=== PATIENT | male | born 1935 | race Caucasian/White ===

== ENCOUNTER 2017-02-10 03:14 | Inpatient (IN) | payer OTHER ==
--- NOTE | 2017-02-10 03:20 | PDOC ---
History of Present Illness - General History Source: Family (daughter) Exam Limitations: Clinical Condition - History of Present Illness Initial Comments: 02/10/17 05:02 The patient is a 81 year old male with significant past medical history of hypertension, hyperlipidemia, CHF, CAD, s/p stent several years ago, parkinson, and colon cancer (s/p chemotherapy and surgery) who presents to the ED BIBA from home for fever, diaphoresis, and chills. As per daughter, at bedside, she was at home when she received a call from her mother (patients ) and was informed that the patient was shaking with the chills. Daughter went to patient s house and noted patient was diaphoretic. She reports a fever tmax of 39.5 C. Daughter also states patient has not had a bowel movement in 4 days. Family gave him an enema earlier today and patient was able to pass stool. Denies cough , SOB, vomiting, or any urinary complaints. Allergies: NKDA Social History: No alcohol, tobacco, or drug use reported. Past Surgical History: Colectomy, prostate surgery, PCI with stent, inguinal hernia repair, R hip replacement PCP: Dr. Nicholas Putnam <Paola Haque - Last Filed: 02/10/17 06:13> <Silke Maya - Last Filed: 02/10/17 20:43> - General Stated Complaint: FEVER/HIGH BLOOD PRESSURE Time Seen by Provider: 02/10/17 03:19 Past History <Paola Haque - Last Filed: 02/10/17 06:13> - Past Medical History Anemia: No Asthma: No Cancer: Yes (colon CA) Cardiac Disorders: Yes (hx RI c stent x 15 years ago) CVA: No COPD: No CHF: Yes Dementia: Yes Diabetes: No GI Disorders: Yes (H/O COLON CA) Disorders: No HTN: Yes Hypercholesterolemia: Yes Liver Disease: No Seizures: No Thyroid Disease: Yes (HYPOTHYROID) Lung CA: Yes (colon x 15 years) - Surgical History Abdominal Surgery: Yes (ABD HERNIA REPAIR 4 WEEKS AGO) Appendectomy: No Cardiac Surgery: Yes (stent x 15 years ago) Cholecystectomy: No Lung Surgery: No Neurologic Surgery: No Orthopedic Surgery: Yes (Right hip replacement) - Psycho/Social/Smoking Cessation Hx Anxiety: No Suicidal Ideation: No Smoking History: Unknown if ever smoked Have you smoked in the past 12 months: No If you are a former smoker, when did you quit?: 50YRS AGO Hx Alcohol Use: Yes (OCCAS) Drug/Substance Use Hx: No Substance Use Type: Alcohol <Silke Maya - Last Filed: 02/10/17 20:43> - Past Medical History Allergies/Adverse Reactions: Allergies Allergy/AdvReac Type Severity Reaction Status Date / Time No Known Drug Allergies Allergy Verified 02/10/17 05:26 Home Medications: Ambulatory Orders Carbidopa/Levodopa *Cr* 25/100 [Sinemet *Cr* 25/100 -] 1 combo PO TID@0700,1200, 1700 tablet.er 07/14/15 Rosuvastatin [Crestor -] 10 mg PO HS tablet 07/14/15 Polyethylene Glycol 3350 [Miralax (For Bowel Prep) -] 17 gm PO BID 02/10/17 Review of Systems - Review of Systems Able to Perform ROS?: No Comments:: 02/10/17 05:03 Unable to obtain secondary to clinical condition <Paola Haque - Last Filed: 02/10/17 06:13> *Physical Exam - Vital Signs Last Vital Signs Temp Pulse Resp BP Pulse Ox 103.8 F H 94 H 20 116/55 95 02/10/17 04:02 02/10/17 04:02 02/10/17 04:02 02/10/17 04:02 02/10/17 04:02 - Physical Exam Comments: 02/10/17 05:03 GENERAL: Febrile. Well developed, well nourished. No acute distress. HEENT: Normocephalic, atraumatic. PERRLA, EOMI. No conjunctival pallor. Sclera are non- icteric. Moist mucous membranes. Oropharynx is clear. NECK: Supple. Full ROM. No JVD. Carotid pulses 2+ and symmetric, without bruits. No thyromegaly. No lymphadenopathy. CARDIOVASCULAR: Regular rate and rhythm. No murmurs, rubs, or gallops. Distal pulses are 2+ and symmetric. PULMONARY: No evidence of respiratory distress. Lungs clear to auscultation bilaterally. No wheezing, rales or rhonchi. ABDOMINAL: Soft. Diffusely tender. Non-distended. No rebound or guarding. No organomegaly. Increased bowel sounds throughout. MUSCULOSKELETAL No bony deformities or tenderness. No CVA tenderness. EXTREMITIES: No cyanosis. No clubbing. No edema. No calf tenderness. SKIN: Warm and dry. Normal capillary refill. Slight petechial rash limited to dorsal aspect of left foot. No jaundice. NEUROLOGICAL: AMS as per daughter. Total body stiffness secondary to Parkinson. <Paola Haque - Last Filed: 02/10/17 06:13> ED Treatment Course - LABORATORY CBC & Chemistry Diagram: 02/10/17 04:00 02/10/17 04:00 - ADDITIONAL ORDERS Additional order review: Laboratory Results 02/10/17 02/10/17 04:25 04:00 INR 1.15 H Urine Color Yellow Urine Appearance Slcloudy Urine pH 6.0 Urine Protein 1+ H Urine Glucose (UA) Negative Urine Ketones Trace H Urine Blood 2+ H Urine Nitrite Positive Urine Bilirubin Negative Urine Urobilinogen Negative Ur Leukocyte Esterase 3+ H Urine RBC 36 Urine WBC 228 Ur Epithelial Cells Rare Urine Bacteria Moderate Urine Mucus Rare Urine Yeast Moderate 02/10/17 04:00 RBC 4.06 MCV 88.9 MCHC 33.1 RDW 15.0 MPV 8.7 Neutrophils % 95.4 H Lymphocytes % 2.9 L D Monocytes % 1.2 L D Eosinophils % 0.3 D Basophils % 0.2 - RADIOLOGY Radiograph Interpretation: 02/10/17 06:13 EXAM: HEAD CT WITHOUT CONTRAST Reviewed by Imaging low emission automobile designer: FINDINGS:Brain parenchyma is normal in attenuation with no mass or hematoma. There is no midline shift. Hewitt and white matter differentiation is normal. There is a small amount of periventricular lucency in the white matter. Sulci and ventricles are mildly prominent Intracranial vascular structures are normal in attenuation. There is no calvarial fracture. Paranasal sinuses are normally aerated. IMPRESSION: Chronic appearing involutional changes of aging. No intracranial mass or bleed - Medications Given in the ED: ED Medications Discontinued Medications Generic Name Dose Route Start Last Admin Trade Name Freq PRN Reason Stop Dose Admin Acetaminophen 1,000 mg 02/10/17 03:55 02/10/17 04:00 Ofirmev Injection - IVPB 02/10/17 03:56 1,000 mg ONCE ONE Administration Levofloxacin 100 mls @ 100 mls/hr 02/10/17 03:22 02/10/17 04:00 Levaquin 500 Mg Premixed Ivpb - IVPB 02/10/17 04:21 100 mls/hr ONCE ONE Administration Piperacillin Sod/Tazobactam 50 mls @ 100 mls/hr 02/10/17 03:55 02/10/17 04:00 Sod 3.375 gm/ Dextrose IVPB 02/10/17 04:24 100 mls/hr ONCE ONE Administration Protocol Sodium Chloride 1,000 ml 02/10/17 03:22 02/10/17 04:00 Normal Saline - IV 02/10/17 03:23 1,000 ml ONCE ONE Administration <Paola Haque - Last Filed: 02/10/17 06:13> - LABORATORY CBC & Chemistry Diagram: 02/10/17 04:00 02/10/17 04:00 <Silke Maya - Last Filed: 02/10/17 20:43> Medical Decision Making - Medical Decision Making 02/10/17 05:[address] Nicholas Putnam (via answering service) at 5:08 and patient's case discussed. <Paola Haque - Last Filed: 02/10/17 06:13> - Medical Decision Making 02/10/17 06:19 Patient Name: Alvin Haynes THIS IS A PRELIMINARY REPORT FROM [facility] DATE OF SERVICE: 2017-02-10 05:20:17.0 IMAGES: 434 EXAM: HEAD CT WITHOUT CONTRAST HISTORY:Altered mental status COMPARISON: None. TECHNIQUE: CT Head with serial axial images extending from the vertex to the base of skull was performed without vascular contrast. FINDINGS:Brain parenchyma is normal in attenuation with no mass or hematoma. There is no midline shift. Hewitt and white matter differentiation is normal. There is a small amount of periventricular lucency in the white matter. Sulci and ventricles are mildly prominent Intracranial vascular structures are normal in attenuation. There is no calvarial fracture. Paranasal sinuses are normally aerated. IMPRESSION: Chronic appearing involutional changes of aging. No intracranial mass or bleed THIS DOCUMENT HAS BEEN ELECTRONICALLY SIGNED 02/10/17 20:39 Pt arrives septic and confused. His body is stiff, but it is secondary to not having his sinemet. Pt has a hx of Parkinson's Disease. He has UTI, with nitrite positive urine. His AMS is likely due to the 4-5 days of infection brewing in his body; head CT is normal. CXR normal, same as old; no sign of pneumonia. Pt is very dry; mucus menbranes dry; he was given 2 L NSS, some urine output. Clears with fluid. Abd CT was ordered, as pt has a hx of colon ca, resection, and 4 days of constipation -- relieved prior to arrival with multiple enemas that allowed him to move his bowels. Pt may have a colitis. After panculturing the patient, we treated with levaquin and zosyn. Dr Putnam is aware of the patient, and as I left the ER this AM, he was at the bedside evaluating the patient. <Silke Maya - Last Filed: 02/10/17 20:43> *DC/Admit/Observation/Transfer - Attestations Scribe Attestion: 02/10/17 05:03 Documentation prepared by Paola Haque, acting as medical scientist for Silke Maya MD/DO. <Paola Haque - Last Filed: 02/10/17 06:13> - Discharge Dispostion Admit: Yes <Silke Maya - Last Filed: 02/10/17 20:43> Diagnosis at time of Disposition: UTI (lower urinary tract infection) Sepsis Qualifiers: Sepsis type: sepsis due to unspecified organism Qualified Code(s): A41.9 - Sepsis, unspecified organism Altered mental status Qualifiers: Altered mental status type: delirium Qualified Code(s): R41.0 - Disorientation , unspecified - Referrals
[2017-02-10] MEDS ORDERED: LEVOFLOXACIN 500 MG IVPB 100 ML IVPB ONE ×2 (03:22→04:13)
[2017-02-10] MEDS ORDERED: SODIUM CHLORIDE 0.9% 500 ML INFUS.BAG IV ONE ×2 (03:22→04:56)
[2017-02-10] MEDS ORDERED: ACETAMINOPHEN 1000 MG/100 ML VIAL (NON FORMULARY) IVPB ONE (03:55)
[2017-02-10] MEDS ORDERED: PIPERACILLIN/TAZOB 3.375 GM 3.375 GM in DEXTROSE 5%-WATER - 50 ML IVPB ONE (03:55)
[2017-02-10] MEDS ORDERED: ACETAMINOPHEN INJECTION 100 ML IVPB ONE (04:12)
[2017-02-10] MEDS ORDERED: PIPERACILLIN/TAZOB 3.375 GM 50 ML IVPB ONE (04:13)
[2017-02-10 04:20] LABS: BASOPHIL 0.2 % (0-2.0); EOSINOPHIL 0.3 % (0-4.5); MCH 29.4 pg (25.7-33.7); MCHC 33.1 g/dl (32.0-35.9); MEAN CELL VOLUME 88.9 fl (80-96); MEAN PLT VOLUME 8.7 fl (7.5-11.1); NEUTROPHILS 95.4 % (42.8-82.8); PLATELET COUNT 189 K/MM3 (134-434); WHITE BLOOD COUNT 10.3 K/mm3 (4.0-10.0)
[2017-02-10 04:34] LABS: INR 1.15 (0.82-1.09); PROTHROMBIN TIME (PATIENT) 12.7 SEC (9.98-11.88)
[2017-02-10 04:37] LABS: URINE APPEARANCE SLCLOUDY; URINE BILIRUBIN NEGATIVE (NEGATIVE); URINE COLOR YELLOW; URINE GLUCOSE (UA) NEGATIVE (NEGATIVE); URINE KETONE TRACE (NEGATIVE); URINE NITRITE POSITIVE (NEGATIVE); URINE UROBILINOGEN NEGATIVE E.U./dl (0.2-1.0)
[2017-02-10 04:59] LABS: URINE BLOOD 2+ (NEGATIVE); URINE LEUK ESTERASE 3+ (NEGATIVE); URINE PROTEIN 1+ (NEGATIVE)
[2017-02-10 05:01] LABS: URINE BACTERIA MODERATE /hpf (NONE SEEN); URINE MUCUS RARE; URINE RBC 36 /hpf (0-3); URINE WBC 228 /hpf (3-5); YEAST MODERATE
[2017-02-10 05:04] LABS: ALBUMIN 3.6 g/dl (3.4-5.0); BILIRUBIN,TOTAL 0.5 mg/dL (0.2-1.0); CALCIUM 8.4 mg/dL (8.5-10.1); COCKROFT - GAULT 35.9; CREATININE 1.5 mg/dL (0.7-1.3); TOT PROT 6.8 g/dl (6.4-8.2)
[2017-02-10] MEDS ORDERED: CARBIDOPA/LEVODOPA 25/100 TABLET (FP) ONE (05:46)
[2017-02-10] MEDS ORDERED: IBUPROFEN 600 MG TABLET (FP) PO ONE (06:52)
[2017-02-10] MEDS ORDERED: BISACODYL 10 MG SUPP.RECT RC PRN (07:19)
--- NOTE | 2017-02-10 07:22 | HP ---
Admitting History and Physical - Admission Chief Complaint: 81 y.o vanna Sood with advanced Parkinson's disease was admitted to [facility] with high fevers, mental status change and no BM for 5 days despite oral Miralax. In ER 103.8F, UA-many WBC, cloudy-pt was admitted for further management History of Present Illness: COLON ca s/p sx, chemo. Parkinson disease. Autonomic dysfunction. ASHD. BPH. HTN Glaucoma History Source: Family Member - Past Medical History GLASS TUBE BENDER: Yes: Peripheral Neuropathy, Parkinson's, Syncope Cardiovascular: Yes: OK Pulmonary: Yes: COPD Gastrointestinal: Yes: Cancer (colon) Renal/: Yes: BPH Heme/Onc: Yes: Cancer (Colon). No: Current Chemotherapy, Current Radiation Therapy, Hemochromatosis, Hypercoaguable State, Sickle Cell Trait Psych: Yes: Depression Musculoskeletal: Yes: Osteoarthritis - Past Surgical History Past Surgical History: Yes: Colectomy, Joint Replacement (R THR) - Smoking History Smoking history: Unknown if ever smoked Have you smoked in the past 12 months: No If you are a former smoker, when did you quit?: 50YRS AGO - Alcohol/Substance Use Hx Alcohol Use: Yes (OCCAS) - Social History Usual Living Arrangement: Yes: With Spouse, With Child ADL: Family Assistance Occupation: originally from [place] [facility] [place] years History of Recent Travel: No Home Medications - Allergies Allergies/Adverse Reactions: Allergies Allergy/AdvReac Type Severity Reaction Status Date / Time No Known Drug Allergies Allergy Verified 02/10/17 05:26 - Home Medications Home Medications: Ambulatory Orders Carbidopa/Levodopa *Cr* 25/100 [Sinemet *Cr* 25/100 -] 1 combo PO TID@0700,1200, 1700 tablet.er 07/14/15 Rosuvastatin [Crestor -] 10 mg PO HS tablet 07/14/15 Polyethylene Glycol 3350 [Miralax (For Bowel Prep) -] 17 gm PO BID 02/10/17 Family Disease History - Family Disease History Family History: Unremarkable Review of Systems Unable to obtain ROS, reason: Toxic-metabolic encephalo Physical Examination Vital Signs: Vital Signs Temperature 99.8 F H 02/10/17 06:54 Pulse Rate 104 H 02/10/17 06:54 Respiratory Rate 23 02/10/17 06:54 Blood Pressure 113/61 02/10/17 06:54 O2 Sat by Pulse Oximetry (%) 96 02/10/17 06:54 Constitutional: Yes: Moderate Distress, Pallor, Thin Eyes: Yes: Conjunctiva Clear, PERRL. No: Sclera Icterus, Tearing HENT: Yes: Atraumatic, Normocephalic Neck: Yes: Supple, Trachea Midline. No: Lymphadenopathy, Tenderness Cardiovascular: Yes: Regular Rate and Rhythm. No: Bradycardia, Tachycardia, JVD , Gallop Respiratory: Yes: Regular, CTA Bilaterally, On Nasal O2. No: Accessory Muscle Use, Bradypnea, Jose Guadalupe-Begum, Mechanically Ventilated, Stridor, Tachypnea, Wheezes Gastrointestinal: Yes: Normal Bowel Sounds, Soft, Other (Midline scar post colectomy). No: Abdomen, Obese, Palpable Mass, Splenomegaly, Tenderness, Tenderness, Epigastrium, Vomiting ...Rectal Exam: Yes: Sphincter Tone Poor, Other (small amount of yellow soft stool). No: Mass Renal/: No: Anuria, Bladder Distention, CVA Tenderness - Left, CVA Tenderness - Right Musculoskeletal: Yes: Joint Stiffness Edema: No Peripheral Pulses WNL: Yes Integumentary: Yes: WNL Neurological: Yes: Alert (Arousable), Tremors. No: Oriented, Seizure Psychiatric: Yes: Alert. No: Oriented, Agitated, Suicidal Ideation Labs: Laboratory Results - last 24 hr 02/10/17 02/10/17 02/10/17 04:00 04:00 04:00 WBC 10.3 H D RBC 4.06 Hgb 11.9 D Hct 36.1 MCV 88.9 MCHC 33.1 RDW 15.0 Plt Count 189 MPV 8.7 Neutrophils % 95.4 H Lymphocytes % 2.9 L D Monocytes % 1.2 L D Eosinophils % 0.3 D Basophils % 0.2 INR 1.15 H Sodium 142 Potassium 4.2 Chloride 107 Carbon Dioxide 26 Anion Gap 9 BUN 26 H D Creatinine 1.5 H D Creat Clearance w eGFR 44.69 Random Glucose 102 Lactic Acid Calcium 8.4 L Total Bilirubin 0.5 D AST 16 ALT 15 D Alkaline Phosphatase 83 Total Protein 6.8 Albumin 3.6 Urine Color Urine Appearance Urine pH Urine Protein Urine Glucose (UA) Urine Ketones Urine Blood Urine Nitrite Urine Bilirubin Urine Urobilinogen Ur Leukocyte Esterase Urine RBC Urine WBC Ur Epithelial Cells Urine Bacteria Urine Mucus Urine Yeast 02/10/17 02/10/17 04:00 04:25 WBC RBC Hgb Hct MCV MCHC RDW Plt Count MPV Neutrophils % Lymphocytes % Monocytes % Eosinophils % Basophils % INR Sodium Potassium Chloride Carbon Dioxide Anion Gap BUN Creatinine Creat Clearance w eGFR Random Glucose Lactic Acid 1.3 Calcium Total Bilirubin AST ALT Alkaline Phosphatase Total Protein Albumin Urine Color Yellow Urine Appearance Slcloudy Urine pH 6.0 Urine Protein 1+ H Urine Glucose (UA) Negative Urine Ketones Trace H Urine Blood 2+ H Urine Nitrite Positive Urine Bilirubin Negative Urine Urobilinogen Negative Ur Leukocyte Esterase 3+ H Urine RBC 36 Urine WBC 228 Ur Epithelial Cells Rare Urine Bacteria Moderate Urine Mucus Rare Urine Yeast Moderate Imaging - Results X-ray: Report Reviewed Cat Scan: Pending Problem List - Problems (1) Altered mental status Assessment/Plan: Toxic-metabolic encephalopathy. Will treat sepsis, UTI Code(s): R41.82 - ALTERED MENTAL STATUS, UNSPECIFIED Qualifiers: Altered mental status type: delirium Qualified Code(s): R41.0 - Disorientation, unspecified (2) Sepsis Assessment/Plan: Blood Cx-P UA cx-P IV Abx-Ceftiaxone/Levaquin Will follow Cx Code(s): A41.9 - SEPSIS, UNSPECIFIED ORGANISM Qualifiers: Sepsis type: sepsis due to unspecified organism Qualified Code(s): A41.9 - Sepsis, unspecified organism (3) UTI (lower urinary tract infection) Assessment/Plan: Probably due to episode of prolonged constipation, possibly urinary retention due to BPH and neurogenic bladder due to Parkinson's IV ABX, will follow UA Code(s): N39.0 - URINARY TRACT INFECTION, SITE NOT SPECIFIED (4) Constipation Assessment/Plan: Restart Miralax, Dulcolax, MOM. No impaction in rectum on exam. Code(s): K59.00 - CONSTIPATION, UNSPECIFIED Qualifiers: Constipation type: slow transit constipation Qualified Code(s): K59.01 - Slow transit constipation (5) Acute renal insufficiency Assessment/Plan: DEACON due to obstructive uropathy. White in place. Will follow BUN/Cr. Code(s): N28.9 - DISORDER OF KIDNEY AND URETER, UNSPECIFIED
[2017-02-10] MEDS: D5-1/2NS+20 MEQ KCL - 1,000 ML IV SCH ×2 (07:28→20:17)
[2017-02-10] MEDS ORDERED: SODIUM CHLORIDE 0.9% 1000 ML INFUS.BAG IV ONE (07:35)
--- NOTE | 2017-02-10 09:16 | EKG ---
Test Reason : Blood Pressure : / mmHG Vent. Rate : 089 BPM Atrial Rate : 089 BPM P-R Int : 184 ms QRS Dur : 076 ms QT Int : 362 ms P-R-T Axes : 072 -16 067 degrees QTc Int : 440 ms SINUS RHYTHM WITH PREMATURE ATRIAL COMPLEXES WHEN COMPARED WITH ECG OF 07-JUL-2015 15:05, PREMATURE ATRIAL COMPLEXES ARE NOW PRESENT NON-SPECIFIC CHANGE IN ST SEGMENT IN LATERAL LEADS Confirmed by ARTUR WATSON MD ([id number]) on 02/10/2017 9:15:50 AM Referred By: Confirmed By:ARTUR WATSON MD
[2017-02-10 09:23] VITALS: BMI 21.9
[2017-02-10] MEDS: CEFTRIAXONE 50 ML IVPB SCH (10:08)
[2017-02-10] MEDS: POLYETHYLENE GLYCOL 3350 119 GM BTL PO SCH ×2 (10:08→21:35)
[2017-02-10] MEDS: MAGNESIUM HYDROX 2400MG/30ML ORAL SUSPENSION 30 ML CUP PO SCH (10:08)
[2017-02-10] MEDS ORDERED: PEG3350/SOD SULF,BICARB,CL/KCL 4,000 ML SOLN.RECON PO ONE (21:49)
[2017-02-11] MEDS: D5-1/2NS+20 MEQ KCL - 1,000 ML IV SCH ×2 (06:01→17:05)
[2017-02-11 07:53] LABS: BASOPHIL 0.2 % (0-2.0); EOSINOPHIL 0.6 % (0-4.5); MCH 29.6 pg (25.7-33.7); MCHC 33.2 g/dl (32.0-35.9); MEAN CELL VOLUME 89.2 fl (80-96); MEAN PLT VOLUME 8.5 fl (7.5-11.1); NEUTROPHILS 86.2 % (42.8-82.8); PLATELET COUNT 147 K/MM3 (134-434); RDW 15.5 % (11.9-15.9); WHITE BLOOD COUNT 14.8 K/mm3 (4.0-10.0)
[2017-02-11 08:15] LABS: ALBUMIN 2.9 g/dl (3.4-5.0); ALK PHOS 65 U/L (45-117); ANION GAP 8 (8-16); BILIRUBIN,TOTAL 0.5 mg/dL (0.2-1.0); CO2 25 mmol/L (21-32); COCKROFT - GAULT 39.2; CREATININE 1.3 mg/dL (0.7-1.3); GLUCOSE,RANDOM 92 mg/dL (74-106); MAGNESIUM 2.3 mg/dL (1.8-2.4); PHOSPHOROUS 1.9 mg/dL (2.5-4.9); SGOT/AST 14 U/L (15-37); SGPT/ALT < 6 U/L (12-78); TOT PROT 5.8 g/dl (6.4-8.2)
[2017-02-11] MEDS: POLYETHYLENE GLYCOL 3350 119 GM BTL PO SCH ×2 (09:37→21:38)
[2017-02-11] MEDS: MAGNESIUM HYDROX 2400MG/30ML ORAL SUSPENSION 30 ML CUP PO SCH (09:40)
[2017-02-11] MEDS: LEVOFLOXACIN 250 MG IVPB 50 ML IVPB SCH (09:41)
[2017-02-11] MEDS: CEFTRIAXONE 50 ML IVPB SCH (09:42)
--- NOTE | 2017-02-11 15:01 | PN ---
Progress Note, Physician Chief Complaint: Awake, alert, NAD, afebrile. History of Present Illness: COLON ca s/p sx, chemo. Parkinson disease. Autonomic dysfunction. ASHD. BPH. HTN Glaucoma - Current Medication List Current Medications: Active Medications Bisacodyl (Dulcolax Suppository -) 10 mg RC DAILY [facility] Carbidopa/Levodopa (Sinemet *Cr* 25/100 -) 1 combo PO TID [facility] Last Admin: 02/11/17 14:13 Dose: 1 combo Potassium Chloride/Dextrose/Sod Cl (D5-1/2ns+20 Meq Kcl -) 1,000 mls @ 100 mls/ hr IV ASDIR [facility] Last Admin: 02/11/17 06:01 Dose: 100 mls/hr Ceftriaxone Sodium (Rocephin 1gm Ivpb (Pre-Docked)) 50 mls @ 100 mls/hr IVPB DAILY [facility] Last Admin: 02/11/17 09:42 Dose: 100 mls/hr Levofloxacin (Levaquin 250 Mg Premixed Ivpb -) 50 mls @ 50 mls/hr IVPB DAILY [facility] Last Admin: 02/11/17 09:41 Dose: 50 mls/hr Magnesium Hydroxide (Milk Of Magnesia -) 30 ml PO DAILY [facility] Last Admin: 02/11/17 09:40 Dose: 30 ml Polyethylene Glycol (Miralax (For Daily Use) -) 17 gm PO BID [facility] Last Admin: 02/11/17 09:37 Dose: 17 gm Potassium Phos/Sodium Phos (Phos-Nak Packet -) 1 packet PO DAILY [facility] - Objective Vital Signs: Vital Signs Temperature 98.1 F 02/11/17 10:00 Pulse Rate 83 02/11/17 10:00 Respiratory Rate 18 02/11/17 10:00 Blood Pressure 150/90 02/11/17 10:00 O2 Sat by Pulse Oximetry (%) 96 02/11/17 09:00 Constitutional: Yes: No Distress, Pallor, Thin Eyes: Yes: Conjunctiva Clear, EOM Intact HENT: Yes: Atraumatic, Normocephalic Neck: Yes: Supple, Trachea Midline Cardiovascular: Yes: Regular Rate and Rhythm. No: JVD Respiratory: Yes: Regular, CTA Bilaterally Gastrointestinal: Yes: Normal Bowel Sounds, Soft. No: Abdomen, Obese, Ascites Genitourinary: No: Anuria Breast(s): Yes: WNL Musculoskeletal: Yes: Joint Stiffness Extremities: No: Calf Tenderness, Cold, Cyanosis Edema: No Integumentary: Yes: WNL Neurological: Yes: Alert, Tremors, Weakness. No: Oriented, Aphasia, Asterixis, Lethargy, Seizure, Unresponsive Psychiatric: Yes: Alert. No: Oriented, Agitated, Suicidal Ideation Labs: CBC, BMP 02/11/17 06:30 02/11/17 06:30 INR, PTT INR 1.15 (0.82-1.09) H 02/10/17 04:00 Laboratory Results - last 24 hr 02/11/17 02/11/17 06:30 06:30 WBC 14.8 H D RBC 3.65 L Hgb 10.8 L Hct 32.5 L MCV 89.2 MCHC 33.2 RDW 15.5 Plt Count 147 D MPV 8.5 Neutrophils % 86.2 H Lymphocytes % 6.5 L D Monocytes % 6.5 D Eosinophils % 0.6 D Basophils % 0.2 Sodium 141 Potassium 4.0 Chloride 108 H Carbon Dioxide 25 Anion Gap 8 BUN 21 H Creatinine 1.3 Creat Clearance w eGFR 52.72 Random Glucose 92 Calcium 8.0 L Phosphorus 1.9 L Magnesium 2.3 Total Bilirubin 0.5 AST 14 L ALT < 6 L D Alkaline Phosphatase 65 D Total Protein 5.8 L Albumin 2.9 L - ....Imaging Chest X-ray: Report Reviewed Cat Scan: Report Reviewed (Abdomen/pelvis-fecal impaction?) Problem List - Problems (1) Altered mental status Assessment/Plan: Toxic-metabolic encephalopathy-improved. Continue to treat sepsis, UTI Code(s): R41.82 - ALTERED MENTAL STATUS, UNSPECIFIED Qualifiers: Altered mental status type: delirium Qualified Code(s): R41.0 - Disorientation, unspecified (2) Sepsis Assessment/Plan: WBC increased but the pt clinically is better Blood Cx-P UA cx-P IV Abx-Ceftiaxone/Levaquin Will follow Cx Code(s): A41.9 - SEPSIS, UNSPECIFIED ORGANISM Qualifiers: Sepsis type: sepsis due to unspecified organism Qualified Code(s): A41.9 - Sepsis, unspecified organism (3) UTI (lower urinary tract infection) Assessment/Plan: Probably due to episode of prolonged constipation, possibly urinary retention due to BPH and neurogenic bladder due to Parkinson's IV ABX, will follow UA Code(s): N39.0 - URINARY TRACT INFECTION, SITE NOT SPECIFIED (4) Constipation Assessment/Plan: Fecal impactio-resolving with laxatives Restart Miralax, Dulcolax, MOM. No impaction in rectum on exam. Code(s): K59.00 - CONSTIPATION, UNSPECIFIED Qualifiers: Constipation type: slow transit constipation Qualified Code(s): K59.01 - Slow transit constipation (5) Acute renal insufficiency Assessment/Plan: Creatinine improved from 1.5 to 1.3 Will follow BUN/Creat/ Code(s): N28.9 - DISORDER OF KIDNEY AND URETER, UNSPECIFIED
[2017-02-11] MEDS: COSOPT OU SCH (22:19)
[2017-02-12] MEDS: D5-1/2NS+20 MEQ KCL - 1,000 ML IV SCH (06:17)
[2017-02-12] MEDS ORDERED: LEVOTHYROXINE NA 50 MCG TABLET (FP) PO SCH (07:00)
[2017-02-12 07:16] LABS: BASOPHIL 0.2 % (0-2.0); EOSINOPHIL 0.9 % (0-4.5); MCH 29.8 pg (25.7-33.7); MCHC 33.3 g/dl (32.0-35.9); MEAN CELL VOLUME 89.4 fl (80-96); NEUTROPHILS 85.9 % (42.8-82.8); PLATELET COUNT 160 K/MM3 (134-434); RDW 15.4 % (11.9-15.9); WHITE BLOOD COUNT 12.9 K/mm3 (4.0-10.0)
--- NOTE | 2017-02-12 07:30 | PN ---
Progress Note, Physician Chief Complaint: Awake, alert, NAD, afebrile. History of Present Illness: COLON ca s/p sx, chemo. Parkinson disease. Autonomic dysfunction. ASHD. BPH. HTN Glaucoma - Current Medication List Current Medications: Active Medications Bisacodyl (Dulcolax Suppository -) 10 mg RC DAILY [facility] Carbidopa/Levodopa (Sinemet *Cr* 25/100 -) 1 combo PO TID [facility] Last Admin: 02/12/17 06:19 Dose: 1 combo Potassium Chloride/Dextrose/Sod Cl (D5-1/2ns+20 Meq Kcl -) 1,000 mls @ 100 mls/ hr IV ASDIR [facility] Last Admin: 02/12/17 06:17 Dose: 100 mls/hr Ceftriaxone Sodium (Rocephin 1gm Ivpb (Pre-Docked)) 50 mls @ 100 mls/hr IVPB DAILY [facility] Last Admin: 02/11/17 09:42 Dose: 100 mls/hr Levofloxacin (Levaquin 250 Mg Premixed Ivpb -) 50 mls @ 50 mls/hr IVPB DAILY [facility] Last Admin: 02/11/17 09:41 Dose: 50 mls/hr Levothyroxine Sodium (Synthroid -) 50 mcg PO DAILY@0700 [facility] Last Admin: 02/12/17 06:19 Dose: 50 mcg Magnesium Hydroxide (Milk Of Magnesia -) 30 ml PO DAILY [facility] Last Admin: 02/11/17 09:40 Dose: 30 ml Cosopt Ophthalmic 1 each OU BID [facility] Last Admin: 02/11/17 22:19 Dose: 1 each Polyethylene Glycol (Miralax (For Daily Use) -) 17 gm PO BID [facility] Last Admin: 02/11/17 21:38 Dose: 17 gm Potassium Phos/Sodium Phos (Phos-Nak Packet -) 1 packet PO DAILY [facility] - Objective Vital Signs: Vital Signs Temperature 98.5 F 02/12/17 06:00 Pulse Rate 75 02/12/17 06:00 Respiratory Rate 18 02/12/17 06:00 Blood Pressure 168/88 02/12/17 06:00 O2 Sat by Pulse Oximetry (%) 97 02/11/17 20:51 Constitutional: Yes: No Distress, Calm Eyes: Yes: Conjunctiva Clear, EOM Intact HENT: Yes: Atraumatic, Normocephalic Neck: Yes: Supple, Trachea Midline, Decreased ROM, Rigid Cardiovascular: Yes: Regular Rate and Rhythm. No: Bradycardia, Tachycardia Respiratory: Yes: Regular, CTA Bilaterally Gastrointestinal: Yes: Normal Bowel Sounds, Soft. No: Abdomen, Obese, Ascites ...Rectal Exam: Yes: Deferred Genitourinary: No: Anuria Breast(s): Yes: WNL Extremities: No: Amputation, Calf Tenderness, Cyanosis, Deformity Edema: No Integumentary: Yes: WNL Neurological: Yes: Alert. No: Oriented, Aphasia, Lethargy, Seizure ...Motor Strength: WNL (UE/LE/Body stiffness due to Parkinson) Labs: CBC, BMP 02/12/17 06:15 INR, PTT INR 1.15 (0.82-1.09) H 02/10/17 04:00 Problem List - Problems (1) Altered mental status Assessment/Plan: Toxic-metabolic encephalopathy-Resolved Code(s): R41.82 - ALTERED MENTAL STATUS, UNSPECIFIED Qualifiers: Altered mental status type: delirium Qualified Code(s): R41.0 - Disorientation, unspecified (2) Sepsis Assessment/Plan: Resolved Code(s): A41.9 - SEPSIS, UNSPECIFIED ORGANISM Qualifiers: Sepsis type: sepsis due to unspecified organism Qualified Code(s): A41.9 - Sepsis, unspecified organism (3) UTI (lower urinary tract infection) Assessment/Plan: Will switch to PO Abx Blood cx-negative Code(s): N39.0 - URINARY TRACT INFECTION, SITE NOT SPECIFIED (4) Constipation Assessment/Plan: Fecal impactio-resolving with laxatives Restart Miralax, Dulcolax PRN Code(s): K59.00 - CONSTIPATION, UNSPECIFIED Qualifiers: Constipation type: slow transit constipation Qualified Code(s): K59.01 - Slow transit constipation (5) Acute renal insufficiency Assessment/Plan: Creatinine improved from 1.5 to 1.3 Code(s): N28.9 - DISORDER OF KIDNEY AND URETER, UNSPECIFIED
--- NOTE | 2017-02-12 07:40 | DS ---
Physical Examination Vital Signs: Vital Signs Temperature 98.5 F 02/12/17 06:00 Pulse Rate 75 02/12/17 06:00 Respiratory Rate 18 02/12/17 06:00 Blood Pressure 168/88 02/12/17 06:00 O2 Sat by Pulse Oximetry (%) 97 02/11/17 20:51 Constitutional: Yes: No Distress, Calm Eyes: Yes: Conjunctiva Clear, EOM Intact HENT: Yes: Atraumatic, Normocephalic Neck: Yes: Decreased ROM, Rigid. No: Lymphadenopathy, Tenderness, Thyromegaly Cardiovascular: Yes: Regular Rate and Rhythm Respiratory: Yes: Regular, CTA Bilaterally Gastrointestinal: Yes: Normal Bowel Sounds, Soft. No: Abdomen, Obese, Ascites ...Rectal Exam: Yes: Deferred Renal/: No: Anuria Breast(s): Yes: WNL Musculoskeletal: Yes: Muscle Weakness. No: Back Pain, Joint Swelling, Muscle Pain Extremities: No: Calf Tenderness, Cold, Cyanosis, Deformity Edema: No Integumentary: Yes: WNL Neurological: Yes: Alert. No: Oriented, Aphasia, Lethargy, Seizure Psychiatric: Yes: Alert. No: Oriented, Agitated Labs: CBC, BMP 02/12/17 06:15 Laboratory Results - last 24 hr 02/11/17 02/11/17 02/12/17 06:30 06:30 06:15 WBC 14.8 H D 12.9 H RBC 3.65 L 3.98 L Hgb 10.8 L 11.9 D Hct 32.5 L 35.6 MCV 89.2 89.4 MCHC 33.2 33.3 RDW 15.5 15.4 Plt Count 147 D 160 MPV 8.5 9.0 Neutrophils % 86.2 H 85.9 H Lymphocytes % 6.5 L D 7.6 L Monocytes % 6.5 D 5.4 Eosinophils % 0.6 D 0.9 Basophils % 0.2 0.2 Sodium 141 Potassium 4.0 Chloride 108 H Carbon Dioxide 25 Anion Gap 8 BUN 21 H Creatinine 1.3 Creat Clearance w eGFR 52.72 Random Glucose 92 Calcium 8.0 L Phosphorus 1.9 L Magnesium 2.3 Total Bilirubin 0.5 AST 14 L ALT < 6 L D Alkaline Phosphatase 65 D Total Protein 5.8 L Albumin 2.9 L Discharge Summary Reason For Visit: ALTERED MENTAL STATUS/ PARKINSON'S/UTI AMS SEPSIS Current Active Problems Acute renal insufficiency (Acute) Altered mental status (Acute) Sepsis (Acute) UTI (lower urinary tract infection) (Acute) Condition: Improved - Instructions Referrals: Nicholas Putnam MD [Primary Care Provider] - Disposition: HOME - Home Medications Comprehensive Discharge Medication List: Ambulatory Orders Carbidopa/Levodopa *Cr* 25/100 [Sinemet *Cr* 25/100 -] 1 combo PO TID@0700,1200, 1700 tablet.er 07/14/15 Rosuvastatin [Crestor -] 10 mg PO HS tablet 07/14/15 Polyethylene Glycol 3350 [Miralax (For Bowel Prep) -] 17 gm PO BID 02/10/17 Dorzolamide HCl/Timolol Maleat [Cosopt Eye Drops] 1 drop OU BID 02/11/17 Levothyroxine [Synthroid -] 50 mcg PO DAILY 02/11/17
[2017-02-12 07:50] LABS: ALBUMIN 3.1 g/dl (3.4-5.0); ANION GAP 7 (8-16); CALCIUM 8.3 mg/dL (8.5-10.1); CO2 28 mmol/L (21-32); GLUCOSE,RANDOM 90 mg/dL (74-106)
[2017-02-12 07:54] LABS: ALK PHOS 75 U/L (45-117); BILIRUBIN,TOTAL 0.4 mg/dL (0.2-1.0); COCKROFT - GAULT 46.3; CREATININE 1.1 mg/dL (0.7-1.3); SGOT/AST 20 U/L (15-37); SGPT/ALT 15 U/L (12-78); TOT PROT 6.4 g/dl (6.4-8.2)
[2017-02-12 09:24] VITALS: BP 159/85; PULSE 78; TEMP 98.8
[2017-02-12] MEDS ORDERED: BISACODYL 10 MG SUPP.RECT RC SCH (10:00)
[2017-02-12] MEDS ORDERED: NAPH,MB-DB/K PH,MBDB POWDER PACKET PO SCH (10:00)
[2017-02-12] MEDS: LEVOFLOXACIN 250 MG IVPB 50 ML IVPB SCH (10:11)
[2017-02-12] MEDS: CEFTRIAXONE 50 ML IVPB SCH (10:11)
[2017-02-12] MEDS: MAGNESIUM HYDROX 2400MG/30ML ORAL SUSPENSION 30 ML CUP PO SCH (10:12)
[2017-02-12] MEDS: POLYETHYLENE GLYCOL 3350 119 GM BTL PO SCH (10:12)
[2017-02-12] MEDS: COSOPT OU SCH (10:17)
== END 2017-02-12 13:49 | disposition home or self-care (01) | DRG 871 ==
LOC: JER 03:14 → JERBED 06:20 → UNDOADMIN 06:35 → J6S 08:24
PROVIDERS: ADMIT Internal Medicine; ATTEND Internal Medicine
DX: A41.9 Sepsis, unspecified organism (principal); G93.41 Metabolic encephalopathy; N39.0 Urinary tract infection, site not specified; E78.5 Hyperlipidemia, unspecified; I25.10 Atherosclerotic heart disease of native coronary artery without angina pectoris; G20 Parkinson's disease; E03.9 Hypothyroidism, unspecified; G62.89 Other specified polyneuropathies; K46.9 Unspecified abdominal hernia without obstruction or gangrene; I25.2 Old myocardial infarction; G90.4 Autonomic dysreflexia; N40.0 Benign prostatic hyperplasia without lower urinary tract symptoms; M19.90 Unspecified osteoarthritis, unspecified site; H40.9 Unspecified glaucoma; F32.9 Major depressive disorder, single episode, unspecified; K59.00 Constipation, unspecified; N28.9 Disorder of kidney and ureter, unspecified; Z85.038 Personal history of other malignant neoplasm of large intestine; Z95.5 Presence of coronary angioplasty implant and graft; Z96.641 Presence of right artificial hip joint
CPT/HCPCS: 36415; 70450-TC; 71010-TC; 74176-TC; 80053; 81003; 81015; 83605; 83735; 84100; 85025; 85610; 87040; 87086; 93005; 93010; 99284-25; Q9967

== ENCOUNTER 2017-12-09 14:56 | Inpatient (IN) | payer OTHER ==
--- NOTE | 2017-12-09 15:14 | PDOC ---
History of Present Illness <Brendan Serra - Last Filed: 12/09/17 17:22> - History of Present Illness Initial Comments: 12/09/17 15:29 The patient is an 82 year old male with a history of HTN, HLD, CAD, Parkinson's Disease, CHF who presents for evaluation of AMS. The patient is accompanied by family who assist in providing the history. They report that the patient is usually able to get around his house and perform his activities of daily living with assistance, however over the past 1 day, the patient has become more lethargic and unable to function normally prompting his family to call EMS for presentation to the ED for evaluation. They note fevers at home as well as some cloudy urine. ROS is limited due to the patient's metal status. <Jose Elias Prasad - Last Filed: 12/10/17 11:56> - General Stated Complaint: HIGH FEVER Time Seen by Provider: 12/09/17 15:02 Past History <Brendan Serra - Last Filed: 12/09/17 17:22> - Past Medical History Anemia: No Asthma: No Cancer: Yes (colon CA) Cardiac Disorders: Yes (hx NV c stent x 15 years ago) CVA: No COPD: No CHF: Yes Dementia: Yes Diabetes: No GI Disorders: Yes (H/O COLON CA) Disorders: No HTN: Yes Hypercholesterolemia: Yes Liver Disease: No Seizures: No Thyroid Disease: Yes (HYPOTHYROID) Lung CA: Yes (colon x 15 years) - Surgical History Abdominal Surgery: Yes (ABD HERNIA REPAIR 4 WEEKS AGO) Appendectomy: No Cardiac Surgery: Yes (stent x 15 years ago) Cholecystectomy: No Lung Surgery: No Neurologic Surgery: No Orthopedic Surgery: Yes (Right hip replacement) - Immunization History Immunization Up to Date: No - Suicide/Smoking/Psychosocial Hx Smoking History: Unknown if ever smoked Have you smoked in the past 12 months: No If you are a former smoker, when did you quit?: 50YRS AGO Hx Alcohol Use: Yes (OCCAS) Drug/Substance Use Hx: No Substance Use Type: Alcohol <Jose Elias Prasad - Last Filed: 12/10/17 11:56> - Past Medical History Allergies/Adverse Reactions: Allergies Allergy/AdvReac Type Severity Reaction Status Date / Time No Known Drug Allergies Allergy Verified 02/10/17 05:26 Home Medications: Ambulatory Orders Carbidopa/Levodopa *Cr* 25/100 [Sinemet *Cr* 25/100 -] 1 combo PO TID@0700,1200, 1700 tablet.er 07/14/15 Rosuvastatin [Crestor -] 10 mg PO HS tablet 07/14/15 Polyethylene Glycol 3350 [Miralax 255 gm Btl -] 17 gm PO BID 02/10/17 Dorzolamide HCl/Timolol Maleat [Cosopt Eye Drops] 1 drop OU BID 02/11/17 Levothyroxine [Synthroid -] 50 mcg PO DAILY 02/11/17 Review of Systems - Review of Systems Able to Perform ROS?: No (AMS) <Jose Elias Prasad - Last Filed: 12/10/17 11:56> *Physical Exam - Vital Signs Last Vital Signs Temp Pulse Resp BP Pulse Ox 101.4 F H 80 16 129/60 100 12/09/17 16:03 12/09/17 16:44 12/09/17 16:44 12/09/17 16:44 12/09/17 16:44 <Brendan Serra - Last Filed: 12/09/17 17:22> - Physical Exam Comments: 12/09/17 15:33 General Appearance: Nourished. No Apparent Distress HEENT: EOMI, ANNE MARIE. No Pharyngeal Erythema, Tonsillar Exudate, Tonsillar Erythema Neck: No Cervical Lymphadenopathy Respiratory/Chest: Lungs Clear, Normal Breath Sounds. No Crackles, Rales, Rhonchi, Wheezing Cardiovascular: Regular Rhythm, Regular Rate. No Murmur, Gallops, Rubs Gastrointestinal/Abdominal: Normal Bowel Sounds, Soft. No Guarding, Rebound, Tenderness Musculoskeletal: No CVA Tenderness Extremity: Normal Capillary Refill Integumentary: Normal Color, Dry, Warm Neurologic: Arousable, altered, and minimally responsive. <Jose Elias Prasad - Last Filed: 12/10/17 11:56> ED Treatment Course - LABORATORY CBC & Chemistry Diagram: 12/09/17 15:36 12/09/17 15:36 - ADDITIONAL ORDERS Additional order review: Laboratory Results 12/09/17 12/09/17 12/09/17 15:36 15:36 15:36 PT with INR INR PTT (Actin FS) Sodium Cancelled Potassium Cancelled Chloride Cancelled Carbon Dioxide Cancelled Anion Gap Cancelled BUN Cancelled Creatinine Cancelled Creat Clearance w eGFR Cancelled Random Glucose Cancelled Lactic Acid 1.6 Calcium Cancelled Total Bilirubin Cancelled AST Cancelled ALT Cancelled Alkaline Phosphatase Cancelled Troponin I Total Protein Cancelled Albumin Cancelled Urine Color Radha Urine Appearance Turbid Urine pH 5.0 Ur Specific [place] 1.015 Urine Protein 2+ H Urine Glucose (UA) Negative Urine Ketones Trace H Urine Blood 2+ H Urine Nitrite Negative Urine Bilirubin Negative Urine Urobilinogen 2.0 Ur Leukocyte Esterase 3+ H Urine WBC (Auto) 1562 Urine RBC (Auto) 168 Amorphous Urates Many Urine Bacteria Many Urine Mucus Rare 12/09/17 12/09/17 15:36 15:30 PT with INR 13.20 H INR 1.17 H PTT (Actin FS) 25.4 L Sodium 145 Potassium 3.8 Chloride 110 H Carbon Dioxide 23 Anion Gap 12 BUN 25 H D Creatinine 1.7 H D Creat Clearance w eGFR 38.59 Random Glucose 103 Lactic Acid Calcium 8.8 Total Bilirubin 0.5 D AST 24 ALT 12 Alkaline Phosphatase 80 Troponin I 0.08 H D Total Protein 6.5 Albumin 3.2 L Urine Color Urine Appearance Urine pH Ur Specific [place] Urine Protein Urine Glucose (UA) Urine Ketones Urine Blood Urine Nitrite Urine Bilirubin Urine Urobilinogen Ur Leukocyte Esterase Urine WBC (Auto) Urine RBC (Auto) Amorphous Urates Urine Bacteria Urine Mucus 12/09/17 15:36 RBC 4.01 MCV 89.3 MCHC 33.5 RDW 15.1 MPV 8.0 D Neutrophils % No Result Required. Lymphocytes % No Result Required. - Medications Given in the ED: ED Medications Discontinued Medications Generic Name Dose Route Start Last Admin Trade Name Shelley PRN Reason Stop Dose Admin Acetaminophen 1,000 mg 12/09/17 16:09 12/09/17 16:27 Ofirmev Injection - IVPB 12/09/17 16:10 1,000 mg ONCE ONE Administration Sodium Chloride 500 mls @ 500 mls/hr 12/09/17 15:23 12/09/17 16:09 Normal Saline - IV 12/09/17 16:22 500 mls/hr ASDIR STA Administration <Brendan Serra - Last Filed: 12/09/17 17:22> - LABORATORY CBC & Chemistry Diagram: 12/10/17 06:45 12/10/17 06:45 - RADIOLOGY Radiology Studies Ordered: Category Date Time Status CHEST X-RAY PORTABLE* [RAD] Stat Radiology 12/09/17 15:11 Ordered <Jose Elias Prasad - Last Filed: 12/10/17 11:56> Medical Decision Making - Medical Decision Making 12/09/17 5:21pm Call placed to patient's PCP, Dr. Putnam, to notify for admission. 5:22pm Call returned from Dr. Santos, case was discussed. <Brendan Serra - Last Filed: 12/09/17 17:22> - Medical Decision Making 12/09/17 15:34 The patient is an 82 year old male with a history of HTN, HLD, CAD, Parkinson's Disease, CHF who presents for evaluation of AMS. Differential includes but is not limited to: Sepsis, UTI, Pneumonia, Infectious, Metabolic Derangement. Given the patient's history and physical exam, we are concerned for sepsis and will obtain a cbc, cmp, lactate, vbg, troponin, ua, urine culture, blood cultures, ekg, and chest plain film to evaluate further for possible etiologies. We will treat with iv fluids in the meantime and continue to monitor and reassess. 12/09/17 18:09 CBC demonstrates an elevated wbc to 13.2. CMP demonstrates an elevated creatinine to 1.7. UA demonstrates positive Leuk esterase and 1500+ WBC consistent with a urinary tract infection. We will treat with ceftriaxone here in the ED. He will require admission for further management of his symptoms. We discussed the case with Dr. Putnam who is aware of the patient and requests admission to the hospitalist team. We discussed the case with the hospitalist team who accepted the patient for admission. <Jose Elias Prasad - Last Filed: 12/10/17 11:56> *DC/Admit/Observation/Transfer <Brendan Serra - Last Filed: 12/09/17 17:22> - Discharge Dispostion Admit: Yes <Jose Elias Prasad - Last Filed: 12/10/17 11:56> Diagnosis at time of Disposition: UTI (lower urinary tract infection) Altered mental status Qualifiers: Altered mental status type: unspecified Qualified Code(s): R41.82 - Altered mental status, unspecified - Discharge Dispostion Condition at time of disposition: Stable
--- NOTE | 2017-12-09 15:21 | PDOC ---
Attending Attestation - Resident Resident Name: Jose Elias Prasad - ED Attending Attestation I have performed the following: I have examined & evaluated the patient, The case was reviewed & discussed with the resident, I agree w/resident's findings & plan, Exceptions are as noted - HPI HPI: 12/09/17 15:19 82y M parkisons, htn, hl, colon ca, CAD s/p [place] presents with AMS, fever x 24 hrs. Pt has been requiring more assistance at home with his ADLs. Family notes the pt has been 'hallucinating' more since last night which is atypical of him. THere was no other focal complaints. Pt limited from pt due to clinical status. GENERAL: The patient is awake, alert, and fully oriented, Nontoxic - in no acute distress. HEAD: Normocephalic, atraumatic. EYES: extraocular movements intact, sclera anicteric, conjunctiva clear. ENT: dry mucous membranes. NECK: Normal range of motion, supple LUNGS: Breath sounds equal, clear to auscultation bilaterally. No wheezes, no rhonchi, no rales. HEART: Regular rate and rhythm, normal S1 and S2 without murmur, rub or gallop. ABDOMEN: Soft, nontender, normoactive bowel sounds. No CVA tenderness EXTREMITIES: Normal range of motion, no edema. NEUROLOGICAL: No facial assymetry, PSYCH: Normal mood, normal affect. SKIN: Warm, Dry, normal turgor, suspect UTI or occult infection will ck lbas to r/o anemia, metabolic derangement, uti will reassess fluids for hydration - Physicial Exam PE: 12/14/17 09:59 see above - Medical Decision Making 12/09/17 16:45 pts UA cw UTI will admit for further management Heart Score/ECG Review - ECG Impressions Comment:: 12/09/17 16:21 Twelve-lead EKG was performed and reviewed by me. There is normal sinus rhythm with a normal rate. Rate of [address] wave changes
[2017-12-09] MEDS ORDERED: SODIUM CHLORIDE 500 ML IV STA (15:23)
[2017-12-09 15:42] LABS: HEMATOCRIT 35.8 % (35.4-49); MCH 29.9 pg (25.7-33.7); MCHC 33.5 g/dl (32.0-35.9); MEAN CELL VOLUME 89.3 fl (80-96); PLATELET COUNT 206 K/MM3 (134-434); RBC 4.01 M/mm3 (4.00-5.60); RDW 15.1 % (11.9-15.9); WHITE BLOOD COUNT 13.2 K/mm3 (4.0-10.0)
[2017-12-09 15:58] LABS: INR 1.17 (0.82-1.09); PROTHROMBIN TIME (PATIENT) 13.2 SEC (9.98-11.88)
[2017-12-09 16:01] LABS: ACTIVATED PTT 25.4 SECONDS (26.9-34.4)
[2017-12-09] MEDS ORDERED: ACETAMINOPHEN 1000 MG/100 ML VIAL (NON FORMULARY) IVPB ONE (16:09)
[2017-12-09 16:10] LABS: URINE APPEARANCE TURBID; URINE BILIRUBIN NEGATIVE (<2.0 mg/dL); URINE BLOOD 2+ (NEGATIVE); URINE COLOR AMBER; URINE GLUCOSE (UA) NEGATIVE (NEGATIVE); URINE KETONE TRACE (NEGATIVE); URINE NITRITE NEGATIVE (NEGATIVE)
[2017-12-09 16:12] LABS: URINE LEUK ESTERASE 3+ (NEGATIVE); URINE PROTEIN 2+ (NEGATIVE)
[2017-12-09] MEDS ORDERED: ACETAMINOPHEN INJECTION 100 ML IVPB ONE (16:19)
[2017-12-09 16:21] LABS: URINE BACTERIA MANY /hpf (NONE SEEN); URINE MUCUS RARE
[2017-12-09 16:30] LABS: AMORP URATES MANY /hpf (NONE SEEN)
[2017-12-09 16:47] LABS: PLATELET ESTIMATE ADEQUATE
[2017-12-09] MEDS ORDERED: CEFTRIAXONE 1 GM in DEXTROSE 5%-WATER - 50 ML IVPB ONE (16:55)
[2017-12-09 16:58] LABS: ALBUMIN 3.2 g/dl (3.4-5.0); ANION GAP 12 (8-16); BLOOD UREA NITROGEN 25 mg/dL (7-18); CALCIUM 8.8 mg/dL (8.5-10.1); CHLORIDE 110 mmol/L (98-107); CO2 23 mmol/L (21-32); CREATININE 1.7 mg/dL (0.7-1.3); GLUCOSE,RANDOM 103 mg/dL (74-106); POTASSIUM 3.8 mmol/L (3.5-5.1); SGOT/AST 24 U/L (15-37); SGPT/ALT 12 U/L (12-78); SODIUM 145 mmol/L (136-145)
[2017-12-09 17:05] LABS: ALK PHOS 80 U/L (45-117); BILIRUBIN,TOTAL 0.5 mg/dL (0.2-1.0); TOT PROT 6.5 g/dl (6.4-8.2)
[2017-12-09] MEDS ORDERED: CEFTRIAXONE 1 GM/50 ML BAG ONE (17:18)
--- NOTE | 2017-12-09 17:46 | HP ---
CHIEF COMPLAINT: Lethargy, AMS PCP: Dr. Putnam HISTORY OF PRESENT ILLNESS: The patient is an 82 year old male with a history of HTN, HLD, CAD s/p stents, Parkinson's Disease, and colon cancer. and was brought to the ED by his family for altered mental status. Patient has advanced Parkinson's and is cared for by family members. At baseline his is communicative and able to walk with assistance. Over the past 24 hours, patient has been lethargic and weak. They report signs of subjective fever and cloudy urine. There has been no nausea, vomiting, diarrhea. No complaint or signs of pain. No focal weakness. ER course was notable for: (1) T101.4, WBC 13.2k (2) Pyuria: 3+ leuks, 1562 WBCs (3) Cr 1.7, baseline 1.1 Recent Travel: No PAST MEDICAL HISTORY: Hypertension Hyperlipidemia Coronary artery disease s/p stents x 15 years COPD Parkinson's Disease Colon cancer s/p surgery/RTX Dementia BPH Glaucoma Auotonomic dysfunction Osteoarthritis Depression PAST SURGICAL HISTORY: Colon cancer colectomy Right total hip replacement Abdominal hernia repair (2016) Social History: Smoking:quit 50 years ago Alcohol:occasional Drugs: no Family History: Allergies No Known Drug Allergies Allergy (Verified 02/10/17 05:26) HOME MEDICATIONS: Home Medications Medication Instructions Recorded Carbidopa/Levodopa *Cr* 25/100 1 combo PO TID@0700,1200,1700 07/14/15 [Sinemet *Cr* 25/100 -] tablet.er Rosuvastatin [Crestor -] 10 mg PO HS tablet 07/14/15 Polyethylene Glycol 3350 [Miralax 17 gm PO BID 02/10/17 255 gm Btl -] Dorzolamide HCl/Timolol Maleat 1 drop OU BID 02/11/17 [Cosopt Eye Drops] Levothyroxine [Synthroid -] 50 mcg PO DAILY 02/11/17 REVIEW OF SYSTEMS CONSTITUTIONAL: +fever Absent: chills, diaphoresis, generalized weakness, malaise, loss of appetite, weight change HEENT: Absent: rhinorrhea, nasal congestion, throat pain, throat swelling, difficulty swallowing, mouth swelling, ear pain, eye pain, visual changes CARDIOVASCULAR: Absent: chest pain, syncope, palpitations, irregular heart rate, lightheadedness , peripheral edema RESPIRATORY: Absent: cough, shortness of breath, dyspnea with exertion, orthopnea, wheezing, stridor, hemoptysis GASTROINTESTINAL: Absent: abdominal pain, abdominal distension, nausea, vomiting, diarrhea, constipation, melena, hematochezia GENITOURINARY: Absent: dysuria, frequency, urgency, hesitancy, hematuria, flank pain, genital pain MUSCULOSKELETAL: Absent: myalgia, arthralgia, joint swelling, back pain, neck pain SKIN: Absent: rash, itching, pallor HEMATOLOGIC/IMMUNOLOGIC: Absent: easy bleeding, easy bruising, lymphadenopathy, frequent infections ENDOCRINE: Absent: unexplained weight gain, unexplained weight loss, heat intolerance, cold intolerance NEUROLOGIC: Absent: headache, focal weakness or paresthesias, dizziness, unsteady gait, seizure, mental status changes, bladder or bowel incontinence PSYCHIATRIC: Absent: anxiety, depression, suicidal or homicidal ideation, hallucinations. PHYSICAL EXAMINATION Vital Signs - 24 hr 12/09/17 12/09/17 12/09/17 15:59 16:03 16:44 Temperature 101.4 F H 101.4 F H Pulse Rate 92 H 92 H Pulse Rate [ 80 Left Apical] Respiratory 16 16 16 Rate Blood Pressure 91/66 91/66 Blood Pressure 129/60 [Left Arm] O2 Sat by Pulse 99 99 100 Oximetry (%) GENERAL: Eyes closed but responds to questions in Burmese, daughter translates. Denies pain. HEAD: Normal with no signs of trauma. EYES: Pupils equal, round and reactive to light, sclera anicteric, conjunctiva clear. No lid lag. EARS, NOSE, THROAT: Ears normal, nares patent, oropharynx clear without exudates. Moist mucous membranes. NECK: Normal range of motion, supple without lymphadenopathy, JVD, or masses. LUNGS: Breath sounds equal, clear to auscultation bilaterally. No wheezes, and no crackles. No accessory muscle use. HEART: Regular rate and rhythm, normal S1 and S2 ABDOMEN: Soft, nontender, not distended, normoactive bowel sounds, no guarding, no rebound, no masses. MUSCULOSKELETAL: Normal range of motion at all joints. No bony deformities or tenderness. No CVA tenderness. UPPER EXTREMITIES: 2+ pulses, warm, well-perfused. No cyanosis. No clubbing. No peripheral edema. LOWER EXTREMITIES: 2+ pulses, warm, well-perfused. No calf tenderness. No peripheral edema. Laboratory Results - last 24 hr 12/09/17 12/09/17 12/09/17 15:30 15:36 15:36 WBC 13.2 H RBC 4.01 Hgb 12.0 Hct 35.8 MCV 89.3 MCH 29.9 MCHC 33.5 RDW 15.1 Plt Count 206 D MPV 8.0 D Neutrophils % No Result Required. Neutrophils % (Manual) 75.0 Band Neutrophils % 17.0 Lymphocytes % No Result Required. Lymphocytes % (Manual) 4.0 L Monocytes % (Manual) 3 L Eosinophils % (Manual) 0.0 Basophils % (Manual) 0.0 Plasma Cells 1 Platelet Estimate Adequate PT with INR 13.20 H INR 1.17 H PTT (Actin FS) 25.4 L Sodium 145 Potassium 3.8 Chloride 110 H Carbon Dioxide 23 Anion Gap 12 BUN 25 H D Creatinine 1.7 H D Creat Clearance w eGFR 38.59 Random Glucose 103 Lactic Acid Calcium 8.8 Total Bilirubin 0.5 D AST 24 ALT 12 Alkaline Phosphatase 80 Troponin I 0.08 H D Total Protein 6.5 Albumin 3.2 L Urine Color Urine Appearance Urine pH Ur Specific [place] Urine Protein Urine Glucose (UA) Urine Ketones Urine Blood Urine Nitrite Urine Bilirubin Urine Urobilinogen Ur Leukocyte Esterase Urine WBC (Auto) Urine RBC (Auto) Amorphous Urates Urine Bacteria Urine Mucus 12/09/17 12/09/17 12/09/17 15:36 15:36 15:36 WBC RBC Hgb Hct MCV MCH MCHC RDW Plt Count MPV Neutrophils % Neutrophils % (Manual) Band Neutrophils % Lymphocytes % Lymphocytes % (Manual) Monocytes % (Manual) Eosinophils % (Manual) Basophils % (Manual) Plasma Cells Platelet Estimate PT with INR INR PTT (Actin FS) Sodium Cancelled Potassium Cancelled Chloride Cancelled Carbon Dioxide Cancelled Anion Gap Cancelled BUN Cancelled Creatinine Cancelled Creat Clearance w eGFR Cancelled Random Glucose Cancelled Lactic Acid 1.6 Calcium Cancelled Total Bilirubin Cancelled AST Cancelled ALT Cancelled Alkaline Phosphatase Cancelled Troponin I Total Protein Cancelled Albumin Cancelled Urine Color Radha Urine Appearance Turbid Urine pH 5.0 Ur Specific [place] 1.015 Urine Protein 2+ H Urine Glucose (UA) Negative Urine Ketones Trace H Urine Blood 2+ H Urine Nitrite Negative Urine Bilirubin Negative Urine Urobilinogen 2.0 Ur Leukocyte Esterase 3+ H Urine WBC (Auto) 1562 Urine RBC (Auto) 168 Amorphous Urates Many Urine Bacteria Many Urine Mucus Rare ASSESSMENT/PLAN 82 year-old male with a PMH significant for HTN, HLD, CAD s/p stents, COPD, Parkinson's Disease, dementia, BPH, autonomic dysfunction, and depression. Admitted for sepsis secondary to UTI and ROLAND. Sepsis secondary to UTI Toxic metabolic encephalopathy --T101.4, WBC 13.2k, pyuria (1562 WBCs, 3+ leuks) --start ceftriaxone (day #1) ROLAND --Cr 1.7 on admission, baseline 1.1 --urine studies pending, calculate FeNa Hypertension Autonomic dysfunction --presently normtensive --not on anti-hypertensives, apparently no longer on midodrine Hyperlipidemia --continue Crestor Coronary artery disease s/p stents --not on ASA COPD --stable Parkinson's disease Dementia --continue carbidopa/levodopa BPH --not on medication FEN Fluids: NS@50mL/hr Electrolytes: replete as indicated Nutrition: low sodium DVT prophylaxis: subq heparin Physical therapy Dispo: requires inpatient care. Full code. Visit type - Emergency Visit Emergency Visit: Yes ED Registration Date: 12/09/17 Care time: The patient presented to the Emergency Department on the above date and was hospitalized for further evaluation of their emergent condition. - New Patient This patient is new to me today: Yes Date on this admission: 12/10/17 - Critical Care Critical Care patient: No Hospitalist Screening - Colonoscopy Questionnaire Colonoscopy Questionnaire: Colonoscopy Questionnaire - Patient: 50 - 75 years old and never had a screening colonoscopy: No History of colon or rectal polyps, or CA: Yes History of IBD, Crohn's disease or UC: No History of abdominal radiation therapy as a child: No - Relative: 1 with colon or rectal CA, or polyps at age 60 or younger: Unknown Colon or rectal CA diagnosed at age 45 or younger: Unknown Multiple relatives with colon or rectal CA: Unknown - Outcome: Screening Result: Positive Screen
[2017-12-09] MEDS: SODIUM CHLORIDE 1,000 ML IV SCH (20:27)
[2017-12-09] MEDS ORDERED: PT OWN MED DRAWER 7, Y5N ONE (21:48)
[2017-12-09] MEDS: HEPARIN NA (PORCINE) 5,000 UNITS/ML 1ML VIAL SQ SCH (21:50)
[2017-12-09] MEDS: POLYETHYLENE GLYCOL 3350 119 GM BTL PO SCH (21:51)
[2017-12-09] MEDS: ROSUVASTATIN CA 10 MG TABLET (FP) PO SCH (21:51)
[2017-12-09] MEDS ORDERED: PATIENT'S OWN MEDICATION (NON-FORMULARY) (Dorzolamide Hcl/Timolol Maleat [Cosopt Eye Drops OU SCH (22:00)
[2017-12-09] MEDS: TIMOLOL 0.5% OPHTHALMIC SOL 5 ML BOTTLE OU SCH (22:21)
[2017-12-09] MEDS: DORZOLAMIDE 2% HCL OPHTHALMIC SOLUTION 10 ML BOTTLE OU SCH (22:22)
[2017-12-10 01:40] VITALS: BMI 20.3
[2017-12-10] MEDS: SODIUM CHLORIDE 1,000 ML IV SCH (06:15)
[2017-12-10] MEDS: LEVOTHYROXINE NA 50 MCG TABLET (FP) PO SCH (06:18)
[2017-12-10] MEDS: HEPARIN NA (PORCINE) 5,000 UNITS/ML 1ML VIAL SQ SCH ×3 (06:18→22:46)
[2017-12-10 06:52] LABS: BASO % 0.6 % (0-2.0); EOS % 0.4 % (0-4.5); HEMATOCRIT 33.8 % (35.4-49); HEMOGLOBIN 11.3 GM/dL (11.7-16.9); LYMPH % 4.6 % (8-40); MCH 30.1 pg (25.7-33.7); MCHC 33.4 g/dl (32.0-35.9); MEAN CELL VOLUME 90.2 fl (80-96); MONO % 4.9 % (3.8-10.2); NEUT % 89.5 % (42.8-82.8); PLATELET COUNT 172 K/MM3 (134-434); RBC 3.75 M/mm3 (4.00-5.60); RDW 15.8 % (11.9-15.9); WHITE BLOOD COUNT 11.3 K/mm3 (4.0-10.0)
[2017-12-10] MEDS ORDERED: cefTRIAXone SODIUM 1 GM VIAL ONE (09:15)
[2017-12-10] MEDS ORDERED: DEXTROSE 5%-WATER - 50 ML IVPB ONE (09:16)
[2017-12-10] MEDS: POLYETHYLENE GLYCOL 3350 119 GM BTL PO SCH ×4 (09:46→22:46)
[2017-12-10] MEDS: TIMOLOL 0.5% OPHTHALMIC SOL 5 ML BOTTLE OU SCH ×2 (09:47→22:45)
[2017-12-10] MEDS: DORZOLAMIDE 2% HCL OPHTHALMIC SOLUTION 10 ML BOTTLE OU SCH ×2 (09:47→22:45)
--- NOTE | 2017-12-10 09:47 | PN ---
Physical Exam: SUBJECTIVE: Patient seen and examined at bedside. and daughter present. Spoke with second daughter, who is a physician, by phone. OBJECTIVE: Vital Signs Period Temp Pulse Resp BP Sys/Davison Pulse Ox Last 24 Hr 97.2 F-101.4 F 64-92 16-20 91-157/60-72 97-100 GENERAL: Awake, alert. LUNGS: Breath sounds equal, clear to auscultation bilaterally. No wheezes, and no crackles. No accessory muscle use. HEART: Regular rate and rhythm, normal S1 and S2 ABDOMEN: Soft, nontender, not distended, normoactive bowel sounds, no guarding, no rebound, no masses. MUSCULOSKELETAL: Normal range of motion at all joints. No bony deformities or tenderness. No CVA tenderness. UPPER EXTREMITIES: 2+ pulses, warm, well-perfused. No cyanosis. No clubbing. No peripheral edema. LOWER EXTREMITIES: 2+ pulses, warm, well-perfused. No calf tenderness. No peripheral edema. Laboratory Results - last 24 hr 12/09/17 12/09/17 12/09/17 15:30 15:36 15:36 WBC 13.2 H RBC 4.01 Hgb 12.0 Hct 35.8 MCV 89.3 MCH 29.9 MCHC 33.5 RDW 15.1 Plt Count 206 D MPV 8.0 D Neutrophils % No Result Required. Neutrophils % (Manual) 75.0 Band Neutrophils % 17.0 Lymphocytes % No Result Required. Lymphocytes % (Manual) 4.0 L Monocytes % Monocytes % (Manual) 3 L Eosinophils % Eosinophils % (Manual) 0.0 Basophils % Basophils % (Manual) 0.0 Plasma Cells 1 Platelet Estimate Adequate PT with INR 13.20 H INR 1.17 H PTT (Actin FS) 25.4 L VBG pH POC VBG pCO2 POC VBG pO2 Mixed VBG HCO3 Sodium 145 Potassium 3.8 Chloride 110 H Carbon Dioxide 23 Anion Gap 12 BUN 25 H D Creatinine 1.7 H D Creat Clearance w eGFR 38.59 Random Glucose 103 Lactic Acid Calcium 8.8 Total Bilirubin 0.5 D AST 24 ALT 12 Alkaline Phosphatase 80 Troponin I 0.08 H D Total Protein 6.5 Albumin 3.2 L Urine Color Urine Appearance Urine pH Ur Specific [place] Urine Protein Urine Glucose (UA) Urine Ketones Urine Blood Urine Nitrite Urine Bilirubin Urine Urobilinogen Ur Leukocyte Esterase Urine WBC (Auto) Urine RBC (Auto) Amorphous Urates Urine Bacteria Urine Mucus Ur Random Sodium Urine Creatinine 12/09/17 12/09/17 12/09/17 15:36 15:36 15:36 WBC RBC Hgb Hct MCV MCH MCHC RDW Plt Count MPV Neutrophils % Neutrophils % (Manual) Band Neutrophils % Lymphocytes % Lymphocytes % (Manual) Monocytes % Monocytes % (Manual) Eosinophils % Eosinophils % (Manual) Basophils % Basophils % (Manual) Plasma Cells Platelet Estimate PT with INR INR PTT (Actin FS) VBG pH Cancelled POC VBG pCO2 Cancelled POC VBG pO2 Cancelled Mixed VBG HCO3 Cancelled Sodium Cancelled Potassium Cancelled Chloride Cancelled Carbon Dioxide Cancelled Anion Gap Cancelled BUN Cancelled Creatinine Cancelled Creat Clearance w eGFR Cancelled Random Glucose Cancelled Lactic Acid Calcium Cancelled Total Bilirubin Cancelled AST Cancelled ALT Cancelled Alkaline Phosphatase Cancelled Troponin I Total Protein Cancelled Albumin Cancelled Urine Color Radha Urine Appearance Turbid Urine pH 5.0 Ur Specific [place] 1.015 Urine Protein 2+ H Urine Glucose (UA) Negative Urine Ketones Trace H Urine Blood 2+ H Urine Nitrite Negative Urine Bilirubin Negative Urine Urobilinogen 2.0 Ur Leukocyte Esterase 3+ H Urine WBC (Auto) 1562 Urine RBC (Auto) 168 Amorphous Urates Many Urine Bacteria Many Urine Mucus Rare Ur Random Sodium Urine Creatinine 12/09/17 12/09/17 12/09/17 15:36 17:48 19:40 WBC RBC Hgb Hct MCV MCH MCHC RDW Plt Count MPV Neutrophils % Neutrophils % (Manual) Band Neutrophils % Lymphocytes % Lymphocytes % (Manual) Monocytes % Monocytes % (Manual) Eosinophils % Eosinophils % (Manual) Basophils % Basophils % (Manual) Plasma Cells Platelet Estimate PT with INR INR PTT (Actin FS) VBG pH POC VBG pCO2 POC VBG pO2 Mixed VBG HCO3 Sodium Potassium Chloride Carbon Dioxide Anion Gap BUN Creatinine Creat Clearance w eGFR Random Glucose Lactic Acid 1.6 1.6 Calcium Total Bilirubin AST ALT Alkaline Phosphatase Troponin I Total Protein Albumin Urine Color Urine Appearance Urine pH Ur Specific [place] Urine Protein Urine Glucose (UA) Urine Ketones Urine Blood Urine Nitrite Urine Bilirubin Urine Urobilinogen Ur Leukocyte Esterase Urine WBC (Auto) Urine RBC (Auto) Amorphous Urates Urine Bacteria Urine Mucus Ur Random Sodium 50 Urine Creatinine 205.0 12/09/17 12/10/17 12/10/17 19:40 04:16 06:45 WBC 11.3 H RBC 3.75 L Hgb 11.3 L Hct 33.8 L MCV 90.2 MCH 30.1 MCHC 33.4 RDW 15.8 Plt Count 172 MPV 8.0 Neutrophils % 89.5 H Neutrophils % (Manual) Band Neutrophils % Lymphocytes % 4.6 L D Lymphocytes % (Manual) Monocytes % 4.9 Monocytes % (Manual) Eosinophils % 0.4 Eosinophils % (Manual) Basophils % 0.6 Basophils % (Manual) Plasma Cells Platelet Estimate PT with INR INR PTT (Actin FS) VBG pH POC VBG pCO2 POC VBG pO2 Mixed VBG HCO3 Sodium Potassium Chloride Carbon Dioxide Anion Gap BUN Creatinine Creat Clearance w eGFR Random Glucose Lactic Acid Calcium Total Bilirubin AST ALT Alkaline Phosphatase Troponin I 0.08 H 0.06 H Total Protein Albumin Urine Color Urine Appearance Urine pH Ur Specific [place] Urine Protein Urine Glucose (UA) Urine Ketones Urine Blood Urine Nitrite Urine Bilirubin Urine Urobilinogen Ur Leukocyte Esterase Urine WBC (Auto) Urine RBC (Auto) Amorphous Urates Urine Bacteria Urine Mucus Ur Random Sodium Urine Creatinine Active Medications Generic Name Dose Route Start Last Admin Trade Name Shelley PRN Reason Stop Dose Admin Carbidopa/Levodopa 1 combo 12/10/17 07:00 12/10/17 06:18 Sinemet *Cr* 25/100 - PO 1 combo TID@0700,1200,1700 [facility] Administration Dorzolamide HCl 1 drop 12/09/17 22:00 12/09/17 22:22 Trusopt 2% OU 1 drop BID [facility] Administration Heparin Sodium (Porcine) 5,000 unit 12/09/17 22:00 12/10/17 06:18 Heparin - SQ 5,000 unit TID [facility] Administration Ceftriaxone Sodium 1 gm/ 50 mls @ 100 mls/hr 12/10/17 10:00 Dextrose IVPB DAILY [facility] Sodium Chloride 1,000 mls @ 50 mls/hr 12/09/17 18:30 12/10/17 06:15 Normal Saline - IV 12/10/17 18:20 50 mls/hr ASDIR [facility] Administration Levothyroxine Sodium 50 mcg 12/10/17 07:00 12/10/17 06:18 Synthroid - PO 50 mcg DAILY@0700 [facility] Administration Polyethylene Glycol 17 gm 12/09/17 22:00 12/09/17 21:51 Miralax (For Daily Use) - PO 17 gm BID [facility] Administration Rosuvastatin Calcium 10 mg 12/09/17 22:00 12/09/17 21:51 Crestor - PO 10 mg HS [facility] Administration Timolol Maleate 1 drop 12/09/17 22:00 12/09/17 22:21 Timoptic 0.5% OU 1 drop BID [facility] Administration ASSESSMENT/PLAN 82 year-old male with a PMH significant for HTN, HLD, CAD s/p stents, COPD, Parkinson's Disease, dementia, BPH, autonomic dysfunction, and depression. Admitted for sepsis secondary to UTI and ROLAND. Sepsis secondary to GNB UTI GNB Bacteremia Toxic metabolic encephalopathy --afebrile 24 hours, WBC trending down --received ceftriaxone x 2 doses --2/2 bottles GNB --start Zosyn --ID consult pending ROLAND --Cr 1.7, baseline 1.1 --FeNa 0.3% --NS x 500cc bolus, increase hourly rate Hypertension Autonomic dysfunction --BP stable --not on anti-hypertensives, apparently no longer on midodrine Hyperlipidemia --continue Crestor Coronary artery disease s/p stents --not on ASA COPD --stable Parkinson's disease Dementia --continue carbidopa/levodopa BPH --not on medication FEN Fluids: NS@83mL/hr Electrolytes: replete as indicated Nutrition: low sodium DVT prophylaxis: subq heparin Physical therapy Dispo: requires inpatient care. Full code. Visit type - Emergency Visit Emergency Visit: Yes ED Registration Date: 12/09/17 Care time: The patient presented to the Emergency Department on the above date and was hospitalized for further evaluation of their emergent condition. - New Patient This patient is new to me today: No - Critical Care Critical Care patient: No
[2017-12-10] MEDS ORDERED: CEFTRIAXONE 1 GM in DEXTROSE 5%-WATER - 50 ML IVPB SCH (10:00)
[2017-12-10 11:05] LABS: CHLORIDE 109 mmol/L (98-107); POTASSIUM 4.2 mmol/L (3.5-5.1); SODIUM 144 mmol/L (136-145)
[2017-12-10 11:30] LABS: ALBUMIN 2.9 g/dl (3.4-5.0); ALK PHOS 76 U/L (45-117); ANION GAP 10 (8-16); BILIRUBIN,TOTAL 0.3 mg/dL (0.2-1.0); BLOOD UREA NITROGEN 33 mg/dL (7-18); CALCIUM 7.9 mg/dL (8.5-10.1); CO2 25 mmol/L (21-32); CREATININE 1.7 mg/dL (0.7-1.3); GLUCOSE,RANDOM 72 mg/dL (74-106); MAGNESIUM 2.2 mg/dL (1.8-2.4); PHOSPHOROUS 3.5 mg/dL (2.5-4.9); SGOT/AST 27 U/L (15-37); SGPT/ALT 17 U/L (12-78); TOT PROT 6.1 g/dl (6.4-8.2)
[2017-12-10] MEDS ORDERED: PIPERACILLIN/TAZOB 2.25 GM 2.25 GM in DEXTROSE 5%-WATER - 50 ML IVPB SCH ×2 (11:45→18:00)
[2017-12-10] MEDS ORDERED: PIPERACILLIN/TAZOB 2.25 GM/50 ML PREMIX BAG IVPB SCH (11:45)
[2017-12-10] MEDS ORDERED: SODIUM CHLORIDE 1,000 ML IV SCH (12:38)
[2017-12-10] MEDS ORDERED: SODIUM CHLORIDE 500 ML IV STA (12:38)
--- NOTE | 2017-12-10 13:41 | PN ---
Progress Note (short form) - Note Progress Note: ID consult dictated imp/reccd 82 year old man from home, history of Parkinson's disease- admitted with lethargy and cloudy urine found to have fever and pyuria started on ceftriaxone this am blood cultures with GNR Gram Negative bacteremia secondary to UTI continue zosyn until cultures are back renal sonogram to r/o obstruction renal insufficiency- check sonogram to r/o obstruction iv hydration history of parkinsons disease Problem List - Problems (1) Gram-negative bacteremia Code(s): R78.81 - BACTEREMIA (2) UTI (lower urinary tract infection) Code(s): N39.0 - URINARY TRACT INFECTION, SITE NOT SPECIFIED (3) Acute renal insufficiency Code(s): N28.9 - DISORDER OF KIDNEY AND URETER, UNSPECIFIED (4) Parkinson disease Code(s): G20 - PARKINSON'S DISEASE
--- NOTE | 2017-12-10 14:27 | CONS ---
INFECTIOUS DISEASE CONSULTATION DATE OF CONSULTATION: DATE OF DICTATION: 12/10/2017 REQUESTED BY: Hospitalist Service HISTORY OF PRESENT ILLNESS: This is an 82-year-old man who was brought to the hospital by his family for lethargy. He has Parkinson disease and lives at home with his family. He is able to walk with assistance. Over the last 24 hours he became more lethargic and weak. It was suspected that he was febrile. Apparently his urine had become cloudy. They brought him to the emergency room. In the ER he was noted to have pyuria, a fever of 101.4 and an elevated creatinine. He was admitted with presumptive diagnosis of UTI, started on ceftriaxone. This morning blood cultures are growing gram-negative bacillus in 2 of 4 bottles and I am asked to see him for further evaluation. He is currently resting comfortably in no distress. PAST MEDICAL HISTORY: Notable for a history of colon cancer, coronary artery disease status post stents 50 years ago, CHF, mild dementia, hypertension, hypercholesterolemia, hypothyroidism and Parkinson disease. SURGICAL HISTORY: Notable for abdominal hernia repair and right hip replacement. He has had history of colectomy in the past. ALLERGIES: He has no known drug allergies. MEDICATIONS AT HOME: Include eye drops, Sinemet, Crestor, MiraLAX and Synthroid. SOCIAL HISTORY: He resides at home with his family. REVIEW OF SYSTEMS: Per family is notable for lethargy and there is no nausea or vomiting, diarrhea or dysuria and cloudy urine. PHYSICAL EXAM: General: He is awake and alert, in no distress. He is a frail man in no acute distress. Vital Signs: Temperature is 98.7, pulse 71, blood pressure 115/69, respiratory rate is 18. HEENT: He is normocephalic. His eyes are anicteric. Neck: Supple. Lungs: Clear to auscultation. Heart: Regular rate and rhythm. Abdomen: Soft. He has had some suprapubic fullness. Extremities: Without edema. STUDIES: His white count on admission was 13.2, today is 11.3, hemoglobin 11.3, platelets 172. BUN 33, creatinine 1.7, normal LFTs. Urinalysis has 3+ leukocytes with 1762 white cells. Blood cultures: Two of 4 bottles have gram-negative rods. Urine culture is pending. Liver function tests are normal. Chest x-ray is clear. SUMMARY: 1. This is an 82-year-old man with gram negative bacteremia secondary to urinary tract infection. I will continue Zosyn until cultures are back. His calculated creatinine clearance is 25. Will continue the Zosyn 2.25 q.6 hours as ordered. Renal sonogram to rule out obstruction. 2. Renal insufficiency. Will check a sonogram to rule out obstruction. Gentle IV hydration. 3. History of Parkinson disease. Further recommendations to follow based on his clinical course. NORIS GREER M.D. [id number]
[2017-12-10] MEDS ORDERED: PIPERACILLIN/TAZOB 2.25 GM 2.25 GM/50 ML BAG IVPB SCH (15:00)
[2017-12-10] MEDS ORDERED: VANCOMYCIN 1,000 MG in DEXTROSE 5%-WATER - 250 ML IVPB STA (15:10)
[2017-12-10] MEDS ORDERED: VANCOMYCIN 1,000 MG in DEXTROSE 5%-WATER - 250 ML IVPB ONE (15:45)
[2017-12-10] MEDS: PIPERACILLIN/TAZOB 2.25 GM 2.25 GM in DEXTROSE 5%-WATER - 50 ML IVPB SCH ×2 (17:47→22:30)
--- NOTE | 2017-12-10 21:36 | EKG ---
Test Reason : Blood Pressure : / mmHG Vent. Rate : 090 BPM Atrial Rate : 090 BPM P-R Int : 190 ms QRS Dur : 082 ms QT Int : 376 ms P-R-T Axes : 075 -16 079 degrees QTc Int : 459 ms NORMAL SINUS RHYTHM NONSPECIFIC T WAVE ABNORMALITY ABNORMAL ECG WHEN COMPARED WITH ECG OF 10-FEB-2017 03:59, PREMATURE ATRIAL COMPLEXES ARE NO LONGER PRESENT NONSPECIFIC T WAVE ABNORMALITY, WORSE IN LATERAL LEADS Confirmed by RACHNA HAINES MD ([id number]) on 12/10/2017 9:35:43 PM Referred By: Confirmed By:RACHAN HAINES MD
[2017-12-10] MEDS ORDERED: PT OWN MED DRAWER 7, Y5N ONE (22:30)
[2017-12-10] MEDS: ROSUVASTATIN CA 10 MG TABLET (FP) PO SCH (22:46)
[2017-12-11] MEDS: PIPERACILLIN/TAZOB 2.25 GM 2.25 GM in DEXTROSE 5%-WATER - 50 ML IVPB SCH ×2 (03:55→08:41)
[2017-12-11] MEDS: HEPARIN NA (PORCINE) 5,000 UNITS/ML 1ML VIAL SQ SCH ×3 (06:09→21:24)
[2017-12-11] MEDS: LEVOTHYROXINE NA 50 MCG TABLET (FP) PO SCH (06:10)
--- NOTE | 2017-12-11 07:28 | PN ---
Progress Note, Physician Chief Complaint: 82 y.o M with advanced Parkinson's disease was admitted to [facility] due to fever and sepsis from UTI. Blood cx positive for GNB and GPC. Patient was started on IV antibiotics and clinically improved. Today follows commands , awake, and NAD History of Present Illness: COLON ca s/p sx, chemo. Parkinson disease. Autonomic dysfunction. ASHD. BPH with LUTS HTN Glaucoma - Current Medication List Current Medications: Active Medications Carbidopa/Levodopa (Sinemet *Cr* 25/100 -) 1 combo PO TID@0700,1200,1700 [facility] Last Admin: 12/11/17 06:10 Dose: 1 combo Dorzolamide HCl (Trusopt 2%) 1 drop OU BID [facility] Last Admin: 12/10/17 22:45 Dose: 1 drop Heparin Sodium (Porcine) (Heparin -) 5,000 unit SQ TID [facility] Last Admin: 12/11/17 06:09 Dose: 5,000 unit Piperacillin Sod/Tazobactam (Sod 2.25 gm/ Dextrose) 50 mls @ 100 mls/hr IVPB Q6H-IV [facility] Last Admin: 12/11/17 03:55 Dose: 100 mls/hr Levothyroxine Sodium (Synthroid -) 50 mcg PO DAILY@0700 [facility] Last Admin: 12/11/17 06:10 Dose: 50 mcg Polyethylene Glycol (Miralax (For Daily Use) -) 17 gm PO BID [facility] Last Admin: 12/10/17 22:46 Dose: 17 gm Rosuvastatin Calcium (Crestor -) 10 mg PO HS [facility] Last Admin: 12/10/17 22:46 Dose: 10 mg Timolol Maleate (Timoptic 0.5%) 1 drop OU BID [facility] Last Admin: 12/10/17 22:45 Dose: 1 drop - Objective Vital Signs: Vital Signs Temperature 97.6 F 12/11/17 05:30 Pulse Rate 75 12/11/17 05:30 Respiratory Rate 18 12/11/17 05:30 Blood Pressure 148/85 12/11/17 05:30 O2 Sat by Pulse Oximetry (%) 97 12/10/17 22:00 Constitutional: Yes: No Distress, Calm Eyes: Yes: Conjunctiva Clear, EOM Intact HENT: Yes: Atraumatic, Normocephalic Neck: Yes: Supple, Trachea Midline, Rigid. No: Lymphadenopathy, Thyromegaly Cardiovascular: Yes: Regular Rate and Rhythm, S1, S2. No: Bradycardia, Tachycardia Respiratory: Yes: Regular Gastrointestinal: Yes: Normal Bowel Sounds, Soft. No: Abdomen, Obese, Distention ...Rectal Exam: Yes: Deferred Genitourinary: No: Anuria, Bladder Distention, CVA Tenderness - Left, CVA Tenderness - Right Breast(s): Yes: WNL Musculoskeletal: Yes: Joint Stiffness Extremities: No: Calf Tenderness, Cold Edema: No Neurological: Yes: Alert. No: Oriented, Aphasia, Ataxia Psychiatric: Yes: Alert. No: Oriented, Agitated, Suicidal Ideation Labs: CBC, BMP 12/10/17 06:45 12/10/17 06:45 INR, PTT INR 1.17 (0.82-1.09) H 12/09/17 15:36 - ....Imaging Ultrasound: Pending Problem List - Problems (1) Gram-negative bacteremia Assessment/Plan: Continue IV Abx Follow bld CX ID. ID follow up. Code(s): R78.81 - BACTEREMIA (2) Autonomic dysfunction Assessment/Plan: Avoid dehydration or tight BP control Code(s): G90.9 - DISORDER OF THE AUTONOMIC NERVOUS SYSTEM, UNSPECIFIED (3) Parkinson disease Assessment/Plan: End stage Parkinson PT Placement was discussed with family today. Code(s): G20 - PARKINSON'S DISEASE
[2017-12-11] MEDS ORDERED: PT OWN MED DRAWER 7, Y5N ONE ×4 (07:50→18:25)
[2017-12-11 08:39] LABS: BASO % 0.4 % (0-2.0); EOS % 1.5 % (0-4.5); HEMATOCRIT 31.7 % (35.4-49); HEMOGLOBIN 10.6 GM/dL (11.7-16.9); LYMPH % 8.6 % (8-40); MCHC 33.3 g/dl (32.0-35.9); MEAN CELL VOLUME 90.1 fl (80-96); MEAN PLT VOLUME 8.4 fl (7.5-11.1); MONO % 6.9 % (3.8-10.2); NEUT % 82.6 % (42.8-82.8); PLATELET COUNT 163 K/MM3 (134-434); RBC 3.52 M/mm3 (4.00-5.60); RDW 15.6 % (11.9-15.9); WHITE BLOOD COUNT 8.3 K/mm3 (4.0-10.0)
[2017-12-11 09:01] LABS: ALBUMIN 2.6 g/dl (3.4-5.0); ANION GAP 9 (8-16); BILIRUBIN,TOTAL 0.3 mg/dL (0.2-1.0); BLOOD UREA NITROGEN 31 mg/dL (7-18); CALCIUM 7.8 mg/dL (8.5-10.1); CHLORIDE 110 mmol/L (98-107); CO2 25 mmol/L (21-32); CREATININE 1.4 mg/dL (0.7-1.3); GLUCOSE,RANDOM 81 mg/dL (74-106); MAGNESIUM 2.5 mg/dL (1.8-2.4); POTASSIUM 4.1 mmol/L (3.5-5.1); SGOT/AST 51 U/L (15-37); SGPT/ALT 10 U/L (12-78); SODIUM 144 mmol/L (136-145); TOT PROT 5.8 g/dl (6.4-8.2)
[2017-12-11 09:02] LABS: ALK PHOS 85 U/L (45-117)
[2017-12-11] MEDS: DORZOLAMIDE 2% HCL OPHTHALMIC SOLUTION 10 ML BOTTLE OU SCH ×2 (09:19→21:27)
[2017-12-11] MEDS: TIMOLOL 0.5% OPHTHALMIC SOL 5 ML BOTTLE OU SCH ×2 (09:19→21:26)
[2017-12-11] MEDS: POLYETHYLENE GLYCOL 3350 119 GM BTL PO SCH ×2 (09:19→21:26)
--- NOTE | 2017-12-11 11:32 | PN ---
Progress Note (short form) - Note Progress Note: ID Discussed with Dr Santos Dose of vancomycin and Zosyn day 2 Rx Selected Entries 12/11/17 05:30 Temperature 97.6 F Pulse Rate 75 Respiratory 18 Rate Blood Pressure 148/85 Microbiology 12/09/17 15:36 Blood - Peripheral Venous Blood Culture - Preliminary Lactose Fermenting Neg Bacilli Staphylococcus Coagulase Neg 12/09/17 15:30 Blood - Peripheral Venous Blood Culture - Preliminary Lactose Fermenting Neg Bacilli Staphylococcus Coagulase Neg Laboratory Tests 12/09/17 12/11/17 12/11/17 15:36 07:56 07:56 WBC 8.3 Hgb 10.6 L Hct 31.7 L Plt Count 163 BUN 31 H Creatinine 1.4 H Creat Clearance w eGFR 48.28 Total Bilirubin 0.3 AST 51 H D ALT 10 L D Alkaline Phosphatase 85 Ur Leukocyte Esterase 3+ H Urine WBC (Auto) 1562 Urine RBC (Auto) 168 Urine Bacteria Many Assessment Gram negative nithin in the urine I believe. Staph coag neg difficult to make sense of but given his age I am not inclined just yet to ignore the gram positive. Plan Repeat the blood cultures CRP and ESR Vanco and Zosyn Await final dpecies of coag neg ( some can cause UTI) Corky PEREZ
[2017-12-11] MEDS: VANCOMYCIN 1,000 MG in DEXTROSE 5%-WATER - 250 ML IVPB SCH (14:25)
[2017-12-11] MEDS: PIPERACILLIN/TAZOB 3.375 GM 3.375 GM in DEXTROSE 5%-WATER - 50 ML IVPB SCH (17:23)
[2017-12-11] MEDS ORDERED: PIPERACILLIN/TAZOB 3.375 GM/50 ML PRE-DOCKED IVPB SCH (18:00)
[2017-12-11] MEDS: ROSUVASTATIN CA 10 MG TABLET (FP) PO SCH (21:23)
[2017-12-12] MEDS: PIPERACILLIN/TAZOB 3.375 GM 3.375 GM in DEXTROSE 5%-WATER - 50 ML IVPB SCH ×2 (01:43→10:28)
[2017-12-12] MEDS: HEPARIN NA (PORCINE) 5,000 UNITS/ML 1ML VIAL SQ SCH ×3 (05:58→21:34)
[2017-12-12] MEDS: LEVOTHYROXINE NA 50 MCG TABLET (FP) PO SCH (06:05)
[2017-12-12] MEDS: POLYETHYLENE GLYCOL 3350 119 GM BTL PO SCH ×3 (10:16→21:36)
--- NOTE | 2017-12-12 10:20 | PN ---
Progress Note, Physician History of Present Illness: Pt w/o SOB, CP, abd pain - Current Medication List Current Medications: Active Medications Carbidopa/Levodopa (Sinemet *Cr* 25/100 -) 1 combo PO TID@0700,1200,1700 [facility] Last Admin: 12/11/17 06:10 Dose: 1 combo Dorzolamide HCl (Trusopt 2%) 1 drop OU BID [facility] Last Admin: 12/11/17 21:27 Dose: 1 drop Heparin Sodium (Porcine) (Heparin -) 5,000 unit SQ TID [facility] Last Admin: 12/12/17 05:58 Dose: 5,000 unit Vancomycin HCl 1,000 mg/ (Dextrose) 250 mls @ 166.667 mls/hr IVPB DAILY [facility] PRN Reason: Protocol Last Admin: 12/11/17 14:25 Dose: 166.667 mls/hr Piperacillin Sod/Tazobactam (Sod 3.375 gm/ Dextrose) 50 mls @ 100 mls/hr IVPB Q8H-IV [facility] Last Admin: 12/12/17 01:43 Dose: 100 mls/hr Levothyroxine Sodium (Synthroid -) 50 mcg PO DAILY@0700 [facility] Last Admin: 12/12/17 06:05 Dose: 50 mcg Polyethylene Glycol (Miralax (For Daily Use) -) 17 gm PO BID [facility] Last Admin: 12/12/17 10:16 Dose: Not Given Rosuvastatin Calcium (Crestor -) 10 mg PO HS [facility] Last Admin: 12/11/17 21:23 Dose: 10 mg Timolol Maleate (Timoptic 0.5%) 1 drop OU BID [facility] Last Admin: 12/11/17 21:26 Dose: 1 drop - Objective Vital Signs: Vital Signs Temperature 98.0 F 12/12/17 05:42 Pulse Rate 73 12/12/17 05:42 Respiratory Rate 20 12/12/17 05:42 Blood Pressure 150/71 12/12/17 05:42 O2 Sat by Pulse Oximetry (%) 98 12/11/17 21:00 Constitutional: Yes: No Distress, Calm Cardiovascular: Yes: Regular Rate and Rhythm, S1, S2 Respiratory: Yes: Regular, CTA Bilaterally (pt doesn't cooperate.) Gastrointestinal: Yes: Normal Bowel Sounds, Soft. No: Tenderness Edema: No Neurological: Yes: Alert, Other Labs: CBC, BMP 12/11/17 07:56 12/11/17 07:56 INR, PTT INR 1.17 (0.82-1.09) H 12/09/17 15:36 Problem List - Problems (1) Gram-negative bacteremia Code(s): R78.81 - BACTEREMIA (2) Gram-positive bacteremia Code(s): R78.81 - BACTEREMIA (3) UTI (lower urinary tract infection) Code(s): N39.0 - URINARY TRACT INFECTION, SITE NOT SPECIFIED (4) Acute renal insufficiency Code(s): N28.9 - DISORDER OF KIDNEY AND URETER, UNSPECIFIED (5) Parkinson disease Code(s): G20 - PARKINSON'S DISEASE (6) Autonomic dysfunction Code(s): G90.9 - DISORDER OF THE AUTONOMIC NERVOUS SYSTEM, UNSPECIFIED (7) Hypothyroidism Code(s): E03.9 - HYPOTHYROIDISM, UNSPECIFIED (8) Hypercholesteremia Code(s): E78.00 - PURE HYPERCHOLESTEROLEMIA, UNSPECIFIED Assessment/Plan IV Zosyn and Vanco Monitor Creatinine. ID consult appreciated. Repeat labs Case was d/w pt's nurse. Covering Dr. Putnam.
[2017-12-12] MEDS ORDERED: PT OWN MED DRAWER 7, Y5N ONE ×2 (10:21→20:54)
[2017-12-12] MEDS: TIMOLOL 0.5% OPHTHALMIC SOL 5 ML BOTTLE OU SCH ×2 (10:27→21:43)
[2017-12-12] MEDS: DORZOLAMIDE 2% HCL OPHTHALMIC SOLUTION 10 ML BOTTLE OU SCH ×2 (10:28→21:36)
[2017-12-12] MEDS: VANCOMYCIN 1,000 MG in DEXTROSE 5%-WATER - 250 ML IVPB SCH (11:30)
[2017-12-12 11:54] LABS: HEMATOCRIT 32.3 % (35.4-49); HEMOGLOBIN 10.9 GM/dL (11.7-16.9); MCH 29.9 pg (25.7-33.7); MCHC 33.6 g/dl (32.0-35.9); MEAN PLT VOLUME 8.3 fl (7.5-11.1); PLATELET COUNT 163 K/MM3 (134-434); RBC 3.63 M/mm3 (4.00-5.60); RDW 15.3 % (11.9-15.9); WHITE BLOOD COUNT 7.5 K/mm3 (4.0-10.0)
[2017-12-12 12:25] LABS: ALBUMIN 2.6 g/dl (3.4-5.0); ANION GAP 4 (8-16); BILIRUBIN,TOTAL 0.3 mg/dL (0.2-1.0); BLOOD UREA NITROGEN 20 mg/dL (7-18); CALCIUM 7.8 mg/dL (8.5-10.1); CHLORIDE 110 mmol/L (98-107); CO2 27 mmol/L (21-32); CREATININE 1.2 mg/dL (0.7-1.3); GLUCOSE,RANDOM 86 mg/dL (74-106); SGOT/AST 49 U/L (15-37); SGPT/ALT 42 U/L (12-78); SODIUM 141 mmol/L (136-145); TOT PROT 5.9 g/dl (6.4-8.2)
[2017-12-12 12:27] LABS: ALK PHOS 117 U/L (45-117)
--- NOTE | 2017-12-12 14:10 | PN ---
Progress Note (short form) - Note Progress Note: ID Vancomycin and Pip Tazobactam day 2 therapy Comfortable Selected Entries 12/12/17 08:00 Temperature 98.0 F Pulse Rate 80 Respiratory 20 Rate Blood Pressure 152/74 Exam With hancock catheter ? pulling on it as bleeding noted urethra Microbiology 12/09/17 15:36 Urine - Urine - Catheterized Urine Culture - Final Klebsiella Pneumoniae 12/09/17 15:36 Blood - Peripheral Venous Blood Culture - Preliminary Klebsiella Pneumoniae Staphylococcus Coagulase Neg 12/09/17 15:30 Blood - Peripheral Venous Blood Culture - Preliminary Klebsiella Pneumoniae Staphylococcus Coagulase Neg Laboratory Tests 12/12/17 12/12/17 12/12/17 07:00 11:40 11:40 WBC 7.5 Hgb 10.9 L Hct 32.3 L Plt Count 163 ESR 49 H Creat Clearance w eGFR 57.68 Assessment Urinary tract infection Suspect Klebsiella the culprit and SCN a contaminant(s) Pansensitive Plan Stop Zosyn give Cefazolin along with Vanco (for now) until final cultures back then will stop Vanco depending on isolate
[2017-12-12] MEDS: CEFAZOLIN 1 GM/D5W 1 GM/50 ML BAG IVPB SCH (18:19)
[2017-12-12] MEDS: BISACODYL 10 MG SUPP.RECT RC ONE ×2 (20:00→21:34)
[2017-12-12] MEDS: ROSUVASTATIN CA 10 MG TABLET (FP) PO SCH (21:34)
[2017-12-13] MEDS: CEFAZOLIN 1 GM/D5W 1 GM/50 ML BAG IVPB SCH ×3 (01:31→18:07)
[2017-12-13] MEDS: HEPARIN NA (PORCINE) 5,000 UNITS/ML 1ML VIAL SQ SCH ×3 (06:01→21:15)
[2017-12-13] MEDS: LEVOTHYROXINE NA 50 MCG TABLET (FP) PO SCH (06:01)
[2017-12-13 07:46] LABS: HEMOGLOBIN 11.3 GM/dL (11.7-16.9); MCH 29.9 pg (25.7-33.7); MCHC 33.3 g/dl (32.0-35.9); MEAN CELL VOLUME 89.7 fl (80-96); MEAN PLT VOLUME 8.6 fl (7.5-11.1); PLATELET COUNT 167 K/MM3 (134-434); RBC 3.79 M/mm3 (4.00-5.60); RDW 15.3 % (11.9-15.9)
[2017-12-13 08:25] LABS: ALBUMIN 2.7 g/dl (3.4-5.0); ANION GAP 7 (8-16); BLOOD UREA NITROGEN 19 mg/dL (7-18); CHLORIDE 109 mmol/L (98-107); CO2 27 mmol/L (21-32); GLUCOSE,RANDOM 84 mg/dL (74-106); POTASSIUM 4.1 mmol/L (3.5-5.1); SODIUM 143 mmol/L (136-145)
[2017-12-13 08:31] LABS: ALK PHOS 129 U/L (45-117); BILIRUBIN,TOTAL 0.3 mg/dL (0.2-1.0); CREATININE 1.1 mg/dL (0.7-1.3); SGOT/AST 45 U/L (15-37); SGPT/ALT 19 U/L (12-78)
--- NOTE | 2017-12-13 10:02 | PN ---
Progress Note (short form) - Note Progress Note: much more alert conversant Vital Signs Period Temp Pulse Resp BP Sys/Davison Pulse Ox Last 24 Hr 98.2 F-98.8 F 65-83 19-20 155-160/70-76 99 cor-rrr lungs decreased bs at bases abd soft,nt ext no edema CBC, BMP 12/13/17 06:40 12/13/17 06:40 Microbiology 12/11/17 12:30 Blood - Peripheral Venous Blood Culture - Preliminary NO GROWTH OBTAINED AFTER 24 HOURS, INCUBATION TO CONTINUE FOR 4 DAYS. 12/11/17 12:40 Blood - Peripheral Venous Blood Culture - Preliminary NO GROWTH OBTAINED AFTER 24 HOURS, INCUBATION TO CONTINUE FOR 4 DAYS. 12/09/17 15:36 Blood - Peripheral Venous Blood Culture - Preliminary Klebsiella Pneumoniae Staphylococcus Coagulase Neg 12/09/17 15:36 Urine - Urine - Catheterized Urine Culture - Final Klebsiella Pneumoniae 12/09/17 15:30 Blood - Peripheral Venous Blood Culture - Preliminary Klebsiella Pneumoniae Staphylococcus Coagulase Neg Current Medications Generic Name Dose Route Start Last Admin Trade Name Freq PRN Reason Stop Dose Admin Carbidopa/Levodopa 1 combo 12/10/17 07:00 12/13/17 06:01 Sinemet *Cr* 25/100 - PO 1 combo TID@0700,1200,1700 [facility] Administration Dorzolamide HCl 1 drop 12/09/17 22:00 12/12/17 21:36 Trusopt 2% OU 1 drop BID [facility] Administration Heparin Sodium (Porcine) 5,000 unit 12/09/17 22:00 12/13/17 06:01 Heparin - SQ 5,000 unit TID [facility] Administration Vancomycin HCl 1,000 mg/ 250 mls @ 166.667 mls/hr 12/11/17 12:30 12/12/17 11: 30 Dextrose IVPB 166.667 mls/hr DAILY [facility] Administration Protocol Cefazolin Sodium 1 gm in 50 mls @ 100 mls/hr 12/12/17 18:00 12/13/17 01:31 Ancef 1 Gm Premixed Ivpb - IVPB 100 mls/hr Q8H-IV [facility] Administration Levothyroxine Sodium 50 mcg 12/10/17 07:00 12/13/17 06:01 Synthroid - PO 50 mcg DAILY@0700 [facility] Administration Polyethylene Glycol 17 gm 12/09/17 22:00 12/12/17 21:36 Miralax (For Daily Use) - PO 17 gm BID [facility] Administration Rosuvastatin Calcium 10 mg 12/09/17 22:00 12/12/17 21:34 Crestor - PO 10 mg HS [facility] Administration Timolol Maleate 1 drop 12/09/17 22:00 12/12/17 21:43 Timoptic 0.5% OU 1 drop BID [facility] Administration a/p Klebsiella bacteremia secondary to UTI-continue cefazolin scn bacteremia- ?contaminant f/u cultures continue vanco for now day #3 antibiotics history of parkinsons disease Problem List - Problems (1) Gram-negative bacteremia Code(s): R78.81 - BACTEREMIA (2) UTI (lower urinary tract infection) Code(s): N39.0 - URINARY TRACT INFECTION, SITE NOT SPECIFIED (3) Acute renal insufficiency Code(s): N28.9 - DISORDER OF KIDNEY AND URETER, UNSPECIFIED (4) Parkinson disease Code(s): G20 - PARKINSON'S DISEASE
[2017-12-13] MEDS ORDERED: PT OWN MED DRAWER 7, Y5N ONE (10:58)
[2017-12-13] MEDS: POLYETHYLENE GLYCOL 3350 119 GM BTL PO SCH ×2 (11:03→21:15)
[2017-12-13] MEDS: DORZOLAMIDE 2% HCL OPHTHALMIC SOLUTION 10 ML BOTTLE OU SCH ×2 (11:03→21:16)
[2017-12-13] MEDS: TIMOLOL 0.5% OPHTHALMIC SOL 5 ML BOTTLE OU SCH ×2 (11:03→21:15)
[2017-12-13] MEDS: VANCOMYCIN 1,000 MG in DEXTROSE 5%-WATER - 250 ML IVPB SCH (11:03)
--- NOTE | 2017-12-13 13:20 | PN ---
Progress Note, Physician History of Present Illness: Pt doesn't want to talk today. Pt is comfortable. Pt condition was d/w his nurse. - Current Medication List Current Medications: Active Medications Carbidopa/Levodopa (Sinemet *Cr* 25/100 -) 1 combo PO TID@0700,1200,1700 [facility] Last Admin: 12/13/17 06:01 Dose: 1 combo Dorzolamide HCl (Trusopt 2%) 1 drop OU BID [facility] Last Admin: 12/13/17 11:03 Dose: 1 drop Heparin Sodium (Porcine) (Heparin -) 5,000 unit SQ TID [facility] Last Admin: 12/13/17 06:01 Dose: 5,000 unit Vancomycin HCl 1,000 mg/ (Dextrose) 250 mls @ 166.667 mls/hr IVPB DAILY [facility] PRN Reason: Protocol Last Admin: 12/13/17 11:03 Dose: 166.667 mls/hr Cefazolin Sodium (Ancef 1 Gm Premixed Ivpb -) 1 gm in 50 mls @ 100 mls/hr IVPB Q8H-IV [facility] Last Admin: 12/13/17 11:03 Dose: 100 mls/hr Levothyroxine Sodium (Synthroid -) 50 mcg PO DAILY@0700 [facility] Last Admin: 12/13/17 06:01 Dose: 50 mcg Polyethylene Glycol (Miralax (For Daily Use) -) 17 gm PO BID [facility] Last Admin: 12/13/17 11:03 Dose: Not Given Rosuvastatin Calcium (Crestor -) 10 mg PO HS [facility] Last Admin: 12/12/17 21:34 Dose: 10 mg Timolol Maleate (Timoptic 0.5%) 1 drop OU BID [facility] Last Admin: 12/13/17 11:03 Dose: 1 drop - Objective Vital Signs: Vital Signs Temperature 98.2 F 12/13/17 05:32 Pulse Rate 83 12/13/17 05:32 Respiratory Rate 19 12/13/17 05:32 Blood Pressure 155/70 12/13/17 05:32 O2 Sat by Pulse Oximetry (%) 99 12/12/17 20:24 Constitutional: Yes: No Distress, Calm Cardiovascular: Yes: Regular Rate and Rhythm, S1, S2 Respiratory: Yes: Regular, CTA Bilaterally (pt doesn't cooperate for examination ) Gastrointestinal: Yes: Normal Bowel Sounds, Soft. No: Hepatomegaly, Palpable Mass, Tenderness Edema: No Labs: CBC, BMP 12/13/17 06:40 12/13/17 06:40 INR, PTT INR 1.17 (0.82-1.09) H 12/09/17 15:36 Problem List - Problems (1) Gram-negative bacteremia Code(s): R78.81 - BACTEREMIA (2) Gram-positive bacteremia Assessment/Plan: could be contamination Code(s): R78.81 - BACTEREMIA (3) UTI (lower urinary tract infection) Code(s): N39.0 - URINARY TRACT INFECTION, SITE NOT SPECIFIED (4) Acute renal insufficiency Code(s): N28.9 - DISORDER OF KIDNEY AND URETER, UNSPECIFIED (5) Parkinson disease Code(s): G20 - PARKINSON'S DISEASE (6) Autonomic dysfunction Code(s): G90.9 - DISORDER OF THE AUTONOMIC NERVOUS SYSTEM, UNSPECIFIED (7) Hypothyroidism Code(s): E03.9 - HYPOTHYROIDISM, UNSPECIFIED (8) Hypercholesteremia Code(s): E78.00 - PURE HYPERCHOLESTEROLEMIA, UNSPECIFIED (9) Elevated liver enzymes Code(s): R74.8 - ABNORMAL LEVELS OF OTHER SERUM ENZYMES (10) Constipation Assessment/Plan: Pt had BM X 2 Code(s): K59.00 - CONSTIPATION, UNSPECIFIED Qualifiers: Constipation type: slow transit constipation Qualified Code(s): K59.01 - Slow transit constipation Assessment/Plan IV Zosyn and Vanco; to f/u with ID Monitor Creatinine. ID consult and f/u appreciated. To monitor LFT Repeat labs. I called pt's dg, not available. Case was d/w pt's nurse. Covering Dr. Putnam.
[2017-12-13] MEDS: ROSUVASTATIN CA 10 MG TABLET (FP) PO SCH (21:15)
[2017-12-14] MEDS: CEFAZOLIN 1 GM/D5W 1 GM/50 ML BAG IVPB SCH ×3 (02:33→17:16)
[2017-12-14] MEDS: HEPARIN NA (PORCINE) 5,000 UNITS/ML 1ML VIAL SQ SCH ×3 (06:02→21:26)
[2017-12-14] MEDS: LEVOTHYROXINE NA 50 MCG TABLET (FP) PO SCH (06:02)
[2017-12-14 08:42] LABS: HEMATOCRIT 34.9 % (35.4-49); HEMOGLOBIN 11.8 GM/dL (11.7-16.9); MCH 30.2 pg (25.7-33.7); MCHC 33.9 g/dl (32.0-35.9); MEAN CELL VOLUME 89.2 fl (80-96); MEAN PLT VOLUME 8.8 fl (7.5-11.1); PLATELET COUNT 171 K/MM3 (134-434); RBC 3.91 M/mm3 (4.00-5.60); RDW 15.2 % (11.9-15.9); WHITE BLOOD COUNT 8.2 K/mm3 (4.0-10.0)
[2017-12-14 09:11] LABS: ALBUMIN 2.8 g/dl (3.4-5.0); ANION GAP 13 (8-16); BLOOD UREA NITROGEN 19 mg/dL (7-18); CALCIUM 8.4 mg/dL (8.5-10.1); CHLORIDE 106 mmol/L (98-107); CO2 26 mmol/L (21-32); GLUCOSE,RANDOM 69 mg/dL (74-106); POTASSIUM 3.7 mmol/L (3.5-5.1); SODIUM 145 mmol/L (136-145)
[2017-12-14 09:15] LABS: ALK PHOS 127 U/L (45-117); BILIRUBIN,TOTAL 0.4 mg/dL (0.2-1.0); CREATININE 1.1 mg/dL (0.7-1.3); SGOT/AST 42 U/L (15-37); SGPT/ALT 17 U/L (12-78); TOT PROT 6.4 g/dl (6.4-8.2)
[2017-12-14] MEDS ORDERED: PT OWN MED DRAWER 7, Y5N ONE ×2 (09:59→21:11)
--- NOTE | 2017-12-14 10:00 | PN ---
Progress Note, Physician History of Present Illness: Pt doesn't want to talk today. Pt is comfortable. Pt condition was d/w his nurse at bedside. - Current Medication List Current Medications: Active Medications Carbidopa/Levodopa (Sinemet *Cr* 25/100 -) 1 combo PO TID@0700,1200,1700 [facility] Last Admin: 12/14/17 06:02 Dose: 1 combo Dorzolamide HCl (Trusopt 2%) 1 drop OU BID [facility] Last Admin: 12/13/17 21:16 Dose: 1 drop Heparin Sodium (Porcine) (Heparin -) 5,000 unit SQ TID [facility] Last Admin: 12/14/17 06:02 Dose: 5,000 unit Vancomycin HCl 1,000 mg/ (Dextrose) 250 mls @ 166.667 mls/hr IVPB DAILY [facility] PRN Reason: Protocol Last Admin: 12/13/17 11:03 Dose: 166.667 mls/hr Cefazolin Sodium (Ancef 1 Gm Premixed Ivpb -) 1 gm in 50 mls @ 100 mls/hr IVPB Q8H-IV [facility] Last Admin: 12/14/17 02:33 Dose: 100 mls/hr Levothyroxine Sodium (Synthroid -) 50 mcg PO DAILY@0700 [facility] Last Admin: 12/14/17 06:02 Dose: 50 mcg Polyethylene Glycol (Miralax (For Daily Use) -) 17 gm PO BID [facility] Last Admin: 12/13/17 21:15 Dose: 17 gm Rosuvastatin Calcium (Crestor -) 10 mg PO HS [facility] Last Admin: 12/13/17 21:15 Dose: 10 mg Timolol Maleate (Timoptic 0.5%) 1 drop OU BID [facility] Last Admin: 12/13/17 21:15 Dose: 1 drop - Objective Vital Signs: Vital Signs Temperature 97.8 F 12/14/17 06:33 Pulse Rate 66 12/14/17 06:33 Respiratory Rate 20 12/14/17 06:33 Blood Pressure 133/81 12/14/17 06:33 O2 Sat by Pulse Oximetry (%) 99 12/13/17 20:58 Constitutional: Yes: No Distress, Calm Cardiovascular: Yes: Regular Rate and Rhythm, S1, S2 Respiratory: Yes: Regular, CTA Bilaterally Gastrointestinal: Yes: Normal Bowel Sounds, Soft. No: Hepatomegaly Edema: No Labs: CBC, BMP 12/14/17 07:50 INR, PTT INR 1.17 (0.82-1.09) H 12/09/17 15:36 Problem List - Problems (1) Gram-negative bacteremia Code(s): R78.81 - BACTEREMIA (2) Gram-positive bacteremia Assessment/Plan: due to contamination Code(s): R78.81 - BACTEREMIA (3) UTI (lower urinary tract infection) Code(s): N39.0 - URINARY TRACT INFECTION, SITE NOT SPECIFIED (4) Acute renal insufficiency Code(s): N28.9 - DISORDER OF KIDNEY AND URETER, UNSPECIFIED (5) Parkinson disease Code(s): G20 - PARKINSON'S DISEASE (6) Autonomic dysfunction Code(s): G90.9 - DISORDER OF THE AUTONOMIC NERVOUS SYSTEM, UNSPECIFIED (7) Hypothyroidism Code(s): E03.9 - HYPOTHYROIDISM, UNSPECIFIED (8) Hypercholesteremia Code(s): E78.00 - PURE HYPERCHOLESTEROLEMIA, UNSPECIFIED (9) Elevated liver enzymes Code(s): R74.8 - ABNORMAL LEVELS OF OTHER SERUM ENZYMES (10) Constipation Code(s): K59.00 - CONSTIPATION, UNSPECIFIED Qualifiers: Constipation type: slow transit constipation Qualified Code(s): K59.01 - Slow transit constipation Assessment/Plan IV Zosyn and Vanco; to f/u with ID Monitor Creatinine -improved. ID consult and f/u appreciated. To monitor LFT -stable Repeat labs. I spoke with pt's dg, pt condition was reviewed, all questions were answered; disposition was discussed with pt's dg -I recommended rehab placement; pt's dg want to take pt home. Case was d/w pt's nurse. Covering Dr. Putnam.
[2017-12-14] MEDS: DORZOLAMIDE 2% HCL OPHTHALMIC SOLUTION 10 ML BOTTLE OU SCH ×2 (10:05→21:25)
[2017-12-14] MEDS: VANCOMYCIN 1,000 MG in DEXTROSE 5%-WATER - 250 ML IVPB SCH (10:05)
[2017-12-14] MEDS: TIMOLOL 0.5% OPHTHALMIC SOL 5 ML BOTTLE OU SCH ×2 (10:06→21:26)
[2017-12-14] MEDS: POLYETHYLENE GLYCOL 3350 119 GM BTL PO SCH ×2 (10:10→21:26)
--- NOTE | 2017-12-14 11:27 | PN ---
Progress Note (short form) - Note Progress Note: ID Vancomycin and Cefazolin Selected Entries 12/14/17 06:33 Temperature 97.8 F Pulse Rate 66 Respiratory 20 Rate Blood Pressure 133/81 Microbiology 12/09/17 15:36 Urine - Urine - Catheterized Urine Culture - Final Klebsiella Pneumoniae 12/09/17 15:36 Blood - Peripheral Venous Blood Culture - Final Klebsiella Pneumoniae Staphylococcus Coagulase Neg 12/09/17 15:30 Blood - Peripheral Venous Blood Culture - Final Klebsiella Pneumoniae Staphylococcus Epidermidis Laboratory Tests 12/09/17 12/13/17 12/14/17 15:36 06:40 07:50 WBC 8.2 Hgb 11.8 Hct 34.9 L Plt Count 171 BUN 19 H Creatinine 1.1 Ur Leukocyte Esterase 3+ H Urine WBC (Auto) 1562 Urine RBC (Auto) 168 Urine Bacteria Many Assessment Enlarged prostate with Klebsiella in blood Plan Going to assume Juan King is a contamint and he has gram neg infection sensitive to quinolone Now 5 days into treatment 1. Stop Vancomycin 2.Cefazolin with switch to Levofloxacin to complete total of 14 days 3. Should see a urologist at some point Corky PEREZ
[2017-12-14] MEDS: ROSUVASTATIN CA 10 MG TABLET (FP) PO SCH (21:26)
[2017-12-15] MEDS: CEFAZOLIN 1 GM/D5W 1 GM/50 ML BAG IVPB SCH ×3 (01:40→17:03)
[2017-12-15] MEDS: HEPARIN NA (PORCINE) 5,000 UNITS/ML 1ML VIAL SQ SCH ×3 (06:19→21:48)
[2017-12-15] MEDS: LEVOTHYROXINE NA 50 MCG TABLET (FP) PO SCH (06:20)
--- NOTE | 2017-12-15 08:20 | PN ---
Progress Note (short form) - Note Progress Note: Dr Mendenhall coverage appreciated. Now day 6 on Cefazolin for Klebsiella sepsis due to UTI.Afebrile, NAD Vital Signs Temp 97.7 F 12/15/17 05:30 Pulse 75 12/15/17 05:30 Resp 16 12/15/17 05:30 BP 157/83 12/15/17 05:30 Pulse Ox 99 12/14/17 22:00 Intake & Output 12/14/17 12/14/17 12/15/17 11:59 23:59 11:59 Intake Total 350 250 50 Balance 350 250 50 Weight 136 lb 6 oz 138 lb 6.4 oz Intake: IVPB 50 50 Oral 300 250 Other: Voiding Method Incontinent Incontinent # Unmeasured Voids Void 1 2 Bowel Movement Yes: Large Soft # Bowel Movements 1 Weight Measurement Method Built in Bedscale Built in Bedscale Neck-no JVD Lungs are clear Heart S1S2 regular Abdomen soft, NT Ext-no CCE LE stiffness due to Parkinson's disease. Laboratory Results - last 24 hr 12/14/17 12/14/17 07:50 07:50 WBC 8.2 RBC 3.91 L Hgb 11.8 Hct 34.9 L MCV 89.2 MCH 30.2 MCHC 33.9 RDW 15.2 Plt Count 171 MPV 8.8 Sodium 145 Potassium 3.7 Chloride 106 Carbon Dioxide 26 Anion Gap 13 BUN 19 H Creatinine 1.1 Creat Clearance w eGFR > 60 Random Glucose 69 L Calcium 8.4 L Total Bilirubin 0.4 D AST 42 H ALT 17 Alkaline Phosphatase 127 H Total Protein 6.4 Albumin 2.8 L Current Active Problems Problem Status Onset Altered mental status Acute Elevated liver enzymes Acute Gram-negative bacteremia Acute Gram-positive bacteremia Acute Hypercholesteremia Acute Hypothyroidism Acute UTI (lower urinary tract infection) Acute Plan Continue Kefzol IV for next 48 hrs with switch to PO Levaquin. Vanco-was d/c. PT spoke to Breana. The family requested to D/C the patient home. Will order VNS, PT. Problem List - Problems (1) Gram-negative bacteremia Code(s): R78.81 - BACTEREMIA (2) Autonomic dysfunction Code(s): G90.9 - DISORDER OF THE AUTONOMIC NERVOUS SYSTEM, UNSPECIFIED (3) Parkinson disease Code(s): G20 - PARKINSON'S DISEASE
[2017-12-15 08:22] LABS: HEMOGLOBIN 11.1 GM/dL (11.7-16.9); MCH 30.1 pg (25.7-33.7); MCHC 33.7 g/dl (32.0-35.9); MEAN CELL VOLUME 89.2 fl (80-96); MEAN PLT VOLUME 8.8 fl (7.5-11.1); PLATELET COUNT 198 K/MM3 (134-434); RDW 14.9 % (11.9-15.9); WHITE BLOOD COUNT 9.5 K/mm3 (4.0-10.0)
[2017-12-15 08:26] LABS: ALBUMIN 2.6 g/dl (3.4-5.0); ANION GAP 6 (8-16); BLOOD UREA NITROGEN 17 mg/dL (7-18); CHLORIDE 107 mmol/L (98-107); CO2 28 mmol/L (21-32); GLUCOSE,RANDOM 84 mg/dL (74-106); POTASSIUM 4.2 mmol/L (3.5-5.1); SGPT/ALT 25 U/L (12-78); SODIUM 141 mmol/L (136-145)
[2017-12-15 08:29] LABS: ALK PHOS 121 U/L (45-117); BILIRUBIN,TOTAL 0.3 mg/dL (0.2-1.0); SGOT/AST 39 U/L (15-37); TOT PROT 6.3 g/dl (6.4-8.2)
[2017-12-15] MEDS ORDERED: PT OWN MED DRAWER 7, Y5N ONE ×2 (10:00→21:46)
[2017-12-15] MEDS: VANCOMYCIN 1,000 MG in DEXTROSE 5%-WATER - 250 ML IVPB SCH ×2 (10:00→10:09)
[2017-12-15] MEDS: POLYETHYLENE GLYCOL 3350 119 GM BTL PO SCH ×2 (10:08→21:48)
[2017-12-15] MEDS: DORZOLAMIDE 2% HCL OPHTHALMIC SOLUTION 10 ML BOTTLE OU SCH ×2 (10:08→21:48)
[2017-12-15] MEDS: TIMOLOL 0.5% OPHTHALMIC SOL 5 ML BOTTLE OU SCH ×2 (10:08→21:48)
[2017-12-15] MEDS: ROSUVASTATIN CA 10 MG TABLET (FP) PO SCH (21:49)
[2017-12-16] MEDS: CEFAZOLIN 1 GM/D5W 1 GM/50 ML BAG IVPB SCH ×3 (01:36→18:15)
[2017-12-16] MEDS: LEVOTHYROXINE NA 50 MCG TABLET (FP) PO SCH (06:16)
[2017-12-16] MEDS: HEPARIN NA (PORCINE) 5,000 UNITS/ML 1ML VIAL SQ SCH ×3 (06:16→21:32)
[2017-12-16] MEDS ORDERED: PT OWN MED DRAWER 7, Y5N ONE ×2 (11:34→21:24)
[2017-12-16] MEDS: DORZOLAMIDE 2% HCL OPHTHALMIC SOLUTION 10 ML BOTTLE OU SCH ×2 (11:37→21:29)
[2017-12-16] MEDS: POLYETHYLENE GLYCOL 3350 119 GM BTL PO SCH ×2 (11:38→21:32)
[2017-12-16] MEDS: TIMOLOL 0.5% OPHTHALMIC SOL 5 ML BOTTLE OU SCH ×2 (11:38→21:29)
[2017-12-16] MEDS: VANCOMYCIN 1,000 MG in DEXTROSE 5%-WATER - 250 ML IVPB SCH (11:40)
--- NOTE | 2017-12-16 18:04 | PN ---
Progress Note (short form) - Note Progress Note: Medical coverage for Dr. Putnam Subjective: The patient was seen and examined at the bedside, he states he feels "fine" Current Medications Generic Name Dose Route Start Last Admin Trade Name Shelley PRN Reason Stop Dose Admin Carbidopa/Levodopa 1 combo 12/10/17 07:00 12/16/17 11:37 Sinemet *Cr* 25/100 - PO 1 combo TID@0700,1200,1700 [facility] Administration Dorzolamide HCl 1 drop 12/09/17 22:00 12/16/17 11:37 Trusopt 2% OU 1 drop BID [facility] Administration Heparin Sodium (Porcine) 5,000 unit 12/09/17 22:00 12/16/17 13:52 Heparin - SQ 5,000 unit TID [facility] Administration Vancomycin HCl 1,000 mg/ 250 mls @ 166.667 mls/hr 12/11/17 12:30 12/16/17 11: 40 Dextrose IVPB 166.667 mls/hr DAILY [facility] Administration Protocol Cefazolin Sodium 1 gm in 50 mls @ 100 mls/hr 12/12/17 18:00 12/16/17 11:38 Ancef 1 Gm Premixed Ivpb - IVPB 100 mls/hr Q8H-IV [facility] Administration Levothyroxine Sodium 50 mcg 12/10/17 07:00 12/16/17 06:16 Synthroid - PO 50 mcg DAILY@0700 [facility] Administration Polyethylene Glycol 17 gm 12/09/17 22:00 12/16/17 11:38 Miralax (For Daily Use) - PO 17 gm BID [facility] Administration Rosuvastatin Calcium 10 mg 12/09/17 22:00 12/15/17 21:49 Crestor - PO 10 mg HS [facility] Administration Timolol Maleate 1 drop 12/09/17 22:00 12/16/17 11:38 Timoptic 0.5% OU 1 drop BID [facility] Administration Objective: Vital Signs Period Temp Pulse Resp BP Sys/Davison Pulse Ox Last 24 Hr 97.7 F-98.0 F 63-71 18-20 131-159/70-86 98-98 Physical Exam: General: NAD, A&Ox1 person only HEENT: B/l blindness Lungs: CTA bilaterally Heart: RRR, S1S2 Abd: Soft, non-tender, non-distended Ext: B/l upper and lower extremity contractures CBCD WBC 9.5 K/mm3 (4.0-10.0) 12/15/17 07:44 RBC 3.70 M/mm3 (4.00-5.60) L 12/15/17 07:44 Hgb 11.1 GM/dL (11.7-16.9) L 12/15/17 07:44 Hct 33.0 % (35.4-49) L 12/15/17 07:44 MCV 89.2 fl (80-96) 12/15/17 07:44 MCHC 33.7 g/dl (32.0-35.9) 12/15/17 07:44 RDW 14.9 % (11.9-15.9) 12/15/17 07:44 Plt Count 198 K/MM3 (134-434) 12/15/17 07:44 MPV 8.8 fl (7.5-11.1) 12/15/17 07:44 CMP Sodium 141 mmol/L (136-145) 12/15/17 07:44 Potassium 4.2 mmol/L (3.5-5.1) 12/15/17 07:44 Chloride 107 mmol/L (98-107) 12/15/17 07:44 Carbon Dioxide 28 mmol/L (21-32) 12/15/17 07:44 Anion Gap 6 (8-16) L 12/15/17 07:44 BUN 17 mg/dL (7-18) 12/15/17 07:44 Creatinine 1.0 mg/dL (0.7-1.3) 12/15/17 07:44 Creat Clearance w eGFR > 60 (>60) 12/15/17 07:44 Random Glucose 84 mg/dL (74-106) D 12/15/17 07:44 Calcium 8.0 mg/dL (8.5-10.1) L 12/15/17 07:44 Total Bilirubin 0.3 mg/dL (0.2-1.0) D 12/15/17 07:44 AST 39 U/L (15-37) H 12/15/17 07:44 ALT 25 U/L (12-78) D 12/15/17 07:44 Alkaline Phosphatase 121 U/L (45-117) H 12/15/17 07:44 Total Protein 6.3 g/dl (6.4-8.2) L 12/15/17 07:44 Albumin 2.6 g/dl (3.4-5.0) L 12/15/17 07:44 CARDIAC ENZYMES Troponin I < 0.02 ng/ml (0.00-0.05) D 12/12/17 11:40 Microbiology 12/11/17 12:30 Blood - Peripheral Venous Blood Culture - Final NO GROWTH AFTER 5 DAYS INCUBATION 12/11/17 12:40 Blood - Peripheral Venous Blood Culture - Final NO GROWTH AFTER 5 DAYS INCUBATION 12/09/17 15:30 Blood - Peripheral Venous Blood Culture - Final Klebsiella Pneumoniae Staphylococcus Epidermidis 12/09/17 15:36 Blood - Peripheral Venous Blood Culture - Final Klebsiella Pneumoniae Staphylococcus Coagulase Neg 12/09/17 15:36 Urine - Urine - Catheterized Urine Culture - Final Klebsiella Pneumoniae Assessment: This is an 82 year old male with PMHx of HTN, hyperlipidemia, CAD s/ p stents, Parkinson's disease, colon cancer, dementia, glaucoma (b/l blindness) , who presented to the ED with lethargy and weakness and was found to have bacteremia Plan: 1) Klebsiella pneumonia bacteremia, UTI - Stop Vancomycin per ID - Continue Cefazolin - Switch to po Levaqin in 24 hours - Appreciate ID consult 2) Parkinson's disease - Continue Sinemet 3) Hypothyroidism - Continue Synthroid 4) Hyperlipidemia - Continue Crestor 5) F/E/N: - Sodium controlled diet - Monitor electrolytes 6) Prophylaxis: - Heparin 5,000u sq bid 7) Dispo: - Once converted to po CODE STATUS: FULL CODE Visit type - Emergency Visit Emergency Visit: Yes ED Registration Date: 12/09/17 Care time: The patient presented to the Emergency Department on the above date and was hospitalized for further evaluation of their emergent condition. - New Patient This patient is new to me today: Yes Date on this admission: 12/16/17 - Critical Care Critical Care patient: No
[2017-12-16] MEDS ORDERED: IBUPROFEN 400 MG TABLET (FP) PO ONE (21:00)
[2017-12-16] MEDS: ROSUVASTATIN CA 10 MG TABLET (FP) PO SCH (21:29)
[2017-12-17] MEDS: CEFAZOLIN 1 GM/D5W 1 GM/50 ML BAG IVPB SCH ×3 (02:37→16:59)
[2017-12-17] MEDS: LEVOTHYROXINE NA 50 MCG TABLET (FP) PO SCH (05:59)
[2017-12-17] MEDS ORDERED: PT OWN MED DRAWER 7, Y5N ONE (09:23)
[2017-12-17] MEDS: HEPARIN NA (PORCINE) 5,000 UNITS/ML 1ML VIAL SQ SCH ×2 (09:30→21:53)
[2017-12-17] MEDS: POLYETHYLENE GLYCOL 3350 119 GM BTL PO SCH ×2 (09:30→21:54)
[2017-12-17] MEDS: DORZOLAMIDE 2% HCL OPHTHALMIC SOLUTION 10 ML BOTTLE OU SCH ×2 (09:31→21:54)
[2017-12-17] MEDS: TIMOLOL 0.5% OPHTHALMIC SOL 5 ML BOTTLE OU SCH ×2 (09:31→21:54)
--- NOTE | 2017-12-17 11:07 | PN ---
Progress Note, Physician Chief Complaint: no complaints - Current Medication List Current Medications: Active Medications Carbidopa/Levodopa (Sinemet *Cr* 25/100 -) 1 combo PO TID@0700,1200,1700 [facility] Last Admin: 12/17/17 05:59 Dose: 1 combo Dorzolamide HCl (Trusopt 2%) 1 drop OU BID [facility] Last Admin: 12/17/17 09:31 Dose: 1 drop Heparin Sodium (Porcine) (Heparin -) 5,000 unit SQ BID [facility] Last Admin: 12/17/17 09:30 Dose: 5,000 unit Cefazolin Sodium (Ancef 1 Gm Premixed Ivpb -) 1 gm in 50 mls @ 100 mls/hr IVPB Q8H-IV [facility] Last Admin: 12/17/17 09:30 Dose: 100 mls/hr Levothyroxine Sodium (Synthroid -) 50 mcg PO DAILY@0700 [facility] Last Admin: 12/17/17 05:59 Dose: 50 mcg Polyethylene Glycol (Miralax (For Daily Use) -) 17 gm PO BID [facility] Last Admin: 12/17/17 09:30 Dose: 17 gm Rosuvastatin Calcium (Crestor -) 10 mg PO HS [facility] Last Admin: 12/16/17 21:29 Dose: 10 mg Timolol Maleate (Timoptic 0.5%) 1 drop OU BID [facility] Last Admin: 12/17/17 09:31 Dose: 1 drop - Objective Vital Signs: Vital Signs Temperature 97.5 F L 12/17/17 05:44 Pulse Rate 62 12/17/17 05:44 Respiratory Rate 21 12/17/17 05:44 Blood Pressure 136/72 12/17/17 05:44 O2 Sat by Pulse Oximetry (%) 98 12/16/17 22:00 Constitutional: Yes: Well Nourished, No Distress, Calm Eyes: Yes: WNL, Conjunctiva Clear, EOM Intact HENT: Yes: WNL, Atraumatic, Normocephalic Neck: Yes: WNL, Supple Cardiovascular: Yes: WNL, Regular Rate and Rhythm, S1, S2 Respiratory: Yes: WNL, Regular, CTA Bilaterally Gastrointestinal: Yes: WNL, Normal Bowel Sounds, Soft Edema: LLE: Trace, RLE: Trace Integumentary: Yes: WNL ...Motor Strength: WNL Labs: CBC, BMP 12/15/17 07:44 12/15/17 07:44 INR, PTT INR 1.17 (0.82-1.09) H 12/09/17 15:36 Problem List - Problems (1) Klebsiella aerogenes biovar pneumoniae Assessment/Plan: levofloxacin 750mg daily - ID following Code(s): J15.0 - PNEUMONIA DUE TO KLEBSIELLA PNEUMONIAE (2) DVT prophylaxis Assessment/Plan: sub-q heparin Code(s): [id number] - (3) Hypercholesteremia Assessment/Plan: c/w rosuvastatin Code(s): E78.00 - PURE HYPERCHOLESTEROLEMIA, UNSPECIFIED (4) Hypothyroidism Assessment/Plan: - Continue levothyroxine Code(s): E03.9 - HYPOTHYROIDISM, UNSPECIFIED (5) Parkinson disease, symptomatic Assessment/Plan: Continue Sinemet Code(s): G20 - PARKINSON'S DISEASE
[2017-12-17] MEDS: ROSUVASTATIN CA 10 MG TABLET (FP) PO SCH (21:54)
[2017-12-18] MEDS: CEFAZOLIN 1 GM/D5W 1 GM/50 ML BAG IVPB SCH ×2 (01:18→10:26)
[2017-12-18] MEDS: LEVOTHYROXINE NA 50 MCG TABLET (FP) PO SCH (06:31)
[2017-12-18 07:23] LABS: BASO % 0.5 % (0-2.0); EOS % 1.4 % (0-4.5); HEMATOCRIT 32.6 % (35.4-49); LYMPH % 12.7 % (8-40); MCH 30.2 pg (25.7-33.7); MCHC 33.8 g/dl (32.0-35.9); MEAN CELL VOLUME 89.6 fl (80-96); MEAN PLT VOLUME 8.3 fl (7.5-11.1); MONO % 8.7 % (3.8-10.2); NEUT % 76.7 % (42.8-82.8); PLATELET COUNT 347 K/MM3 (134-434); RBC 3.64 M/mm3 (4.00-5.60); RDW 14.8 % (11.9-15.9); WHITE BLOOD COUNT 8.7 K/mm3 (4.0-10.0)
--- NOTE | 2017-12-18 07:47 | PN ---
Progress Note (short form) - Note Progress Note: Afebrile awake, alert, NAD now. Vital Signs (72 hours) 12/15/17 12/15/17 12/15/17 08:00 09:00 14:46 Temperature 98.6 F 98.5 F Pulse Rate 98 H 64 Respiratory 18 18 Rate Blood Pressure 155/85 107/54 O2 Sat by Pulse 98 Oximetry (%) 12/15/17 12/15/17 12/16/17 18:00 22:00 06:03 Temperature 97.7 F 97.8 F Pulse Rate 63 70 Respiratory 18 18 Rate Blood Pressure 131/70 159/86 O2 Sat by Pulse 98 Oximetry (%) 12/16/17 12/16/17 12/16/17 08:00 20:43 22:00 Temperature 98.0 F 99.2 F Pulse Rate 71 74 Respiratory 20 22 Rate Blood Pressure 145/71 140/84 O2 Sat by Pulse 98 98 Oximetry (%) 12/17/17 12/17/17 12/17/17 05:44 08:00 14:51 Temperature 97.5 F L 98.2 F 98.0 F Pulse Rate 62 66 62 Respiratory 21 20 Rate Blood Pressure 136/72 158/83 154/89 O2 Sat by Pulse 98 Oximetry (%) 12/17/17 12/17/17 12/18/17 21:00 22:00 02:00 Temperature 99 F 98.2 F Pulse Rate 70 65 Respiratory Rate Blood Pressure 146/79 158/72 O2 Sat by Pulse 97 Oximetry (%) Neck-no JVD, NT Lungs are Clear. Heart S1S2 regular Abdomen soft, NT EXT NO CCE Labs-P Current Active Problems Problem Status Onset Altered mental status Acute DVT prophylaxis Acute Elevated liver enzymes Acute Gram-negative bacteremia Acute Gram-positive bacteremia Acute Hypercholesteremia Acute Hypothyroidism Acute Klebsiella aerogenes biovar pneumoniae Acute UTI (lower urinary tract infection) Acute Plan Switch to PO Levaquin. D/C home as per family request, Patient will require VNS for CV monitoring and supervision treatments. Patient will require urology as outpatient f/u. Patient is at high risk of re-admission due to advanced parkinson, Dmentia and multiple co-morbidities. Problem List - Problems (1) Gram-negative bacteremia Code(s): R78.81 - BACTEREMIA (2) Autonomic dysfunction Code(s): G90.9 - DISORDER OF THE AUTONOMIC NERVOUS SYSTEM, UNSPECIFIED (3) Parkinson disease Code(s): G20 - PARKINSON'S DISEASE
--- NOTE | 2017-12-18 07:56 | DS ---
Physical Examination Vital Signs: Vital Signs Temperature 98.2 F 12/18/17 02:00 Pulse Rate 65 12/18/17 02:00 Respiratory Rate 20 12/17/17 08:00 Blood Pressure 158/72 12/18/17 02:00 O2 Sat by Pulse Oximetry (%) 97 12/17/17 21:00 Constitutional: Yes: No Distress, Calm Eyes: Yes: Conjunctiva Clear, EOM Intact HENT: Yes: Atraumatic, Normocephalic Neck: Yes: Supple, Trachea Midline. No: Lymphadenopathy, Tenderness, Thyromegaly Cardiovascular: Yes: Regular Rate and Rhythm, S1, S2. No: Bradycardia, Tachycardia Respiratory: Yes: Regular, CTA Bilaterally Gastrointestinal: Yes: Normal Bowel Sounds, Soft. No: Abdomen, Obese, Ascites, Distention, Hyperactive Bowel Sounds, Hypoactive Bowel Sounds, Palpable Mass, Pulsatile Mass, Tenderness, Tenderness, Rebound, Vomiting ...Rectal Exam: Yes: Deferred Renal/: No: Anuria Breast(s): Yes: WNL Musculoskeletal: Yes: WNL Extremities: No: Amputation, Calf Tenderness, Cold Edema: No Peripheral Pulses WNL: Yes Neurological: Yes: Alert, Weakness. No: Oriented, Aphasia, Dysarthria, Seizure Psychiatric: Yes: Alert. No: Oriented, Agitated, Suicidal Ideation Discharge Summary Reason For Visit: LOWER URINARY TRACT INFECTIOUS DISEASE, AMS Current Active Problems Altered mental status (Acute) DVT prophylaxis (Acute) Elevated liver enzymes (Acute) Gram-negative bacteremia (Acute) Gram-positive bacteremia (Acute) Hypercholesteremia (Acute) Hypothyroidism (Acute) Klebsiella aerogenes biovar pneumoniae (Acute) UTI (lower urinary tract infection) (Acute) Hospital Course: Improved with IV Abx Condition: Improved - Instructions Referrals: Nicholas Putnam MD [Primary Care Provider] - Disposition: VNS/HOME HEALTH CARE - Home Medications Comprehensive Discharge Medication List: Ambulatory Orders Carbidopa/Levodopa *Cr* 25/100 [Sinemet *Cr* 25/100 -] 1 combo PO TID@0700,1200, 1700 tablet.er 07/14/15 Rosuvastatin [Crestor -] 10 mg PO HS tablet 07/14/15 Polyethylene Glycol 3350 [Miralax 255 gm Btl -] 17 gm PO BID 02/10/17 Dorzolamide HCl/Timolol Maleat [Cosopt Eye Drops] 1 drop OU BID 02/11/17 Levothyroxine [Synthroid -] 50 mcg PO DAILY 02/11/17
[2017-12-18 08:03] LABS: ALBUMIN 2.8 g/dl (3.4-5.0); ANION GAP 5 (8-16); BLOOD UREA NITROGEN 15 mg/dL (7-18); CALCIUM 8.5 mg/dL (8.5-10.1); CHLORIDE 110 mmol/L (98-107); CO2 29 mmol/L (21-32); GLUCOSE,RANDOM 84 mg/dL (74-106); POTASSIUM 4.7 mmol/L (3.5-5.1); SODIUM 144 mmol/L (136-145)
[2017-12-18 08:07] LABS: ALK PHOS 116 U/L (45-117); BILIRUBIN,TOTAL 0.3 mg/dL (0.2-1.0); SGOT/AST 42 U/L (15-37); SGPT/ALT 47 U/L (12-78); TOT PROT 6.6 g/dl (6.4-8.2)
[2017-12-18] MEDS ORDERED: PT OWN MED DRAWER 7, Y5N ONE (10:11)
[2017-12-18] MEDS: POLYETHYLENE GLYCOL 3350 119 GM BTL PO SCH (10:26)
[2017-12-18] MEDS: HEPARIN NA (PORCINE) 5,000 UNITS/ML 1ML VIAL SQ SCH (10:26)
[2017-12-18] MEDS: TIMOLOL 0.5% OPHTHALMIC SOL 5 ML BOTTLE OU SCH (10:27)
[2017-12-18] MEDS: DORZOLAMIDE 2% HCL OPHTHALMIC SOLUTION 10 ML BOTTLE OU SCH (10:27)
[2017-12-18 12:14] VITALS: BP 131/73; PULSE 70; TEMP 98.7
== END 2017-12-18 12:04 | disposition home health service (06) | DRG 871 ==
LOC: JER 14:56 → JERBED 17:41 → J6S 19:03
PROVIDERS: ADMIT Internal Medicine; ATTEND Internal Medicine
DX: A41.59 Other Gram-negative sepsis (principal); G92 Toxic encephalopathy; N39.0 Urinary tract infection, site not specified; N17.9 Acute kidney failure, unspecified; I10 Essential (primary) hypertension; E78.5 Hyperlipidemia, unspecified; I25.10 Atherosclerotic heart disease of native coronary artery without angina pectoris; G20 Parkinson's disease; I25.2 Old myocardial infarction; J44.9 Chronic obstructive pulmonary disease, unspecified; Z85.038 Personal history of other malignant neoplasm of large intestine; N40.0 Benign prostatic hyperplasia without lower urinary tract symptoms; H40.9 Unspecified glaucoma; F32.9 Major depressive disorder, single episode, unspecified; F02.80 Dementia in other diseases classified elsewhere, unspecified severity, without behavioral disturbance, psychotic disturbance, mood disturbance, and anxiety; Z87.891 Personal history of nicotine dependence; G90.9 Disorder of the autonomic nervous system, unspecified; E03.9 Hypothyroidism, unspecified; K59.00 Constipation, unspecified
CPT/HCPCS: 36415; 71045-TC-FY; 76775-TC; 76856-TC; 80053; 81003; 81015; 82570; 83605; 83735; 84100; 84300; 84484; 85025; 85027; 85610; 85651; 85730; 86140; 87040; 87086; 87186; 93005; 93010; 97116-GP; 97161-GP; 99283-25; J0131; J1644; J7030

== ENCOUNTER 2019-01-03 00:26 | Inpatient (IN) | payer OTHER ==
--- NOTE | 2019-01-03 00:38 | PDOC ---
History of Present Illness - General Stated Complaint: SICK Time Seen by Provider: 01/03/19 00:34 - History of Present Illness Initial Comments: 01/03/19 00:36 83 yo M with h/o advanced dementia, HLD, HTN, hypothyroidism, CAD s/p stents, Parkinson's Disease, colon cancer BIBEMS with AMS, and fever. Per patient daughter at bedside he had fever T-max 104.0, and given two ibuprofen tablets today. Patient also with increased confusion today, and chills ( daughter noted patient with rigorous shaking of arms and shivering. Patient typically up with assistance to ambulate, but non ambulatory today. Lives at home with . [place]an speaking. Patient daughter denies cough, wheezing, orthopena, PND, leg swelling/pain, N/V , SOB, urinary complaints, hematuria, BPR, diarrhea, lightheadedness . PMHx: as noted above ROS: as noted Allergies: NKDA Past History - Past Medical History Allergies/Adverse Reactions: Allergies Allergy/AdvReac Type Severity Reaction Status Date / Time No Known Drug Allergies Allergy Verified 02/10/17 05:26 Home Medications: Ambulatory Orders Carbidopa/Levodopa *Cr* 25/100 [Sinemet *Cr* 25/100 -] 1 combo PO TID@0700,1200, 1700 tablet.er 07/14/15 Rosuvastatin [Crestor -] 10 mg PO HS tablet 07/14/15 Levothyroxine [Synthroid -] 50 mcg PO DAILY 02/11/17 Amlodipine Besylate 5 mg PO 01/03/19 Polyethylene Glycol 3350 [Miralax (For Bowel Prep) -] 255 gm PO 01/03/19 Anemia: No Asthma: No Cancer: Yes (colon CA) Cardiac Disorders: Yes (hx [place] c stent x 15 years ago) CVA: No COPD: No CHF: Yes Dementia: Yes Diabetes: No GI Disorders: Yes (H/O COLON CA) Disorders: No HTN: Yes Hypercholesterolemia: Yes Liver Disease: No Seizures: No Thyroid Disease: Yes (HYPOTHYROID) Lung CA: Yes (colon x 15 years) - Surgical History Abdominal Surgery: Yes (ABD HERNIA REPAIR 4 WEEKS AGO) Appendectomy: No Cardiac Surgery: Yes (stent x 15 years ago) Cholecystectomy: No Lung Surgery: No Neurologic Surgery: No Orthopedic Surgery: Yes (Right hip replacement) - Immunization History Immunization Up to Date: No - Suicide/Smoking/Psychosocial Hx Smoking History: Unknown if ever smoked Have you smoked in the past 12 months: No If you are a former smoker, when did you quit?: 50YRS AGO Hx Alcohol Use: Yes (OCCAS) Drug/Substance Use Hx: No Substance Use Type: Alcohol Review of Systems - Review of Systems Comments:: 01/03/19 00:37 Unable to obtain 13 point ROS inspection *Physical Exam - Physical Exam Comments: 01/03/19 00:38 GENERAL: Awake, alert, non communicative, partially able to follow commands, in no acute distress HEAD: No signs of trauma, normocephalic, atraumatic EYES: PERRLA, EOMI, sclera anicteric, conjunctiva clear ENT: Nares patent, oropharynx clear without exudates. Moist mucosa NECK: Normal ROM, supple, no lymphadenopathy, JVD, or masses LUNGS: No distress, speaks full sentences, clear to auscultation bilaterally HEART: Regular rate and rhythm, normal S1 and S2, no murmurs, rubs or gallops, peripheral pulses normal and equal bilaterally. ABDOMEN: Soft, nontender, normoactive bowel sounds. No guarding, no rebound. No masses EXTREMITIES : Normal inspection, Normal range of motion, no edema. No clubbing or cyanosis. NEUROLOGICAL: Cranial nerves II through XII grossly intact. No focal sensorimotor deficits SKIN: Warm, Dry, normal turgor, no rashes or lesions noted ED Treatment Course - LABORATORY CBC & Chemistry Diagram: 01/03/19 01:17 01/03/19 01:17 Medical Decision Making - Medical Decision Making 01/03/19 00:54 83 yo M with h/o advanced dementia, HLD, HTN, hypothyroidism, CAD s/p stents, Parkinson's Disease, colon cancer BIBEMS with AMS, and fever. Temp 101.3, vitals otherwise wnl. Physical exam unremarkable. Will assess for VBI/TIA, cardiac dysarrythmias, hypoglycemia, electrolyte abnml, metabolic and toxic derangements, acid-base disturbances, infection. ED Course: Sepsis Protocol, NS, Tylenol 01/03/19 01:46 EKG: NSR with absent JOSE, STD. Nml interval duration and axis. Nml R wave progression. Absent Q waves. 01/03/19 02:06 Laboratory Tests 01/03/19 01/03/19 01:17 01:17 WBC 8.1 Hgb 12.7 Hct 36.9 Plt Count 199 D VBG pH 7.42 H POC VBG pCO2 42.5 POC VBG pO2 37.1 VBG HCO3 27.2 01/03/19 02:32 CMP: Unremarkable 01/03/19 04:25 Laboratory Tests 01/03/19 03:35 Urine Color Yellow Urine Glucose (UA) Negative Urine Blood 2+ H Ur Leukocyte Esterase Trace 01/03/19 04:52 Patient endorsed to Nisha DÍAZ Admit to [facility] *DC/Admit/Observation/Transfer Diagnosis at time of Disposition: Sepsis Qualifiers: Sepsis type: sepsis due to unspecified organism Qualified Code(s): A41.9 - Sepsis, unspecified organism Altered mental status Qualifiers: Altered mental status type: unspecified Qualified Code(s): R41.82 - Altered mental status, unspecified - Discharge Dispostion Decision to Admit order: Yes - Referrals - Patient Instructions - Post Discharge Activity
[2019-01-03] MEDS ORDERED: ACETAMINOPHEN 1000 MG/100 ML VIAL (NON FORMULARY) IVPB ONE (00:48)
[2019-01-03] MEDS ORDERED: SODIUM CHLORIDE 1,000 ML IV STA (00:48)
--- NOTE | 2019-01-03 01:09 | PDOC ---
Attending Attestation - Resident Resident Name: Marc Mello - ED Attending Attestation I have performed the following: I have examined & evaluated the patient, The case was reviewed & discussed with the resident, I agree w/resident's findings & plan - HPI HPI: 01/03/19 01:08 83 yo M with h/o advanced dementia, HLD, HTN, hypothyroidism, CAD s/p stents, Parkinson's Disease, colon cancer BIBEMS with AMS, and fever. Tmax 104, associated with rigors and shaking activity today. - Physicial Exam PE: 01/03/19 04:53 Agree with the resident's HPI and PE as documented in the electronic medical record. NAD, demented, min verbal, eyes closed, PERRL, EOMI, dry mucus membranes, nl conjunctiva, anicteric; neck supple. lungs clear, RRR, abdomen soft nontender. + tremors. No peripheral edema. normal color for ethnicity, WWP. very warm to touch, dry skin. - Medical Decision Making 01/03/19 01:08 See HPI for details Vital signs reviewed, +fever; normotensive. ddx. uti, pneumonia, dehydration, electrolyte/metabolic derangements, bacteremia. Prior notes reviewed, including admissions, discharges and consultations. laboratory results and imaging reviewed, basic labs and lytes wnl, normal wbc ct and lactic. UA_neg, some blood likely traumatic from straight cath CXR_no acute chest pathology, no infiltrate, normal cardiac silhouette, no edema , effusion, no ptx. Cardiac panel_neg trop, less likely cardiac EKG normal sinus rhythm, no interval abnormalities, narrow QRS, ST and T wave segments and morphology normal. Nonspecific T wave abnormalities ED course - septic/infectious workup pending. blood cultures - previous with klebsiella and staph epidermis in blood and urine cx. sensitivities reviewed - IVF and tylenol for fever. recheck VS improved. fever down. - empiric IV abx, vanc/zosyn coverage. dispo: admit for febrile illness/sepsis, infection source unclear cultures pending. endorsed to ARJUN Webb, admit to Dr Putnam. 01/03/19 01:09 01/03/19 04:51
[2019-01-03] MEDS ORDERED: ACETAMINOPHEN INJECTION 100 ML IVPB ONE (01:12)
[2019-01-03 01:52] LABS: VENOUS PC02 42.5 mmHg (41-51); VENOUS PH 7.42 (7.31-7.41); VENOUS PO2 37.1 mmHg (30-40)
[2019-01-03 01:53] LABS: BASO % 0.4 % (0-2.0); EOS % 0.4 % (0-4.5); HEMATOCRIT 36.9 % (35.4-49); HEMOGLOBIN 12.7 GM/dL (11.7-16.9); LYMPH % 4.6 % (8-40); MCH 30.8 pg (25.7-33.7); MCHC 34.3 g/dl (32.0-35.9); MEAN CELL VOLUME 89.8 fl (80-96); MEAN PLT VOLUME 8.4 fl (7.5-11.1); MONO % 4.4 % (3.8-10.2); NEUT % 90.2 % (42.8-82.8); PLATELET COUNT 199 K/MM3 (134-434); RBC 4.11 M/mm3 (4.00-5.60); RDW 15.1 % (11.9-15.9); WHITE BLOOD COUNT 8.1 K/mm3 (4.0-10.0)
[2019-01-03 02:10] LABS: INR 1.08 (0.83-1.09); PROTHROMBIN TIME (PATIENT) 12.8 SEC (9.7-13.0)
[2019-01-03 02:12] LABS: ACTIVATED PTT 29.5 SECONDS (25.2-36.5)
[2019-01-03 02:22] LABS: ALBUMIN 3.4 g/dl (3.4-5.0); ALK PHOS 84 U/L (45-117); ANION GAP 3 MMOL/L (8-16); BILIRUBIN,TOTAL 0.5 mg/dL (0.2-1); BLOOD UREA NITROGEN 24 mg/dL (7-18); CALCIUM 8.7 mg/dL (8.5-10.1); CHLORIDE 106 mmol/L (98-107); CO2 29 mmol/L (21-32); CREATININE 1.2 mg/dL (0.55-1.3); GLUCOSE,RANDOM 93 mg/dL (74-106); POTASSIUM 4.3 mmol/L (3.5-5.1); SGOT/AST 16 U/L (15-37); SGPT/ALT 11 U/L (13-61); SODIUM 138 mmol/L (136-145)
[2019-01-03] MEDS ORDERED: VANCOMYCIN 1 GM in D5W (PRE-DOCKED) 1,000 MG/250 ML IVPB ONE (02:33)
[2019-01-03] MEDS ORDERED: PIPERACILLIN/TAZOB 4.5 GM 4.5 GM in DEXTROSE 5%-WATER 100 ML IVPB ONE (02:33)
[2019-01-03] MEDS ORDERED: VANCOMYCIN 1 GRAM (PRE-DOCKED) 1,000 MG/250 ML BAG IVPB ONE ×2 (02:39→02:47)
[2019-01-03] MEDS ORDERED: PIPERACILLIN/TAZOB 4.5 GM 4.5 GM/100 ML BAG IVPB ONE (02:39)
[2019-01-03 04:22] LABS: PH,URINE 5.5 (5.0-8.0); URINE APPEARANCE Clear; URINE BILIRUBIN Negative (NEGATIVE); URINE COLOR Yellow; URINE GLUCOSE (UA) Negative (NEGATIVE); URINE KETONE Negative (NEGATIVE); URINE LEUK ESTERASE Trace (NEGATIVE); URINE NITRITE Negative (NEGATIVE); URINE PROTEIN Trace (NEGATIVE); URINE UROBILINOGEN 0.2 mg/dL (0.2-1.0)
[2019-01-03 04:54] LABS: URINE WBC 25-35 /hpf (0-5)
[2019-01-03 04:55] LABS: EPI CELLS FEW /HPF (0-5/HPF); URINE BACTERIA FEW /hpf (NEGATIVE)
--- NOTE | 2019-01-03 05:03 | HP ---
Admitting History and Physical - Primary Care Physician PCP: Nicholas Putnam - Admission Chief Complaint: Fever, Chills, AMS History of Present Illness: This is a 83 y/o man from home with a past medical history of Dementia, HTN, HLD , CAD s/p stents, Parkinson's, Hypothyroid, Colon Ca, Lung Ca, Legally Blind ( Glaucoma). Who presents to the ED with his daughter for increased AM, subjective fever 100.4, rigors x last evening. Patient has Dementia and speaks Nigerien and unable to provide HPI. Per the daughter, he had fever and chills, and has been more confused then normal. The daughter denies patient having cough , SOB, CP, palpitations, AP, N/V/D, constipation. Per the daughter no recent travel or sick contacts. 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 No: Current Chemotherapy, Current Radiation Therapy, Hemochromatosis, Hypercoaguable State, Sickle Cell Trait Psych: Yes: Depression Musculoskeletal: Yes: Osteoarthritis Endocrine: Yes: Hypothyroidism - Past Surgical History Past Surgical History: Yes: Colectomy, Joint Replacement (R THR) - Smoking History Smoking history: Former smoker Have you smoked in the past 12 months: No If you are a former smoker, when did you quit?: 50YRS AGO - Alcohol/Substance Use Hx Alcohol Use: Yes (OCCAS) History of Substance Use: reports: None - Social History Usual Living Arrangement: Yes: With Spouse ADL: Family Assistance Occupation: originally from [facility] 17 years History of Recent Travel: No Home Medications - Allergies Allergies/Adverse Reactions: Allergies Allergy/AdvReac Type Severity Reaction Status Date / Time No Known Drug Allergies Allergy Verified 02/10/17 05:26 - Home Medications Home Medications: Ambulatory Orders Carbidopa/Levodopa *Cr* 25/100 [Sinemet *Cr* 25/100 -] 1 combo PO TID@0700,1200, 1700 tablet.er 07/14/15 Rosuvastatin [Crestor -] 10 mg PO HS tablet 07/14/15 Levothyroxine [Synthroid -] 50 mcg PO DAILY 02/11/17 Amlodipine Besylate 5 mg PO 01/03/19 Polyethylene Glycol 3350 [Miralax (For Bowel Prep) -] 255 gm PO 01/03/19 Family Disease History - Family Disease History Family History: Unable to Obtain Review of Systems Unable to obtain ROS, reason: Dementia Physical Examination Vital Signs: Vital Signs Temperature 98.2 F 01/03/19 04:56 Pulse Rate 77 01/03/19 04:56 Respiratory Rate 19 01/03/19 00:35 Blood Pressure 95/52 L 01/03/19 04:56 O2 Sat by Pulse Oximetry (%) 97 01/03/19 04:56 Constitutional: Yes: Thin, Other (non-communicative, responds to tactile and noxious stimulus) Eyes: Yes: Conjunctiva Clear HENT: Yes: Atraumatic, Normocephalic, Other (mucousa dry whitish patch noted to R- inner bucal aspect) Neck: Yes: WNL, Supple, Trachea Midline Cardiovascular: Yes: WNL, Regular Rate and Rhythm, S1, S2, Other (well healed surgical scars) Respiratory: Yes: WNL, Regular, CTA Bilaterally Gastrointestinal: Yes: Normal Bowel Sounds, Soft Renal/: Yes: Incontinence Breast(s): Yes: WNL Musculoskeletal: Yes: WNL Extremities: Yes: WNL Edema: No Peripheral Pulses WNL: Yes Integumentary: Yes: Erythema (R- great toe), Onychomycosis (b/l great toe) Wound/Incision: Yes: Reddened (R- great toe) Neurological: Yes: Confusion, Cran Nerves II-XII Intact ...Motor Strength: WNL Psychiatric: Yes: Agitated Labs: CBC, BMP 01/03/19 01:17 01/03/19 01:17 Laboratory Results - last 24 hr 01/03/19 01/03/19 01/03/19 01:17 01:17 01:17 WBC 8.1 RBC 4.11 Hgb 12.7 Hct 36.9 MCV 89.8 MCH 30.8 MCHC 34.3 RDW 15.1 Plt Count 199 D MPV 8.4 Absolute Neuts (auto) 7.3 Neutrophils % 90.2 H Lymphocytes % 4.6 L D Monocytes % 4.4 Eosinophils % 0.4 Basophils % 0.4 Nucleated RBC % 0 PT with INR 12.80 INR 1.08 PTT (Actin FS) 29.5 VBG pH 7.42 H POC VBG pCO2 42.5 POC VBG pO2 37.1 VBG HCO3 27.2 VBG O2 Sat (Davina) 69.5 L VBG Base Excess 2.9 H Sodium Potassium Chloride Carbon Dioxide Anion Gap BUN Creatinine Creat Clearance w eGFR Random Glucose Lactic Acid Calcium Magnesium Total Bilirubin AST ALT Alkaline Phosphatase Ammonia Troponin I Total Protein Albumin Urine Color Urine Appearance Urine pH Ur Specific [place] Urine Protein Urine Glucose (UA) Urine Ketones Urine Blood Urine Nitrite Urine Bilirubin Urine Urobilinogen Ur Leukocyte Esterase Urine WBC (Auto) U Epithel Cells (Auto) Urine Bacteria (Auto) Influenza A (Rapid) Influenza B (Rapid) 01/03/19 01/03/19 01/03/19 01:17 01:17 01:17 WBC RBC Hgb Hct MCV MCH MCHC RDW Plt Count MPV Absolute Neuts (auto) Neutrophils % Lymphocytes % Monocytes % Eosinophils % Basophils % Nucleated RBC % PT with INR INR PTT (Actin FS) VBG pH POC VBG pCO2 POC VBG pO2 VBG HCO3 VBG O2 Sat (Davina) VBG Base Excess Sodium 138 Potassium 4.3 Chloride 106 Carbon Dioxide 29 Anion Gap 3 L BUN 24 H Creatinine 1.2 Creat Clearance w eGFR 57.54 Random Glucose 93 Lactic Acid 1.0 Calcium 8.7 Magnesium Total Bilirubin 0.5 AST 16 ALT 11 L Alkaline Phosphatase 84 Ammonia Troponin I < 0.02 Total Protein 7.0 Albumin 3.4 Urine Color Urine Appearance Urine pH Ur Specific [place] Urine Protein Urine Glucose (UA) Urine Ketones Urine Blood Urine Nitrite Urine Bilirubin Urine Urobilinogen Ur Leukocyte Esterase Urine WBC (Auto) U Epithel Cells (Auto) Urine Bacteria (Auto) Influenza A (Rapid) Influenza B (Rapid) 01/03/19 01/03/19 01/03/19 03:35 04:27 05:53 WBC RBC Hgb Hct MCV MCH MCHC RDW Plt Count MPV Absolute Neuts (auto) Neutrophils % Lymphocytes % Monocytes % Eosinophils % Basophils % Nucleated RBC % PT with INR INR PTT (Actin FS) VBG pH POC VBG pCO2 POC VBG pO2 VBG HCO3 VBG O2 Sat (Davina) VBG Base Excess Sodium Potassium Chloride Carbon Dioxide Anion Gap BUN Creatinine Creat Clearance w eGFR Random Glucose Lactic Acid 1.0 Calcium Magnesium Total Bilirubin AST ALT Alkaline Phosphatase Ammonia Troponin I Total Protein Albumin Urine Color Yellow Urine Appearance Clear Urine pH 5.5 Ur Specific [place] 1.020 Urine Protein Trace Urine Glucose (UA) Negative Urine Ketones Negative Urine Blood 2+ H Urine Nitrite Negative Urine Bilirubin Negative Urine Urobilinogen 0.2 Ur Leukocyte Esterase Trace Urine WBC (Auto) 25-35 U Epithel Cells (Auto) Few Urine Bacteria (Auto) Few Influenza A (Rapid) Negative Influenza B (Rapid) Negative Imaging - Results Chest X-ray: Image Reviewed EKG: Image Reviewed Problem List - Problems (1) Sepsis Assessment/Plan: qSOFA 2 Sepsis Criteria Met No leukocytosis, +Neutrophilia UA- +UTI Blood Cultures-pending Urine Culture-pending Influenza Swab- neg A+B Chest Xray image- neg infiltrate or effusion, increased lung markings Appreciate ID consult Monitor CBC, BMP Monitor vitals Maintain MAP > 65 Continue IVF Code(s): A41.9 - SEPSIS, UNSPECIFIED ORGANISM Qualifiers: Sepsis type: sepsis due to unspecified organism Qualified Code(s): A41.9 - Sepsis, unspecified organism (2) UTI (lower urinary tract infection) Assessment/Plan: UA- +2 blood, 25-35 WBC, few Bacteria Urine Culture-pending Given Zosyn and Vancomycin in ED Consider Ceftriaxone Monitor CBC Monitor vitals Code(s): N39.0 - URINARY TRACT INFECTION, SITE NOT SPECIFIED (3) Acute metabolic encephalopathy Assessment/Plan: Likely secondary to Fever vs Infection vs advanced disease process Appreciate Neuro consult Fall Precautions Neurochecks Code(s): G93.41 - METABOLIC ENCEPHALOPATHY (4) Hypotension Assessment/Plan: Likely secondary to dehydration vs Sepsis NS bolus given in ED Will continue gentle IVF and closely monitor for HF Maintain MAP >65 Hold antihypertensive meds for now Code(s): I95.9 - HYPOTENSION, UNSPECIFIED Qualifiers: Hypotension type: unspecified hypotension type Qualified Code(s): I95.9 - Hypotension, unspecified (5) 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 transplanted heart: [place] heart Associated angina: without angina Qualified Code(s): I25.10 - Atherosclerotic heart disease of [place] coronary artery without angina pectoris (7) Hypercholesteremia Assessment/Plan: stable Continue Rosuvastatin Monitor LFTs Code(s): E78.00 - PURE HYPERCHOLESTEROLEMIA, UNSPECIFIED (8) Hypothyroidism Assessment/Plan: stable Continue Levothyroxine Code(s): E03.9 - HYPOTHYROIDISM, UNSPECIFIED Assessment/Plan This is a 83 y/o man placed in Telemetry Observation for Syncope, Sepsis, Fever , UTI for further evaluation of their emergent condition. Plan: See Problem List FEN D51/2NS@42ml/hr Replete lytes prn Low Na Diet DVT ppx OOB SCDs Consider AC if LOS > 48 hrs Code Status: Full Code Dispo: Observation Visit type - Emergency Visit Emergency Visit: Yes ED Registration Date: 01/03/19 Care time: The patient presented to the Emergency Department on the above date and was hospitalized for further evaluation of their emergent condition. - New Patient This patient is new to me today: Yes Date on this admission: 01/03/19 - Critical Care Critical Care patient: No
[2019-01-03] MEDS ORDERED: DEXTROSE 5%-0.45% SALINE 1,000 ML IV SCH (05:45)
[2019-01-03] MEDS ORDERED: LEVOTHYROXINE NA 25 MCG TABLET (FP) ONE (06:34)
[2019-01-03] MEDS ORDERED: CARBIDOPA/LEVODOPA 25/100 TABLET (FP) ONE (06:35)
[2019-01-03] MEDS: LEVOTHYROXINE NA 50 MCG TABLET (FP) PO SCH (06:47)
--- NOTE | 2019-01-03 09:17 | CONSULT ---
Consult - text type - Consultation Consultation Note: Neurology History of Present Illness 83 yo M with h/o advanced dementia, HLD, HTN, hypothyroidism, CAD s/p stents, Parkinson's Disease, colon cancer BIBEMS with AMS, and fever. Per patient daughter at bedside he had fever T-max 104.0, and given two ibuprofen tablets. Patient also with increased confusion, and chills ( daughter noted patient with rigorous shaking of arms and shivering. Patient typically up with assistance to ambulate, but non ambulatory today. Lives at home with . Marshallese speaking. Patient daughter denies cough, wheezing, orthopena, PND, leg swelling/pain, N/V , SOB, urinary complaints, hematuria, BPR, diarrhea, lightheadedness. BP running low, on telemetry monitoring. Getting infectious workup. No CT head in chart, ordered. Patient on Sinemet for PD, tremor visualized. Daughter concerned about possible dementia, he does not see physicians on outpatient due to difficulty with transportation. Discussed with her that treating underlying infection first would be needed before evaluating mental status. I would try to add medication near discharge when patient is better for cognitive impairment to make it easier for family and patient will hold off until mental state near baseline. Past History - Past Medical History Allergies/Adverse Reactions: Allergies Allergy/AdvReac Type Severity Reaction Status Date / Time No Known Drug Allergies Allergy Verified 02/10/17 05:26 Home Medications: Ambulatory Orders Carbidopa/Levodopa *Cr* 25/100 [Sinemet *Cr* 25/100 -] 1 combo PO TID@0700,1200, 1700 tablet.er 07/14/15 Rosuvastatin [Crestor -] 10 mg PO HS tablet 07/14/15 Levothyroxine [Synthroid -] 50 mcg PO DAILY 02/11/17 Amlodipine Besylate 5 mg PO 01/03/19 Polyethylene Glycol 3350 [Miralax (For Bowel Prep) -] 255 gm PO 01/03/19 Anemia: No Asthma: No Cancer: Yes (colon CA) Cardiac Disorders: Yes (hx [place] c stent x 15 years ago) CVA: No COPD: No CHF: Yes Dementia: Yes Diabetes: No GI Disorders: Yes (H/O COLON CA) Disorders: No HTN: Yes Hypercholesterolemia: Yes Liver Disease: No Seizures: No Thyroid Disease: Yes (HYPOTHYROID) Lung CA: Yes (colon x 15 years) - Surgical History Abdominal Surgery: Yes (ABD HERNIA REPAIR 4 WEEKS AGO) Appendectomy: No Cardiac Surgery: Yes (stent x 15 years ago) Cholecystectomy: No Lung Surgery: No Neurologic Surgery: No Orthopedic Surgery: Yes (Right hip replacement) - Immunization History Immunization Up to Date: No - Suicide/Smoking/Psychosocial Hx Smoking History: Unknown if ever smoked Have you smoked in the past 12 months: No If you are a former smoker, when did you quit?: 50YRS AGO Hx Alcohol Use: Yes (OCCAS) Drug/Substance Use Hx: No Substance Use Type: Alcohol Review of Systems Unable to obtain 13 point ROS inspection *Physical Exam Vital Signs Period Temp Pulse Resp BP Sys/Davison Pulse Ox Last 24 Hr 98.2 F-101.4 F 72-90 17-19 92-116/52-75 97-100 GENERAL: Awake, alert, non communicative, partially able to follow commands, in no acute distress HEAD: No signs of trauma, normocephalic, atraumatic EYES: PERRLA, EOMI, sclera anicteric, conjunctiva clear ENT: Nares patent, oropharynx clear without exudates. Moist mucosa NECK: Normal ROM, supple, no lymphadenopathy, JVD, or masses LUNGS: No distress, speaks full sentences, clear to auscultation bilaterally HEART: Regular rate and rhythm, normal S1 and S2, no murmurs, rubs or gallops, peripheral pulses normal and equal bilaterally. ABDOMEN: Soft, nontender, normoactive bowel sounds. No guarding, no rebound. No masses EXTREMITIES : Normal inspection, Normal range of motion, no edema. No clubbing or cyanosis. NEUROLOGICAL: Somnolent but arousable, tremor noted, sensory intact, cogwheeling noted SKIN: Warm, Dry, normal turgor, no rashes or lesions noted CBCD WBC 8.1 K/mm3 (4.0-10.0) 01/03/19 01:17 RBC 4.11 M/mm3 (4.00-5.60) 01/03/19 01:17 Hgb 12.7 GM/dL (11.7-16.9) 01/03/19 01:17 Hct 36.9 % (35.4-49) 01/03/19 01:17 MCV 89.8 fl (80-96) 01/03/19 01:17 MCHC 34.3 g/dl (32.0-35.9) 01/03/19 01:17 RDW 15.1 % (11.9-15.9) 01/03/19 01:17 Plt Count 199 K/MM3 (134-434) D 01/03/19 01:17 MPV 8.4 fl (7.5-11.1) 01/03/19 01:17 CMP Sodium 138 mmol/L (136-145) 01/03/19 01:17 Potassium 4.3 mmol/L (3.5-5.1) 01/03/19 01:17 Chloride 106 mmol/L (98-107) 01/03/19 01:17 Carbon Dioxide 29 mmol/L (21-32) 01/03/19 01:17 Anion Gap 3 MMOL/L (8-16) L 01/03/19 01:17 BUN 24 mg/dL (7-18) H 01/03/19 01:17 Creatinine 1.2 mg/dL (0.55-1.3) 01/03/19 01:17 Creat Clearance w eGFR 57.54 (>60) 01/03/19 01:17 Random Glucose 93 mg/dL (74-106) 01/03/19 01:17 Calcium 8.7 mg/dL (8.5-10.1) 01/03/19 01:17 Total Bilirubin 0.5 mg/dL (0.2-1) 01/03/19 01:17 AST 16 U/L (15-37) 01/03/19 01:17 ALT 11 U/L (13-61) L 01/03/19 01:17 Alkaline Phosphatase 84 U/L (45-117) 01/03/19 01:17 Total Protein 7.0 g/dl (6.4-8.2) 01/03/19 01:17 Albumin 3.4 g/dl (3.4-5.0) 01/03/19 01:17 CARDIAC ENZYMES Troponin I < 0.02 ng/ml (0.00-0.05) 01/03/19 01:17 Medical Decision Making 83 yo M with h/o advanced dementia, HLD, HTN, hypothyroidism, CAD s/p stents, Parkinson's Disease, colon cancer BIBEMS with AMS, and fever. Per patient daughter at bedside he had fever T-max 104.0, and given two ibuprofen tablets. Patient also with increased confusion, and chills ( daughter noted patient with rigorous shaking of arms and shivering. Patient typically up with assistance to ambulate, but non ambulatory today. Lives at home with . Marshallese speaking. Patient daughter denies cough, wheezing, orthopena, PND, leg swelling/pain, N/V , SOB, urinary complaints, hematuria, BPR, diarrhea, lightheadedness. BP running low, on telemetry monitoring. Getting infectious workup. No CT head in chart, ordered. Patient on Sinemet for PD, tremor visualized. Daughter concerned about possible dementia, he does not see physicians on outpatient due to difficulty with transportation. Discussed with her that treating underlying infection first would be needed before evaluating mental status. I would try to add medication near discharge when patient is better for cognitive impairment to make it easier for family and patient will hold off until mental state near baseline. Continue medical optimization, follow up cultures, infectious mgmt. Continue Sinemet for now. Adequate hydration recommended.
[2019-01-03] MEDS ORDERED: LACTATED RINGERS SOLUTION 1,000 ML IV SCH (10:30)
[2019-01-03] MEDS: POLYETHYLENE GLYCOL 3350 119 GM BTL PO SCH ×2 (10:57→22:32)
[2019-01-03] MEDS ORDERED: VANCOMYCIN 1 GM PREMIX - 1 GM/200 ML BAG IVPB ONE (11:00)
[2019-01-03] MEDS ORDERED: cefTRIAXone SODIUM 1 GM VIAL ONE (11:02)
[2019-01-03] MEDS ORDERED: DEXTROSE 5%-WATER - 50 ML IVPB ONE (11:02)
[2019-01-03] MEDS: CEFTRIAXONE 1 GM in DEXTROSE 5%-WATER - 50 ML IVPB SCH (11:21)
--- NOTE | 2019-01-03 12:13 | EKG ---
Test Reason : Blood Pressure : / mmHG Vent. Rate : 083 BPM Atrial Rate : 083 BPM P-R Int : 196 ms QRS Dur : 074 ms QT Int : 374 ms P-R-T Axes : 108 -17 062 degrees QTc Int : 439 ms POOR DATA QUALITY, INTERPRETATION MAY BE ADVERSELY AFFECTED NORMAL SINUS RHYTHM NORMAL ECG WHEN COMPARED WITH ECG OF 09-DEC-2017 15:50, NONSPECIFIC T WAVE ABNORMALITY, IMPROVED IN LATERAL LEADS Confirmed by ROCK QUEVEDO MD ([id number]) on 01/03/2019 12:12:43 PM Referred By: Confirmed By:ROCK QUEVEDO MD
--- NOTE | 2019-01-03 12:39 | CON.ID ---
Consult Consult Specialty:: infectious diseases Referred by:: hospitalist Reason for Consultation:: sepsis,fever - History of Present Illness Chief Complaint: sepsis History of Present Illness: 83 yo M with h/o advanced dementia, HLD, HTN, hypothyroidism, CAD s/p stents, Parkinson's Disease, colon cancer BIBEMS with AMS, and fever. history obtained from the notes and as per the family records patient it seems started spiking fevers and spiked to 104 which was associated with shaking chills and rigors and has been non ambulatory and his confusion increased patient lives at home with his according to the notes patient did not have any other issues neurology has seen the patient.currently patient is comfortable and non communicative on his work up his wbc is normal and xray chest does not show any specific findings all other work up is pending - History Source History Provided By: Medical Record Limitations to Obtaining History: Clinical Condition - Past Medical History 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: Yes: Peripheral Neuropathy, Parkinson's, Syncope Cardio/Vascular: Yes: [place] Pulmonary: Yes: COPD Gastrointestinal: Yes: Cancer (colon) Renal/: Yes: BPH Psych: Yes: Depression Musculoskeletal: Yes: Osteoarthritis - Past Surgical History Past Surgical History: Yes: Colectomy, Joint Replacement (R THR) - Alcohol/Substance Use Hx Alcohol Use: Yes (OCCAS) - Smoking History Smoking history: Unknown if ever smoked Have you smoked in the past 12 months: No If you are a former smoker, when did you quit?: 50YRS AGO - Social History Usual Living Arrangement: With Spouse ADL: Family Assistance Occupation: originally from [facility], [place] years History of Recent Travel: No Home Medications - Allergies Allergies/Adverse Reactions: Allergies Allergy/AdvReac Type Severity Reaction Status Date / Time No Known Drug Allergies Allergy Verified 02/10/17 05:26 - Home Medications Home Medications: Ambulatory Orders Carbidopa/Levodopa *Cr* 25/100 [Sinemet *Cr* 25/100 -] 1 combo PO TID@0700,1200, 1700 tablet.er 07/14/15 Rosuvastatin [Crestor -] 10 mg PO HS tablet 07/14/15 Levothyroxine [Synthroid -] 50 mcg PO DAILY 02/11/17 Amlodipine Besylate 5 mg PO 01/03/19 Polyethylene Glycol 3350 [Miralax (For Bowel Prep) -] 255 gm PO 01/03/19 Review of Systems Unable to obtain ROS, reason: unable to obtain Physical Exam Vital Signs: Vital Signs Temperature 98.2 F 01/03/19 04:56 Pulse Rate 77 01/03/19 04:56 Respiratory Rate 17 01/03/19 00:58 Blood Pressure 95/52 L 01/03/19 04:56 O2 Sat by Pulse Oximetry (%) 97 01/03/19 04:56 Constitutional: Yes: No Distress, Calm Eyes: Yes: Conjunctiva Clear Cardiovascular: Yes: Regular Rate and Rhythm Respiratory: Yes: Regular, CTA Bilaterally Gastrointestinal: Yes: Normal Bowel Sounds, Soft Musculoskeletal: Yes: WNL Extremities: Yes: WNL Neurological: Yes: Alert, Other (non communicative arousable,somnulent) Labs: CBC, BMP 01/03/19 01:17 01/03/19 01:17 Assessment/Plan 83 yo M with h/o advanced dementia, HLD, HTN, hypothyroidism, CAD s/p stents, Parkinson's Disease, colon cancer BIBEMS with AMS, and fever with shaking chills and confusion patient ceftriaxone and was given a dose of vanco no clear cut source of infection and why did this patient spiked such a high grade fever since admission patient is still spiking fevers and currently on ceftriaxone will await for all his work up to come back and if still continues to spike fever we will broaden the coverage rest continue current mgmt and close monitoring hydration as needed
[2019-01-03] MEDS ORDERED: PT OWN MED DRAWER 7, Y5N ONE ×3 (13:20→21:32)
--- NOTE | 2019-01-03 13:49 | PN ---
Progress Note, Physician Chief Complaint: 83 y.o Turkmen M with end stage Parkinson disease and dementia was BIBEMS due to fever up to 104, chills, worsening MS. He was given IV ABX after blood and urine cultures, seen by ID, neurology and was admitted for further management. History of Present Illness: COLON cancer, s/p sx, chemo. Parkinson disease. Autonomic dysfunction. ASHD. s/p stents. BPH. HTN Hypothyroidism Glaucoma - Current Medication List Current Medications: Active Medications Acetaminophen (Tylenol -) 650 mg PO Q6H PRN PRN Reason: PAIN OR FEVER Carbidopa/Levodopa (Sinemet *Cr* 25/100 -) 1 combo PO TID@0700,1200,1700 [facility] Last Admin: 01/03/19 06:47 Dose: 1 combo Ceftriaxone Sodium 1 gm/ (Dextrose) 50 mls @ 100 mls/hr IVPB DAILY [facility] Last Admin: 01/03/19 11:21 Dose: 100 mls/hr Lactated Ringer's (Lactated Ringers Solution) 1,000 mls @ 125 mls/hr IV ASDIR [facility] Last Admin: 01/03/19 11:21 Dose: 125 mls/hr Levothyroxine Sodium (Synthroid -) 50 mcg PO DAILY@0700 [facility] Last Admin: 01/03/19 06:47 Dose: 50 mcg Polyethylene Glycol (Miralax (For Daily Use) -) 17 gm PO BID [facility] Last Admin: 01/03/19 10:57 Dose: 17 gm Rosuvastatin Calcium (Crestor -) 10 mg PO [facility] - Objective Vital Signs: Vital Signs Temperature 98.2 F 01/03/19 04:56 Pulse Rate 77 01/03/19 04:56 Respiratory Rate 17 01/03/19 00:58 Blood Pressure 95/52 L 01/03/19 04:56 O2 Sat by Pulse Oximetry (%) 97 01/03/19 04:56 Constitutional: Yes: No Distress, Calm, Pallor Eyes: Yes: Conjunctiva Clear. No: EOM Intact HENT: Yes: Atraumatic, Normocephalic, Other (upper dentures). No: Drooling Neck: Yes: Supple, Trachea Midline, Rigid. No: Decreased ROM, Lymphadenopathy Cardiovascular: Yes: Pulse Irregular (frequent APC on monitor), S1, S2. No: JVD , Gallop, Rub Respiratory: Yes: Regular, CTA Bilaterally. No: Accessory Muscle Use, Bradypnea , Cough, Diminished, Dullness, Mechanically Ventilated, Orthopnea, Rales, Rhonchi, SOB, Tachypnea, Wheezes Gastrointestinal: Yes: Normal Bowel Sounds, Soft. No: Abdomen, Obese, Ascites, Distention, Melena, Palpable Mass, Pulsatile Mass, Tenderness, Tenderness, Rebound, Vomiting ...Rectal Exam: Yes: Deferred Genitourinary: No: Anuria, Bladder Distention, CVA Tenderness - Left, CVA Tenderness - Right Breast(s): Yes: WNL Musculoskeletal: Yes: Joint Stiffness, Muscle Weakness. No: Joint Swelling Extremities: No: Calf Tenderness, Cold, Cyanosis, Erythema Edema: No Peripheral Pulses WNL: No Integumentary: No: Pressure Ulcer, Rash, Skin Tear Neurological: Yes: Confusion, Lethargy. No: Alert (Arousable), Oriented, Aphasia, Seizure, Unresponsive Psychiatric: Yes: Alert. No: Oriented, Agitated, Suicidal Ideation Labs: CBC, BMP 01/03/19 01:17 01/03/19 01:17 INR, PTT INR 1.08 (0.83-1.09) 01/03/19 01:17 Laboratory Results - last 24 hr 01/03/19 01/03/19 01/03/19 01:17 01:17 01:17 WBC 8.1 RBC 4.11 Hgb 12.7 Hct 36.9 MCV 89.8 MCH 30.8 MCHC 34.3 RDW 15.1 Plt Count 199 D MPV 8.4 Absolute Neuts (auto) 7.3 Neutrophils % 90.2 H Lymphocytes % 4.6 L D Monocytes % 4.4 Eosinophils % 0.4 Basophils % 0.4 Nucleated RBC % 0 PT with INR 12.80 INR 1.08 PTT (Actin FS) 29.5 VBG pH 7.42 H POC VBG pCO2 42.5 POC VBG pO2 37.1 VBG HCO3 27.2 VBG O2 Sat (Davina) 69.5 L VBG Base Excess 2.9 H Sodium Potassium Chloride Carbon Dioxide Anion Gap BUN Creatinine Creat Clearance w eGFR Random Glucose Lactic Acid Calcium Magnesium Total Bilirubin AST ALT Alkaline Phosphatase Ammonia Troponin I Total Protein Albumin Urine Color Urine Appearance Urine pH Ur Specific Weatherly Urine Protein Urine Glucose (UA) Urine Ketones Urine Blood Urine Nitrite Urine Bilirubin Urine Urobilinogen Ur Leukocyte Esterase Urine WBC (Auto) U Epithel Cells (Auto) Urine Bacteria (Auto) Influenza A (Rapid) Influenza B (Rapid) 01/03/19 01/03/19 01/03/19 01:17 01:17 01:17 WBC RBC Hgb Hct MCV MCH MCHC RDW Plt Count MPV Absolute Neuts (auto) Neutrophils % Lymphocytes % Monocytes % Eosinophils % Basophils % Nucleated RBC % PT with INR INR PTT (Actin FS) VBG pH POC VBG pCO2 POC VBG pO2 VBG HCO3 VBG O2 Sat (Davina) VBG Base Excess Sodium 138 Potassium 4.3 Chloride 106 Carbon Dioxide 29 Anion Gap 3 L BUN 24 H Creatinine 1.2 Creat Clearance w eGFR 57.54 Random Glucose 93 Lactic Acid 1.0 Calcium 8.7 Magnesium Total Bilirubin 0.5 AST 16 ALT 11 L Alkaline Phosphatase 84 Ammonia Troponin I < 0.02 Total Protein 7.0 Albumin 3.4 Urine Color Urine Appearance Urine pH Ur Specific Weather[place] Urine Protein Urine Glucose (UA) Urine Ketones Urine Blood Urine Nitrite Urine Bilirubin Urine Urobilinogen Ur Leukocyte Esterase Urine WBC (Auto) U Epithel Cells (Auto) Urine Bacteria (Auto) Influenza A (Rapid) Influenza B (Rapid) 01/03/19 01/03/19 01/03/19 03:35 04:27 05:53 WBC RBC Hgb Hct MCV MCH MCHC RDW Plt Count MPV Absolute Neuts (auto) Neutrophils % Lymphocytes % Monocytes % Eosinophils % Basophils % Nucleated RBC % PT with INR INR PTT (Actin FS) VBG pH POC VBG pCO2 POC VBG pO2 VBG HCO3 VBG O2 Sat (Davina) VBG Base Excess Sodium Potassium Chloride Carbon Dioxide Anion Gap BUN Creatinine Creat Clearance w eGFR Random Glucose Lactic Acid 1.0 Calcium Magnesium Total Bilirubin AST ALT Alkaline Phosphatase Ammonia Troponin I Total Protein Albumin Urine Color Yellow Urine Appearance Clear Urine pH 5.5 Ur Specific Weather[place] 1.020 Urine Protein Trace Urine Glucose (UA) Negative Urine Ketones Negative Urine Blood 2+ H Urine Nitrite Negative Urine Bilirubin Negative Urine Urobilinogen 0.2 Ur Leukocyte Esterase Trace Urine WBC (Auto) 25-35 U Epithel Cells (Auto) Few Urine Bacteria (Auto) Few Influenza A (Rapid) Negative Influenza B (Rapid) Negative 01/03/19 01/03/19 07:05 07:05 WBC RBC Hgb Hct MCV MCH MCHC RDW Plt Count MPV Absolute Neuts (auto) Neutrophils % Lymphocytes % Monocytes % Eosinophils % Basophils % Nucleated RBC % PT with INR INR PTT (Actin FS) VBG pH POC VBG pCO2 POC VBG pO2 VBG HCO3 VBG O2 Sat (Davina) VBG Base Excess Sodium Potassium Chloride Carbon Dioxide Anion Gap BUN Creatinine Creat Clearance w eGFR Random Glucose Lactic Acid Calcium Magnesium 1.9 Total Bilirubin AST ALT Alkaline Phosphatase Ammonia 27.80 Troponin I Total Protein Albumin Urine Color Urine Appearance Urine pH Ur Specific [place] Urine Protein Urine Glucose (UA) Urine Ketones Urine Blood Urine Nitrite Urine Bilirubin Urine Urobilinogen Ur Leukocyte Esterase Urine WBC (Auto) U Epithel Cells (Auto) Urine Bacteria (Auto) Influenza A (Rapid) Influenza B (Rapid) Problem List - Problems (1) Altered mental status Assessment/Plan: Toxic metabolic encephalopathy due to fever, infection. CT brain to be done today Seen by neurology. Code(s): R41.82 - ALTERED MENTAL STATUS, UNSPECIFIED Qualifiers: Altered mental status type: unspecified Qualified Code(s): R41.82 - Altered mental status, unspecified (2) Sepsis Assessment/Plan: Probably UTI, Hypotension. UA 25-30 WBC Blood 8.1 WBC with left shift and 90 % segs Given Vanco Ceftriaxone Blood cultures and urine culture pending discussed with and GS. Code(s): A41.9 - SEPSIS, UNSPECIFIED ORGANISM Qualifiers: Sepsis type: sepsis due to unspecified organism Qualified Code(s): A41.9 - Sepsis, unspecified organism (3) Hypotension Assessment/Plan: Stop Amlodipine IV fluids LR Follow CBC, BMP Monitor UA out, BP. 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 Will avoid tight BP control. Code(s): G90.3 - MULTI-SYSTEM DEGENERATION OF THE AUTONOMIC NERVOUS SYSTEM
[2019-01-03] MEDS: ACETAMINOPHEN 325 MG TABLET (FP) PO PRN (22:32)
[2019-01-03] MEDS: ROSUVASTATIN CA 10 MG TABLET (FP) PO SCH (22:34)
[2019-01-04] MEDS: LEVOTHYROXINE NA 50 MCG TABLET (FP) PO SCH (06:03)
[2019-01-04 06:44] LABS: BASO % 0.4 % (0-2.0); EOS % 0.4 % (0-4.5); HEMATOCRIT 33.8 % (35.4-49); HEMOGLOBIN 11.4 GM/dL (11.7-16.9); LYMPH % 10.2 % (8-40); MCH 30.6 pg (25.7-33.7); MCHC 33.9 g/dl (32.0-35.9); MEAN CELL VOLUME 90.2 fl (80-96); RBC 3.74 M/mm3 (4.00-5.60); RDW 15.1 % (11.9-15.9); WHITE BLOOD COUNT 6.5 K/mm3 (4.0-10.0)
[2019-01-04 08:02] LABS: ANION GAP 7 MMOL/L (8-16); BLOOD UREA NITROGEN 15 mg/dL (7-18); CALCIUM 8.3 mg/dL (8.5-10.1); CHLORIDE 106 mmol/L (98-107); CO2 25 mmol/L (21-32); GLUCOSE,RANDOM 70 mg/dL (74-106); POTASSIUM 4.2 mmol/L (3.5-5.1); SODIUM 138 mmol/L (136-145)
[2019-01-04] MEDS ORDERED: cefTRIAXone SODIUM 1 GM VIAL ONE (08:22)
[2019-01-04] MEDS ORDERED: DEXTROSE 5%-WATER - 50 ML IVPB ONE (08:22)
--- NOTE | 2019-01-04 09:11 | PN ---
Progress Note (short form) - Note Progress Note: Neurology History of Present Illness 83 yo M with h/o advanced dementia, HLD, HTN, hypothyroidism, CAD s/p stents, Parkinson's Disease, colon cancer BIBEMS with AMS, and fever. Per patient daughter at bedside he had fever T-max 104.0, and given two ibuprofen tablets. Patient also with increased confusion, and chills ( daughter noted patient with rigorous shaking of arms and shivering. Patient typically up with assistance to ambulate, but non ambulatory today. Lives at home with . Beninese speaking. Patient daughter denies cough, wheezing, orthopena, PND, leg swelling/pain, N/V , SOB, urinary complaints, hematuria, BPR, diarrhea, lightheadedness. BP running low, on telemetry monitoring. Getting infectious workup. Patient on Sinemet for PD, tremor visualized. Daughter concerned about possible dementia, he does not see physicians on outpatient due to difficulty with transportation. Discussed with her that treating underlying infection first would be needed before evaluating mental status. I would try to add medication near discharge when patient is better for cognitive impairment to make it easier for family and patient will hold off until mental state near baseline. CT head completed and without acute changes. Slightly more awake today but similar as yesterday. ID note reviewed. Active Medications Acetaminophen (Tylenol -) 650 mg PO Q6H PRN PRN Reason: PAIN OR FEVER Last Admin: 01/03/19 22:32 Dose: 650 mg Carbidopa/Levodopa (Sinemet *Cr* 25/100 -) 1 combo PO TID@0700,1200,1700 [facility] Last Admin: 01/04/19 06:03 Dose: 1 combo Ceftriaxone Sodium 1 gm/ (Dextrose) 50 mls @ 100 mls/hr IVPB DAILY [facility] Last Admin: 01/03/19 11:21 Dose: 100 mls/hr Lactated Ringer's (Lactated Ringers Solution) 1,000 mls @ 100 mls/hr IV ASDIR [facility] Levothyroxine Sodium (Synthroid -) 50 mcg PO DAILY@0700 [facility] Last Admin: 01/04/19 06:03 Dose: 50 mcg Polyethylene Glycol (Miralax (For Daily Use) -) 17 gm PO BID [facility] Last Admin: 01/03/19 22:32 Dose: 17 gm Rosuvastatin Calcium (Crestor -) 10 mg PO HS [facility] Last Admin: 01/03/19 22:34 Dose: 10 mg *Physical Exam Vital Signs Period Temp Pulse Resp BP Sys/Davison Pulse Ox Last 24 Hr 98.2 F-99.5 F 73-86 14-20 103-152/53-84 93 GENERAL: Awake, alert, non communicative, partially able to follow commands, in no acute distress HEAD: No signs of trauma, normocephalic, atraumatic EYES: PERRLA, EOMI, sclera anicteric, conjunctiva clear ENT: Nares patent, oropharynx clear without exudates. Moist mucosa NECK: Normal ROM, supple, no lymphadenopathy, JVD, or masses LUNGS: No distress, speaks full sentences, clear to auscultation bilaterally HEART: Regular rate and rhythm, normal S1 and S2, no murmurs, rubs or gallops, peripheral pulses normal and equal bilaterally. ABDOMEN: Soft, nontender, normoactive bowel sounds. No guarding, no rebound. No masses EXTREMITIES : Normal inspection, Normal range of motion, no edema. No clubbing or cyanosis. NEUROLOGICAL: Somnolent but arousable, tremor noted, sensory intact, cogwheeling noted SKIN: Warm, Dry, normal turgor, no rashes or lesions noted CBCD WBC 6.5 K/mm3 (4.0-10.0) 01/04/19 05:30 RBC 3.74 M/mm3 (4.00-5.60) L 01/04/19 05:30 Hgb 11.4 GM/dL (11.7-16.9) L 01/04/19 05:30 Hct 33.8 % (35.4-49) L 01/04/19 05:30 MCV 90.2 fl (80-96) 01/04/19 05:30 MCHC 33.9 g/dl (32.0-35.9) 01/04/19 05:30 RDW 15.1 % (11.9-15.9) 01/04/19 05:30 Plt Count 199 K/MM3 (134-434) D 01/03/19 01:17 MPV 8.4 fl (7.5-11.1) 01/03/19 01:17 CMP Sodium 138 mmol/L (136-145) 01/04/19 05:30 Potassium 4.2 mmol/L (3.5-5.1) 01/04/19 05:30 Chloride 106 mmol/L (98-107) 01/04/19 05:30 Carbon Dioxide 25 mmol/L (21-32) 01/04/19 05:30 Anion Gap 7 MMOL/L (8-16) L 01/04/19 05:30 BUN 15 mg/dL (7-18) 01/04/19 05:30 Creatinine 1.0 mg/dL (0.55-1.3) 01/04/19 05:30 Creat Clearance w eGFR 71.02 (>60) 01/04/19 05:30 Random Glucose 70 mg/dL (74-106) L 01/04/19 05:30 Calcium 8.3 mg/dL (8.5-10.1) L 01/04/19 05:30 Total Bilirubin 0.5 mg/dL (0.2-1) 01/03/19 01:17 AST 16 U/L (15-37) 01/03/19 01:17 ALT 11 U/L (13-61) L 01/03/19 01:17 Alkaline Phosphatase 84 U/L (45-117) 01/03/19 01:17 Total Protein 7.0 g/dl (6.4-8.2) 01/03/19 01:17 Albumin 3.4 g/dl (3.4-5.0) 01/03/19 01:17 CARDIAC ENZYMES Troponin I < 0.02 ng/ml (0.00-0.05) 01/03/19 01:17 Medical Decision Making 83 yo M with h/o advanced dementia, HLD, HTN, hypothyroidism, CAD s/p stents, Parkinson's Disease, colon cancer BIBEMS with AMS, and fever. Per patient daughter at bedside he had fever T-max 104.0, and given two ibuprofen tablets. Patient also with increased confusion, and chills ( daughter noted patient with rigorous shaking of arms and shivering. Patient typically up with assistance to ambulate, but non ambulatory today. Lives at home with . Beninese speaking. Patient daughter denies cough, wheezing, orthopena, PND, leg swelling/pain, N/V , SOB, urinary complaints, hematuria, BPR, diarrhea, lightheadedness. BP running low, on telemetry monitoring. Getting infectious workup. Patient on Sinemet for PD, tremor visualized. Daughter concerned about possible dementia, he does not see physicians on outpatient due to difficulty with transportation. Discussed with her that treating underlying infection first would be needed before evaluating mental status. CT head completed and reviewed, no acute changes. ID note reviewed. I would try to add medication near discharge when patient is better for cognitive impairment to make it easier for family and patient will hold off until mental state near baseline. Continue medical optimization, follow up cultures, infectious mgmt. Continue Sinemet for now. Adequate hydration recommended.
[2019-01-04 09:13] LABS: PLATELET ESTIMATE DECREASED
--- NOTE | 2019-01-04 09:13 | PN ---
Progress Note, Physician Chief Complaint: Comfortable in bed, NAD, confused History of Present Illness: COLON cancer, s/p sx, chemo. Parkinson disease. Autonomic dysfunction. ASHD. s/p stents. BPH. HTN Hypothyroidism Glaucoma - Current Medication List Current Medications: Active Medications Acetaminophen (Tylenol -) 650 mg PO Q6H PRN PRN Reason: PAIN OR FEVER Last Admin: 01/03/19 22:32 Dose: 650 mg Carbidopa/Levodopa (Sinemet *Cr* 25/100 -) 1 combo PO TID@0700,1200,1700 [facility] Last Admin: 01/04/19 06:03 Dose: 1 combo Ceftriaxone Sodium 1 gm/ (Dextrose) 50 mls @ 100 mls/hr IVPB DAILY [facility] Last Admin: 01/03/19 11:21 Dose: 100 mls/hr Lactated Ringer's (Lactated Ringers Solution) 1,000 mls @ 100 mls/hr IV ASDIR [facility] Levothyroxine Sodium (Synthroid -) 50 mcg PO DAILY@0700 [facility] Last Admin: 01/04/19 06:03 Dose: 50 mcg Polyethylene Glycol (Miralax (For Daily Use) -) 17 gm PO BID [facility] Last Admin: 01/03/19 22:32 Dose: 17 gm Rosuvastatin Calcium (Crestor -) 10 mg PO HS [facility] Last Admin: 01/03/19 22:34 Dose: 10 mg - Objective Vital Signs: Vital Signs Temperature 99.5 F 01/04/19 08:00 Pulse Rate 83 01/04/19 08:00 Respiratory Rate 20 01/04/19 08:00 Blood Pressure 125/81 01/04/19 08:00 O2 Sat by Pulse Oximetry (%) 93 L 01/03/19 20:16 Constitutional: Yes: No Distress, Calm Eyes: Yes: Conjunctiva Clear HENT: Yes: Atraumatic, Normocephalic Neck: Yes: Supple, Trachea Midline Cardiovascular: Yes: Regular Rate and Rhythm, S1, S2. No: Bradycardia, Tachycardia Respiratory: Yes: Regular, CTA Bilaterally Gastrointestinal: Yes: Normal Bowel Sounds, Soft. No: Abdomen, Obese ...Rectal Exam: Yes: Deferred Genitourinary: Yes: White Present (Draining clear urine) Breast(s): Yes: WNL Musculoskeletal: Yes: Joint Stiffness, Muscle Weakness Extremities: No: Calf Tenderness, Cold, Cyanosis Edema: No Neurological: Yes: Alert, Confusion, Tremors. No: Oriented, Aphasia, Dysarthria , Seizure Psychiatric: Yes: Alert. No: Oriented, Agitated, Suicidal Ideation Labs: CBC, BMP 01/04/19 05:30 01/04/19 05:30 INR, PTT INR 1.08 (0.83-1.09) 01/03/19 01:17 Problem List - Problems (1) Altered mental status Assessment/Plan: Remains confused though more vocal and can answer simple questions. Probably baseline MS due to Parkinson"s disease and dementia. CT head-no new changes except posterior dislocation of the lenses. Will ask ophth consult Code(s): R41.82 - ALTERED MENTAL STATUS, UNSPECIFIED Qualifiers: Altered mental status type: unspecified Qualified Code(s): R41.82 - Altered mental status, unspecified (2) Sepsis Assessment/Plan: Lab called re blood culture GPC in clusters. GRAM POSITIVE SEPSIS-NOW improving Afebrile. WBC normal Continue IV Vanco, follow Vanco levels Code(s): A41.9 - SEPSIS, UNSPECIFIED ORGANISM Qualifiers: Sepsis type: sepsis due to unspecified organism Qualified Code(s): A41.9 - Sepsis, unspecified organism (3) Hypotension Assessment/Plan: Stopped Amlodipine IV fluids LR at 100 cc/hr x next 24 hrs . 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 Will avoid tight BP control. Code(s): G90.3 - MULTI-SYSTEM DEGENERATION OF THE AUTONOMIC NERVOUS SYSTEM
[2019-01-04] MEDS: LACTATED RINGERS SOLUTION 1,000 ML IV SCH (09:22)
[2019-01-04] MEDS: CEFTRIAXONE 1 GM in DEXTROSE 5%-WATER - 50 ML IVPB SCH (09:23)
[2019-01-04] MEDS: POLYETHYLENE GLYCOL 3350 119 GM BTL PO SCH ×2 (09:24→22:01)
[2019-01-04 09:33] LABS: MEAN PLT VOLUME 8.7 fl (7.5-11.1); PLATELET COUNT 148 K/MM3 (134-434)
[2019-01-04] MEDS ORDERED: PT OWN MED DRAWER 7, Y5N ONE ×3 (09:56→14:59)
[2019-01-04] MEDS ORDERED: VANCOMYCIN 1 GM in D5W (PRE-DOCKED) 1,000 MG/250 ML IVPB SCH (10:00)
[2019-01-04] MEDS: ACETAMINOPHEN 325 MG TABLET (FP) PO PRN ×2 (12:57→21:54)
--- NOTE | 2019-01-04 13:01 | PN ---
Progress Note, Physician History of Present Illness: stable no new issues still non verbal sleeping daughter in room had a low grade fever - Current Medication List Current Medications: Active Medications Acetaminophen (Tylenol -) 650 mg PO Q6H PRN PRN Reason: PAIN OR FEVER Last Admin: 01/04/19 12:57 Dose: 650 mg Carbidopa/Levodopa (Sinemet *Cr* 25/100 -) 1 combo PO TID@0700,1200,1700 [facility] Last Admin: 01/04/19 12:58 Dose: 1 combo Ceftriaxone Sodium 1 gm/ (Dextrose) 50 mls @ 100 mls/hr IVPB DAILY [facility] Last Admin: 01/04/19 09:23 Dose: 100 mls/hr Lactated Ringer's (Lactated Ringers Solution) 1,000 mls @ 100 mls/hr IV ASDIR [facility] Last Admin: 01/04/19 09:22 Dose: 100 mls/hr Levothyroxine Sodium (Synthroid -) 50 mcg PO DAILY@0700 [facility] Last Admin: 01/04/19 06:03 Dose: 50 mcg Polyethylene Glycol (Miralax (For Daily Use) -) 17 gm PO BID [facility] Last Admin: 01/04/19 09:24 Dose: 17 gm Rosuvastatin Calcium (Crestor -) 10 mg PO HS [facility] Last Admin: 01/03/19 22:34 Dose: 10 mg Vancomycin HCl (Vancomycin (Pre-Docked)) 1,000 mg IVPB BID [facility]; Protocol - Objective Vital Signs: Vital Signs Temperature 100.2 F H 01/04/19 12:00 Pulse Rate 80 01/04/19 12:00 Respiratory Rate 20 01/04/19 12:00 Blood Pressure 135/60 01/04/19 12:00 O2 Sat by Pulse Oximetry (%) 96 01/04/19 09:00 Constitutional: Yes: No Distress, Calm Cardiovascular: Yes: S1, S2 Respiratory: Yes: Regular, CTA Bilaterally Gastrointestinal: Yes: Normal Bowel Sounds, Soft Musculoskeletal: Yes: WNL Extremities: Yes: WNL Neurological: Yes: Other (sleeping,non verbal) Labs: CBC, BMP 01/04/19 05:30 01/04/19 05:30 INR, PTT INR 1.08 (0.83-1.09) 01/03/19 01:17 Assessment/Plan Problem List - Problems (1) Altered mental status Code(s): R41.82 - ALTERED MENTAL STATUS, UNSPECIFIED Qualifiers: Altered mental status type: unspecified Qualified Code(s): R41.82 - Altered mental status, unspecified (2) Sepsis Code(s): A41.9 - SEPSIS, UNSPECIFIED ORGANISM Qualifiers: Sepsis type: sepsis due to unspecified organism Qualified Code(s): A41.9 - Sepsis, unspecified organism (3) Hypotension Code(s): I95.9 - HYPOTENSION, UNSPECIFIED Qualifiers: Hypotension type: unspecified hypotension type Qualified Code(s): I95.9 - Hypotension, unspecified (4) 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
[2019-01-04] MEDS: VANCOMYCIN 1,000 MG in DEXTROSE 5%-WATER - 250 ML IVPB SCH (15:05)
[2019-01-04] MEDS: ROSUVASTATIN CA 10 MG TABLET (FP) PO SCH (21:54)
[2019-01-04] MEDS ORDERED: VANCOMYCIN 1,000 MG in DEXTROSE 5%-WATER - 250 ML IVPB ONE (23:00)
[2019-01-05] MEDS: VANCOMYCIN 1,000 MG in DEXTROSE 5%-WATER - 250 ML IVPB SCH (00:14)
[2019-01-05] MEDS ORDERED: PT OWN MED DRAWER 7, Y5N ONE ×3 (06:28→20:28)
[2019-01-05] MEDS: LEVOTHYROXINE NA 50 MCG TABLET (FP) PO SCH (08:44)
[2019-01-05] MEDS: LACTATED RINGERS SOLUTION 1,000 ML IV SCH (08:44)
[2019-01-05] MEDS ORDERED: cefTRIAXone SODIUM 1 GM VIAL ONE (09:36)
[2019-01-05] MEDS ORDERED: DEXTROSE 5%-WATER - 50 ML IVPB ONE (09:37)
[2019-01-05] MEDS: CEFTRIAXONE 1 GM in DEXTROSE 5%-WATER - 50 ML IVPB SCH (10:26)
--- NOTE | 2019-01-05 10:38 | PN ---
Progress Note, Physician Chief Complaint: Altered Mental Status, Gram + Bacteremia History of Present Illness: Patient remains sedated but appears comfortable, not verbally responsive. Per Nursing pt with no BMs since arrival, requesting milk of magnesia. Pt afebrile in past 24hrs, with stable hemodynamics last Vanco dose yesterday PM; Dr. Jenkins- of ID consulting- prelim 01/03 BCx: MSSA ; 01/04 BCx: NGTD x2 Inputs per 24hrs: 3.05L of IVF- LR + limited PO intake of puree diet Outputs per 24hrs: 1.7, measured via hancock Net balance: 1.3L/ 24hrs - Current Medication List Current Medications: Active Medications Acetaminophen (Tylenol -) 650 mg PO Q6H PRN PRN Reason: PAIN OR FEVER Last Admin: 01/04/19 21:54 Dose: 650 mg Carbidopa/Levodopa (Sinemet *Cr* 25/100 -) 1 combo PO TID@0700,1200,1700 [facility] Last Admin: 01/05/19 08:43 Dose: 1 combo Ceftriaxone Sodium 1 gm/ (Dextrose) 50 mls @ 100 mls/hr IVPB DAILY [facility] Last Admin: 01/05/19 10:26 Dose: 100 mls/hr Lactated Ringer's (Lactated Ringers Solution) 1,000 mls @ 100 mls/hr IV ASDIR [facility] Last Admin: 01/05/19 08:44 Dose: 100 mls/hr Levothyroxine Sodium (Synthroid -) 50 mcg PO DAILY@0700 [facility] Last Admin: 01/05/19 08:44 Dose: 50 mcg Polyethylene Glycol (Miralax (For Daily Use) -) 17 gm PO BID [facility] Last Admin: 01/04/19 22:01 Dose: Not Given Rosuvastatin Calcium (Crestor -) 10 mg PO HS [facility] Last Admin: 01/04/19 21:54 Dose: 10 mg - Objective Vital Signs: Vital Signs Temperature 98.4 F 01/05/19 06:00 Pulse Rate 66 01/05/19 06:00 Respiratory Rate 18 01/05/19 06:00 Blood Pressure 164/76 01/05/19 06:00 O2 Sat by Pulse Oximetry (%) 97 01/04/19 21:00 Constitutional: Yes: No Distress, Thin HENT: Yes: Atraumatic (Moist oral mucosa), Normocephalic Neck: Yes: Supple (No cervical lymphadenopathy) Cardiovascular: Yes: Regular Rate and Rhythm (nmrl S1 &S2 no audible murmurs or rubs) Respiratory: Yes: CTA Bilaterally (no wheezing, rales, rhonchi) Gastrointestinal: Yes: Normal Bowel Sounds (no tenderness on palpation), Soft ...Rectal Exam: Yes: Deferred Genitourinary: Yes: Hancock Present (hancock draining clear yellow urine) Extremities: Yes: Other (warm, well perfused, L forearm wrapped in guaze, 2+ radial& DP pulses b/l, no LE edema on palpation) Labs: CBC, BMP 01/04/19 05:30 01/04/19 05:30 INR, PTT INR 1.08 (0.83-1.09) 01/03/19 01:17 Problem List - Problems (1) Altered mental status Assessment/Plan: Pt s/p CTH with no ischemic changes Pt evaluated by neuro advise continued treatment of infection and continue sinemet, may require adjustment/addition of additional medications once out of acute illness phase and closer to discharge continue neuro monitoring in ICU non urgent optho consult to follow for posterior lens dislocation described on CTH Code(s): R41.82 - ALTERED MENTAL STATUS, UNSPECIFIED Qualifiers: Altered mental status type: unspecified Qualified Code(s): R41.82 - Altered mental status, unspecified (2) Hypotension Assessment/Plan: Blood pressure presently stable, having received maintenance IVF with LR @ 100cc /hr monitor BPs in ICU Pt w/ prior Shy Drager syndrome, was on midodrine, presently no indication to resume Check labs to monitoring electrolytes continue to hold amlodipine, avoid strict BP control, goal < 160/90mmhg Code(s): I95.9 - HYPOTENSION, UNSPECIFIED Qualifiers: Hypotension type: unspecified hypotension type Qualified Code(s): I95.9 - Hypotension, unspecified (3) 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 Code(s): A41.9 - SEPSIS, UNSPECIFIED ORGANISM Qualifiers: Sepsis type: sepsis due to unspecified organism Qualified Code(s): A41.9 - Sepsis, unspecified organism (5) BPH (benign prostatic hypertrophy) with urinary obstruction Assessment/Plan: Hancock in place & draining well maintain sterile, hancock precautions, consider removal & trial of void as pt becomes more alert/interactive within next 24-48hrs Code(s): N40.1 - BENIGN PROSTATIC HYPERPLASIA WITH LOWER URINARY TRACT SYMP; N13.8 - OTHER OBSTRUCTIVE AND REFLUX UROPATHY (6) Constipation Assessment/Plan: monitor for BMs can start PRN colace and milk of magnesia for persistent constipation Code(s): K59.00 - CONSTIPATION, UNSPECIFIED Qualifiers: Constipation type: slow transit constipation Qualified Code(s): K59.01 - Slow transit constipation
[2019-01-05] MEDS: POLYETHYLENE GLYCOL 3350 119 GM BTL PO SCH ×2 (10:42→21:23)
[2019-01-05] MEDS ORDERED: MAGNESIUM HYDROX 2400MG/30ML ORAL SUSPENSION 30 ML CUP PO PRN (11:07)
--- NOTE | 2019-01-05 12:15 | PN ---
Progress Note, Physician History of Present Illness: patiet stable still mental status not upto par comfortable - Current Medication List Current Medications: Active Medications Acetaminophen (Tylenol -) 650 mg PO Q6H PRN PRN Reason: PAIN OR FEVER Last Admin: 01/04/19 21:54 Dose: 650 mg Carbidopa/Levodopa (Sinemet *Cr* 25/100 -) 1 combo PO TID@0700,1200,1700 [facility] Last Admin: 01/05/19 08:43 Dose: 1 combo Docusate Sodium (Colace -) 100 mg PO Q8H PRN PRN Reason: CONSTIPATION Ceftriaxone Sodium 1 gm/ (Dextrose) 50 mls @ 100 mls/hr IVPB DAILY [facility] Last Admin: 01/05/19 10:26 Dose: 100 mls/hr Lactated Ringer's (Lactated Ringers Solution) 1,000 mls @ 100 mls/hr IV ASDIR [facility] Last Admin: 01/05/19 08:44 Dose: 100 mls/hr Levothyroxine Sodium (Synthroid -) 50 mcg PO DAILY@0700 [facility] Last Admin: 01/05/19 08:44 Dose: 50 mcg Magnesium Hydroxide (Milk Of Magnesia -) 30 ml PO DAILY PRN PRN Reason: CONSTIPATION Polyethylene Glycol (Miralax (For Daily Use) -) 17 gm PO BID [facility] Last Admin: 01/05/19 10:42 Dose: 17 gm Rosuvastatin Calcium (Crestor -) 10 mg PO HS [facility] Last Admin: 01/04/19 21:54 Dose: 10 mg - Objective Vital Signs: Vital Signs Temperature 98.4 F 01/05/19 06:00 Pulse Rate 70 01/05/19 08:00 Respiratory Rate 18 01/05/19 08:00 Blood Pressure 148/77 01/05/19 08:00 O2 Sat by Pulse Oximetry (%) 97 01/04/19 21:00 Constitutional: Yes: No Distress, Calm Cardiovascular: Yes: Regular Rate and Rhythm Respiratory: Yes: Regular, CTA Bilaterally Gastrointestinal: Yes: Normal Bowel Sounds, Soft Musculoskeletal: Yes: WNL Extremities: Yes: Other Neurological: Yes: Alert, Other Psychiatric: Yes: Other Labs: CBC, BMP 01/04/19 05:30 01/04/19 05:30 INR, PTT INR 1.08 (0.83-1.09) 01/03/19 01:17 Assessment/Plan Problem List - Problems (1) Altered mental status Code(s): R41.82 - ALTERED MENTAL STATUS, UNSPECIFIED Qualifiers: Altered mental status type: unspecified Qualified Code(s): R41.82 - Altered mental status, unspecified (2) Sepsis Code(s): A41.9 - SEPSIS, UNSPECIFIED ORGANISM Qualifiers: Sepsis type: sepsis due to unspecified organism Qualified Code(s): A41.9 - Sepsis, unspecified organism (3) Hypotension Code(s): I95.9 - HYPOTENSION, UNSPECIFIED Qualifiers: Hypotension type: unspecified hypotension type Qualified Code(s): I95.9 - Hypotension, unspecified (4) 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
[2019-01-05] MEDS: CEFAZOLIN 1 GM/D5W 1 GM/50 ML BAG IVPB SCH ×2 (12:46→17:37)
[2019-01-05] MEDS: DOCUSATE SODIUM 100 MG CAPSULE (FP) PO PRN ×2 (12:53→21:14)
--- NOTE | 2019-01-05 13:52 | PN ---
Progress Note (short form) - Note Progress Note: Neurology History of Present Illness 83 yo M with h/o advanced dementia, HLD, HTN, hypothyroidism, CAD s/p stents, Parkinson's Disease, colon cancer BIBEMS with AMS, and fever. Per patient daughter at bedside he had fever T-max 104.0, and given two ibuprofen tablets. Patient also with increased confusion, and chills ( daughter noted patient with rigorous shaking of arms and shivering. Patient typically up with assistance to ambulate, but non ambulatory today. Lives at home with . Belgian speaking. Patient daughter denies cough, wheezing, orthopena, PND, leg swelling/pain, N/V , SOB, urinary complaints, hematuria, BPR, diarrhea, lightheadedness. BP running low, on telemetry monitoring. Getting infectious workup. Patient on Sinemet for PD, tremor visualized. Daughter concerned about possible dementia, he does not see physicians on outpatient due to difficulty with transportation. Discussed with her that treating underlying infection first would be needed before evaluating mental status. I would try to add medication near discharge when patient is better for cognitive impairment to make it easier for family and patient will hold off until mental state near baseline. CT head completed and without acute changes. Discussed with daughter at bedside, she felt possibly facial droop and was asking about MRI brain. She also reports family history of acoustic neuroma, will check MRI brain to confirm no structural changes. ID note reviewed. Active Medications Acetaminophen (Tylenol -) 650 mg PO Q6H PRN PRN Reason: PAIN OR FEVER Last Admin: 01/04/19 21:54 Dose: 650 mg Carbidopa/Levodopa (Sinemet *Cr* 25/100 -) 1 combo PO TID@0700,1200,1700 [facility] Last Admin: 01/05/19 12:46 Dose: 1 combo Docusate Sodium (Colace -) 100 mg PO Q8H PRN PRN Reason: CONSTIPATION Last Admin: 01/05/19 12:53 Dose: 100 mg Lactated Ringer's (Lactated Ringers Solution) 1,000 mls @ 100 mls/hr IV ASDIR [facility] Last Admin: 01/05/19 08:44 Dose: 100 mls/hr Cefazolin Sodium (Ancef 1 Gm Premixed Ivpb -) 1 gm in 50 mls @ 100 mls/hr IVPB Q8H-IV [facility] Last Admin: 01/05/19 12:46 Dose: 100 mls/hr Levothyroxine Sodium (Synthroid -) 50 mcg PO DAILY@0700 [facility] Last Admin: 01/05/19 08:44 Dose: 50 mcg Magnesium Hydroxide (Milk Of Magnesia -) 30 ml PO DAILY PRN PRN Reason: CONSTIPATION Last Admin: 01/05/19 12:53 Dose: 30 ml Polyethylene Glycol (Miralax (For Daily Use) -) 17 gm PO BID [facility] Last Admin: 01/05/19 10:42 Dose: 17 gm Rosuvastatin Calcium (Crestor -) 10 mg PO HS [facility] Last Admin: 01/04/19 21:54 Dose: 10 mg *Physical Exam Vital Signs Period Temp Pulse Resp BP Sys/Davison Pulse Ox Last 24 Hr 97.4 F-98.9 F 66-77 15-23 107-166/55-77 96-97 GENERAL: Awake, alert, non communicative, partially able to follow commands, in no acute distress HEAD: No signs of trauma, normocephalic, atraumatic EYES: PERRLA, EOMI, sclera anicteric, conjunctiva clear ENT: Nares patent, oropharynx clear without exudates. Moist mucosa NECK: Normal ROM, supple, no lymphadenopathy, JVD, or masses LUNGS: No distress, speaks full sentences, clear to auscultation bilaterally HEART: Regular rate and rhythm, normal S1 and S2, no murmurs, rubs or gallops, peripheral pulses normal and equal bilaterally. ABDOMEN: Soft, nontender, normoactive bowel sounds. No guarding, no rebound. No masses EXTREMITIES : Normal inspection, Normal range of motion, no edema. No clubbing or cyanosis. NEUROLOGICAL: Somnolent but arousable, tremor noted, sensory intact, cogwheeling noted SKIN: Warm, Dry, normal turgor, no rashes or lesions noted CBCD WBC 6.5 K/mm3 (4.0-10.0) 01/04/19 05:30 RBC 3.74 M/mm3 (4.00-5.60) L 01/04/19 05:30 Hgb 11.4 GM/dL (11.7-16.9) L 01/04/19 05:30 Hct 33.8 % (35.4-49) L 01/04/19 05:30 MCV 90.2 fl (80-96) 01/04/19 05:30 MCHC 33.9 g/dl (32.0-35.9) 01/04/19 05:30 RDW 15.1 % (11.9-15.9) 01/04/19 05:30 Plt Count 148 K/MM3 (134-434) D 01/04/19 05:30 MPV 8.7 fl (7.5-11.1) 01/04/19 05:30 CMP Sodium 138 mmol/L (136-145) 01/04/19 05:30 Potassium 4.2 mmol/L (3.5-5.1) 01/04/19 05:30 Chloride 106 mmol/L (98-107) 01/04/19 05:30 Carbon Dioxide 25 mmol/L (21-32) 01/04/19 05:30 Anion Gap 7 MMOL/L (8-16) L 01/04/19 05:30 BUN 15 mg/dL (7-18) 01/04/19 05:30 Creatinine 1.0 mg/dL (0.55-1.3) 01/04/19 05:30 Creat Clearance w eGFR 71.02 (>60) 01/04/19 05:30 Random Glucose 70 mg/dL (74-106) L 01/04/19 05:30 Calcium 8.3 mg/dL (8.5-10.1) L 01/04/19 05:30 Total Bilirubin 0.5 mg/dL (0.2-1) 01/03/19 01:17 AST 16 U/L (15-37) 01/03/19 01:17 ALT 11 U/L (13-61) L 01/03/19 01:17 Alkaline Phosphatase 84 U/L (45-117) 01/03/19 01:17 Total Protein 7.0 g/dl (6.4-8.2) 01/03/19 01:17 Albumin 3.4 g/dl (3.4-5.0) 01/03/19 01:17 CARDIAC ENZYMES Troponin I < 0.02 ng/ml (0.00-0.05) 01/03/19 01:17 Medical Decision Making 83 yo M with h/o advanced dementia, HLD, HTN, hypothyroidism, CAD s/p stents, Parkinson's Disease, colon cancer BIBEMS with AMS, and fever. Per patient daughter at bedside he had fever T-max 104.0, and given two ibuprofen tablets. Patient also with increased confusion, and chills ( daughter noted patient with rigorous shaking of arms and shivering. Patient typically up with assistance to ambulate, but non ambulatory today. Lives at home with . Belgian speaking. Patient daughter denies cough, wheezing, orthopena, PND, leg swelling/pain, N/V , SOB, urinary complaints, hematuria, BPR, diarrhea, lightheadedness. BP running low, on telemetry monitoring. Getting infectious workup. Patient on Sinemet for PD, tremor visualized. Daughter concerned about possible dementia, he does not see physicians on outpatient due to difficulty with transportation. Discussed with her that treating underlying infection first would be needed before evaluating mental status. CT head completed and reviewed, no acute changes. ID note reviewed. I would try to add medication near discharge when patient is better for cognitive impairment to make it easier for family and patient will hold off until mental state near baseline.Discussed with daughter at bedside, she felt possibly facial droop and was asking about MRI brain. She also reports family history of acoustic neuroma, will check MRI brain to confirm no structural changes. Continue medical optimization, follow up cultures , infectious mgmt. Continue Sinemet for now. Adequate hydration recommended.
[2019-01-05] MEDS: ACETAMINOPHEN 325 MG TABLET (FP) PO PRN (21:14)
[2019-01-05] MEDS: ROSUVASTATIN CA 10 MG TABLET (FP) PO SCH (21:14)
[2019-01-05] MEDS ORDERED: ACETAMINOPHEN 1000 MG/100 ML VIAL (NON FORMULARY) IVPB ONE (23:45)
[2019-01-06] MEDS: CEFAZOLIN 1 GM/D5W 1 GM/50 ML BAG IVPB SCH ×3 (01:21→18:39)
[2019-01-06] MEDS ORDERED: GLYCERIN 1 RECTAL SUPPOSITORY, ADULT PR ONE (05:49)
[2019-01-06] MEDS ORDERED: PT OWN MED DRAWER 7, Y5N ONE ×3 (05:54→21:30)
[2019-01-06] MEDS: DOCUSATE SODIUM 100 MG CAPSULE (FP) PO PRN ×2 (06:11→11:09)
[2019-01-06] MEDS: LEVOTHYROXINE NA 50 MCG TABLET (FP) PO SCH (06:11)
[2019-01-06 09:54] LABS: BASO % 0.3 % (0-2.0); EOS % 0.7 % (0-4.5); HEMATOCRIT 34.9 % (35.4-49); HEMOGLOBIN 11.9 GM/dL (11.7-16.9); LYMPH % 6.4 % (8-40); MCH 30.2 pg (25.7-33.7); MEAN CELL VOLUME 88.7 fl (80-96); MEAN PLT VOLUME 8.1 fl (7.5-11.1); MONO % 10.7 % (3.8-10.2); NEUT % 81.9 % (42.8-82.8); PLATELET COUNT 189 K/MM3 (134-434); RBC 3.93 M/mm3 (4.00-5.60); WHITE BLOOD COUNT 9.2 K/mm3 (4.0-10.0)
[2019-01-06 10:15] LABS: ALBUMIN 2.5 g/dl (3.4-5.0); ALK PHOS 115 U/L (45-117); ANION GAP 5 MMOL/L (8-16); BILIRUBIN,TOTAL 0.4 mg/dL (0.2-1); BLOOD UREA NITROGEN 14 mg/dL (7-18); CALCIUM 8.2 mg/dL (8.5-10.1); CHLORIDE 106 mmol/L (98-107); CO2 30 mmol/L (21-32); CREATININE 1.5 mg/dL (0.55-1.3); GLUCOSE,RANDOM 108 mg/dL (74-106); POTASSIUM 3.4 mmol/L (3.5-5.1); SGOT/AST 40 U/L (15-37); SGPT/ALT 9 U/L (13-61); SODIUM 142 mmol/L (136-145); TOT PROT 5.6 g/dl (6.4-8.2)
--- NOTE | 2019-01-06 10:40 | PN ---
Progress Note, Physician Chief Complaint: AMS, Gram + bacteremia History of Present Illness: Pt seen & examined at bedside this morning. Appears more responsive & interactive. Report some abd discomfort felt to be related to lack of BMs, but reported to have large BM yesterday after tap water enema administered. Today reports still has slight abd pain but no nausea, vomiting, has desire to eat. BP's trending high o/n and at time of exam 170/80mhg 01/03 BCx: prelim MSSA, remaining BCX & UCx NTGD, 01/05 BCx: NGTD x2 Inputs/24hrs: 1.5L Outputs/24hrs: 1.14 Balance: net + 345ml/24hrs - Current Medication List Current Medications: Active Medications Acetaminophen (Tylenol -) 650 mg PO Q6H PRN PRN Reason: PAIN OR FEVER Last Admin: 01/05/19 21:14 Dose: 650 mg Carbidopa/Levodopa (Sinemet *Cr* 25/100 -) 1 combo PO TID@0700,1200,1700 [facility] Last Admin: 01/06/19 06:11 Dose: 1 combo Docusate Sodium (Colace -) 100 mg PO Q8H PRN PRN Reason: CONSTIPATION Last Admin: 01/06/19 06:11 Dose: 100 mg Cefazolin Sodium (Ancef 1 Gm Premixed Ivpb -) 1 gm in 50 mls @ 100 mls/hr IVPB Q8H-IV [facility] Last Admin: 01/06/19 01:21 Dose: 100 mls/hr Levothyroxine Sodium (Synthroid -) 50 mcg PO DAILY@0700 [facility] Last Admin: 01/06/19 06:11 Dose: 50 mcg Polyethylene Glycol (Miralax (For Daily Use) -) 17 gm PO BID [facility] Last Admin: 01/05/19 21:23 Dose: Not Given Rosuvastatin Calcium (Crestor -) 10 mg PO HS [facility] Last Admin: 01/05/19 21:14 Dose: 10 mg - Objective Vital Signs: Vital Signs Temperature 98.6 F 01/06/19 05:00 Pulse Rate 88 01/06/19 05:00 Respiratory Rate 18 01/06/19 05:00 Blood Pressure 167/88 01/06/19 05:00 O2 Sat by Pulse Oximetry (%) 98 01/05/19 21:00 Constitutional: Yes: No Distress (drowsy but verbally responsive in Latvian, oriented to person & place-hospital, but not time) Eyes: Yes: Conjunctiva Clear HENT: Yes: Atraumatic, Normocephalic (moist mucous membranes, no scleral pallor or icterus) Neck: Yes: Supple, Trachea Midline (no JVD) Cardiovascular: Yes: Regular Rate and Rhythm (s1 &s2 nrml, no murmurs, rubs) Respiratory: Yes: CTA Bilaterally (poor inspiratory effort limits basilar breath sound auscultation, no wheezing or crackles) Gastrointestinal: Yes: Normal Bowel Sounds (non tender on palpation, nondistended, no suprapubic mass palpable), Soft Genitourinary: Yes: Hancock Present (no CVA tendereness b/l) Extremities: Yes: Other (warm, well perfused, no pitting edema noted) Labs: CBC, BMP 01/06/19 09:07 01/06/19 09:07 INR, PTT INR 1.08 (0.83-1.09) 01/03/19 01:17 Problem List - Problems (1) Altered mental status Assessment/Plan: - s/p CTH w/ no ischemic changes and mentation appears to be improving- pt more verbal, eats w/ assistance & family at bedside - neuro consultation notes: continue sinemet, treat infection & consider additional agents for dementia closer to discharge, MRI brain ordered, pending completion - Pt pending ophtho consult for posterior lens dislocation per CTH Code(s): R41.82 - ALTERED MENTAL STATUS, UNSPECIFIED Qualifiers: Altered mental status type: unspecified Qualified Code(s): R41.82 - Altered mental status, unspecified (2) Hypotension Assessment/Plan: - Review of BPs show no marked hypotensive episodes, MAP constently > 65, was receiving LR IVF from 01/04-01/05 - Prior hx of Shy Drager syndrome, not currently on midodrine - Avoid strcit BP control, target BP goal < 160/90mmhg, if remains steadily above may require resumption of home amlodipine Code(s): I95.9 - HYPOTENSION, UNSPECIFIED Qualifiers: Hypotension type: unspecified hypotension type Qualified Code(s): I95.9 - Hypotension, unspecified (3) 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 Assessment/Plan: - - Prior hx of PD w/ Shy Drager syndrome, is on stable dose sinemet not currently on midodrine Code(s): G90.3 - MULTI-SYSTEM DEGENERATION OF THE AUTONOMIC NERVOUS SYSTEM (4) Sepsis Assessment/Plan: BCx from 01/04 MSSA, converted Vanc to cefazolin IV per ID recommendations Continue to monitor wbc and fever trend f/up on final BCx, UCx PRN Tylenol for fevers > 100.4F Code(s): A41.9 - SEPSIS, UNSPECIFIED ORGANISM Qualifiers: Sepsis type: sepsis due to unspecified organism Qualified Code(s): A41.9 - Sepsis, unspecified organism (5) BPH (benign prostatic hypertrophy) with urinary obstruction Assessment/Plan: pt with hancock in place appears to be draining freely no palpable suprapubic mass pending bladder ultrasound to confirm hancock position/placement r/o bladder disease Code(s): N40.1 - BENIGN PROSTATIC HYPERPLASIA WITH LOWER URINARY TRACT SYMP; N13.8 - OTHER OBSTRUCTIVE AND REFLUX UROPATHY (6) Constipation Assessment/Plan: - resolved after tap water enema - c/w puree diet, currently tolerating well - stop MoM given ROLAND - miralax & colace PRN Code(s): K59.00 - CONSTIPATION, UNSPECIFIED Qualifiers: Constipation type: slow transit constipation Qualified Code(s): K59.01 - Slow transit constipation (7) Acute kidney injury Assessment/Plan: - Pt with interval rise in SCr from 01/04 to today from 1 to 1.5, potentially reflects prior hemodynamic insults related to sepsis on admission as pt has been receiving LR maintenance IVF with net + fluid balance per past 48hrs without hypotension in past 24hrs. - Potential septic ATN related to infection, though non oliguric - Possible venous congestion effect related to steady IVF, thus given hemodynamic stability & elevated BP today will hold IVF at this time - Continue close monitoring of intake, outputs - Repeat UA & obtain renal/pelvic US to r/o ascending infection such as complicated cystitis/pyelo - Hancock draining with non oliguric UOP not suggestive of obstruction - Vanco previously administered with measured trough level of 15.9- not suspected to be at toxic range to cause injury - Potential AIN related to cefazolin unlikely as I would not expect after only single dose yesterday - Trend SCr to monitor for resolution - Will give gentle potassium repletion in setting of ROLAND w/ 10meq KCL IV x 2 for hypokalemia of 3.4, replete mag to > 2 with mag oxide 400mg Code(s): N17.9 - ACUTE KIDNEY FAILURE, UNSPECIFIED (8) DVT prophylaxis Assessment/Plan: -subq heparin 5000units q8hrs for DVT ppx Code(s): [id number] - (9) Dyslipidemia Assessment/Plan: c/w crestor at current dose Code(s): E78.5 - HYPERLIPIDEMIA, UNSPECIFIED (10) Hypothyroidism Assessment/Plan: -c/w levothyroxine 50mcg daily Code(s): E03.9 - HYPOTHYROIDISM, UNSPECIFIED
[2019-01-06] MEDS: POLYETHYLENE GLYCOL 3350 119 GM BTL PO SCH ×2 (11:09→21:20)
[2019-01-06] MEDS: KCL 10 MEQ IVPB 10 MEQ/100 ML INFUS.BAG IVPB SCH ×2 (11:09→14:03)
[2019-01-06] MEDS: MAGNESIUM OXIDE 400 MG TABLET (FP) PO SCH ×2 (11:09→21:42)
--- NOTE | 2019-01-06 11:44 | PN ---
Progress Note (short form) - Note Progress Note: Neurology History of Present Illness 83 yo M with h/o advanced dementia, HLD, HTN, hypothyroidism, CAD s/p stents, Parkinson's Disease, colon cancer BIBEMS with AMS, and fever. Per patient daughter at bedside he had fever T-max 104.0, and given two ibuprofen tablets. Patient also with increased confusion, and chills ( daughter noted patient with rigorous shaking of arms and shivering. Patient typically up with assistance to ambulate, but non ambulatory today. Lives at home with . [place] speaking. Patient daughter denies cough, wheezing, orthopena, PND, leg swelling/pain, N/V , SOB, urinary complaints, hematuria, BPR, diarrhea, lightheadedness. BP running low, on telemetry monitoring. Getting infectious workup. Patient on Sinemet for PD, tremor visualized. Daughter concerned about possible dementia, he does not see physicians on outpatient due to difficulty with transportation. Discussed with her that treating underlying infection first would be needed before evaluating mental status. I would try to add medication near discharge when patient is better for cognitive impairment to make it easier for family and patient will hold off until mental state near baseline. CT head completed and without acute changes. Discussed with daughter at bedside, she felt possibly facial droop and was asking about MRI brain. She also reports family history of acoustic neuroma, will check MRI brain to confirm no structural changes. Brain MRI ordered, awaiting completion. Daughter and family remain at bedside. Discussed MRI brain order with PCP. Active Medications Acetaminophen (Tylenol -) 650 mg PO Q6H PRN PRN Reason: PAIN OR FEVER Last Admin: 01/05/19 21:14 Dose: 650 mg Carbidopa/Levodopa (Sinemet *Cr* 25/100 -) 1 combo PO TID@0700,1200,1700 [facility] Last Admin: 01/06/19 06:11 Dose: 1 combo Docusate Sodium (Colace -) 100 mg PO Q8H PRN PRN Reason: CONSTIPATION Last Admin: 01/06/19 11:09 Dose: 100 mg Heparin Sodium (Porcine) (Heparin -) 5,000 unit SQ TID [facility] Cefazolin Sodium (Ancef 1 Gm Premixed Ivpb -) 1 gm in 50 mls @ 100 mls/hr IVPB Q8H-IV [facility] Last Admin: 01/06/19 01:21 Dose: 100 mls/hr Potassium Chloride (Potassium Chloride 10 Meq Premix Ivpb -) 10 meq in 100 mls @ 100 mls/hr IVPB Q60M [facility] Stop: 01/06/19 12:44 Last Admin: 01/06/19 11:09 Dose: 100 mls/hr Levothyroxine Sodium (Synthroid -) 50 mcg PO DAILY@0700 [facility] Last Admin: 01/06/19 06:11 Dose: 50 mcg Magnesium Oxide (Mag-Ox -) 400 mg PO BID [facility] Stop: 01/07/19 10:34 Last Admin: 01/06/19 11:09 Dose: 400 mg Polyethylene Glycol (Miralax (For Daily Use) -) 17 gm PO BID [facility] Last Admin: 01/06/19 11:09 Dose: 17 gm Rosuvastatin Calcium (Crestor -) 10 mg PO HS [facility] Last Admin: 01/05/19 21:14 Dose: 10 mg *Physical Exam Last Vital Signs Temp Pulse Resp BP Pulse Ox 98.6 F 88 18 167/88 98 01/06/19 05:00 01/06/19 05:00 01/06/19 05:00 01/06/19 05:00 01/05/19 21:00 GENERAL: Awake, alert, non communicative, partially able to follow commands, in no acute distress HEAD: No signs of trauma, normocephalic, atraumatic EYES: PERRLA, EOMI, sclera anicteric, conjunctiva clear ENT: Nares patent, oropharynx clear without exudates. Moist mucosa NECK: Normal ROM, supple, no lymphadenopathy, JVD, or masses LUNGS: No distress, speaks full sentences, clear to auscultation bilaterally HEART: Regular rate and rhythm, normal S1 and S2, no murmurs, rubs or gallops, peripheral pulses normal and equal bilaterally. ABDOMEN: Soft, nontender, normoactive bowel sounds. No guarding, no rebound. No masses EXTREMITIES : Normal inspection, Normal range of motion, no edema. No clubbing or cyanosis. NEUROLOGICAL: Somnolent but arousable, tremor noted, ?R facial, sensory intact, cogwheeling noted SKIN: Warm, Dry, normal turgor, no rashes or lesions noted CBCD WBC 9.2 K/mm3 (4.0-10.0) 01/06/19 09:07 RBC 3.93 M/mm3 (4.00-5.60) L 01/06/19 09:07 Hgb 11.9 GM/dL (11.7-16.9) 01/06/19 09:07 Hct 34.9 % (35.4-49) L 01/06/19 09:07 MCV 88.7 fl (80-96) 01/06/19 09:07 MCHC 34.0 g/dl (32.0-35.9) 01/06/19 09:07 RDW 15.0 % (11.9-15.9) 01/06/19 09:07 Plt Count 189 K/MM3 (134-434) D 01/06/19 09:07 MPV 8.1 fl (7.5-11.1) 01/06/19 09:07 CMP Sodium 142 mmol/L (136-145) 01/06/19 09:07 Potassium 3.4 mmol/L (3.5-5.1) L 01/06/19 09:07 Chloride 106 mmol/L (98-107) 01/06/19 09:07 Carbon Dioxide 30 mmol/L (21-32) 01/06/19 09:07 Anion Gap 5 MMOL/L (8-16) L 01/06/19 09:07 BUN 14 mg/dL (7-18) 01/06/19 09:07 Creatinine 1.5 mg/dL (0.55-1.3) H 01/06/19 09:07 Creat Clearance w eGFR 44.48 (>60) 01/06/19 09:07 Random Glucose 108 mg/dL (74-106) H 01/06/19 09:07 Calcium 8.2 mg/dL (8.5-10.1) L 01/06/19 09:07 Total Bilirubin 0.4 mg/dL (0.2-1) 01/06/19 09:07 AST 40 U/L (15-37) H 01/06/19 09:07 ALT 9 U/L (13-61) L 01/06/19 09:07 Alkaline Phosphatase 115 U/L (45-117) 01/06/19 09:07 Total Protein 5.6 g/dl (6.4-8.2) L 04/21/19 09:07 Albumin 2.5 g/dl (3.4-5.0) L 01/06/19 09:07 CARDIAC ENZYMES Troponin I < 0.02 ng/ml (0.00-0.05) 01/03/19 01:17 Diagnostics: Brain MRI - ordered Medical Decision Making 83 yo M with h/o advanced dementia, HLD, HTN, hypothyroidism, CAD s/p stents, Parkinson's Disease, colon cancer BIBEMS with AMS, and fever. Per patient daughter at bedside he had fever T-max 104.0, and given two ibuprofen tablets. Patient also with increased confusion, and chills ( daughter noted patient with rigorous shaking of arms and shivering. Patient typically up with assistance to ambulate, but non ambulatory today. Lives at home with . [place] speaking. Patient daughter denies cough, wheezing, orthopena, PND, leg swelling/pain, N/V , SOB, urinary complaints, hematuria, BPR, diarrhea, lightheadedness. BP running low, on telemetry monitoring. Getting infectious workup. Patient on Sinemet for PD, tremor visualized. Daughter concerned about possible dementia, he does not see physicians on outpatient due to difficulty with transportation. Discussed with her that treating underlying infection first would be needed before evaluating mental status. CT head completed and reviewed, no acute changes. ID note reviewed. I would try to add medication near discharge when patient is better for cognitive impairment to make it easier for family and patient will hold off until mental state near baseline. Discussed with daughter at bedside, she felt possibly facial droop and was asking about MRI brain. She also reports family history of acoustic neuroma, will check MRI brain to confirm no structural changes. Brain MRI ordered. Continue medical optimization , follow up cultures, infectious mgmt. Continue Sinemet for now. Adequate hydration recommended. Slightly more arousable. Would be open to starting him on Aricept 5mg daily at discharge.
--- NOTE | 2019-01-06 13:15 | PN ---
Progress Note, Physician History of Present Illness: stable no new issues - Current Medication List Current Medications: Active Medications Acetaminophen (Tylenol -) 650 mg PO Q6H PRN PRN Reason: PAIN OR FEVER Last Admin: 01/05/19 21:14 Dose: 650 mg Carbidopa/Levodopa (Sinemet *Cr* 25/100 -) 1 combo PO TID@0700,1200,1700 [facility] Last Admin: 01/06/19 06:11 Dose: 1 combo Docusate Sodium (Colace -) 100 mg PO Q8H PRN PRN Reason: CONSTIPATION Last Admin: 01/06/19 11:09 Dose: 100 mg Heparin Sodium (Porcine) (Heparin -) 5,000 unit SQ TID [facility] Cefazolin Sodium (Ancef 1 Gm Premixed Ivpb -) 1 gm in 50 mls @ 100 mls/hr IVPB Q8H-IV [facility] Last Admin: 01/06/19 01:21 Dose: 100 mls/hr Levothyroxine Sodium (Synthroid -) 50 mcg PO DAILY@0700 [facility] Last Admin: 01/06/19 06:11 Dose: 50 mcg Magnesium Oxide (Mag-Ox -) 400 mg PO BID [facility] Stop: 01/07/19 10:34 Last Admin: 01/06/19 11:09 Dose: 400 mg Polyethylene Glycol (Miralax (For Daily Use) -) 17 gm PO BID [facility] Last Admin: 01/06/19 11:09 Dose: 17 gm Rosuvastatin Calcium (Crestor -) 10 mg PO HS [facility] Last Admin: 01/05/19 21:14 Dose: 10 mg - Objective Vital Signs: Vital Signs Temperature 98.6 F 01/06/19 05:00 Pulse Rate 88 01/06/19 05:00 Respiratory Rate 18 01/06/19 05:00 Blood Pressure 167/88 01/06/19 05:00 O2 Sat by Pulse Oximetry (%) 98 01/05/19 21:00 Constitutional: Yes: No Distress, Calm Cardiovascular: Yes: Regular Rate and Rhythm Respiratory: Yes: Regular, CTA Bilaterally Gastrointestinal: Yes: Normal Bowel Sounds, Soft Musculoskeletal: Yes: WNL Extremities: Yes: Other Neurological: Yes: Lethargy, Other Labs: CBC, BMP 01/06/19 09:07 01/06/19 09:07 INR, PTT INR 1.08 (0.83-1.09) 04/18/19 01:17 Assessment/Plan Problem List - Problems (1) Altered mental status Code(s): R41.82 - ALTERED MENTAL STATUS, UNSPECIFIED Qualifiers: Altered mental status type: unspecified Qualified Code(s): R41.82 - Altered mental status, unspecified (2) Sepsis Code(s): A41.9 - SEPSIS, UNSPECIFIED ORGANISM Qualifiers: Sepsis type: sepsis due to unspecified organism Qualified Code(s): A41.9 - Sepsis, unspecified organism (3) Hypotension Code(s): I95.9 - HYPOTENSION, UNSPECIFIED Qualifiers: Hypotension type: unspecified hypotension type Qualified Code(s): I95.9 - Hypotension, unspecified (4) 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
[2019-01-06] MEDS: HEPARIN NA (PORCINE) 5,000 UNITS/ML 1ML VIAL SQ SCH ×2 (14:09→21:41)
[2019-01-06 15:19] LABS: EPI CELLS 1.4 /HPF (0-5/HPF); PH,URINE 6.5 (5.0-8.0); URINE APPEARANCE CLEAR; URINE BILIRUBIN NEGATIVE (NEGATIVE); URINE CASTS 8 /lpf (0-8); URINE COLOR YELLOW; URINE GLUCOSE (UA) NEGATIVE (NEGATIVE); URINE KETONE NEGATIVE (NEGATIVE); URINE LEUK ESTERASE TRACE (NEGATIVE); URINE NITRITE NEGATIVE (NEGATIVE); URINE PROTEIN 1+ (NEGATIVE); URINE RBC 133 /hpf (0-4); URINE UROBILINOGEN 0.2 mg/dL (0.2-1.0); URINE WBC 9 /hpf (0-5)
[2019-01-06 15:34] LABS: URINE CRYSTALS NONE SEEN /hpf
[2019-01-06] MEDS: ROSUVASTATIN CA 10 MG TABLET (FP) PO SCH (21:42)
[2019-01-06] MEDS: ACETAMINOPHEN 325 MG TABLET (FP) PO PRN (21:42)
[2019-01-07] MEDS: CEFAZOLIN 1 GM/D5W 1 GM/50 ML BAG IVPB SCH ×3 (01:11→17:52)
[2019-01-07] MEDS ORDERED: PT OWN MED DRAWER 7, Y5N ONE ×3 (03:36→23:05)
[2019-01-07] MEDS: HEPARIN NA (PORCINE) 5,000 UNITS/ML 1ML VIAL SQ SCH ×3 (05:17→22:11)
[2019-01-07] MEDS: LEVOTHYROXINE NA 50 MCG TABLET (FP) PO SCH (06:31)
--- NOTE | 2019-01-07 08:07 | PN ---
Progress Note, Physician Chief Complaint: Awake, confused, NAD. History of Present Illness: COLON cancer, s/p sx, chemo. Parkinson disease. Autonomic dysfunction. ASHD. s/p stents. BPH. HTN Hypothyroidism Glaucoma - Current Medication List Current Medications: Active Medications Acetaminophen (Tylenol -) 650 mg PO Q6H PRN PRN Reason: PAIN OR FEVER Last Admin: 01/06/19 21:42 Dose: 650 mg Carbidopa/Levodopa (Sinemet *Cr* 25/100 -) 1 combo PO TID@0700,1200,1700 [facility] Last Admin: 01/07/19 06:31 Dose: 1 combo Docusate Sodium (Colace -) 100 mg PO Q8H PRN PRN Reason: CONSTIPATION Last Admin: 01/06/19 11:09 Dose: 100 mg Heparin Sodium (Porcine) (Heparin -) 5,000 unit SQ TID [facility] Last Admin: 01/07/19 05:17 Dose: Not Given Cefazolin Sodium (Ancef 1 Gm Premixed Ivpb -) 1 gm in 50 mls @ 100 mls/hr IVPB Q8H-IV [facility] Last Admin: 01/07/19 01:11 Dose: 100 mls/hr Levothyroxine Sodium (Synthroid -) 50 mcg PO DAILY@0700 [facility] Last Admin: 01/07/19 06:31 Dose: 50 mcg Magnesium Oxide (Mag-Ox -) 400 mg PO BID [facility] Stop: 01/07/19 10:34 Last Admin: 01/06/19 21:42 Dose: 400 mg Polyethylene Glycol (Miralax (For Daily Use) -) 17 gm PO BID [facility] Last Admin: 01/06/19 21:20 Dose: Not Given Rosuvastatin Calcium (Crestor -) 10 mg PO HS [facility] Last Admin: 01/06/19 21:42 Dose: 10 mg - Objective Vital Signs: Vital Signs Temperature 98.1 F 01/07/19 06:30 Pulse Rate 82 01/07/19 06:30 Respiratory Rate 13 01/07/19 06:30 Blood Pressure 154/69 01/07/19 06:30 O2 Sat by Pulse Oximetry (%) 99 01/06/19 21:00 Constitutional: Yes: No Distress, Calm Eyes: Yes: Cataracts (displaced lenses on CT). No: WNL HENT: Yes: Atraumatic, Normocephalic, Drooling. No: Epistaxis, Rhinnorhea Neck: Yes: Supple, Trachea Midline, Rigid. No: Lymphadenopathy, Tenderness, Thyromegaly Cardiovascular: Yes: Regular Rate and Rhythm, S1, S2. No: Bradycardia, Tachycardia Respiratory: Yes: Regular, CTA Bilaterally. No: Accessory Muscle Use, Bradypnea Gastrointestinal: Yes: Normal Bowel Sounds, Soft. No: Abdomen, Obese, Ascites ...Rectal Exam: Yes: Deferred Genitourinary: No: Anuria, Bladder Distention Breast(s): Yes: WNL Musculoskeletal: Yes: WNL Extremities: No: Amputation, Calf Tenderness, Cold Edema: No Peripheral Pulses WNL: Yes Integumentary: Yes: WNL Neurological: Yes: Alert. No: Oriented, Aphasia, Seizure Psychiatric: Yes: Alert. No: Oriented, Agitated, Suicidal Ideation Labs: CBC, BMP 01/06/19 09:07 01/06/19 09:07 INR, PTT INR 1.08 (0.83-1.09) 01/03/19 01:17 Problem List - Problems (1) Altered mental status Assessment/Plan: Remains confused though more vocal and can answer simple questions. Probably baseline MS due to Parkinson"s disease and dementia. CT head-no new changes except posterior dislocation of the lenses. Will ask ophth consult Code(s): R41.82 - ALTERED MENTAL STATUS, UNSPECIFIED Qualifiers: Altered mental status type: unspecified Qualified Code(s): R41.82 - Altered mental status, unspecified (2) Sepsis Assessment/Plan: MSSA-now on Cefazolin IV ContinueIV ABX Code(s): A41.9 - SEPSIS, UNSPECIFIED ORGANISM Qualifiers: Sepsis type: sepsis due to unspecified organism Qualified Code(s): A41.9 - Sepsis, unspecified organism (3) Hypotension Assessment/Plan: Resolved with fluids . 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 Will avoid tight BP control. Code(s): G90.3 - MULTI-SYSTEM DEGENERATION OF THE AUTONOMIC NERVOUS SYSTEM (5) Acute kidney injury Assessment/Plan: Nephrology consult appreciated. Elevated Creat noted, related to an episode of White obstruction? Will d/c White and follow urinary output. Code(s): N17.9 - ACUTE KIDNEY FAILURE, UNSPECIFIED
--- NOTE | 2019-01-07 09:41 | PN ---
Progress Note (short form) - Note Progress Note: Neurology History of Present Illness 83 yo M with h/o advanced dementia, HLD, HTN, hypothyroidism, CAD s/p stents, Parkinson's Disease, colon cancer BIBEMS with AMS, and fever. Per patient daughter at bedside he had fever T-max 104.0, and given two ibuprofen tablets. Patient also with increased confusion, and chills ( daughter noted patient with rigorous shaking of arms and shivering. Patient typically up with assistance to ambulate, but non ambulatory today. Lives at home with . [place] speaking. Patient daughter denies cough, wheezing, orthopena, PND, leg swelling/pain, N/V , SOB, urinary complaints, hematuria, BPR, diarrhea, lightheadedness. BP running low, on telemetry monitoring. Getting infectious workup. Patient on Sinemet for PD, tremor visualized. Daughter concerned about possible dementia, he does not see physicians on outpatient due to difficulty with transportation. Discussed with her that treating underlying infection first would be needed before evaluating mental status. I would try to add medication near discharge when patient is better for cognitive impairment to make it easier for family and patient will hold off until mental state near baseline. CT head completed and without acute changes. Discussed with daughter at bedside, she felt possibly facial droop and was asking about MRI brain. She also reports family history of acoustic neuroma, will check MRI brain to confirm no structural changes. Brain MRI ordered, awaiting completion. No new neurologic events, appears stable at this time. No family at bedside during my rounds today. Active Medications Acetaminophen (Tylenol -) 650 mg PO Q6H PRN PRN Reason: PAIN OR FEVER Last Admin: 01/06/19 21:42 Dose: 650 mg Carbidopa/Levodopa (Sinemet *Cr* 25/100 -) 1 combo PO TID@0700,1200,1700 [facility] Last Admin: 01/07/19 06:31 Dose: 1 combo Docusate Sodium (Colace -) 100 mg PO Q8H PRN PRN Reason: CONSTIPATION Last Admin: 01/06/19 11:09 Dose: 100 mg Heparin Sodium (Porcine) (Heparin -) 5,000 unit SQ TID [facility] Last Admin: 01/07/19 05:17 Dose: Not Given Cefazolin Sodium (Ancef 1 Gm Premixed Ivpb -) 1 gm in 50 mls @ 100 mls/hr IVPB Q8H-IV [facility] Last Admin: 01/07/19 01:11 Dose: 100 mls/hr Levothyroxine Sodium (Synthroid -) 50 mcg PO DAILY@0700 [facility] Last Admin: 01/07/19 06:31 Dose: 50 mcg Magnesium Oxide (Mag-Ox -) 400 mg PO BID [facility] Stop: 01/07/19 10:34 Last Admin: 01/06/19 21:42 Dose: 400 mg Polyethylene Glycol (Miralax (For Daily Use) -) 17 gm PO BID [facility] Last Admin: 01/06/19 21:20 Dose: Not Given Rosuvastatin Calcium (Crestor -) 10 mg PO HS [facility] Last Admin: 01/06/19 21:42 Dose: 10 mg Tamsulosin HCl (Flomax -) 0.4 mg PO DAILY@0830 [facility] *Physical Exam Vital Signs Period Temp Pulse Resp BP Sys/Davison Pulse Ox Last 24 Hr 98.1 F-99.5 F 75-88 10-18 126-161/65-85 99 GENERAL: Awake, alert, non communicative, partially able to follow commands, in no acute distress HEAD: No signs of trauma, normocephalic, atraumatic EYES: PERRLA, EOMI, sclera anicteric, conjunctiva clear ENT: Nares patent, oropharynx clear without exudates. Moist mucosa NECK: Normal ROM, supple, no lymphadenopathy, JVD, or masses LUNGS: No distress, speaks full sentences, clear to auscultation bilaterally HEART: Regular rate and rhythm, normal S1 and S2, no murmurs, rubs or gallops, peripheral pulses normal and equal bilaterally. ABDOMEN: Soft, nontender, normoactive bowel sounds. No guarding, no rebound. No masses EXTREMITIES : Normal inspection, Normal range of motion, no edema. No clubbing or cyanosis. NEUROLOGICAL: Somnolent but arousable, tremor noted, ?R facial, sensory intact, cogwheeling noted SKIN: Warm, Dry, normal turgor, no rashes or lesions noted CBCD WBC 9.2 K/mm3 (4.0-10.0) 01/06/19 09:07 RBC 3.93 M/mm3 (4.00-5.60) L 01/06/19 09:07 Hgb 11.9 GM/dL (11.7-16.9) 01/06/19 09:07 Hct 34.9 % (35.4-49) L 01/06/19 09:07 MCV 88.7 fl (80-96) 01/06/19 09:07 MCHC 34.0 g/dl (32.0-35.9) 01/06/19 09:07 RDW 15.0 % (11.9-15.9) 01/06/19 09:07 Plt Count 189 K/MM3 (134-434) D 01/06/19 09:07 MPV 8.1 fl (7.5-11.1) 01/06/19 09:07 CMP Sodium 142 mmol/L (136-145) 01/06/19 09:07 Potassium 3.4 mmol/L (3.5-5.1) L 01/06/19 09:07 Chloride 106 mmol/L (98-107) 01/06/19 09:07 Carbon Dioxide 30 mmol/L (21-32) 01/06/19 09:07 Anion Gap 5 MMOL/L (8-16) L 01/06/19 09:07 BUN 14 mg/dL (7-18) 01/06/19 09:07 Creatinine 1.5 mg/dL (0.55-1.3) H 01/06/19 09:07 Creat Clearance w eGFR 44.48 (>60) 01/06/19 09:07 Random Glucose 108 mg/dL (74-106) H 01/06/19 09:07 Calcium 8.2 mg/dL (8.5-10.1) L 01/06/19 09:07 Total Bilirubin 0.4 mg/dL (0.2-1) 01/06/19 09:07 AST 40 U/L (15-37) H 01/06/19 09:07 ALT 9 U/L (13-61) L 01/06/19 09:07 Alkaline Phosphatase 115 U/L (45-117) 01/06/19 09:07 Total Protein 5.6 g/dl (6.4-8.2) L 01/06/19 09:07 Albumin 2.5 g/dl (3.4-5.0) L 01/06/19 09:07 CARDIAC ENZYMES Troponin I < 0.02 ng/ml (0.00-0.05) 01/03/19 01:17 Diagnostics: Brain MRI - ordered Medical Decision Making 83 yo M with h/o advanced dementia, HLD, HTN, hypothyroidism, CAD s/p stents, Parkinson's Disease, colon cancer BIBEMS with AMS, and fever. Per patient daughter at bedside he had fever T-max 104.0, and given two ibuprofen tablets. Patient also with increased confusion, and chills ( daughter noted patient with rigorous shaking of arms and shivering. Patient typically up with assistance to ambulate, but non ambulatory today. Lives at home with . [place] speaking. Patient daughter denies cough, wheezing, orthopena, PND, leg swelling/pain, N/V , SOB, urinary complaints, hematuria, BPR, diarrhea, lightheadedness. BP running low, on telemetry monitoring. Getting infectious workup. Patient on Sinemet for PD, tremor visualized. Daughter concerned about possible dementia, he does not see physicians on outpatient due to difficulty with transportation. Discussed with her that treating underlying infection first would be needed before evaluating mental status. CT head completed and reviewed, no acute changes. ID note reviewed. Brain MRI ordered. Continue medical optimization, follow up cultures, infectious mgmt. Continue Sinemet for now. Adequate hydration recommended. Slightly more arousable. Would be open to starting him on Aricept 5mg daily at discharge.
[2019-01-07] MEDS: POLYETHYLENE GLYCOL 3350 119 GM BTL PO SCH ×2 (10:37→22:11)
[2019-01-07] MEDS: MAGNESIUM OXIDE 400 MG TABLET (FP) PO SCH (10:37)
[2019-01-07] MEDS: TAMSULOSIN HCL 0.4 MG CAP PO SCH (10:37)
--- NOTE | 2019-01-07 13:51 | PN ---
Progress Note, Physician History of Present Illness: no new issues issues noted patient not passing lurine - Current Medication List Current Medications: Active Medications Acetaminophen (Tylenol -) 650 mg PO Q6H PRN PRN Reason: PAIN OR FEVER Last Admin: 01/06/19 21:42 Dose: 650 mg Carbidopa/Levodopa (Sinemet *Cr* 25/100 -) 1 combo PO TID@0700,1200,1700 [facility] Last Admin: 01/07/19 12:20 Dose: 1 combo Docusate Sodium (Colace -) 100 mg PO Q8H PRN PRN Reason: CONSTIPATION Last Admin: 01/06/19 11:09 Dose: 100 mg Heparin Sodium (Porcine) (Heparin -) 5,000 unit SQ TID [facility] Last Admin: 01/07/19 13:39 Dose: 5,000 unit Cefazolin Sodium (Ancef 1 Gm Premixed Ivpb -) 1 gm in 50 mls @ 100 mls/hr IVPB Q8H-IV [facility] Last Admin: 01/07/19 10:37 Dose: 100 mls/hr Levothyroxine Sodium (Synthroid -) 50 mcg PO DAILY@0700 [facility] Last Admin: 01/07/19 06:31 Dose: 50 mcg Polyethylene Glycol (Miralax (For Daily Use) -) 17 gm PO BID [facility] Last Admin: 01/07/19 10:37 Dose: 17 gm Rosuvastatin Calcium (Crestor -) 10 mg PO HS [facility] Last Admin: 01/06/19 21:42 Dose: 10 mg Tamsulosin HCl (Flomax -) 0.4 mg PO DAILY@0830 [facility] Last Admin: 01/07/19 10:37 Dose: 0.4 mg - Objective Vital Signs: Vital Signs Temperature 97.8 F 01/07/19 10:54 Pulse Rate 68 01/07/19 13:20 Respiratory Rate 17 01/07/19 13:20 Blood Pressure 129/65 01/07/19 13:20 O2 Sat by Pulse Oximetry (%) 98 01/07/19 09:00 Constitutional: Yes: No Distress, Calm Cardiovascular: Yes: S1, S2 Respiratory: Yes: Regular, CTA Bilaterally Gastrointestinal: Yes: Normal Bowel Sounds, Soft Musculoskeletal: Yes: Other Extremities: Yes: WNL Neurological: Yes: Lethargy Labs: CBC, BMP 01/06/19 09:07 01/06/19 09:07 INR, PTT INR 1.08 (0.83-1.09) 01/03/19 01:17 Assessment/Plan Problem List - Problems (1) Altered mental status Code(s): R41.82 - ALTERED MENTAL STATUS, UNSPECIFIED Qualifiers: Altered mental status type: unspecified Qualified Code(s): R41.82 - Altered mental status, unspecified (2) Sepsis Code(s): A41.9 - SEPSIS, UNSPECIFIED ORGANISM Qualifiers: Sepsis type: sepsis due to unspecified organism Qualified Code(s): A41.9 - Sepsis, unspecified organism (3) Hypotension Code(s): I95.9 - HYPOTENSION, UNSPECIFIED Qualifiers: Hypotension type: unspecified hypotension type Qualified Code(s): I95.9 - Hypotension, unspecified (4) 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
--- NOTE | 2019-01-07 20:17 | CONSULT ---
Consult - text type - Consultation Consultation Note: CC: acute urinary retention hpi: Patient with history of acute urinary retention. Patient had catheters which became situated in the prostatic urethra with subsequent gross hematuria. Patient currently has had no urinary drainage since am. PE abd-palpable bladder noted procedure note 16 malay hancock placed imp urinary retention plan maintain hancock
[2019-01-07] MEDS: ROSUVASTATIN CA 10 MG TABLET (FP) PO SCH (22:11)
[2019-01-07] MEDS: DORZOLAMIDE 2% HCL OPHTHALMIC SOLUTION 10 ML BOTTLE OS SCH (22:51)
[2019-01-08] MEDS: CEFAZOLIN 1 GM/D5W 1 GM/50 ML BAG IVPB SCH ×3 (01:38→17:37)
[2019-01-08] MEDS: HEPARIN NA (PORCINE) 5,000 UNITS/ML 1ML VIAL SQ SCH ×3 (06:05→21:51)
[2019-01-08] MEDS: LEVOTHYROXINE NA 50 MCG TABLET (FP) PO SCH (06:06)
[2019-01-08 07:21] LABS: ALBUMIN 2.4 g/dl (3.4-5.0); ALK PHOS 95 U/L (45-117); ANION GAP 5 MMOL/L (8-16); BILIRUBIN,TOTAL 0.4 mg/dL (0.2-1); BLOOD UREA NITROGEN 16 mg/dL (7-18); CALCIUM 8.1 mg/dL (8.5-10.1); CHLORIDE 105 mmol/L (98-107); CO2 30 mmol/L (21-32); CREATININE 1.4 mg/dL (0.55-1.3); GLUCOSE,RANDOM 77 mg/dL (74-106); POTASSIUM 3.6 mmol/L (3.5-5.1); SGOT/AST 34 U/L (15-37); SGPT/ALT 18 U/L (13-61); SODIUM 140 mmol/L (136-145); TOT PROT 5.5 g/dl (6.4-8.2)
--- NOTE | 2019-01-08 09:12 | PN ---
Progress Note (short form) - Note Progress Note: Neurology History of Present Illness 83 yo M with h/o advanced dementia, HLD, HTN, hypothyroidism, CAD s/p stents, Parkinson's Disease, colon cancer BIBEMS with AMS, and fever. Per patient daughter at bedside he had fever T-max 104.0, and given two ibuprofen tablets. Patient also with increased confusion, and chills ( daughter noted patient with rigorous shaking of arms and shivering. Patient typically up with assistance to ambulate, but non ambulatory today. Lives at home with . Mauritian speaking. Patient daughter denies cough, wheezing, orthopena, PND, leg swelling/pain, N/V , SOB, urinary complaints, hematuria, BPR, diarrhea, lightheadedness. BP running low, on telemetry monitoring. Getting infectious workup. Patient on Sinemet for PD, tremor visualized. Daughter concerned about possible dementia, he does not see physicians on outpatient due to difficulty with transportation. Discussed with her that treating underlying infection first would be needed before evaluating mental status. I would try to add medication near discharge when patient is better for cognitive impairment to make it easier for family and patient will hold off until mental state near baseline. CT head completed and without acute changes. Discussed with daughter at bedside, she felt possibly facial droop and was asking about MRI brain. She also reports family history of acoustic neuroma, will check MRI brain to confirm no structural changes. Brain MRI ordered, awaiting completion. No new neurologic events, appears stable at this time. Urology note reviewed. Active Medications Acetaminophen (Tylenol -) 650 mg PO Q6H PRN PRN Reason: PAIN OR FEVER Last Admin: 01/06/19 21:42 Dose: 650 mg Carbidopa/Levodopa (Sinemet *Cr* 25/100 -) 1 combo PO TID@0700,1200,1700 [facility] Last Admin: 01/08/19 06:06 Dose: 1 combo Docusate Sodium (Colace -) 100 mg PO Q8H PRN PRN Reason: CONSTIPATION Last Admin: 01/06/19 11:09 Dose: 100 mg Dorzolamide HCl (Trusopt 2%) 1 drop OS BID [facility] Last Admin: 01/07/19 22:51 Dose: 1 drop Heparin Sodium (Porcine) (Heparin -) 5,000 unit SQ TID [facility] Last Admin: 01/08/19 06:05 Dose: 5,000 unit Cefazolin Sodium (Ancef 1 Gm Premixed Ivpb -) 1 gm in 50 mls @ 100 mls/hr IVPB Q8H-IV [facility] Last Admin: 01/08/19 01:38 Dose: 100 mls/hr Levothyroxine Sodium (Synthroid -) 50 mcg PO DAILY@0700 [facility] Last Admin: 01/08/19 06:06 Dose: 50 mcg Polyethylene Glycol (Miralax (For Daily Use) -) 17 gm PO BID [facility] Last Admin: 01/07/19 22:11 Dose: 17 gm Rosuvastatin Calcium (Crestor -) 10 mg PO HS [facility] Last Admin: 01/07/19 22:11 Dose: 10 mg Tamsulosin HCl (Flomax -) 0.4 mg PO DAILY@0830 [facility] Last Admin: 01/07/19 10:37 Dose: 0.4 mg *Physical Exam Vital Signs Period Temp Pulse Resp BP Sys/Davison Pulse Ox Last 24 Hr 97.3 F-98.1 F 68-90 12-18 129-168/62-75 98 GENERAL: Awake, alert, non communicative, partially able to follow commands, in no acute distress HEAD: No signs of trauma, normocephalic, atraumatic EYES: PERRLA, EOMI, sclera anicteric, conjunctiva clear ENT: Nares patent, oropharynx clear without exudates. Moist mucosa NECK: Normal ROM, supple, no lymphadenopathy, JVD, or masses LUNGS: No distress, speaks full sentences, clear to auscultation bilaterally HEART: Regular rate and rhythm, normal S1 and S2, no murmurs, rubs or gallops, peripheral pulses normal and equal bilaterally. ABDOMEN: Soft, nontender, normoactive bowel sounds. No guarding, no rebound. No masses EXTREMITIES : Normal inspection, Normal range of motion, no edema. No clubbing or cyanosis. NEUROLOGICAL: Somnolent but arousable, tremor noted, ?R facial, sensory intact, cogwheeling noted SKIN: Warm, Dry, normal turgor, no rashes or lesions noted CBCD WBC 9.2 K/mm3 (4.0-10.0) 01/06/19 09:07 RBC 3.93 M/mm3 (4.00-5.60) L 01/06/19 09:07 Hgb 11.9 GM/dL (11.7-16.9) 01/06/19 09:07 Hct 34.9 % (35.4-49) L 01/06/19 09:07 MCV 88.7 fl (80-96) 01/06/19 09:07 MCHC 34.0 g/dl (32.0-35.9) 01/06/19 09:07 RDW 15.0 % (11.9-15.9) 01/06/19 09:07 Plt Count 189 K/MM3 (134-434) D 01/06/19 09:07 MPV 8.1 fl (7.5-11.1) 01/06/19 09:07 CMP Sodium 140 mmol/L (136-145) 01/08/19 05:30 Potassium 3.6 mmol/L (3.5-5.1) 01/08/19 05:30 Chloride 105 mmol/L (98-107) 01/08/19 05:30 Carbon Dioxide 30 mmol/L (21-32) 01/08/19 05:30 Anion Gap 5 MMOL/L (8-16) L 01/08/19 05:30 BUN 16 mg/dL (7-18) 01/08/19 05:30 Creatinine 1.4 mg/dL (0.55-1.3) H 01/08/19 05:30 Creat Clearance w eGFR 48.16 (>60) 01/08/19 05:30 Random Glucose 77 mg/dL (74-106) 01/08/19 05:30 Calcium 8.1 mg/dL (8.5-10.1) L 01/08/19 05:30 Total Bilirubin 0.4 mg/dL (0.2-1) 01/08/19 05:30 AST 34 U/L (15-37) 01/08/19 05:30 ALT 18 U/L (13-61) 01/08/19 05:30 Alkaline Phosphatase 95 U/L (45-117) 01/08/19 05:30 Total Protein 5.5 g/dl (6.4-8.2) L 01/08/19 05:30 Albumin 2.4 g/dl (3.4-5.0) L 01/08/19 05:30 CARDIAC ENZYMES Troponin I < 0.02 ng/ml (0.00-0.05) 01/03/19 01:17 Diagnostics: Brain MRI - ordered Medical Decision Making 83 yo M with h/o advanced dementia, HLD, HTN, hypothyroidism, CAD s/p stents, Parkinson's Disease, colon cancer BIBEMS with AMS, and fever. Per patient daughter at bedside he had fever T-max 104.0, and given two ibuprofen tablets. Patient also with increased confusion, and chills ( daughter noted patient with rigorous shaking of arms and shivering. Patient typically up with assistance to ambulate, but non ambulatory today. Lives at home with . Mauritian speaking. Patient daughter denies cough, wheezing, orthopena, PND, leg swelling/pain, N/V , SOB, urinary complaints, hematuria, BPR, diarrhea, lightheadedness. BP running low, on telemetry monitoring. Getting infectious workup. Patient on Sinemet for PD, tremor visualized. Daughter concerned about possible dementia, he does not see physicians on outpatient due to difficulty with transportation. Discussed with her that treating underlying infection first would be needed before evaluating mental status. CT head completed and reviewed, no acute changes. ID note reviewed. Brain MRI ordered, awaiting completion. Continue medical optimization, follow up cultures, infectious mgmt. Continue Sinemet for now. Adequate hydration recommended. Slightly more arousable. Would be open to starting him on Aricept 5mg daily at discharge.
[2019-01-08] MEDS: TAMSULOSIN HCL 0.4 MG CAP PO SCH (09:41)
[2019-01-08] MEDS: POLYETHYLENE GLYCOL 3350 119 GM BTL PO SCH ×2 (09:42→21:52)
[2019-01-08] MEDS ORDERED: PT OWN MED DRAWER 7, Y5N ONE ×2 (09:46→21:19)
[2019-01-08] MEDS: DORZOLAMIDE 2% HCL OPHTHALMIC SOLUTION 10 ML BOTTLE OS SCH ×2 (09:47→21:52)
--- NOTE | 2019-01-08 11:51 | PN ---
Progress Note, Physician Chief Complaint: White catheter was re-inserted by Dr De La Cruz because of urinary retention. Today sleepy in bed but arousable. History of Present Illness: COLON cancer, s/p sx, chemo. Parkinson disease. Autonomic dysfunction. ASHD. s/p stents. BPH. HTN Hypothyroidism Glaucoma - Current Medication List Current Medications: Active Medications Acetaminophen (Tylenol -) 650 mg PO Q6H PRN PRN Reason: PAIN OR FEVER Last Admin: 01/06/19 21:42 Dose: 650 mg Carbidopa/Levodopa (Sinemet *Cr* 25/100 -) 1 combo PO TID@0700,1200,1700 [facility] Last Admin: 01/08/19 06:06 Dose: 1 combo Docusate Sodium (Colace -) 100 mg PO Q8H PRN PRN Reason: CONSTIPATION Last Admin: 01/06/19 11:09 Dose: 100 mg Dorzolamide HCl (Trusopt 2%) 1 drop OS BID [facility] Last Admin: 01/08/19 09:47 Dose: 1 drop Heparin Sodium (Porcine) (Heparin -) 5,000 unit SQ TID [facility] Last Admin: 01/08/19 06:05 Dose: 5,000 unit Cefazolin Sodium (Ancef 1 Gm Premixed Ivpb -) 1 gm in 50 mls @ 100 mls/hr IVPB Q8H-IV [facility] Last Admin: 01/08/19 09:41 Dose: 100 mls/hr Levothyroxine Sodium (Synthroid -) 50 mcg PO DAILY@0700 [facility] Last Admin: 01/08/19 06:06 Dose: 50 mcg Polyethylene Glycol (Miralax (For Daily Use) -) 17 gm PO BID [facility] Last Admin: 01/08/19 09:42 Dose: 17 gm Rosuvastatin Calcium (Crestor -) 10 mg PO HS [facility] Last Admin: 01/07/19 22:11 Dose: 10 mg Tamsulosin HCl (Flomax -) 0.4 mg PO DAILY@0830 [facility] Last Admin: 01/08/19 09:41 Dose: 0.4 mg - Objective Vital Signs: Vital Signs Temperature 98.1 F 01/08/19 05:54 Pulse Rate 90 01/08/19 08:00 Respiratory Rate 12 01/08/19 08:00 Blood Pressure 167/74 01/08/19 08:00 O2 Sat by Pulse Oximetry (%) 98 01/07/19 22:00 Constitutional: Yes: No Distress, Cachectic, Pallor Eyes: Yes: Conjunctiva Clear. No: Ptosis, Sclera Icterus HENT: Yes: Drooling. No: Epistaxis, Nasal Congestion, Pharyngeal Erythema, Rhinnorhea Neck: Yes: Trachea Midline, Decreased ROM. No: Lymphadenopathy, Tenderness, Thyromegaly Cardiovascular: Yes: Pulse Irregular (APC, VPC) Respiratory: Yes: Regular, CTA Bilaterally. No: Rales, Wheezes Gastrointestinal: Yes: Normal Bowel Sounds, Soft. No: Ascites ...Rectal Exam: Yes: Deferred Genitourinary: Yes: White Present Breast(s): Yes: Gynecomastia Musculoskeletal: Yes: Joint Stiffness. No: Joint Swelling Extremities: No: Calf Tenderness, Cold, Cyanosis Neurological: Yes: Alert, Confusion, Lethargy, Other (RUE contracture> left , rigidity,). No: Oriented, Seizure Psychiatric: Yes: Alert. No: Oriented, Agitated, Suicidal Ideation Labs: CBC, BMP 01/06/19 09:07 01/08/19 05:30 INR, PTT INR 1.08 (0.83-1.09) 01/03/19 01:17 Problem List - Problems (1) Altered mental status Assessment/Plan: Remains confused though more vocal and can answer simple questions. Probably baseline MS due to Parkinson"s disease and dementia. CT head-no new changes except posterior dislocation of the lenses. Will ask ophth consult Code(s): R41.82 - ALTERED MENTAL STATUS, UNSPECIFIED Qualifiers: Altered mental status type: unspecified Qualified Code(s): R41.82 - Altered mental status, unspecified (2) Sepsis Assessment/Plan: MSSA-now on Cefazolin IV Continue IV ABX Code(s): A41.9 - SEPSIS, UNSPECIFIED ORGANISM Qualifiers: Sepsis type: sepsis due to unspecified organism Qualified Code(s): A41.9 - Sepsis, unspecified organism (3) Hypotension Assessment/Plan: Resolved with fluids Now elevated BP . 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 Will avoid tight BP control. Code(s): G90.3 - MULTI-SYSTEM DEGENERATION OF THE AUTONOMIC NERVOUS SYSTEM (5) Acute kidney injury Assessment/Plan: Nephrology consult appreciated. White re-incerted Creat stable at 1.4 Will follow in AM Code(s): N17.9 - ACUTE KIDNEY FAILURE, UNSPECIFIED
--- NOTE | 2019-01-08 14:54 | PN ---
Progress Note, Physician History of Present Illness: no new issues issues noted catheter placed - Current Medication List Current Medications: Active Medications Acetaminophen (Tylenol -) 650 mg PO Q6H PRN PRN Reason: PAIN OR FEVER Last Admin: 01/06/19 21:42 Dose: 650 mg Amlodipine Besylate (Norvasc -) 5 mg PO DAILY [facility] Carbidopa/Levodopa (Sinemet *Cr* 25/100 -) 1 combo PO TID@0700,1200,1700 [facility] Last Admin: 01/08/19 11:56 Dose: 1 combo Docusate Sodium (Colace -) 100 mg PO Q8H PRN PRN Reason: CONSTIPATION Last Admin: 01/06/19 11:09 Dose: 100 mg Dorzolamide HCl (Trusopt 2%) 1 drop OS BID [facility] Last Admin: 01/08/19 09:47 Dose: 1 drop Heparin Sodium (Porcine) (Heparin -) 5,000 unit SQ TID [facility] Last Admin: 01/08/19 13:22 Dose: 5,000 unit Cefazolin Sodium (Ancef 1 Gm Premixed Ivpb -) 1 gm in 50 mls @ 100 mls/hr IVPB Q8H-IV [facility] Last Admin: 01/08/19 09:41 Dose: 100 mls/hr Levothyroxine Sodium (Synthroid -) 50 mcg PO DAILY@0700 [facility] Last Admin: 01/08/19 06:06 Dose: 50 mcg Polyethylene Glycol (Miralax (For Daily Use) -) 17 gm PO BID [facility] Last Admin: 01/08/19 09:42 Dose: 17 gm Rosuvastatin Calcium (Crestor -) 10 mg PO HS [facility] Last Admin: 01/07/19 22:11 Dose: 10 mg Tamsulosin HCl (Flomax -) 0.4 mg PO DAILY@0830 [facility] Last Admin: 01/08/19 09:41 Dose: 0.4 mg - Objective Vital Signs: Vital Signs Temperature 98.1 F 01/08/19 05:54 Pulse Rate 90 01/08/19 08:00 Respiratory Rate 12 01/08/19 12:00 Blood Pressure 167/74 01/08/19 08:00 O2 Sat by Pulse Oximetry (%) 99 01/08/19 09:00 Constitutional: Yes: No Distress, Calm Cardiovascular: Yes: S1, S2 Respiratory: Yes: Regular, CTA Bilaterally Gastrointestinal: Yes: Normal Bowel Sounds, Soft Genitourinary: Yes: White Present Musculoskeletal: Yes: WNL Extremities: Yes: WNL Neurological: Yes: Lethargy Labs: CBC, BMP 01/06/19 09:07 01/08/19 05:30 INR, PTT INR 1.08 (0.83-1.09) 01/03/19 01:17 Assessment/Plan Problem List - Problems (1) Altered mental status Code(s): R41.82 - ALTERED MENTAL STATUS, UNSPECIFIED Qualifiers: Altered mental status type: unspecified Qualified Code(s): R41.82 - Altered mental status, unspecified (2) Sepsis Code(s): A41.9 - SEPSIS, UNSPECIFIED ORGANISM Qualifiers: Sepsis type: sepsis due to unspecified organism Qualified Code(s): A41.9 - Sepsis, unspecified organism (3) Hypotension Code(s): I95.9 - HYPOTENSION, UNSPECIFIED Qualifiers: Hypotension type: unspecified hypotension type Qualified Code(s): I95.9 - Hypotension, unspecified (4) 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
[2019-01-08] MEDS: DOCUSATE SODIUM 100 MG CAPSULE (FP) PO PRN (21:51)
[2019-01-08] MEDS: ROSUVASTATIN CA 10 MG TABLET (FP) PO SCH (23:27)
[2019-01-09] MEDS: CEFAZOLIN 1 GM/D5W 1 GM/50 ML BAG IVPB SCH ×2 (02:41→09:44)
[2019-01-09] MEDS ORDERED: PT OWN MED DRAWER 7, Y5N ONE ×2 (05:14→21:11)
[2019-01-09] MEDS: HEPARIN NA (PORCINE) 5,000 UNITS/ML 1ML VIAL SQ SCH ×3 (05:22→23:07)
[2019-01-09] MEDS: LEVOTHYROXINE NA 50 MCG TABLET (FP) PO SCH (06:03)
[2019-01-09 06:57] LABS: BASO % 0.4 % (0-2.0); EOS % 3.1 % (0-4.5); HEMATOCRIT 29.8 % (35.4-49); HEMOGLOBIN 10.2 GM/dL (11.7-16.9); LYMPH % 16.4 % (8-40); MCH 30.3 pg (25.7-33.7); MCHC 34.3 g/dl (32.0-35.9); MEAN CELL VOLUME 88.4 fl (80-96); MEAN PLT VOLUME 8.1 fl (7.5-11.1); MONO % 8.7 % (3.8-10.2); NEUT % 71.4 % (42.8-82.8); PLATELET COUNT 240 K/MM3 (134-434); RBC 3.37 M/mm3 (4.00-5.60); RDW 14.8 % (11.9-15.9); WHITE BLOOD COUNT 5.8 K/mm3 (4.0-10.0)
[2019-01-09 07:09] LABS: ALBUMIN 2.6 g/dl (3.4-5.0); ALK PHOS 93 U/L (45-117); ANION GAP 6 MMOL/L (8-16); BILIRUBIN,TOTAL 0.2 mg/dL (0.2-1); BLOOD UREA NITROGEN 13 mg/dL (7-18); CALCIUM 8.3 mg/dL (8.5-10.1); CHLORIDE 106 mmol/L (98-107); CO2 28 mmol/L (21-32); GLUCOSE,RANDOM 86 mg/dL (74-106); POTASSIUM 3.8 mmol/L (3.5-5.1); SGOT/AST 39 U/L (15-37); SGPT/ALT 24 U/L (13-61); SODIUM 141 mmol/L (136-145); TOT PROT 5.5 g/dl (6.4-8.2)
[2019-01-09] MEDS ORDERED: BISACODYL 5 MG TABLET.DR (FP) PO PRN (07:52)
--- NOTE | 2019-01-09 08:03 | PN ---
Progress Note, Physician Chief Complaint: 6 days of IV antibiotics for MSSA bacteremia. Awake, NAD, comfortable History of Present Illness: COLON cancer, s/p sx, chemo. Parkinson disease. Autonomic dysfunction. ASHD. s/p stents. BPH. HTN Hypothyroidism Glaucoma - Current Medication List Current Medications: Active Medications Acetaminophen (Tylenol -) 650 mg PO Q6H PRN PRN Reason: PAIN OR FEVER Last Admin: 01/06/19 21:42 Dose: 650 mg Amlodipine Besylate (Norvasc -) 5 mg PO DAILY [facility] Bisacodyl (Dulcolax -) 5 mg PO DAILY PRN PRN Reason: CONSTIPATION Carbidopa/Levodopa (Sinemet *Cr* 25/100 -) 1 combo PO TID@0700,1200,1700 [facility] Last Admin: 01/09/19 06:02 Dose: 1 combo Docusate Sodium (Colace -) 100 mg PO Q8H PRN PRN Reason: CONSTIPATION Last Admin: 01/08/19 21:51 Dose: 100 mg Dorzolamide HCl (Trusopt 2%) 1 drop OS BID [facility] Last Admin: 01/08/19 21:52 Dose: 1 drop Heparin Sodium (Porcine) (Heparin -) 5,000 unit SQ TID [facility] Last Admin: 01/09/19 05:22 Dose: 5,000 unit Cefazolin Sodium (Ancef 1 Gm Premixed Ivpb -) 1 gm in 50 mls @ 100 mls/hr IVPB Q8H-IV [facility] Last Admin: 01/09/19 02:41 Dose: 100 mls/hr Levothyroxine Sodium (Synthroid -) 50 mcg PO DAILY@0700 [facility] Last Admin: 01/09/19 06:03 Dose: 50 mcg Polyethylene Glycol (Miralax (For Daily Use) -) 17 gm PO BID [facility] Last Admin: 01/08/19 21:52 Dose: 17 gm Rosuvastatin Calcium (Crestor -) 10 mg PO HS [facility] Last Admin: 01/08/19 23:27 Dose: 10 mg Tamsulosin HCl (Flomax -) 0.4 mg PO DAILY@0830 [facility] Last Admin: 01/08/19 09:41 Dose: 0.4 mg - Objective Vital Signs: Vital Signs Temperature 97.6 F 01/09/19 06:00 Pulse Rate 73 01/09/19 06:00 Respiratory Rate 18 01/09/19 06:00 Blood Pressure 163/75 01/09/19 06:00 O2 Sat by Pulse Oximetry (%) 99 01/08/19 19:23 Constitutional: Yes: Calm, Pallor, Thin Eyes: Yes: Conjunctiva Clear HENT: Yes: Atraumatic, Normocephalic Neck: Yes: Supple, Trachea Midline Cardiovascular: Yes: Pulse Irregular (APC, VPC), S1, S2. No: Tachycardia, JVD Respiratory: Yes: Regular, CTA Bilaterally Gastrointestinal: Yes: Normal Bowel Sounds, Soft, Other (Constipated). No: Palpable Mass, Vomiting ...Rectal Exam: Yes: Deferred Genitourinary: Yes: White Present. No: Anuria Breast(s): Yes: WNL Musculoskeletal: Yes: Joint Stiffness, Muscle Weakness Extremities: No: Amputation, Calf Tenderness, Cold, Cyanosis Edema: LUE: Trace, RUE: Trace, LLE: Trace, RLE: Trace Peripheral Pulses WNL: No Integumentary: Yes: WNL Neurological: Yes: Alert, Confusion, Weakness. No: Oriented, Aphasia, Dysarthria, Seizure Psychiatric: Yes: Alert. No: Oriented, Agitated Labs: CBC, BMP 01/09/19 05:30 01/09/19 05:30 INR, PTT INR 1.08 (0.83-1.09) 01/03/19 01:17 Problem List - Problems (1) Altered mental status Assessment/Plan: Remains confused though more vocal and can answer simple questions. Probably baseline MS due to Parkinson"s disease and dementia. CT head-no new changes except posterior dislocation of the lenses. Will ask ophth consult Code(s): R41.82 - ALTERED MENTAL STATUS, UNSPECIFIED Qualifiers: Altered mental status type: unspecified Qualified Code(s): R41.82 - Altered mental status, unspecified (2) Sepsis Assessment/Plan: MSSA-now on Cefazolin IV Continue IV ABX Code(s): A41.9 - SEPSIS, UNSPECIFIED ORGANISM Qualifiers: Sepsis type: sepsis due to unspecified organism Qualified Code(s): A41.9 - Sepsis, unspecified organism (3) Hypotension Assessment/Plan: Resolved with fluids Now elevated BP .Amlodipine started Code(s): I95.9 - HYPOTENSION, UNSPECIFIED Qualifiers: Hypotension type: unspecified hypotension type Qualified Code(s): I95.9 - Hypotension, unspecified (4) 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 Will avoid tight BP control. Code(s): G90.3 - MULTI-SYSTEM DEGENERATION OF THE AUTONOMIC NERVOUS SYSTEM (5) Acute kidney injury Assessment/Plan: Creatinine back to normal baseline-1.0 after White re-inserted. Code(s): N17.9 - ACUTE KIDNEY FAILURE, UNSPECIFIED (6) Constipation by delayed colonic transit Assessment/Plan: SSE ordered. Dulcolax PO. Miralax PO Code(s): K59.01 - SLOW TRANSIT CONSTIPATION
[2019-01-09] MEDS: TAMSULOSIN HCL 0.4 MG CAP PO SCH (08:21)
[2019-01-09] MEDS: DOCUSATE SODIUM 100 MG CAPSULE (FP) PO SCH ×3 (08:21→23:07)
[2019-01-09] MEDS: DORZOLAMIDE 2% HCL OPHTHALMIC SOLUTION 10 ML BOTTLE OS SCH ×2 (09:44→23:09)
[2019-01-09] MEDS: POLYETHYLENE GLYCOL 3350 119 GM BTL PO SCH (09:44)
[2019-01-09] MEDS ORDERED: amLODIPine BESYLATE 5 MG TABLET (FP) PO SCH ×2 (10:00→15:20)
--- NOTE | 2019-01-09 11:25 | PN ---
Progress Note, Physician History of Present Illness: patient continues to be non verbal stable in room - Current Medication List Current Medications: Active Medications Acetaminophen (Tylenol -) 650 mg PO Q6H PRN PRN Reason: PAIN OR FEVER Last Admin: 01/06/19 21:42 Dose: 650 mg Amlodipine Besylate (Norvasc -) 5 mg PO DAILY [facility] Last Admin: 01/09/19 09:44 Dose: 5 mg Bisacodyl (Dulcolax -) 5 mg PO DAILY PRN PRN Reason: CONSTIPATION Carbidopa/Levodopa (Sinemet *Cr* 25/100 -) 1 combo PO TID@0700,1200,1700 [facility] Last Admin: 01/09/19 06:02 Dose: 1 combo Docusate Sodium (Colace -) 100 mg PO TID [facility] Last Admin: 01/09/19 08:21 Dose: 100 mg Dorzolamide HCl (Trusopt 2%) 1 drop OS BID [facility] Last Admin: 01/09/19 09:44 Dose: 1 drop Heparin Sodium (Porcine) (Heparin -) 5,000 unit SQ TID [facility] Last Admin: 01/09/19 05:22 Dose: 5,000 unit Cefazolin Sodium (Ancef 1 Gm Premixed Ivpb -) 1 gm in 50 mls @ 100 mls/hr IVPB Q8H-IV [facility] Last Admin: 01/09/19 09:44 Dose: 100 mls/hr Levothyroxine Sodium (Synthroid -) 50 mcg PO DAILY@0700 [facility] Last Admin: 01/09/19 06:03 Dose: 50 mcg Polyethylene Glycol (Miralax (For Daily Use) -) 17 gm PO BID [facility] Last Admin: 01/09/19 09:44 Dose: 17 gm Rosuvastatin Calcium (Crestor -) 10 mg PO HS [facility] Last Admin: 01/08/19 23:27 Dose: 10 mg Tamsulosin HCl (Flomax -) 0.4 mg PO DAILY@0830 [facility] Last Admin: 01/09/19 08:21 Dose: 0.4 mg - Objective Vital Signs: Vital Signs Temperature 97.6 F 01/09/19 06:00 Pulse Rate 73 01/09/19 06:00 Respiratory Rate 18 01/09/19 06:00 Blood Pressure 163/75 01/09/19 06:00 O2 Sat by Pulse Oximetry (%) 99 01/08/19 19:23 Constitutional: Yes: No Distress, Calm Cardiovascular: Yes: Regular Rate and Rhythm Respiratory: Yes: Regular, CTA Bilaterally Gastrointestinal: Yes: Normal Bowel Sounds, Soft Musculoskeletal: Yes: WNL Extremities: Yes: WNL Neurological: Yes: Other Psychiatric: Yes: Other Labs: CBC, BMP 01/09/19 05:30 01/09/19 05:30 INR, PTT INR 1.08 (0.83-1.09) 01/03/19 01:17 Assessment/Plan Problem List - Problems (1) Altered mental status Code(s): R41.82 - ALTERED MENTAL STATUS, UNSPECIFIED Qualifiers: Altered mental status type: unspecified Qualified Code(s): R41.82 - Altered mental status, unspecified (2) Sepsis Code(s): A41.9 - SEPSIS, UNSPECIFIED ORGANISM Qualifiers: Sepsis type: sepsis due to unspecified organism Qualified Code(s): A41.9 - Sepsis, unspecified organism (3) Hypotension Code(s): I95.9 - HYPOTENSION, UNSPECIFIED Qualifiers: Hypotension type: unspecified hypotension type Qualified Code(s): I95.9 - Hypotension, unspecified (4) 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
[2019-01-09] MEDS ORDERED: ROSUVASTATIN CA 10 MG TABLET (FP) ONE (21:11)
[2019-01-09] MEDS: ROSUVASTATIN CA 20 MG TABLET (FP) PO SCH (23:07)
[2019-01-09] MEDS: POLYETHYLENE GLYCOL 3350 255 GM BTL PO SCH (23:08)
[2019-01-10] MEDS: CEFAZOLIN 1 GM/D5W 1 GM/50 ML BAG IVPB SCH ×3 (02:27→17:05)
[2019-01-10] MEDS ORDERED: PT OWN MED DRAWER 7, Y5N ONE ×4 (05:40→21:24)
[2019-01-10] MEDS: DOCUSATE SODIUM 100 MG CAPSULE (FP) PO SCH ×3 (06:03→21:51)
[2019-01-10] MEDS: HEPARIN NA (PORCINE) 5,000 UNITS/ML 1ML VIAL SQ SCH ×3 (06:04→21:51)
[2019-01-10] MEDS: LEVOTHYROXINE NA 50 MCG TABLET (FP) PO SCH (06:04)
[2019-01-10 06:06] LABS: EOS % 2.5 % (0-4.5); HEMATOCRIT 29.7 % (35.4-49); HEMOGLOBIN 10.3 GM/dL (11.7-16.9); LYMPH % 15.7 % (8-40); MCH 30.6 pg (25.7-33.7); MCHC 34.7 g/dl (32.0-35.9); MEAN PLT VOLUME 7.8 fl (7.5-11.1); MONO % 7.9 % (3.8-10.2); NEUT % 72.9 % (42.8-82.8); PLATELET COUNT 267 K/MM3 (134-434); RBC 3.37 M/mm3 (4.00-5.60); RDW 14.8 % (11.9-15.9); WHITE BLOOD COUNT 5.4 K/mm3 (4.0-10.0)
[2019-01-10 06:33] LABS: ALBUMIN 2.7 g/dl (3.4-5.0); ALK PHOS 90 U/L (45-117); ANION GAP 6 MMOL/L (8-16); BILIRUBIN,TOTAL 0.3 mg/dL (0.2-1); BLOOD UREA NITROGEN 12 mg/dL (7-18); CALCIUM 8.3 mg/dL (8.5-10.1); CHLORIDE 107 mmol/L (98-107); CO2 28 mmol/L (21-32); CREATININE 1.1 mg/dL (0.55-1.3); GLUCOSE,RANDOM 89 mg/dL (74-106); SGOT/AST 41 U/L (15-37); SGPT/ALT 16 U/L (13-61); SODIUM 142 mmol/L (136-145); TOT PROT 5.7 g/dl (6.4-8.2)
--- NOTE | 2019-01-10 08:17 | CONSULT ---
Consult - text type - Consultation Consultation Note: CC bph/urinary retention hpi: patient is comfortable with hancock catheter draining clear urine PE VSS: afeb abd-soft nontender; no cvat genitalia-nl phallus/testes; hancock with clear urine imp bph urinary retention plan d/c hancock when ambulating or receiving PT when medical team feels it is appropriate if he goes into retention manager intermediate management would be suprapubic tube placement; patient is high risk for a TURP continue flomax
--- NOTE | 2019-01-10 08:44 | PN ---
Progress Note, Physician Chief Complaint: Dr Alice STANTON follow up consult noted. He recommends 2 weeks of IV ABX Cefazolin. MRI brain-no mass, no acute changes, volume loss. consult appreciated, consider another attempt of removal later when improves. History of Present Illness: COLON cancer, s/p sx, chemo. Parkinson disease. Autonomic dysfunction. ASHD. s/p stents. BPH. HTN Hypothyroidism Glaucoma - Current Medication List Current Medications: Active Medications Amlodipine Besylate (Norvasc -) 5 mg PO DAILY [facility] Carbidopa/Levodopa (Sinemet *Cr* 25/100 -) 1 combo PO TID [facility] Last Admin: 01/10/19 06:04 Dose: 1 combo Docusate Sodium (Colace -) 100 mg PO TID [facility] Last Admin: 01/10/19 06:03 Dose: 100 mg Dorzolamide HCl (Trusopt 2%) 1 drop OS BID [facility] Last Admin: 01/09/19 23:09 Dose: 1 drop Heparin Sodium (Porcine) (Heparin -) 5,000 unit SQ TID [facility] Last Admin: 01/10/19 06:04 Dose: 5,000 unit Cefazolin Sodium (Ancef 1 Gm Premixed Ivpb -) 1 gm in 50 mls @ 100 mls/hr IVPB Q8H-IV [facility] Last Admin: 01/10/19 02:27 Dose: 100 mls/hr Levothyroxine Sodium (Synthroid -) 50 mcg PO DAILY@0700 [facility] Last Admin: 01/10/19 06:04 Dose: 50 mcg Polyethylene Glycol (Miralax (For Bowel Prep) -) 17 gm PO BID [facility] Last Admin: 01/09/19 23:08 Dose: 17 grams Rosuvastatin Calcium (Crestor -) 20 mg PO HS [facility] Last Admin: 01/09/19 23:07 Dose: 20 mg Tamsulosin HCl (Flomax -) 0.4 mg PO DAILY@0830 [facility] - Objective Vital Signs: Vital Signs Temperature 97.4 F L 01/10/19 06:00 Pulse Rate 75 01/10/19 06:00 Respiratory Rate 18 01/10/19 06:00 Blood Pressure 121/73 01/10/19 06:00 O2 Sat by Pulse Oximetry (%) 99 01/09/19 21:00 Constitutional: Yes: Anxious, Pallor, Thin Eyes: Yes: Conjunctiva Clear. No: Sclera Icterus, Tearing HENT: Yes: Atraumatic, Normocephalic Neck: Yes: Trachea Midline, Decreased ROM, Rigid. No: Lymphadenopathy, Tenderness, Thyromegaly Cardiovascular: Yes: Pulse Irregular (APC, VPC) Respiratory: Yes: Regular, CTA Bilaterally Gastrointestinal: Yes: Normal Bowel Sounds, Soft ...Rectal Exam: Yes: Deferred Genitourinary: Yes: White Present. No: Anuria Breast(s): Yes: WNL Musculoskeletal: Yes: Joint Stiffness, Muscle Weakness Extremities: No: Amputation, Calf Tenderness Peripheral Pulses WNL: No Neurological: Yes: Alert, Tremors. No: Oriented, Aphasia, Lethargy, Seizure ...Motor Strength: WNL Psychiatric: Yes: Alert. No: Oriented, Agitated Labs: CBC, BMP 01/10/19 05:55 01/10/19 05:55 INR, PTT INR 1.08 (0.83-1.09) 01/03/19 01:17 Problem List - Problems (1) Altered mental status Assessment/Plan: Remains confused though more vocal and can answer simple questions. Probably baseline MS due to Parkinson"s disease and dementia. CT head-no new changes except posterior dislocation of the lenses. Will ask ophth consult Code(s): R41.82 - ALTERED MENTAL STATUS, UNSPECIFIED Qualifiers: Altered mental status type: unspecified Qualified Code(s): R41.82 - Altered mental status, unspecified (2) Sepsis Assessment/Plan: MSSA-now on Cefazolin IV Continue IV ABX Code(s): A41.9 - SEPSIS, UNSPECIFIED ORGANISM Qualifiers: Sepsis type: sepsis due to unspecified organism Qualified Code(s): A41.9 - Sepsis, unspecified organism (3) Hypotension Assessment/Plan: Resolved with fluids Now elevated BP .Amlodipine started Code(s): I95.9 - HYPOTENSION, UNSPECIFIED Qualifiers: Hypotension type: unspecified hypotension type Qualified Code(s): I95.9 - Hypotension, unspecified (4) 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 Will avoid tight BP control. Code(s): G90.3 - MULTI-SYSTEM DEGENERATION OF THE AUTONOMIC NERVOUS SYSTEM (5) Acute kidney injury Assessment/Plan: Creatinine back to normal baseline-1.0 after White re-inserted. Code(s): N17.9 - ACUTE KIDNEY FAILURE, UNSPECIFIED (6) Constipation by delayed colonic transit Assessment/Plan: SSE ordered. Dulcolax PO. Miralax PO Code(s): K59.01 - SLOW TRANSIT CONSTIPATION
--- NOTE | 2019-01-10 08:49 | PN ---
Progress Note (short form) - Note Progress Note: Neurology History of Present Illness 83 yo M with h/o advanced dementia, HLD, HTN, hypothyroidism, CAD s/p stents, Parkinson's Disease, colon cancer BIBEMS with AMS, and fever. Per patient daughter at bedside he had fever T-max 104.0, and given two ibuprofen tablets. Patient also with increased confusion, and chills ( daughter noted patient with rigorous shaking of arms and shivering. Patient typically up with assistance to ambulate, but non ambulatory today. Lives at home with . Malagasy speaking. Patient daughter denies cough, wheezing, orthopena, PND, leg swelling/pain, N/V , SOB, urinary complaints, hematuria, BPR, diarrhea, lightheadedness. BP running low, on telemetry monitoring. Getting infectious workup. Patient on Sinemet for PD, tremor visualized. Daughter concerned about possible dementia, he does not see physicians on outpatient due to difficulty with transportation. Discussed with her that treating underlying infection first would be needed before evaluating mental status. I would try to add medication near discharge when patient is better for cognitive impairment to make it easier for family and patient will hold off until mental state near baseline. CT head completed and without acute changes. Discussed with daughter at bedside, she felt possibly facial droop and was asking about MRI brain. She also reports family history of acoustic neuroma, will check MRI brain completed and did not show significant structural abnormality except white matter changes and volume loss which are chronic. Neurologically remains stable at this time. Active Medications Amlodipine Besylate (Norvasc -) 5 mg PO DAILY [facility] Carbidopa/Levodopa (Sinemet *Cr* 25/100 -) 1 combo PO TID [facility] Last Admin: 01/10/19 06:04 Dose: 1 combo Docusate Sodium (Colace -) 100 mg PO TID [facility] Last Admin: 01/10/19 06:03 Dose: 100 mg Dorzolamide HCl (Trusopt 2%) 1 drop OS BID [facility] Last Admin: 01/09/19 23:09 Dose: 1 drop Heparin Sodium (Porcine) (Heparin -) 5,000 unit SQ TID [facility] Last Admin: 01/10/19 06:04 Dose: 5,000 unit Cefazolin Sodium (Ancef 1 Gm Premixed Ivpb -) 1 gm in 50 mls @ 100 mls/hr IVPB Q8H-IV [facility] Last Admin: 01/10/19 02:27 Dose: 100 mls/hr Levothyroxine Sodium (Synthroid -) 50 mcg PO DAILY@0700 [facility] Last Admin: 01/10/19 06:04 Dose: 50 mcg Polyethylene Glycol (Miralax (For Bowel Prep) -) 17 gm PO BID [facility] Last Admin: 01/09/19 23:08 Dose: 17 grams Rosuvastatin Calcium (Crestor -) 20 mg PO HS [facility] Last Admin: 01/09/19 23:07 Dose: 20 mg Tamsulosin HCl (Flomax -) 0.4 mg PO DAILY@0830 [facility] *Physical Exam Vital Signs Period Temp Pulse Resp BP Sys/Davison Pulse Ox Last 24 Hr 97.3 F-97.4 F 74-76 18-18 116-148/63-75 99-99 GENERAL: Awake, alert, non communicative, partially able to follow commands, in no acute distress HEAD: No signs of trauma, normocephalic, atraumatic EYES: PERRLA, EOMI, sclera anicteric, conjunctiva clear ENT: Nares patent, oropharynx clear without exudates. Moist mucosa NECK: Normal ROM, supple, no lymphadenopathy, JVD, or masses LUNGS: No distress, speaks full sentences, clear to auscultation bilaterally HEART: Regular rate and rhythm, normal S1 and S2, no murmurs, rubs or gallops, peripheral pulses normal and equal bilaterally. ABDOMEN: Soft, nontender, normoactive bowel sounds. No guarding, no rebound. No masses EXTREMITIES : Normal inspection, Normal range of motion, no edema. No clubbing or cyanosis. NEUROLOGICAL: Somnolent but arousable, tremor noted, ?R facial, sensory intact, cogwheeling noted SKIN: Warm, Dry, normal turgor, no rashes or lesions noted CBCD WBC 5.4 K/mm3 (4.0-10.0) 01/10/19 05:55 RBC 3.37 M/mm3 (4.00-5.60) L 01/10/19 05:55 Hgb 10.3 GM/dL (11.7-16.9) L 01/10/19 05:55 Hct 29.7 % (35.4-49) L 01/10/19 05:55 MCV 88.0 fl (80-96) 01/10/19 05:55 MCHC 34.7 g/dl (32.0-35.9) 01/10/19 05:55 RDW 14.8 % (11.9-15.9) 01/10/19 05:55 Plt Count 267 K/MM3 (134-434) 01/10/19 05:55 MPV 7.8 fl (7.5-11.1) 01/10/19 05:55 CMP Sodium 142 mmol/L (136-145) 01/10/19 05:55 Potassium 4.0 mmol/L (3.5-5.1) 01/10/19 05:55 Chloride 107 mmol/L (98-107) 01/10/19 05:55 Carbon Dioxide 28 mmol/L (21-32) 01/10/19 05:55 Anion Gap 6 MMOL/L (8-16) L 01/10/19 05:55 BUN 12 mg/dL (7-18) 01/10/19 05:55 Creatinine 1.1 mg/dL (0.55-1.3) 01/10/19 05:55 Creat Clearance w eGFR 63.62 (>60) 01/10/19 05:55 Random Glucose 89 mg/dL (74-106) 01/10/19 05:55 Calcium 8.3 mg/dL (8.5-10.1) L 01/10/19 05:55 Total Bilirubin 0.3 mg/dL (0.2-1) 01/10/19 05:55 AST 41 U/L (15-37) H 01/10/19 05:55 ALT 16 U/L (13-61) 01/10/19 05:55 Alkaline Phosphatase 90 U/L (45-117) 01/10/19 05:55 Total Protein 5.7 g/dl (6.4-8.2) L 01/10/19 05:55 Albumin 2.7 g/dl (3.4-5.0) L 01/10/19 05:55 CARDIAC ENZYMES Troponin I < 0.02 ng/ml (0.00-0.05) 01/03/19 01:17 Diagnostics: Brain MRI - ordered Medical Decision Making 83 yo M with h/o advanced dementia, HLD, HTN, hypothyroidism, CAD s/p stents, Parkinson's Disease, colon cancer BIBEMS with AMS, and fever. Per patient daughter at bedside he had fever T-max 104.0, and given two ibuprofen tablets. Patient also with increased confusion, and chills ( daughter noted patient with rigorous shaking of arms and shivering. Patient typically up with assistance to ambulate, but non ambulatory today. Lives at home with . Malagasy speaking. Patient daughter denies cough, wheezing, orthopena, PND, leg swelling/pain, N/V , SOB, urinary complaints, hematuria, BPR, diarrhea, lightheadedness. BP running low, on telemetry monitoring. Getting infectious workup. Patient on Sinemet for PD, tremor visualized. Daughter concerned about possible dementia, he does not see physicians on outpatient due to difficulty with transportation. Discussed with her that treating underlying infection first would be needed before evaluating mental status. CT head completed and reviewed, no acute changes. ID note reviewed. Brain MRI ordered, awaiting completion. Continue medical optimization, follow up cultures, infectious mgmt. Continue Sinemet for now. Adequate hydration recommended. Slightly more arousable. MRI brain reviewed , no acute changes. Will add Aricept to his regiment as discussed with family as patient likely for discharge in coming days.
[2019-01-10] MEDS: TAMSULOSIN HCL 0.4 MG CAP PO SCH ×2 (09:09→09:31)
[2019-01-10] MEDS: DONEPEZIL HCL 5 MG TABLET (FP) PO SCH ×2 (09:09→09:31)
[2019-01-10] MEDS: amLODIPine BESYLATE 5 MG TABLET (FP) PO SCH ×2 (09:10→09:31)
[2019-01-10] MEDS: POLYETHYLENE GLYCOL 3350 255 GM BTL PO SCH ×3 (09:14→21:55)
[2019-01-10] MEDS: DORZOLAMIDE 2% HCL OPHTHALMIC SOLUTION 10 ML BOTTLE OS SCH ×2 (09:41→21:52)
--- NOTE | 2019-01-10 10:13 | PN ---
Progress Note, Physician History of Present Illness: patient stable no new issues more awake and alert - Current Medication List Current Medications: Active Medications Amlodipine Besylate (Norvasc -) 5 mg PO DAILY [facility] Last Admin: 01/10/19 09:31 Dose: 5 mg Carbidopa/Levodopa (Sinemet *Cr* 25/100 -) 1 combo PO TID [facility] Last Admin: 01/10/19 06:04 Dose: 1 combo Docusate Sodium (Colace -) 100 mg PO TID [facility] Last Admin: 01/10/19 06:03 Dose: 100 mg Donepezil HCl (Aricept -) 5 mg PO DAILY [facility] Last Admin: 01/10/19 09:31 Dose: 5 mg Dorzolamide HCl (Trusopt 2%) 1 drop OS BID [facility] Last Admin: 01/10/19 09:41 Dose: 1 drop Heparin Sodium (Porcine) (Heparin -) 5,000 unit SQ TID [facility] Last Admin: 01/10/19 06:04 Dose: 5,000 unit Cefazolin Sodium (Ancef 1 Gm Premixed Ivpb -) 1 gm in 50 mls @ 100 mls/hr IVPB Q8H-IV [facility] Last Admin: 01/10/19 09:31 Dose: 100 mls/hr Levothyroxine Sodium (Synthroid -) 50 mcg PO DAILY@0700 [facility] Last Admin: 01/10/19 06:04 Dose: 50 mcg Polyethylene Glycol (Miralax (For Bowel Prep) -) 17 gm PO BID [facility] Last Admin: 01/10/19 09:32 Dose: 17 grams Rosuvastatin Calcium (Crestor -) 20 mg PO HS [facility] Last Admin: 01/09/19 23:07 Dose: 20 mg Sodium Phosphate (Fleet Adult Rectal Enema -) 133 ml [place] DAILY [facility] Tamsulosin HCl (Flomax -) 0.4 mg PO DAILY@0830 [facility] Last Admin: 01/10/19 09:31 Dose: 0.4 mg - Objective Vital Signs: Vital Signs Temperature 97.4 F L 01/10/19 06:00 Pulse Rate 75 01/10/19 06:00 Respiratory Rate 18 01/10/19 06:00 Blood Pressure 121/73 01/10/19 06:00 O2 Sat by Pulse Oximetry (%) 99 01/09/19 21:00 Constitutional: Yes: No Distress, Calm Cardiovascular: Yes: S1, S2 Respiratory: Yes: Regular, CTA Bilaterally Gastrointestinal: Yes: Normal Bowel Sounds, Soft Musculoskeletal: Yes: WNL Extremities: Yes: WNL Neurological: Yes: Other Labs: CBC, BMP 01/10/19 05:55 01/10/19 05:55 INR, PTT INR 1.08 (0.83-1.09) 01/03/19 01:17 Assessment/Plan Problem List - Problems (1) Altered mental status Code(s): R41.82 - ALTERED MENTAL STATUS, UNSPECIFIED Qualifiers: Altered mental status type: unspecified Qualified Code(s): R41.82 - Altered mental status, unspecified (2) Sepsis Code(s): A41.9 - SEPSIS, UNSPECIFIED ORGANISM Qualifiers: Sepsis type: sepsis due to unspecified organism Qualified Code(s): A41.9 - Sepsis, unspecified organism (3) Hypotension Code(s): I95.9 - HYPOTENSION, UNSPECIFIED Qualifiers: Hypotension type: unspecified hypotension type Qualified Code(s): I95.9 - Hypotension, unspecified (4) 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
[2019-01-10] MEDS: SODIUM PHOSPHATE/NA BIPHOS 133 ML ENEMA PR SCH (11:32)
[2019-01-10] MEDS ORDERED: ROSUVASTATIN CA 10 MG TABLET (FP) ONE (21:23)
[2019-01-10] MEDS: ROSUVASTATIN CA 20 MG TABLET (FP) PO SCH (21:51)
[2019-01-10] MEDS: POLYETHYLENE GLYCOL 3350 119 GM BTL PO SCH (21:54)
[2019-01-11] MEDS: CEFAZOLIN 1 GM/D5W 1 GM/50 ML BAG IVPB SCH ×3 (02:30→18:11)
[2019-01-11] MEDS ORDERED: PT OWN MED DRAWER 7, Y5N ONE ×5 (05:26→21:07)
[2019-01-11] MEDS: DOCUSATE SODIUM 100 MG CAPSULE (FP) PO SCH ×3 (05:43→21:25)
[2019-01-11] MEDS: HEPARIN NA (PORCINE) 5,000 UNITS/ML 1ML VIAL SQ SCH ×3 (05:43→21:25)
[2019-01-11] MEDS: LEVOTHYROXINE NA 50 MCG TABLET (FP) PO SCH (06:25)
[2019-01-11] MEDS ORDERED: MAGNESIUM HYDROX 2400MG/30ML ORAL SUSPENSION 30 ML CUP PO PRN (08:02)
[2019-01-11] MEDS ORDERED: LACTULOSE 20 GM/30 ML UDC (FOR ORAL USE ONLY) PO PRN (08:03)
--- NOTE | 2019-01-11 08:07 | PN ---
Progress Note, Physician Chief Complaint: Patient is receiving Cefazolin for MSSA bacteremia for 14 days. History of Present Illness: COLON cancer, s/p sx, chemo. Parkinson disease. Autonomic dysfunction. ASHD. s/p stents. BPH. HTN Hypothyroidism Glaucoma - Current Medication List Current Medications: Active Medications Amlodipine Besylate (Norvasc -) 5 mg PO DAILY [facility] Last Admin: 01/10/19 09:31 Dose: 5 mg Carbidopa/Levodopa (Sinemet *Cr* 25/100 -) 1 combo PO TID [facility] Last Admin: 01/11/19 05:43 Dose: 1 combo Docusate Sodium (Colace -) 100 mg PO TID [facility] Last Admin: 01/11/19 05:43 Dose: 100 mg Donepezil HCl (Aricept -) 5 mg PO DAILY [facility] Last Admin: 01/10/19 09:31 Dose: 5 mg Dorzolamide HCl (Trusopt 2%) 1 drop OS BID [facility] Last Admin: 01/10/19 21:52 Dose: 1 drop Heparin Sodium (Porcine) (Heparin -) 5,000 unit SQ TID [facility] Last Admin: 01/11/19 05:43 Dose: 5,000 unit Cefazolin Sodium (Ancef 1 Gm Premixed Ivpb -) 1 gm in 50 mls @ 100 mls/hr IVPB Q8H-IV [facility] Last Admin: 01/11/19 02:30 Dose: 100 mls/hr Levothyroxine Sodium (Synthroid -) 50 mcg PO DAILY@0700 [facility] Last Admin: 01/11/19 06:25 Dose: 50 mcg Polyethylene Glycol (Miralax (For Bowel Prep) -) 17 gm PO BID [facility] Last Admin: 01/10/19 21:55 Dose: 17 grams Rosuvastatin Calcium (Crestor -) 20 mg PO HS [facility] Last Admin: 01/10/19 21:51 Dose: 20 mg Sodium Phosphate (Fleet Adult Rectal Enema -) 133 ml [place] DAILY [facility] Last Admin: 01/10/19 11:32 Dose: 133 ml Tamsulosin HCl (Flomax -) 0.4 mg PO DAILY@0830 [facility] Last Admin: 01/10/19 09:31 Dose: 0.4 mg - Objective Vital Signs: Vital Signs Temperature 98.1 F 01/11/19 06:00 Pulse Rate 84 01/11/19 06:00 Respiratory Rate 20 01/11/19 06:00 Blood Pressure 118/61 01/11/19 06:00 O2 Sat by Pulse Oximetry (%) 98 01/10/19 21:00 Constitutional: Yes: No Distress, Pallor, Thin, Other. No: Anxious Eyes: Yes: Conjunctiva Clear HENT: Yes: Atraumatic, Normocephalic Neck: Yes: Supple, Trachea Midline. No: Lymphadenopathy Cardiovascular: Yes: Pulse Irregular, S1, S2 Respiratory: Yes: Regular, CTA Bilaterally Gastrointestinal: Yes: Normal Bowel Sounds, Soft, Other (Small hard BM yersterday after SSE) ...Rectal Exam: Yes: Deferred Genitourinary: Yes: White Present. No: Anuria Breast(s): Yes: WNL Musculoskeletal: Yes: Joint Stiffness, Muscle Weakness Extremities: No: Calf Tenderness, Cold, Deformity Edema: No Peripheral Pulses WNL: No Neurological: Yes: Alert, Lethargy, Tremors, Weakness, Other (Bradikynesia). No : Oriented, Aphasia, Seizure Psychiatric: Yes: Alert. No: Oriented, Agitated Labs: CBC, BMP 01/10/19 05:55 INR, PTT INR 1.08 (0.83-1.09) 01/03/19 01:17 Problem List - Problems (1) Altered mental status Assessment/Plan: Remains confused though more vocal and can answer simple questions. Probably baseline MS due to Parkinson"s disease and dementia. CT head-no new changes except posterior dislocation of the lenses. Will ask ophth consult Code(s): R41.82 - ALTERED MENTAL STATUS, UNSPECIFIED Qualifiers: Altered mental status type: unspecified Qualified Code(s): R41.82 - Altered mental status, unspecified (2) Sepsis Assessment/Plan: MSSA-now on Cefazolin IV Continue IV ABX Code(s): A41.9 - SEPSIS, UNSPECIFIED ORGANISM Qualifiers: Sepsis type: sepsis due to unspecified organism Qualified Code(s): A41.9 - Sepsis, unspecified organism (3) Hypotension Assessment/Plan: Resolved with fluids Now elevated BP .Amlodipine started Code(s): I95.9 - HYPOTENSION, UNSPECIFIED Qualifiers: Hypotension type: unspecified hypotension type Qualified Code(s): I95.9 - Hypotension, unspecified (4) 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 Will avoid tight BP control. Code(s): G90.3 - MULTI-SYSTEM DEGENERATION OF THE AUTONOMIC NERVOUS SYSTEM (5) Acute kidney injury Assessment/Plan: Creatinine back to normal baseline-1.0 after White re-inserted. Code(s): N17.9 - ACUTE KIDNEY FAILURE, UNSPECIFIED (6) Constipation by delayed colonic transit Assessment/Plan: SSE ordered. Dulcolax PO. Miralax PO Code(s): K59.01 - SLOW TRANSIT CONSTIPATION
[2019-01-11 08:37] LABS: ALBUMIN 2.6 g/dl (3.4-5.0); ALK PHOS 83 U/L (45-117); ANION GAP 4 MMOL/L (8-16); BILIRUBIN,TOTAL 0.3 mg/dL (0.2-1); BLOOD UREA NITROGEN 14 mg/dL (7-18); CALCIUM 8.4 mg/dL (8.5-10.1); CHLORIDE 106 mmol/L (98-107); CO2 30 mmol/L (21-32); CREATININE 1.1 mg/dL (0.55-1.3); GLUCOSE,RANDOM 89 mg/dL (74-106); POTASSIUM 3.8 mmol/L (3.5-5.1); SGOT/AST 29 U/L (15-37); SGPT/ALT 12 U/L (13-61); SODIUM 141 mmol/L (136-145); TOT PROT 5.5 g/dl (6.4-8.2)
--- NOTE | 2019-01-11 08:52 | PN ---
Progress Note (short form) - Note Progress Note: Neurology History of Present Illness 83 yo M with h/o advanced dementia, HLD, HTN, hypothyroidism, CAD s/p stents, Parkinson's Disease, colon cancer BIBEMS with AMS, and fever. Per patient daughter at bedside he had fever T-max 104.0, and given two ibuprofen tablets. Patient also with increased confusion, and chills ( daughter noted patient with rigorous shaking of arms and shivering. Patient typically up with assistance to ambulate, but non ambulatory today. Lives at home with . [place] speaking. Patient daughter denies cough, wheezing, orthopena, PND, leg swelling/pain, N/V , SOB, urinary complaints, hematuria, BPR, diarrhea, lightheadedness. BP running low, on telemetry monitoring. Getting infectious workup. Patient on Sinemet for PD, tremor visualized. Daughter concerned about possible dementia, he does not see physicians on outpatient due to difficulty with transportation. Discussed with her that treating underlying infection first would be needed before evaluating mental status. I would try to add medication near discharge when patient is better for cognitive impairment to make it easier for family and patient will hold off until mental state near baseline. CT head completed and without acute changes. MRI brain completed and did not show significant structural abnormality except white matter changes and volume loss which are chronic. Neurologically remains stable at this time. Slightly more awake this AM for me, no new deficits. Added Aricept 5mg. Active Medications Amlodipine Besylate (Norvasc -) 5 mg PO DAILY [facility] Last Admin: 01/10/19 09:31 Dose: 5 mg Carbidopa/Levodopa (Sinemet *Cr* 25/100 -) 1 combo PO TID [facility] Last Admin: 01/11/19 05:43 Dose: 1 combo Docusate Sodium (Colace -) 100 mg PO TID [facility] Last Admin: 01/11/19 05:43 Dose: 100 mg Donepezil HCl (Aricept -) 5 mg PO DAILY [facility] Last Admin: 01/10/19 09:31 Dose: 5 mg Dorzolamide HCl (Trusopt 2%) 1 drop OS BID [facility] Last Admin: 01/10/19 21:52 Dose: 1 drop Heparin Sodium (Porcine) (Heparin -) 5,000 unit SQ TID [facility] Last Admin: 01/11/19 05:43 Dose: 5,000 unit Cefazolin Sodium (Ancef 1 Gm Premixed Ivpb -) 1 gm in 50 mls @ 100 mls/hr IVPB Q8H-IV [facility] Last Admin: 01/11/19 02:30 Dose: 100 mls/hr Lactulose (Cephulac (Oral Use)) 20 gm PO TID PRN PRN Reason: CONSTIPATION Levothyroxine Sodium (Synthroid -) 50 mcg PO DAILY@0700 [facility] Last Admin: 01/11/19 06:25 Dose: 50 mcg Magnesium Hydroxide (Milk Of Magnesia -) 30 ml PO DAILY PRN PRN Reason: CONSTIPATION Polyethylene Glycol (Miralax (For Bowel Prep) -) 17 gm PO BID [facility] Last Admin: 01/10/19 21:55 Dose: 17 grams Rosuvastatin Calcium (Crestor -) 20 mg PO HS [facility] Last Admin: 01/10/19 21:51 Dose: 20 mg Sodium Phosphate (Fleet Adult Rectal Enema -) 133 ml [place] DAILY [facility] Last Admin: 01/10/19 11:32 Dose: 133 ml Tamsulosin HCl (Flomax -) 0.4 mg PO DAILY@0830 [facility] Last Admin: 01/10/19 09:31 Dose: 0.4 mg *Physical Exam Vital Signs Period Temp Pulse Resp BP Sys/Davison Pulse Ox Last 24 Hr 97 F-98.2 F 69-98 18-20 98-124/58-77 97-98 GENERAL: Awake, alert, non communicative, partially able to follow commands, in no acute distress HEAD: No signs of trauma, normocephalic, atraumatic EYES: PERRLA, EOMI, sclera anicteric, conjunctiva clear ENT: Nares patent, oropharynx clear without exudates. Moist mucosa NECK: Normal ROM, supple, no lymphadenopathy, JVD, or masses LUNGS: No distress, speaks full sentences, clear to auscultation bilaterally HEART: Regular rate and rhythm, normal S1 and S2, no murmurs, rubs or gallops, peripheral pulses normal and equal bilaterally. ABDOMEN: Soft, nontender, normoactive bowel sounds. No guarding, no rebound. No masses EXTREMITIES : Normal inspection, Normal range of motion, no edema. No clubbing or cyanosis. NEUROLOGICAL: Somnolent but arousable, tremor noted, ?R facial, sensory intact, cogwheeling noted SKIN: Warm, Dry, normal turgor, no rashes or lesions noted CBCD WBC 5.4 K/mm3 (4.0-10.0) 01/10/19 05:55 RBC 3.37 M/mm3 (4.00-5.60) L 01/10/19 05:55 Hgb 10.3 GM/dL (11.7-16.9) L 01/10/19 05:55 Hct 29.7 % (35.4-49) L 01/10/19 05:55 MCV 88.0 fl (80-96) 01/10/19 05:55 MCHC 34.7 g/dl (32.0-35.9) 01/10/19 05:55 RDW 14.8 % (11.9-15.9) 01/10/19 05:55 Plt Count 267 K/MM3 (134-434) 01/10/19 05:55 MPV 7.8 fl (7.5-11.1) 01/10/19 05:55 CMP Sodium 141 mmol/L (136-145) 01/11/19 07:00 Potassium 3.8 mmol/L (3.5-5.1) 01/11/19 07:00 Chloride 106 mmol/L (98-107) 01/11/19 07:00 Carbon Dioxide 30 mmol/L (21-32) 01/11/19 07:00 Anion Gap 4 MMOL/L (8-16) L 01/11/19 07:00 BUN 14 mg/dL (7-18) 01/11/19 07:00 Creatinine 1.1 mg/dL (0.55-1.3) 01/11/19 07:00 Creat Clearance w eGFR 63.62 (>60) 01/11/19 07:00 Random Glucose 89 mg/dL (74-106) 01/11/19 07:00 Calcium 8.4 mg/dL (8.5-10.1) L 01/11/19 07:00 Total Bilirubin 0.3 mg/dL (0.2-1) 01/11/19 07:00 AST 29 U/L (15-37) 01/11/19 07:00 ALT 12 U/L (13-61) L 01/11/19 07:00 Alkaline Phosphatase 83 U/L (45-117) 01/11/19 07:00 Total Protein 5.5 g/dl (6.4-8.2) L 01/11/19 07:00 Albumin 2.6 g/dl (3.4-5.0) L 01/11/19 07:00 CARDIAC ENZYMES Troponin I < 0.02 ng/ml (0.00-0.05) 01/03/19 01:17 Diagnostics: Brain MRI - ordered Medical Decision Making 83 yo M with h/o advanced dementia, HLD, HTN, hypothyroidism, CAD s/p stents, Parkinson's Disease, colon cancer BIBEMS with AMS, and fever. Per patient daughter at bedside he had fever T-max 104.0, and given two ibuprofen tablets. Patient also with increased confusion, and chills ( daughter noted patient with rigorous shaking of arms and shivering. Patient typically up with assistance to ambulate, but non ambulatory today. Lives at home with . Citizen [place] speaking. Patient daughter denies cough, wheezing, orthopena, PND, leg swelling/pain, N/V , SOB, urinary complaints, hematuria, BPR, diarrhea, lightheadedness. BP running low, on telemetry monitoring. Getting infectious workup. Patient on Sinemet for PD, tremor visualized. Daughter concerned about possible dementia, he does not see physicians on outpatient due to difficulty with transportation. Discussed with her that treating underlying infection first would be needed before evaluating mental status. CT head completed and reviewed, no acute changes. ID note reviewed. Brain MRI ordered, awaiting completion. Continue medical optimization, follow up cultures, infectious mgmt. Continue Sinemet for now. Adequate hydration recommended. Slightly more arousable. MRI brain reviewed , no acute changes. Added Aricept to his regiment as discussed with family.
[2019-01-11] MEDS: TAMSULOSIN HCL 0.4 MG CAP PO SCH (10:06)
[2019-01-11] MEDS: DONEPEZIL HCL 5 MG TABLET (FP) PO SCH (10:06)
[2019-01-11] MEDS: amLODIPine BESYLATE 5 MG TABLET (FP) PO SCH (10:07)
[2019-01-11] MEDS: DORZOLAMIDE 2% HCL OPHTHALMIC SOLUTION 10 ML BOTTLE OS SCH ×2 (10:09→21:26)
[2019-01-11] MEDS: SODIUM PHOSPHATE/NA BIPHOS 133 ML ENEMA PR SCH (10:09)
--- NOTE | 2019-01-11 14:11 | PN ---
Progress Note, Physician - Current Medication List Current Medications: Active Medications Amlodipine Besylate (Norvasc -) 5 mg PO DAILY [facility] Last Admin: 01/11/19 10:07 Dose: 5 mg Carbidopa/Levodopa (Sinemet *Cr* 25/100 -) 1 combo PO TID [facility] Last Admin: 01/11/19 05:43 Dose: 1 combo Docusate Sodium (Colace -) 100 mg PO TID [facility] Last Admin: 01/11/19 05:43 Dose: 100 mg Donepezil HCl (Aricept -) 5 mg PO DAILY [facility] Last Admin: 01/11/19 10:06 Dose: 5 mg Dorzolamide HCl (Trusopt 2%) 1 drop OS BID [facility] Last Admin: 01/11/19 10:09 Dose: 1 drop Heparin Sodium (Porcine) (Heparin -) 5,000 unit SQ TID [facility] Last Admin: 01/11/19 05:43 Dose: 5,000 unit Cefazolin Sodium (Ancef 1 Gm Premixed Ivpb -) 1 gm in 50 mls @ 100 mls/hr IVPB Q8H-IV [facility] Last Admin: 01/11/19 10:06 Dose: 100 mls/hr Lactulose (Cephulac (Oral Use)) 20 gm PO TID PRN PRN Reason: CONSTIPATION Levothyroxine Sodium (Synthroid -) 50 mcg PO DAILY@0700 [facility] Last Admin: 01/11/19 06:25 Dose: 50 mcg Magnesium Hydroxide (Milk Of Magnesia -) 30 ml PO DAILY PRN PRN Reason: CONSTIPATION Polyethylene Glycol (Miralax (For Bowel Prep) -) 17 gm PO BID [facility] Last Admin: 01/10/19 21:55 Dose: 17 grams Rosuvastatin Calcium (Crestor -) 20 mg PO HS [facility] Last Admin: 01/10/19 21:51 Dose: 20 mg Sodium Phosphate (Fleet Adult Rectal Enema -) 133 ml [place] DAILY [facility] Last Admin: 01/11/19 10:09 Dose: 133 ml Tamsulosin HCl (Flomax -) 0.4 mg PO DAILY@0830 [facility] Last Admin: 01/11/19 10:06 Dose: 0.4 mg - Objective Vital Signs: Vital Signs Temperature 98 F 01/11/19 10:00 Pulse Rate 88 01/11/19 10:00 Respiratory Rate 18 01/11/19 10:00 Blood Pressure 108/58 L 01/11/19 10:00 O2 Sat by Pulse Oximetry (%) 98 01/11/19 09:00 Labs: CBC, BMP 01/10/19 05:55 01/11/19 07:00 INR, PTT INR 1.08 (0.83-1.09) 01/03/19 01:17
[2019-01-11] MEDS: POLYETHYLENE GLYCOL 3350 255 GM BTL PO SCH ×2 (15:17→21:26)
[2019-01-11] MEDS ORDERED: ROSUVASTATIN CA 10 MG TABLET (FP) ONE (21:06)
[2019-01-11] MEDS: ROSUVASTATIN CA 20 MG TABLET (FP) PO SCH (21:26)
[2019-01-12] MEDS: CEFAZOLIN 1 GM/D5W 1 GM/50 ML BAG IVPB SCH ×3 (01:26→17:52)
[2019-01-12] MEDS: LEVOTHYROXINE NA 50 MCG TABLET (FP) PO SCH (06:25)
[2019-01-12] MEDS: HEPARIN NA (PORCINE) 5,000 UNITS/ML 1ML VIAL SQ SCH ×3 (06:25→22:09)
[2019-01-12] MEDS: DOCUSATE SODIUM 100 MG CAPSULE (FP) PO SCH ×3 (06:25→22:08)
[2019-01-12 08:19] LABS: BASO % 0.8 % (0-2.0); EOS % 1.6 % (0-4.5); HEMATOCRIT 29.8 % (35.4-49); HEMOGLOBIN 10.3 GM/dL (11.7-16.9); LYMPH % 14.3 % (8-40); MCHC 34.5 g/dl (32.0-35.9); MEAN CELL VOLUME 89.8 fl (80-96); MEAN PLT VOLUME 7.8 fl (7.5-11.1); MONO % 10.2 % (3.8-10.2); NEUT % 73.1 % (42.8-82.8); PLATELET COUNT 312 K/MM3 (134-434); RBC 3.32 M/mm3 (4.00-5.60); RDW 15.2 % (11.9-15.9); WHITE BLOOD COUNT 6.7 K/mm3 (4.0-10.0)
[2019-01-12 08:41] LABS: ANION GAP 6 MMOL/L (8-16); BLOOD UREA NITROGEN 12 mg/dL (7-18); CALCIUM 8.3 mg/dL (8.5-10.1); CHLORIDE 107 mmol/L (98-107); CO2 29 mmol/L (21-32); GLUCOSE,RANDOM 80 mg/dL (74-106); POTASSIUM 4.1 mmol/L (3.5-5.1); SODIUM 141 mmol/L (136-145)
[2019-01-12] MEDS: amLODIPine BESYLATE 5 MG TABLET (FP) PO SCH (10:40)
[2019-01-12] MEDS: TAMSULOSIN HCL 0.4 MG CAP PO SCH (10:40)
[2019-01-12] MEDS: DONEPEZIL HCL 5 MG TABLET (FP) PO SCH (10:41)
[2019-01-12] MEDS: POLYETHYLENE GLYCOL 3350 255 GM BTL PO SCH ×2 (10:42→22:12)
[2019-01-12] MEDS: DORZOLAMIDE 2% HCL OPHTHALMIC SOLUTION 10 ML BOTTLE OS SCH ×2 (10:42→22:11)
[2019-01-12] MEDS: SODIUM PHOSPHATE/NA BIPHOS 133 ML ENEMA PR SCH (10:55)
--- NOTE | 2019-01-12 11:13 | PN ---
Physical Exam: SUBJECTIVE: Patient seen and examined he is lethargic OBJECTIVE: Vital Signs Period Temp Pulse Resp BP Sys/Davison Pulse Ox Last 24 Hr 97.3 F-98.5 F 72-73 18-20 110-147/55-71 98 GENERAL: The patient is in no acute distress. HEAD: Normal with no signs of trauma. NECK: Trachea midline, full range of motion, supple. LUNGS: Breath sounds equal, clear to auscultation bilaterally, no wheezes, no crackles, no accessory muscle use. HEART: Regular rate and rhythm, S1, S2 without murmur, rub or gallop. ABDOMEN: Soft, nontender, nondistended, normoactive bowel sounds, no guarding, no rebound, no hepatosplenomegaly, no masses. EXTREMITIES: 2+ pulses, warm, well-perfused, no edema. NEUROLOGICAL: lethargic Laboratory Results - last 24 hr 01/12/19 01/12/19 07:00 07:00 WBC 6.7 RBC 3.32 L Hgb 10.3 L Hct 29.8 L MCV 89.8 MCH 31.0 MCHC 34.5 RDW 15.2 Plt Count 312 MPV 7.8 Absolute Neuts (auto) 4.9 Neutrophils % 73.1 Lymphocytes % 14.3 Monocytes % 10.2 Eosinophils % 1.6 Basophils % 0.8 Nucleated RBC % 0 Sodium 141 Potassium 4.1 Chloride 107 Carbon Dioxide 29 Anion Gap 6 L BUN 12 Creatinine 1.0 Creat Clearance w eGFR 71.02 Random Glucose 80 Calcium 8.3 L Active Medications Generic Name Dose Route Start Last Admin Trade Name Freq PRN Reason Stop Dose Admin Amlodipine Besylate 5 mg 01/10/19 10:00 01/12/19 10:40 Norvasc - PO 5 mg DAILY [facility] Administration Carbidopa/Levodopa 1 combo 01/09/19 22:00 01/11/19 21:25 Sinemet *Cr* 25/100 - PO 1 combo TID [facility] Administration Docusate Sodium 100 mg 01/09/19 08:15 01/12/19 06:25 Colace - PO 100 mg TID [facility] Administration Donepezil HCl 5 mg 01/10/19 10:00 01/12/19 10:41 Aricept - PO 5 mg DAILY [facility] Administration Dorzolamide HCl 1 drop 01/09/19 22:00 01/12/19 10:42 Trusopt 2% OS 1 drop BID [facility] Administration Heparin Sodium (Porcine) 5,000 unit 01/09/19 22:00 01/12/19 06:25 Heparin - SQ 5,000 unit TID [facility] Administration Cefazolin Sodium 1 gm in 50 mls @ 100 mls/hr 01/10/19 02:00 01/12/19 09:22 Ancef 1 Gm Premixed Ivpb - IVPB 100 mls/hr Q8H-IV [facility] Administration Lactulose 20 gm 01/11/19 08:03 01/11/19 15:17 Cephulac (Oral Use) PO 20 gm TID PRN Administration CONSTIPATION Levothyroxine Sodium 50 mcg 01/10/19 07:00 01/12/19 06:25 Synthroid - PO 50 mcg DAILY@0700 [facility] Administration Magnesium Hydroxide 30 ml 01/11/19 08:02 Milk Of Magnesia - PO DAILY PRN CONSTIPATION Polyethylene Glycol 17 gm 01/09/19 22:00 01/12/19 10:42 Miralax (For Bowel Prep) - PO 17 grams BID [facility] Administration Rosuvastatin Calcium 20 mg 01/09/19 22:00 01/11/19 21:26 Crestor - PO 20 mg HS [facility] Administration Sodium Phosphate 133 ml 01/10/19 10:00 01/11/19 10:09 Fleet Adult Rectal Enema - [place] 133 ml DAILY [facility] Administration Tamsulosin HCl 0.4 mg 01/10/19 08:30 01/12/19 10:40 Flomax - PO 0.4 mg DAILY@0830 [facility] Administration ASSESSMENT/PLAN: Altered mental status Remains confused though more vocal and can answer simple questions. Probably baseline MS due to Parkinson"s disease and dementia. CT head-no new changes except posterior dislocation of the lenses. 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 Will avoid tight BP control. Visit type - Emergency Visit Emergency Visit: Yes ED Registration Date: 01/03/19 Care time: The patient presented to the Emergency Department on the above date and was hospitalized for further evaluation of their emergent condition. - New Patient This patient is new to me today: Yes Date on this admission: 01/12/19 - Critical Care Critical Care patient: No - Discharge Referral Referred to [facility] Med P.C.: No
--- NOTE | 2019-01-12 14:10 | PN ---
Progress Note, Physician History of Present Illness: Pt seen and examined, notes, labs and imaging results noted. He is arousable, afebrile, without distress, noncommunicative. - Current Medication List Current Medications: Active Medications Amlodipine Besylate (Norvasc -) 5 mg PO DAILY [facility] Last Admin: 01/12/19 10:40 Dose: 5 mg Carbidopa/Levodopa (Sinemet *Cr* 25/100 -) 1 combo PO TID [facility] Last Admin: 01/12/19 13:42 Dose: 1 combo Docusate Sodium (Colace -) 100 mg PO TID [facility] Last Admin: 01/12/19 06:25 Dose: 100 mg Donepezil HCl (Aricept -) 5 mg PO DAILY [facility] Last Admin: 01/12/19 10:41 Dose: 5 mg Dorzolamide HCl (Trusopt 2%) 1 drop OS BID [facility] Last Admin: 01/12/19 10:42 Dose: 1 drop Heparin Sodium (Porcine) (Heparin -) 5,000 unit SQ TID [facility] Last Admin: 01/12/19 06:25 Dose: 5,000 unit Cefazolin Sodium (Ancef 1 Gm Premixed Ivpb -) 1 gm in 50 mls @ 100 mls/hr IVPB Q8H-IV [facility] Last Admin: 01/12/19 09:22 Dose: 100 mls/hr Lactulose (Cephulac (Oral Use)) 20 gm PO TID PRN PRN Reason: CONSTIPATION Last Admin: 01/11/19 15:17 Dose: 20 gm Levothyroxine Sodium (Synthroid -) 50 mcg PO DAILY@0700 [facility] Last Admin: 01/12/19 06:25 Dose: 50 mcg Magnesium Hydroxide (Milk Of Magnesia -) 30 ml PO DAILY PRN PRN Reason: CONSTIPATION Polyethylene Glycol (Miralax (For Bowel Prep) -) 17 gm PO BID [facility] Last Admin: 01/12/19 10:42 Dose: 17 grams Rosuvastatin Calcium (Crestor -) 20 mg PO HS [facility] Last Admin: 01/11/19 21:26 Dose: 20 mg Sodium Phosphate (Fleet Adult Rectal Enema -) 133 ml [place] DAILY [facility] Last Admin: 01/11/19 10:09 Dose: 133 ml Tamsulosin HCl (Flomax -) 0.4 mg PO DAILY@0830 [facility] Last Admin: 01/12/19 10:40 Dose: 0.4 mg - Objective Vital Signs: Vital Signs Temperature 98 F 01/12/19 10:00 Pulse Rate 77 01/12/19 10:00 Respiratory Rate 20 01/12/19 10:00 Blood Pressure 137/72 01/12/19 10:00 O2 Sat by Pulse Oximetry (%) 98 01/12/19 09:00 Constitutional: Yes: No Distress, Calm Cardiovascular: Yes: Regular Rate and Rhythm Respiratory: Yes: CTA Bilaterally Gastrointestinal: Yes: Normal Bowel Sounds, Soft Extremities: Yes: WNL Edema: No Neurological: Yes: Alert, Weakness Labs: CBC, BMP 01/12/19 07:00 01/12/19 07:00 INR, PTT INR 1.08 (0.83-1.09) 01/03/19 01:17 Microbiology 01/05/19 05:30 Blood - Peripheral Venous Blood Culture - Final NO GROWTH AFTER 5 DAYS INCUBATION 01/05/19 05:30 Blood - Peripheral Venous Blood Culture - Final NO GROWTH AFTER 5 DAYS INCUBATION 01/03/19 01:17 Blood - Peripheral Venous Blood Culture - Final NO GROWTH AFTER 5 DAYS INCUBATION 01/03/19 01:17 Blood - Peripheral Venous Blood Culture - Final Staphylococcus Aureus 01/03/19 03:35 Urine - Urine Clean Catch Urine Culture - Final NO GROWTH OBTAINED Problem List - Problems (1) Acute kidney injury Code(s): N17.9 - ACUTE KIDNEY FAILURE, UNSPECIFIED (2) Acute metabolic encephalopathy Code(s): G93.41 - METABOLIC ENCEPHALOPATHY (3) 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 Code(s): G90.3 - MULTI-SYSTEM DEGENERATION OF THE AUTONOMIC NERVOUS SYSTEM (4) Sepsis Code(s): A41.9 - SEPSIS, UNSPECIFIED ORGANISM Qualifiers: Sepsis type: sepsis due to unspecified organism Qualified Code(s): A41.9 - Sepsis, unspecified organism (5) BPH (benign prostatic hypertrophy) with urinary obstruction Code(s): N40.1 - BENIGN PROSTATIC HYPERPLASIA WITH LOWER URINARY TRACT SYMP; N13.8 - OTHER OBSTRUCTIVE AND REFLUX UROPATHY (6) CAD (coronary artery disease) Code(s): I25.10 - ATHSCL HEART DISEASE OF [place] CORONARY ARTERY W/O ANG PCTRS Qualifiers: Coronary Disease-Associated Artery/Lesion type: [place] artery [place] vs. transplanted heart: [place] heart Associated angina: without angina Qualified Code(s): I25.10 - Atherosclerotic heart disease of [place] coronary artery without angina pectoris (7) Gram-positive bacteremia Code(s): R78.81 - BACTEREMIA Assessment/Plan MSSA Bacteremia s/p Sepsis AMS s/p ROLAND --continue Cefazolin IV --repeat blood cultures neg, no specific findings on imaging -- pt arousable, afebrile
[2019-01-12] MEDS ORDERED: ROSUVASTATIN CA 10 MG TABLET (FP) ONE (22:06)
[2019-01-12] MEDS ORDERED: PT OWN MED DRAWER 7, Y5N ONE (22:07)
[2019-01-12] MEDS: ROSUVASTATIN CA 20 MG TABLET (FP) PO SCH (22:09)
[2019-01-13] MEDS: CEFAZOLIN 1 GM/D5W 1 GM/50 ML BAG IVPB SCH ×3 (01:34→17:38)
[2019-01-13] MEDS ORDERED: PT OWN MED DRAWER 7, Y5N ONE ×4 (06:03→21:32)
[2019-01-13] MEDS: LEVOTHYROXINE NA 50 MCG TABLET (FP) PO SCH (06:04)
[2019-01-13] MEDS: DOCUSATE SODIUM 100 MG CAPSULE (FP) PO SCH ×3 (06:04→22:11)
[2019-01-13] MEDS: HEPARIN NA (PORCINE) 5,000 UNITS/ML 1ML VIAL SQ SCH ×3 (06:05→22:11)
[2019-01-13] MEDS: amLODIPine BESYLATE 5 MG TABLET (FP) PO SCH (09:27)
[2019-01-13] MEDS: DONEPEZIL HCL 5 MG TABLET (FP) PO SCH (09:27)
[2019-01-13] MEDS: TAMSULOSIN HCL 0.4 MG CAP PO SCH (09:27)
[2019-01-13] MEDS: POLYETHYLENE GLYCOL 3350 255 GM BTL PO SCH ×2 (09:28→22:12)
[2019-01-13] MEDS: DORZOLAMIDE 2% HCL OPHTHALMIC SOLUTION 10 ML BOTTLE OS SCH ×2 (09:28→22:12)
[2019-01-13] MEDS: SODIUM PHOSPHATE/NA BIPHOS 133 ML ENEMA PR SCH (09:29)
--- NOTE | 2019-01-13 11:38 | PN ---
Physical Exam: SUBJECTIVE: Patient seen and examined no change no distress OBJECTIVE: Vital Signs Period Temp Pulse Resp BP Sys/Davison Pulse Ox Last 24 Hr 98.2 F-98.9 F 70-130 18-20 119-142/53-72 98 ENERAL: The patient is in no acute distress. HEAD: Normal with no signs of trauma. NECK: Trachea midline, full range of motion, supple. LUNGS: Breath sounds equal, clear to auscultation bilaterally, no wheezes, no crackles, no accessory muscle use. HEART: Regular rate and rhythm, S1, S2 without murmur, rub or gallop. ABDOMEN: Soft, nontender, nondistended, normoactive bowel sounds, no guarding, no rebound, no hepatosplenomegaly, no masses. EXTREMITIES: 2+ pulses, warm, well-perfused, no edema. NEUROLOGICAL: lethargic Active Medications Generic Name Dose Route Start Last Admin Trade Name Freq PRN Reason Stop Dose Admin Amlodipine Besylate 5 mg 01/10/19 10:00 01/13/19 09:27 Norvasc - PO 5 mg DAILY [facility] Administration Carbidopa/Levodopa 1 combo 01/09/19 22:00 01/13/19 07:26 Sinemet *Cr* 25/100 - PO Not Given TID [facility] Docusate Sodium 100 mg 01/09/19 08:15 01/13/19 06:04 Colace - PO 100 mg TID [facility] Administration Donepezil HCl 5 mg 01/10/19 10:00 01/13/19 09:27 Aricept - PO 5 mg DAILY [facility] Administration Dorzolamide HCl 1 drop 01/09/19 22:00 01/13/19 09:28 Trusopt 2% OS 1 drop BID [facility] Administration Heparin Sodium (Porcine) 5,000 unit 01/09/19 22:00 01/13/19 06:05 Heparin - SQ 5,000 unit TID [facility] Administration Cefazolin Sodium 1 gm in 50 mls @ 100 mls/hr 01/10/19 02:00 01/13/19 09:27 Ancef 1 Gm Premixed Ivpb - IVPB 100 mls/hr Q8H-IV [facility] Administration Lactulose 20 gm 01/11/19 08:03 01/11/19 15:17 Cephulac (Oral Use) PO 20 gm TID PRN Administration CONSTIPATION Levothyroxine Sodium 50 mcg 01/10/19 07:00 01/13/19 06:04 Synthroid - PO 50 mcg DAILY@0700 [facility] Administration Magnesium Hydroxide 30 ml 01/11/19 08:02 Milk Of Magnesia - PO DAILY PRN CONSTIPATION Polyethylene Glycol 17 gm 01/09/19 22:00 01/13/19 09:28 Miralax (For Bowel Prep) - PO 17 grams BID [facility] Administration Rosuvastatin Calcium 20 mg 01/09/19 22:00 01/12/19 22:09 Crestor - PO 20 mg HS [facility] Administration Sodium Phosphate 133 ml 01/10/19 10:00 01/13/19 09:29 Fleet Adult Rectal Enema - [place] 133 ml DAILY [facility] Administration Tamsulosin HCl 0.4 mg 01/10/19 08:30 01/13/19 09:27 Flomax - PO 0.4 mg DAILY@0830 [facility] Administration ASSESSMENT/PLAN: Altered mental status Remains confused though more vocal and can answer simple questions. Probably baseline MS due to Parkinson"s disease and dementia. CT head-no new changes except posterior dislocation of the lenses. 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 Will avoid tight BP control. Visit type - Emergency Visit Emergency Visit: Yes ED Registration Date: 01/03/19 Care time: The patient presented to the Emergency Department on the above date and was hospitalized for further evaluation of their emergent condition. - New Patient This patient is new to me today: No - Critical Care Critical Care patient: No - Discharge Referral Referred to [facility] Med P.C.: No
--- NOTE | 2019-01-13 12:45 | PN ---
Progress Note, Physician History of Present Illness: Pt without distress. Family at bedside states he is at his baseline state. Remains afebrile. - Current Medication List Current Medications: Active Medications Amlodipine Besylate (Norvasc -) 5 mg PO DAILY [facility] Last Admin: 01/13/19 09:27 Dose: 5 mg Carbidopa/Levodopa (Sinemet *Cr* 25/100 -) 1 combo PO TID [facility] Last Admin: 01/13/19 07:26 Dose: Not Given Docusate Sodium (Colace -) 100 mg PO TID [facility] Last Admin: 01/13/19 06:04 Dose: 100 mg Donepezil HCl (Aricept -) 5 mg PO DAILY [facility] Last Admin: 01/13/19 09:27 Dose: 5 mg Dorzolamide HCl (Trusopt 2%) 1 drop OS BID [facility] Last Admin: 01/13/19 09:28 Dose: 1 drop Heparin Sodium (Porcine) (Heparin -) 5,000 unit SQ TID [facility] Last Admin: 01/13/19 06:05 Dose: 5,000 unit Cefazolin Sodium (Ancef 1 Gm Premixed Ivpb -) 1 gm in 50 mls @ 100 mls/hr IVPB Q8H-IV [facility] Last Admin: 01/13/19 09:27 Dose: 100 mls/hr Lactulose (Cephulac (Oral Use)) 20 gm PO TID PRN PRN Reason: CONSTIPATION Last Admin: 01/11/19 15:17 Dose: 20 gm Levothyroxine Sodium (Synthroid -) 50 mcg PO DAILY@0700 [facility] Last Admin: 01/13/19 06:04 Dose: 50 mcg Magnesium Hydroxide (Milk Of Magnesia -) 30 ml PO DAILY PRN PRN Reason: CONSTIPATION Polyethylene Glycol (Miralax (For Bowel Prep) -) 17 gm PO BID [facility] Last Admin: 01/13/19 09:28 Dose: 17 grams Rosuvastatin Calcium (Crestor -) 20 mg PO HS [facility] Last Admin: 01/12/19 22:09 Dose: 20 mg Sodium Phosphate (Fleet Adult Rectal Enema -) 133 ml [place] DAILY [facility] Last Admin: 01/13/19 09:29 Dose: 133 ml Tamsulosin HCl (Flomax -) 0.4 mg PO DAILY@0830 [facility] Last Admin: 01/13/19 09:27 Dose: 0.4 mg - Objective Vital Signs: Vital Signs Temperature 97.2 F L 01/13/19 10:00 Pulse Rate 74 01/13/19 10:00 Respiratory Rate 16 01/13/19 10:00 Blood Pressure 133/72 01/13/19 10:00 O2 Sat by Pulse Oximetry (%) 98 01/12/19 21:00 Constitutional: Yes: No Distress Cardiovascular: Yes: Regular Rate and Rhythm Respiratory: Yes: Regular Gastrointestinal: Yes: Normal Bowel Sounds, Soft Extremities: Yes: WNL Neurological: Yes: Tremors (RUE), Other (noncommunicative) Labs: CBC, BMP 01/12/19 07:00 01/12/19 07:00 INR, PTT INR 1.08 (0.83-1.09) 01/03/19 01:17 Microbiology 01/05/19 05:30 Blood - Peripheral Venous Blood Culture - Final NO GROWTH AFTER 5 DAYS INCUBATION 01/05/19 05:30 Blood - Peripheral Venous Blood Culture - Final NO GROWTH AFTER 5 DAYS INCUBATION 01/03/19 01:17 Blood - Peripheral Venous Blood Culture - Final NO GROWTH AFTER 5 DAYS INCUBATION 01/03/19 01:17 Blood - Peripheral Venous Blood Culture - Final Staphylococcus Aureus 01/03/19 03:35 Urine - Urine Clean Catch Urine Culture - Final NO GROWTH OBTAINED <Lillian Couch - Last Filed: 01/13/19 12:43> - Current Medication List Current Medications: Active Medications Amlodipine Besylate (Norvasc -) 5 mg PO DAILY [facility] Last Admin: 01/13/19 09:27 Dose: 5 mg Carbidopa/Levodopa (Sinemet *Cr* 25/100 -) 1 combo PO TID [facility] Last Admin: 01/13/19 15:15 Dose: 1 combo Docusate Sodium (Colace -) 100 mg PO TID [facility] Last Admin: 01/13/19 15:15 Dose: 100 mg Donepezil HCl (Aricept -) 5 mg PO DAILY [facility] Last Admin: 01/13/19 09:27 Dose: 5 mg Dorzolamide HCl (Trusopt 2%) 1 drop OS BID [facility] Last Admin: 01/13/19 09:28 Dose: 1 drop Heparin Sodium (Porcine) (Heparin -) 5,000 unit SQ TID [facility] Last Admin: 04/28/19 15:15 Dose: 5,000 unit Cefazolin Sodium (Ancef 1 Gm Premixed Ivpb -) 1 gm in 50 mls @ 100 mls/hr IVPB Q8H-IV [facility] Last Admin: 01/13/19 09:27 Dose: 100 mls/hr Lactulose (Cephulac (Oral Use)) 20 gm PO TID PRN PRN Reason: CONSTIPATION Last Admin: 01/11/19 15:17 Dose: 20 gm Levothyroxine Sodium (Synthroid -) 50 mcg PO DAILY@0700 [facility] Last Admin: 01/13/19 06:04 Dose: 50 mcg Magnesium Hydroxide (Milk Of Magnesia -) 30 ml PO DAILY PRN PRN Reason: CONSTIPATION Polyethylene Glycol (Miralax (For Bowel Prep) -) 17 gm PO BID [facility] Last Admin: 01/13/19 09:28 Dose: 17 grams Rosuvastatin Calcium (Crestor -) 20 mg PO HS [facility] Last Admin: 01/12/19 22:09 Dose: 20 mg Sodium Phosphate (Fleet Adult Rectal Enema -) 133 ml GA DAILY [facility] Last Admin: 01/13/19 09:29 Dose: 133 ml Tamsulosin HCl (Flomax -) 0.4 mg PO DAILY@0830 [facility] Last Admin: 01/13/19 09:27 Dose: 0.4 mg - Objective Vital Signs: Vital Signs Temperature 98 F 01/13/19 15:00 Pulse Rate 70 01/13/19 15:00 Respiratory Rate 18 01/13/19 15:00 Blood Pressure 110/55 L 01/13/19 15:00 O2 Sat by Pulse Oximetry (%) 98 01/13/19 09:00 Labs: CBC, BMP 01/12/19 07:00 01/12/19 07:00 INR, PTT INR 1.08 (0.83-1.09) 01/03/19 01:17 <Sabas Galeano - Last Filed: 01/13/19 17:16> Problem List - Problems (1) Acute kidney injury Code(s): N17.9 - ACUTE KIDNEY FAILURE, UNSPECIFIED (2) Acute metabolic encephalopathy Code(s): G93.41 - METABOLIC ENCEPHALOPATHY (3) 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 Code(s): G90.3 - MULTI-SYSTEM DEGENERATION OF THE AUTONOMIC NERVOUS SYSTEM (4) Sepsis Code(s): A41.9 - SEPSIS, UNSPECIFIED ORGANISM Qualifiers: Sepsis type: sepsis due to unspecified organism Qualified Code(s): A41.9 - Sepsis, unspecified organism (5) BPH (benign prostatic hypertrophy) with urinary obstruction Code(s): N40.1 - BENIGN PROSTATIC HYPERPLASIA WITH LOWER URINARY TRACT SYMP; N13.8 - OTHER OBSTRUCTIVE AND REFLUX UROPATHY (6) CAD (coronary artery disease) Code(s): I25.10 - ATHSCL HEART DISEASE OF [place] CORONARY ARTERY W/O ANG PCTRS Qualifiers: Coronary Disease-Associated Artery/Lesion type: [place] artery [place] vs. transplanted heart: [place] heart Associated angina: without angina Qualified Code(s): I25.10 - Atherosclerotic heart disease of [place] coronary artery without angina pectoris (7) Gram-positive bacteremia Code(s): R78.81 - BACTEREMIA <Lillian Couch - Last Filed: 01/13/19 12:43> Assessment/Plan MSSA Bacteremia s/p Sepsis AMS s/p ROLAND --continue Cefazolin IV, total 14 days --pt remains afebrile, without distress As per family he appears better, now back to his baseline state continue monitor <Lillian Couch - Last Filed: 01/13/19 12:43>
[2019-01-13] MEDS ORDERED: ROSUVASTATIN CA 10 MG TABLET (FP) ONE (21:31)
[2019-01-13] MEDS: ROSUVASTATIN CA 20 MG TABLET (FP) PO SCH (22:11)
[2019-01-14] MEDS: CEFAZOLIN 1 GM/D5W 1 GM/50 ML BAG IVPB SCH ×3 (01:17→18:08)
[2019-01-14] MEDS ORDERED: PT OWN MED DRAWER 7, Y5N ONE (05:44)
[2019-01-14] MEDS: HEPARIN NA (PORCINE) 5,000 UNITS/ML 1ML VIAL SQ SCH ×3 (05:57→22:38)
[2019-01-14] MEDS: DOCUSATE SODIUM 100 MG CAPSULE (FP) PO SCH ×3 (05:57→22:38)
[2019-01-14] MEDS: LEVOTHYROXINE NA 50 MCG TABLET (FP) PO SCH (06:50)
--- NOTE | 2019-01-14 08:23 | PN ---
Progress Note, Physician Chief Complaint: Comfortable in bed, no significant change in MS, White draind clear urine. History of Present Illness: COLON cancer, s/p sx, chemo. Parkinson disease. Autonomic dysfunction. ASHD. s/p stents. BPH. HTN Hypothyroidism Glaucoma - Current Medication List Current Medications: Active Medications Amlodipine Besylate (Norvasc -) 5 mg PO DAILY [facility] Last Admin: 01/13/19 09:27 Dose: 5 mg Carbidopa/Levodopa (Sinemet *Cr* 25/100 -) 1 combo PO TID [facility] Last Admin: 01/14/19 05:57 Dose: 1 combo Docusate Sodium (Colace -) 100 mg PO TID [facility] Last Admin: 01/14/19 05:57 Dose: 100 mg Donepezil HCl (Aricept -) 5 mg PO DAILY [facility] Last Admin: 01/13/19 09:27 Dose: 5 mg Dorzolamide HCl (Trusopt 2%) 1 drop OS BID [facility] Last Admin: 01/13/19 22:12 Dose: 1 drop Heparin Sodium (Porcine) (Heparin -) 5,000 unit SQ TID [facility] Last Admin: 01/14/19 05:57 Dose: 5,000 unit Cefazolin Sodium (Ancef 1 Gm Premixed Ivpb -) 1 gm in 50 mls @ 100 mls/hr IVPB Q8H-IV [facility] Last Admin: 01/14/19 01:17 Dose: 100 mls/hr Lactulose (Cephulac (Oral Use)) 20 gm PO TID PRN PRN Reason: CONSTIPATION Last Admin: 01/11/19 15:17 Dose: 20 gm Levothyroxine Sodium (Synthroid -) 50 mcg PO DAILY@0700 [facility] Last Admin: 01/14/19 06:50 Dose: 50 mcg Magnesium Hydroxide (Milk Of Magnesia -) 30 ml PO DAILY PRN PRN Reason: CONSTIPATION Polyethylene Glycol (Miralax (For Bowel Prep) -) 17 gm PO BID [facility] Last Admin: 01/13/19 22:12 Dose: 17 grams Rosuvastatin Calcium (Crestor -) 20 mg PO HS [facility] Last Admin: 01/13/19 22:11 Dose: 20 mg Sodium Phosphate (Fleet Adult Rectal Enema -) 133 ml [place] DAILY [facility] Last Admin: 01/13/19 09:29 Dose: 133 ml Tamsulosin HCl (Flomax -) 0.4 mg PO DAILY@0830 [facility] Last Admin: 01/13/19 09:27 Dose: 0.4 mg - Objective Vital Signs: Vital Signs Temperature 97.6 F 01/14/19 06:00 Pulse Rate 74 01/14/19 06:00 Respiratory Rate 20 01/14/19 06:00 Blood Pressure 154/88 01/14/19 06:00 O2 Sat by Pulse Oximetry (%) 98 01/13/19 21:00 Constitutional: Yes: No Distress, Calm Eyes: Yes: Conjunctiva Clear, EOM Intact HENT: Yes: Atraumatic, Normocephalic Neck: Yes: Supple, Trachea Midline Cardiovascular: Yes: Regular Rate and Rhythm, S1, S2. No: Bradycardia, Tachycardia Respiratory: Yes: Regular, CTA Bilaterally. No: Accessory Muscle Use, Bradypnea Gastrointestinal: Yes: Normal Bowel Sounds, Soft. No: Abdomen, Obese, Ascites, Distention ...Rectal Exam: Yes: Deferred Genitourinary: Yes: White Present Musculoskeletal: Yes: Muscle Weakness Edema: No Integumentary: Yes: WNL Neurological: Yes: Alert, Tremors. No: Aphasia, Seizure Psychiatric: Yes: Alert. No: Oriented, Agitated, Suicidal Ideation Labs: CBC, BMP 01/12/19 07:00 01/12/19 07:00 INR, PTT INR 1.08 (0.83-1.09) 01/03/19 01:17 Problem List - Problems (1) Altered mental status Assessment/Plan: Remains confused . Probably baseline MS due to Parkinson"s disease and dementia. Code(s): R41.82 - ALTERED MENTAL STATUS, UNSPECIFIED Qualifiers: Altered mental status type: unspecified Qualified Code(s): R41.82 - Altered mental status, unspecified (2) Sepsis Assessment/Plan: MSSA-now on Cefazolin IV Continue IV ABX Day #11 IV ABX Code(s): A41.9 - SEPSIS, UNSPECIFIED ORGANISM Qualifiers: Sepsis type: sepsis due to unspecified organism Qualified Code(s): A41.9 - Sepsis, unspecified organism (3) Hypotension Assessment/Plan: Stable BP Code(s): I95.9 - HYPOTENSION, UNSPECIFIED Qualifiers: Hypotension type: unspecified hypotension type Qualified Code(s): I95.9 - Hypotension, unspecified (4) 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 Will avoid tight BP control. Code(s): G90.3 - MULTI-SYSTEM DEGENERATION OF THE AUTONOMIC NERVOUS SYSTEM (5) Acute kidney injury Assessment/Plan: Creatinine back to normal baseline-1.0 after White re-inserted. Code(s): N17.9 - ACUTE KIDNEY FAILURE, UNSPECIFIED (6) Constipation by delayed colonic transit Assessment/Plan: Continue laxatives Code(s): K59.01 - SLOW TRANSIT CONSTIPATION
--- NOTE | 2019-01-14 09:05 | PN ---
Progress Note (short form) - Note Progress Note: Neurology History of Present Illness 83 yo M with h/o advanced dementia, HLD, HTN, hypothyroidism, CAD s/p stents, Parkinson's Disease, colon cancer BIBEMS with AMS, and fever. Per patient daughter at bedside he had fever T-max 104.0, and given two ibuprofen tablets. Patient also with increased confusion, and chills ( daughter noted patient with rigorous shaking of arms and shivering. Patient typically up with assistance to ambulate, but non ambulatory today. Lives at home with . [place]ian speaking. Patient daughter denies cough, wheezing, orthopena, PND, leg swelling/pain, N/V , SOB, urinary complaints, hematuria, BPR, diarrhea, lightheadedness. BP running low, on telemetry monitoring. Getting infectious workup. Patient on Sinemet for PD, tremor visualized. Daughter concerned about possible dementia, he does not see physicians on outpatient due to difficulty with transportation. Discussed with her that treating underlying infection first would be needed before evaluating mental status. I would try to add medication near discharge when patient is better for cognitive impairment to make it easier for family and patient will hold off until mental state near baseline. CT head completed and without acute changes. MRI brain completed and did not show significant structural abnormality except white matter changes and volume loss which are chronic. Weekend notes reviewed, neurologically unchanged. Remains calm, minimal tremor noted. Active Medications Amlodipine Besylate (Norvasc -) 5 mg PO DAILY [facility] Last Admin: 01/13/19 09:27 Dose: 5 mg Carbidopa/Levodopa (Sinemet *Cr* 25/100 -) 1 combo PO TID [facility] Last Admin: 01/14/19 05:57 Dose: 1 combo Docusate Sodium (Colace -) 100 mg PO TID [facility] Last Admin: 01/14/19 05:57 Dose: 100 mg Donepezil HCl (Aricept -) 5 mg PO DAILY [facility] Last Admin: 01/13/19 09:27 Dose: 5 mg Dorzolamide HCl (Trusopt 2%) 1 drop OS BID [facility] Last Admin: 01/13/19 22:12 Dose: 1 drop Heparin Sodium (Porcine) (Heparin -) 5,000 unit SQ TID [facility] Last Admin: 01/14/19 05:57 Dose: 5,000 unit Cefazolin Sodium (Ancef 1 Gm Premixed Ivpb -) 1 gm in 50 mls @ 100 mls/hr IVPB Q8H-IV [facility] Last Admin: 01/14/19 01:17 Dose: 100 mls/hr Lactulose (Cephulac (Oral Use)) 30 gm PO TID [facility] Levothyroxine Sodium (Synthroid -) 50 mcg PO DAILY@0700 [facility] Last Admin: 01/14/19 06:50 Dose: 50 mcg Magnesium Hydroxide (Milk Of Magnesia -) 30 ml PO DAILY PRN PRN Reason: CONSTIPATION Polyethylene Glycol (Miralax (For Bowel Prep) -) 17 gm PO BID [facility] Last Admin: 01/13/19 22:12 Dose: 17 grams Rosuvastatin Calcium (Crestor -) 20 mg PO HS [facility] Last Admin: 01/13/19 22:11 Dose: 20 mg Sodium Phosphate (Fleet Adult Rectal Enema -) 133 ml [place] DAILY [facility] Last Admin: 01/13/19 09:29 Dose: 133 ml Tamsulosin HCl (Flomax -) 0.4 mg PO DAILY@0830 [facility] Last Admin: 01/13/19 09:27 Dose: 0.4 mg *Physical Exam Vital Signs Period Temp Pulse Resp BP Sys/Davison Pulse Ox Last 24 Hr 97.2 F-98 F 70-75 16-20 110-154/55-88 98 GENERAL: Awake, alert, non communicative, partially able to follow commands, in no acute distress HEAD: No signs of trauma, normocephalic, atraumatic EYES: PERRLA, EOMI, sclera anicteric, conjunctiva clear ENT: Nares patent, oropharynx clear without exudates. Moist mucosa NECK: Normal ROM, supple, no lymphadenopathy, JVD, or masses LUNGS: No distress, speaks full sentences, clear to auscultation bilaterally HEART: Regular rate and rhythm, normal S1 and S2, no murmurs, rubs or gallops, peripheral pulses normal and equal bilaterally. ABDOMEN: Soft, nontender, normoactive bowel sounds. No guarding, no rebound. No masses EXTREMITIES : Normal inspection, Normal range of motion, no edema. No clubbing or cyanosis. NEUROLOGICAL: Somnolent but arousable, tremor noted, ?R facial, sensory intact, cogwheeling noted SKIN: Warm, Dry, normal turgor, no rashes or lesions noted CBCD WBC 6.7 K/mm3 (4.0-10.0) 01/12/19 07:00 RBC 3.32 M/mm3 (4.00-5.60) L 01/12/19 07:00 Hgb 10.3 GM/dL (11.7-16.9) L 01/12/19 07:00 Hct 29.8 % (35.4-49) L 01/12/19 07:00 MCV 89.8 fl (80-96) 01/12/19 07:00 MCHC 34.5 g/dl (32.0-35.9) 01/12/19 07:00 RDW 15.2 % (11.9-15.9) 01/12/19 07:00 Plt Count 312 K/MM3 (134-434) 01/12/19 07:00 MPV 7.8 fl (7.5-11.1) 01/12/19 07:00 CMP Sodium 141 mmol/L (136-145) 01/12/19 07:00 Potassium 4.1 mmol/L (3.5-5.1) 01/12/19 07:00 Chloride 107 mmol/L (98-107) 01/12/19 07:00 Carbon Dioxide 29 mmol/L (21-32) 01/12/19 07:00 Anion Gap 6 MMOL/L (8-16) L 01/12/19 07:00 BUN 12 mg/dL (7-18) 01/12/19 07:00 Creatinine 1.0 mg/dL (0.55-1.3) 01/12/19 07:00 Creat Clearance w eGFR 71.02 (>60) 01/12/19 07:00 Random Glucose 80 mg/dL (74-106) 01/12/19 07:00 Calcium 8.3 mg/dL (8.5-10.1) L 01/12/19 07:00 Total Bilirubin 0.3 mg/dL (0.2-1) 01/11/19 07:00 AST 29 U/L (15-37) 01/11/19 07:00 ALT 12 U/L (13-61) L 01/11/19 07:00 Alkaline Phosphatase 83 U/L (45-117) 01/11/19 07:00 Total Protein 5.5 g/dl (6.4-8.2) L 01/11/19 07:00 Albumin 2.6 g/dl (3.4-5.0) L 01/11/19 07:00 CARDIAC ENZYMES Troponin I < 0.02 ng/ml (0.00-0.05) 01/03/19 01:17 Diagnostics: Brain MRI as above Medical Decision Making 83 yo M with h/o advanced dementia, HLD, HTN, hypothyroidism, CAD s/p stents, Parkinson's Disease, colon cancer BIBEMS with AMS, and fever. Per patient daughter at bedside he had fever T-max 104.0, and given two ibuprofen tablets. Patient also with increased confusion, and chills ( daughter noted patient with rigorous shaking of arms and shivering. Patient typically up with assistance to ambulate, but non ambulatory today. Lives at home with . [place]ian speaking. Patient daughter denies cough, wheezing, orthopena, PND, leg swelling/pain, N/V , SOB, urinary complaints, hematuria, BPR, diarrhea, lightheadedness. BP running low, on telemetry monitoring. Getting infectious workup. Patient on Sinemet for PD, tremor visualized. Daughter concerned about possible dementia, he does not see physicians on outpatient due to difficulty with transportation. Discussed with her that treating underlying infection first would be needed before evaluating mental status. CT head completed and reviewed, no acute changes. ID note reviewed. Brain MRI ordered, awaiting completion. Continue medical optimization, follow up cultures, infectious mgmt. Continue Sinemet for now. Adequate hydration recommended. Slightly more arousable. MRI brain reviewed , no acute changes. Added Aricept to his regiment as discussed with family, no issues with this medication noted. Neurologically stable.
[2019-01-14] MEDS: amLODIPine BESYLATE 5 MG TABLET (FP) PO SCH (10:30)
[2019-01-14] MEDS: DONEPEZIL HCL 5 MG TABLET (FP) PO SCH (10:31)
[2019-01-14] MEDS: SODIUM PHOSPHATE/NA BIPHOS 133 ML ENEMA PR SCH (10:35)
[2019-01-14] MEDS: POLYETHYLENE GLYCOL 3350 255 GM BTL PO SCH ×2 (10:35→22:39)
[2019-01-14] MEDS: DORZOLAMIDE 2% HCL OPHTHALMIC SOLUTION 10 ML BOTTLE OS SCH ×2 (10:36→22:30)
--- NOTE | 2019-01-14 10:38 | PN ---
Progress Note, Physician History of Present Illness: patient stable no new issues - Current Medication List Current Medications: Active Medications Amlodipine Besylate (Norvasc -) 5 mg PO DAILY [facility] Last Admin: 01/14/19 10:30 Dose: 5 mg Carbidopa/Levodopa (Sinemet *Cr* 25/100 -) 1 combo PO TID [facility] Last Admin: 01/14/19 05:57 Dose: 1 combo Docusate Sodium (Colace -) 100 mg PO TID [facility] Last Admin: 01/14/19 05:57 Dose: 100 mg Donepezil HCl (Aricept -) 5 mg PO DAILY [facility] Last Admin: 01/14/19 10:31 Dose: 5 mg Dorzolamide HCl (Trusopt 2%) 1 drop OS BID [facility] Last Admin: 01/14/19 10:36 Dose: 1 drop Heparin Sodium (Porcine) (Heparin -) 5,000 unit SQ TID [facility] Last Admin: 01/14/19 05:57 Dose: 5,000 unit Cefazolin Sodium (Ancef 1 Gm Premixed Ivpb -) 1 gm in 50 mls @ 100 mls/hr IVPB Q8H-IV [facility] Last Admin: 01/14/19 10:30 Dose: 100 mls/hr Lactulose (Cephulac (Oral Use)) 30 gm PO TID [facility] Levothyroxine Sodium (Synthroid -) 50 mcg PO DAILY@0700 [facility] Last Admin: 01/14/19 06:50 Dose: 50 mcg Magnesium Hydroxide (Milk Of Magnesia -) 30 ml PO DAILY PRN PRN Reason: CONSTIPATION Polyethylene Glycol (Miralax (For Bowel Prep) -) 17 gm PO BID [facility] Last Admin: 01/14/19 10:35 Dose: 17 grams Rosuvastatin Calcium (Crestor -) 20 mg PO HS [facility] Last Admin: 01/13/19 22:11 Dose: 20 mg Sodium Phosphate (Fleet Adult Rectal Enema -) 133 ml [place] DAILY [facility] Last Admin: 01/14/19 10:35 Dose: Not Given Tamsulosin HCl (Flomax -) 0.4 mg PO DAILY@0830 [facility] Last Admin: 01/13/19 09:27 Dose: 0.4 mg - Objective Vital Signs: Vital Signs Temperature 97.6 F 01/14/19 06:00 Pulse Rate 74 01/14/19 06:00 Respiratory Rate 20 01/14/19 06:00 Blood Pressure 154/88 01/14/19 06:00 O2 Sat by Pulse Oximetry (%) 98 01/13/19 21:00 Constitutional: Yes: No Distress, Calm Cardiovascular: Yes: S1, S2 Respiratory: Yes: Regular, CTA Bilaterally Musculoskeletal: Yes: WNL Extremities: Yes: WNL Neurological: Yes: Other Psychiatric: Yes: Other Labs: CBC, BMP 01/12/19 07:00 01/12/19 07:00 INR, PTT INR 1.08 (0.83-1.09) 01/03/19 01:17 Assessment/Plan Problem List - Problems (1) Altered mental status Code(s): R41.82 - ALTERED MENTAL STATUS, UNSPECIFIED Qualifiers: Altered mental status type: unspecified Qualified Code(s): R41.82 - Altered mental status, unspecified (2) Sepsis Code(s): A41.9 - SEPSIS, UNSPECIFIED ORGANISM Qualifiers: Sepsis type: sepsis due to unspecified organism Qualified Code(s): A41.9 - Sepsis, unspecified organism (3) Hypotension Code(s): I95.9 - HYPOTENSION, UNSPECIFIED Qualifiers: Hypotension type: unspecified hypotension type Qualified Code(s): I95.9 - Hypotension, unspecified (4) 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
[2019-01-14] MEDS: TAMSULOSIN HCL 0.4 MG CAP PO SCH (11:19)
[2019-01-14 13:19] VITALS: BMI 21.1
[2019-01-14] MEDS: LACTULOSE 20 GM/30 ML UDC (FOR ORAL USE ONLY) PO SCH ×2 (14:28→22:39)
[2019-01-14] MEDS: ROSUVASTATIN CA 20 MG TABLET (FP) PO SCH (22:38)
[2019-01-15] MEDS: CEFAZOLIN 1 GM/D5W 1 GM/50 ML BAG IVPB SCH ×3 (02:18→17:02)
[2019-01-15] MEDS: HEPARIN NA (PORCINE) 5,000 UNITS/ML 1ML VIAL SQ SCH ×3 (06:24→21:53)
[2019-01-15] MEDS: LEVOTHYROXINE NA 50 MCG TABLET (FP) PO SCH (06:24)
[2019-01-15] MEDS: LACTULOSE 20 GM/30 ML UDC (FOR ORAL USE ONLY) PO SCH ×3 (06:25→21:53)
[2019-01-15] MEDS: DOCUSATE SODIUM 100 MG CAPSULE (FP) PO SCH ×3 (06:28→21:53)
--- NOTE | 2019-01-15 08:59 | PN ---
Progress Note (short form) - Note Progress Note: Neurology History of Present Illness 83 yo M with h/o advanced dementia, HLD, HTN, hypothyroidism, CAD s/p stents, Parkinson's Disease, colon cancer BIBEMS with AMS, and fever. Per patient daughter at bedside he had fever T-max 104.0, and given two ibuprofen tablets. Patient also with increased confusion, and chills ( daughter noted patient with rigorous shaking of arms and shivering. Patient typically up with assistance to ambulate, but non ambulatory today. Lives at home with . [place] speaking. Patient daughter denies cough, wheezing, orthopena, PND, leg swelling/pain, N/V , SOB, urinary complaints, hematuria, BPR, diarrhea, lightheadedness. BP running low, on telemetry monitoring. Getting infectious workup. Patient on Sinemet for PD, tremor visualized. Daughter concerned about possible dementia, he does not see physicians on outpatient due to difficulty with transportation. Discussed with her that treating underlying infection first would be needed before evaluating mental status. I would try to add medication near discharge when patient is better for cognitive impairment to make it easier for family and patient will hold off until mental state near baseline. CT head completed and without acute changes. MRI brain completed and did not show significant structural abnormality except white matter changes and volume loss which are chronic. Neurologically unchanged. Remains calm, minimal tremor noted when awoken, otherwise comfortably alseep this AM. ID note reviewed. On Ancef as Abx. Active Medications Amlodipine Besylate (Norvasc -) 5 mg PO DAILY [facility] Last Admin: 01/14/19 10:30 Dose: 5 mg Carbidopa/Levodopa (Sinemet *Cr* 25/100 -) 1 combo PO TID [facility] Last Admin: 01/15/19 06:24 Dose: 1 combo Docusate Sodium (Colace -) 100 mg PO TID [facility] Last Admin: 01/15/19 06:28 Dose: 100 mg Donepezil HCl (Aricept -) 5 mg PO DAILY [facility] Last Admin: 01/14/19 10:31 Dose: 5 mg Dorzolamide HCl (Trusopt 2%) 1 drop OS BID [facility] Last Admin: 01/14/19 22:30 Dose: 1 drop Heparin Sodium (Porcine) (Heparin -) 5,000 unit SQ TID [facility] Last Admin: 04/30/19 06:24 Dose: 5,000 unit Cefazolin Sodium (Ancef 1 Gm Premixed Ivpb -) 1 gm in 50 mls @ 100 mls/hr IVPB Q8H-IV [facility] Last Admin: 01/15/19 02:18 Dose: 100 mls/hr Lactulose (Cephulac (Oral Use)) 30 gm PO TID [facility] Last Admin: 01/15/19 06:25 Dose: 30 gm Levothyroxine Sodium (Synthroid -) 50 mcg PO DAILY@0700 [facility] Last Admin: 01/15/19 06:24 Dose: 50 mcg Magnesium Hydroxide (Milk Of Magnesia -) 30 ml PO DAILY PRN PRN Reason: CONSTIPATION Polyethylene Glycol (Miralax (For Bowel Prep) -) 17 gm PO BID [facility] Last Admin: 01/14/19 22:39 Dose: 17 grams Rosuvastatin Calcium (Crestor -) 20 mg PO HS [facility] Last Admin: 01/14/19 22:38 Dose: 20 mg Sodium Phosphate (Fleet Adult Rectal Enema -) 133 ml [place] DAILY [facility] Last Admin: 01/14/19 10:35 Dose: Not Given Tamsulosin HCl (Flomax -) 0.4 mg PO DAILY@0830 [facility] Last Admin: 01/14/19 11:19 Dose: 0.4 mg *Physical Exam Vital Signs Period Temp Pulse Resp BP Sys/Davison Pulse Ox Last 24 Hr 97.6 F-98 F 64-73 18-20 108-156/56-79 96-96 GENERAL: Awake, alert, non communicative, partially able to follow commands, in no acute distress HEAD: No signs of trauma, normocephalic, atraumatic EYES: PERRLA, EOMI, sclera anicteric, conjunctiva clear ENT: Nares patent, oropharynx clear without exudates. Moist mucosa NECK: Normal ROM, supple, no lymphadenopathy, JVD, or masses LUNGS: No distress, speaks full sentences, clear to auscultation bilaterally HEART: Regular rate and rhythm, normal S1 and S2, no murmurs, rubs or gallops, peripheral pulses normal and equal bilaterally. ABDOMEN: Soft, nontender, normoactive bowel sounds. No guarding, no rebound. No masses EXTREMITIES : Normal inspection, Normal range of motion, no edema. No clubbing or cyanosis. NEUROLOGICAL: Somnolent but arousable, tremor noted, ?R facial, sensory intact, cogwheeling noted SKIN: Warm, Dry, normal turgor, no rashes or lesions noted CBCD WBC 6.7 K/mm3 (4.0-10.0) 01/12/19 07:00 RBC 3.32 M/mm3 (4.00-5.60) L 01/12/19 07:00 Hgb 10.3 GM/dL (11.7-16.9) L 01/12/19 07:00 Hct 29.8 % (35.4-49) L 01/12/19 07:00 MCV 89.8 fl (80-96) 01/12/19 07:00 MCHC 34.5 g/dl (32.0-35.9) 01/12/19 07:00 RDW 15.2 % (11.9-15.9) 01/12/19 07:00 Plt Count 312 K/MM3 (134-434) 01/12/19 07:00 MPV 7.8 fl (7.5-11.1) 01/12/19 07:00 CMP Sodium 141 mmol/L (136-145) 01/12/19 07:00 Potassium 4.1 mmol/L (3.5-5.1) 01/12/19 07:00 Chloride 107 mmol/L (98-107) 01/12/19 07:00 Carbon Dioxide 29 mmol/L (21-32) 01/12/19 07:00 Anion Gap 6 MMOL/L (8-16) L 01/12/19 07:00 BUN 12 mg/dL (7-18) 01/12/19 07:00 Creatinine 1.0 mg/dL (0.55-1.3) 01/12/19 07:00 Creat Clearance w eGFR 71.02 (>60) 01/12/19 07:00 Random Glucose 80 mg/dL (74-106) 01/12/19 07:00 Calcium 8.3 mg/dL (8.5-10.1) L 01/12/19 07:00 Total Bilirubin 0.3 mg/dL (0.2-1) 01/11/19 07:00 AST 29 U/L (15-37) 01/11/19 07:00 ALT 12 U/L (13-61) L 01/11/19 07:00 Alkaline Phosphatase 83 U/L (45-117) 01/11/19 07:00 Total Protein 5.5 g/dl (6.4-8.2) L 01/11/19 07:00 Albumin 2.6 g/dl (3.4-5.0) L 01/11/19 07:00 CARDIAC ENZYMES Troponin I < 0.02 ng/ml (0.00-0.05) 01/03/19 01:17 Diagnostics: Brain MRI as above Medical Decision Making 83 yo M with h/o advanced dementia, HLD, HTN, hypothyroidism, CAD s/p stents, Parkinson's Disease, colon cancer BIBEMS with AMS, and fever. Per patient daughter at bedside he had fever T-max 104.0, and given two ibuprofen tablets. Patient also with increased confusion, and chills ( daughter noted patient with rigorous shaking of arms and shivering. Patient typically up with assistance to ambulate, but non ambulatory today. Lives at home with . [place] speaking. Patient daughter denies cough, wheezing, orthopena, PND, leg swelling/pain, N/V , SOB, urinary complaints, hematuria, BPR, diarrhea, lightheadedness. BP running low, on telemetry monitoring. Getting infectious workup. Patient on Sinemet for PD, tremor visualized. Daughter concerned about possible dementia, he does not see physicians on outpatient due to difficulty with transportation. Discussed with her that treating underlying infection first would be needed before evaluating mental status. CT head completed and reviewed, no acute changes. ID note reviewed. Brain MRI ordered, awaiting completion. Continue medical optimization, follow up cultures, infectious mgmt. Continue Sinemet for now. Adequate hydration recommended. Slightly more arousable. MRI brain reviewed , no acute changes. Added Aricept to his regiment as discussed with family, no issues with this medication noted. Neurologically stable. Remains on Ancef as Abx. ID note seen. Continue monitoring and medical optimization.
[2019-01-15] MEDS: TAMSULOSIN HCL 0.4 MG CAP PO SCH (09:32)
[2019-01-15] MEDS: amLODIPine BESYLATE 5 MG TABLET (FP) PO SCH (09:37)
[2019-01-15] MEDS: POLYETHYLENE GLYCOL 3350 255 GM BTL PO SCH ×2 (09:38→21:53)
[2019-01-15] MEDS: DORZOLAMIDE 2% HCL OPHTHALMIC SOLUTION 10 ML BOTTLE OS SCH ×2 (09:39→21:57)
[2019-01-15] MEDS ORDERED: PT OWN MED DRAWER 7, Y5N ONE (10:19)
[2019-01-15] MEDS: DONEPEZIL HCL 5 MG TABLET (FP) PO SCH (11:05)
--- NOTE | 2019-01-15 13:05 | PN ---
Progress Note, Physician - Current Medication List Current Medications: Active Medications Amlodipine Besylate (Norvasc -) 5 mg PO DAILY [facility] Last Admin: 01/15/19 09:37 Dose: 5 mg Carbidopa/Levodopa (Sinemet *Cr* 25/100 -) 1 combo PO TID [facility] Last Admin: 01/15/19 06:24 Dose: 1 combo Docusate Sodium (Colace -) 100 mg PO TID [facility] Last Admin: 01/15/19 06:28 Dose: 100 mg Donepezil HCl (Aricept -) 5 mg PO DAILY [facility] Last Admin: 01/15/19 11:05 Dose: 5 mg Dorzolamide HCl (Trusopt 2%) 1 drop OS BID [facility] Last Admin: 01/15/19 09:39 Dose: 1 drop Heparin Sodium (Porcine) (Heparin -) 5,000 unit SQ TID [facility] Last Admin: 01/15/19 06:24 Dose: 5,000 unit Cefazolin Sodium (Ancef 1 Gm Premixed Ivpb -) 1 gm in 50 mls @ 100 mls/hr IVPB Q8H-IV [facility] Last Admin: 01/15/19 09:33 Dose: 100 mls/hr Lactulose (Cephulac (Oral Use)) 30 gm PO TID [facility] Last Admin: 01/15/19 06:25 Dose: 30 gm Levothyroxine Sodium (Synthroid -) 50 mcg PO DAILY@0700 [facility] Last Admin: 01/15/19 06:24 Dose: 50 mcg Magnesium Hydroxide (Milk Of Magnesia -) 30 ml PO DAILY PRN PRN Reason: CONSTIPATION Polyethylene Glycol (Miralax (For Bowel Prep) -) 17 gm PO BID [facility] Last Admin: 01/15/19 09:38 Dose: 17 grams Rosuvastatin Calcium (Crestor -) 20 mg PO HS [facility] Last Admin: 01/14/19 22:38 Dose: 20 mg Sodium Phosphate (Fleet Adult Rectal Enema -) 133 ml [place] DAILY [facility] Last Admin: 01/14/19 10:35 Dose: Not Given Tamsulosin HCl (Flomax -) 0.4 mg PO DAILY@0830 [facility] Last Admin: 01/15/19 09:32 Dose: 0.4 mg - Objective Vital Signs: Vital Signs Temperature 97.9 F 01/15/19 06:41 Pulse Rate 73 01/15/19 06:41 Respiratory Rate 20 04/30/19 06:41 Blood Pressure 156/79 01/15/19 06:41 O2 Sat by Pulse Oximetry (%) 96 01/14/19 21:00 Labs: CBC, BMP 01/12/19 07:00 01/12/19 07:00 INR, PTT INR 1.08 (0.83-1.09) 01/03/19 01:17
--- NOTE | 2019-01-15 13:19 | PN ---
Progress Note (short form) - Note Progress Note: Spoke to today. Patient is comfortable in bed. Vital Signs 01/15/19 06:41 Temperature 97.9 F Pulse Rate 73 Respiratory 20 Rate Blood Pressure 156/79 Lungs are clear heart S1S2 regular Abdomen soft, NT White drains clear urine. Ext no CCE Current Medications Generic Name Dose Route Start Last Admin Trade Name Freq PRN Reason Stop Dose Admin Amlodipine Besylate 5 mg 01/10/19 10:00 01/15/19 09:37 Norvasc - PO 5 mg DAILY [facility] Administration Carbidopa/Levodopa 1 combo 01/09/19 22:00 01/15/19 13:09 Sinemet *Cr* 25/100 - PO 1 combo TID [facility] Administration Docusate Sodium 100 mg 01/09/19 08:15 01/15/19 13:09 Colace - PO 100 mg TID [facility] Administration Donepezil HCl 5 mg 01/10/19 10:00 01/15/19 11:05 Aricept - PO 5 mg DAILY [facility] Administration Dorzolamide HCl 1 drop 01/09/19 22:00 01/15/19 09:39 Trusopt 2% OS 1 drop BID [facility] Administration Heparin Sodium (Porcine) 5,000 unit 01/09/19 22:00 01/15/19 13:09 Heparin - SQ 5,000 unit TID [facility] Administration Cefazolin Sodium 1 gm in 50 mls @ 100 mls/hr 01/10/19 02:00 01/15/19 09:33 Ancef 1 Gm Premixed Ivpb - IVPB 100 mls/hr Q8H-IV [facility] Administration Lactulose 30 gm 01/14/19 14:00 01/15/19 13:09 Cephulac (Oral Use) PO 30 gm TID [facility] Administration Levothyroxine Sodium 50 mcg 01/10/19 07:00 01/15/19 06:24 Synthroid - PO 50 mcg DAILY@0700 [facility] Administration Magnesium Hydroxide 30 ml 01/11/19 08:02 Milk Of Magnesia - PO DAILY PRN CONSTIPATION Polyethylene Glycol 17 gm 01/09/19 22:00 01/15/19 09:38 Miralax (For Bowel Prep) - PO 17 grams BID [facility] Administration Rosuvastatin Calcium 20 mg 01/09/19 22:00 01/14/19 22:38 Crestor - PO 20 mg HS [facility] Administration Sodium Phosphate 133 ml 01/10/19 10:00 01/14/19 10:35 Fleet Adult Rectal Enema - [place] Not Given DAILY [facility] Tamsulosin HCl 0.4 mg 01/10/19 08:30 01/15/19 09:32 Flomax - PO 0.4 mg DAILY@0830 [facility] Administration Current Active Problems Problem Status Onset Acute kidney injury Acute Acute metabolic encephalopathy Acute Altered mental status Acute Constipation by delayed colonic transit Acute Hypotension Acute 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
[2019-01-15] MEDS: SODIUM PHOSPHATE/NA BIPHOS 133 ML ENEMA PR SCH (15:27)
[2019-01-15] MEDS: ROSUVASTATIN CA 20 MG TABLET (FP) PO SCH (21:53)
[2019-01-16] MEDS: CEFAZOLIN 1 GM/D5W 1 GM/50 ML BAG IVPB SCH ×2 (01:13→10:22)
[2019-01-16] MEDS: LACTULOSE 20 GM/30 ML UDC (FOR ORAL USE ONLY) PO SCH ×2 (06:27→14:50)
[2019-01-16] MEDS: DOCUSATE SODIUM 100 MG CAPSULE (FP) PO SCH ×2 (06:27→14:50)
[2019-01-16] MEDS: LEVOTHYROXINE NA 50 MCG TABLET (FP) PO SCH (06:27)
[2019-01-16] MEDS: HEPARIN NA (PORCINE) 5,000 UNITS/ML 1ML VIAL SQ SCH ×2 (06:28→14:54)
--- NOTE | 2019-01-16 08:21 | PN ---
Progress Note (short form) - Note Progress Note: Awake, NAD, confused. Intake & Output 01/13/19 01/14/19 01/15/19 01/16/19 11:59 11:59 11:59 11:59 Intake Total 1080 1020 150 360 Output Total 1180 1150 400 900 Balance -100 -130 -250 -540 Weight 132 lb 4 oz 135 lb 123 lb 9 oz 130 lb 6 oz Vital Signs (72 hours) 01/13/19 01/13/19 01/13/19 09:00 10:00 15:00 Temperature 97.2 F L 98 F Pulse Rate 74 70 Respiratory 16 18 Rate Blood Pressure 133/72 110/55 L O2 Sat by Pulse 98 Oximetry (%) 01/13/19 01/13/19 01/14/19 20:41 21:00 06:00 Temperature 97.6 F 97.6 F Pulse Rate 75 74 Respiratory 20 20 Rate Blood Pressure 129/68 154/88 O2 Sat by Pulse 98 Oximetry (%) 01/14/19 01/14/19 01/14/19 09:00 10:00 17:53 Temperature 97.8 F 97.6 F Pulse Rate 71 71 Respiratory 18 18 Rate Blood Pressure 124/68 108/56 L O2 Sat by Pulse 96 Oximetry (%) 01/14/19 01/15/19 01/15/19 21:00 06:41 09:00 Temperature 97.9 F Pulse Rate 73 Respiratory 20 20 Rate Blood Pressure 156/79 O2 Sat by Pulse 96 97 Oximetry (%) 01/15/19 01/15/19 01/15/19 10:00 14:33 20:10 Temperature 98.6 F 97.9 F 97.6 F Pulse Rate 76 72 70 Respiratory 20 20 20 Rate Blood Pressure 104/65 120/63 120/70 O2 Sat by Pulse Oximetry (%) 01/15/19 01/15/19 01/16/19 21:00 22:00 06:25 Temperature 97.6 F 97.4 F L Pulse Rate 70 70 Respiratory 20 Rate Blood Pressure 120/70 O2 Sat by Pulse 97 Oximetry (%) Current Medications Generic Name Dose Route Start Last Admin Trade Name Freq PRN Reason Stop Dose Admin Amlodipine Besylate 5 mg 01/10/19 10:00 01/15/19 09:37 Norvasc - PO 5 mg DAILY [facility] Administration Carbidopa/Levodopa 1 combo 04/24/19 22:00 01/16/19 06:27 Sinemet *Cr* 25/100 - PO 1 combo TID [facility] Administration Docusate Sodium 100 mg 01/09/19 08:15 01/16/19 06:27 Colace - PO 100 mg TID [facility] Administration Donepezil HCl 5 mg 01/10/19 10:00 01/15/19 11:05 Aricept - PO 5 mg DAILY [facility] Administration Dorzolamide HCl 1 drop 01/09/19 22:00 01/15/19 21:57 Trusopt 2% OS 1 drop BID [facility] Administration Heparin Sodium (Porcine) 5,000 unit 01/09/19 22:00 01/16/19 06:28 Heparin - SQ 5,000 unit TID [facility] Administration Cefazolin Sodium 1 gm in 50 mls @ 100 mls/hr 01/10/19 02:00 01/16/19 01:13 Ancef 1 Gm Premixed Ivpb - IVPB 100 mls/hr Q8H-IV [facility] Administration Lactulose 30 gm 01/14/19 14:00 01/16/19 06:27 Cephulac (Oral Use) PO 30 gm TID [facility] Administration Levothyroxine Sodium 50 mcg 01/10/19 07:00 01/16/19 06:27 Synthroid - PO 50 mcg DAILY@0700 [facility] Administration Magnesium Hydroxide 30 ml 01/11/19 08:02 Milk Of Magnesia - PO DAILY PRN CONSTIPATION Polyethylene Glycol 17 gm 01/09/19 22:00 01/15/19 21:53 Miralax (For Bowel Prep) - PO 17 grams BID [facility] Administration Rosuvastatin Calcium 20 mg 01/09/19 22:00 01/15/19 21:53 Crestor - PO 20 mg HS [facility] Administration Sodium Phosphate 133 ml 01/10/19 10:00 01/15/19 15:27 Fleet Adult Rectal Enema - [place] 133 ml DAILY [facility] Administration Tamsulosin HCl 0.4 mg 01/10/19 08:30 01/15/19 09:32 Flomax - PO 0.4 mg DAILY@0830 [facility] Administration PE Neck No JVD, no bruits Lungs Clear Heart S1S2 regular Abdomen soft, NT Ext no CCE ALYSE, Bradikinesia, tremor c/w parkinson disease Current Active Problems Problem Status Onset Acute kidney injury Acute Acute metabolic encephalopathy Acute Altered mental status Acute Constipation by delayed colonic transit Acute Hypotension Acute 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
--- NOTE | 2019-01-16 08:23 | DS ---
Physical Examination Vital Signs: Vital Signs Temperature 97.4 F L 01/16/19 06:25 Pulse Rate 70 01/16/19 06:25 Respiratory Rate 20 01/15/19 22:00 Blood Pressure 120/70 01/15/19 22:00 O2 Sat by Pulse Oximetry (%) 97 01/15/19 21:00 Constitutional: Yes: No Distress, Calm Eyes: Yes: Conjunctiva Clear, Other (blind) HENT: Yes: Atraumatic, Normocephalic. No: Drooling Neck: Yes: Supple, Trachea Midline, Decreased ROM, Rigid. No: Lymphadenopathy, Tenderness, Thyromegaly Cardiovascular: Yes: Regular Rate and Rhythm, JVD. No: Bradycardia, Tachycardia Respiratory: Yes: Regular, CTA Bilaterally Gastrointestinal: Yes: Normal Bowel Sounds, Soft. No: Splenomegaly, Tenderness ...Rectal Exam: Yes: Deferred Renal/: Yes: White Present Breast(s): Yes: WNL Musculoskeletal: Yes: Joint Stiffness. No: Back Pain, Joint Swelling, Muscle Pain Extremities: No: Amputation, Calf Tenderness, Cold, Deformity Edema: No Integumentary: Yes: WNL Neurological: Yes: Alert, Tremors. 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
--- NOTE | 2019-01-16 08:45 | PN ---
Progress Note (short form) - Note Progress Note: Neurology History of Present Illness 83 yo M with h/o advanced dementia, HLD, HTN, hypothyroidism, CAD s/p stents, Parkinson's Disease, colon cancer BIBEMS with AMS, and fever. Per patient daughter at bedside he had fever T-max 104.0, and given two ibuprofen tablets. Patient also with increased confusion, and chills ( daughter noted patient with rigorous shaking of arms and shivering. Patient typically up with assistance to ambulate, but non ambulatory today. Lives at home with . [place] speaking. Patient daughter denies cough, wheezing, orthopena, PND, leg swelling/pain, N/V , SOB, urinary complaints, hematuria, BPR, diarrhea, lightheadedness. BP running low, on telemetry monitoring. Getting infectious workup. Patient on Sinemet for PD, tremor visualized. Daughter concerned about possible dementia, he does not see physicians on outpatient due to difficulty with transportation. Discussed with her that treating underlying infection first would be needed before evaluating mental status. I would try to add medication near discharge when patient is better for cognitive impairment to make it easier for family and patient will hold off until mental state near baseline. CT head completed and without acute changes. MRI brain completed and did not show significant structural abnormality except white matter changes and volume loss which are chronic. Neurologically stable. Remains calm, minimal tremor noted when awoken, otherwise comfortably alseep this AM. For discharge today, discussed with PCP. No issues with Aricept and can continue. Active Medications Amlodipine Besylate (Norvasc -) 5 mg PO DAILY [facility] Last Admin: 01/14/19 10:30 Dose: 5 mg Carbidopa/Levodopa (Sinemet *Cr* 25/100 -) 1 combo PO TID [facility] Last Admin: 01/15/19 06:24 Dose: 1 combo Docusate Sodium (Colace -) 100 mg PO TID [facility] Last Admin: 01/15/19 06:28 Dose: 100 mg Donepezil HCl (Aricept -) 5 mg PO DAILY [facility] Last Admin: 01/14/19 10:31 Dose: 5 mg Dorzolamide HCl (Trusopt 2%) 1 drop OS BID [facility] Last Admin: 01/14/19 22:30 Dose: 1 drop Heparin Sodium (Porcine) (Heparin -) 5,000 unit SQ TID [facility] Last Admin: 01/15/19 06:24 Dose: 5,000 unit Cefazolin Sodium (Ancef 1 Gm Premixed Ivpb -) 1 gm in 50 mls @ 100 mls/hr IVPB Q8H-IV [facility] Last Admin: 01/15/19 02:18 Dose: 100 mls/hr Lactulose (Cephulac (Oral Use)) 30 gm PO TID [facility] Last Admin: 01/15/19 06:25 Dose: 30 gm Levothyroxine Sodium (Synthroid -) 50 mcg PO DAILY@0700 [facility] Last Admin: 01/15/19 06:24 Dose: 50 mcg Magnesium Hydroxide (Milk Of Magnesia -) 30 ml PO DAILY PRN PRN Reason: CONSTIPATION Polyethylene Glycol (Miralax (For Bowel Prep) -) 17 gm PO BID [facility] Last Admin: 01/14/19 22:39 Dose: 17 grams Rosuvastatin Calcium (Crestor -) 20 mg PO HS [facility] Last Admin: 01/14/19 22:38 Dose: 20 mg Sodium Phosphate (Fleet Adult Rectal Enema -) 133 ml NE DAILY [facility] Last Admin: 01/14/19 10:35 Dose: Not Given Tamsulosin HCl (Flomax -) 0.4 mg PO DAILY@0830 [facility] Last Admin: 01/14/19 11:19 Dose: 0.4 mg *Physical Exam Vital Signs Period Temp Pulse Resp BP Sys/Davison Pulse Ox Last 24 Hr 97.4 F-98.6 F 70-76 20-20 104-120/63-70 97-97 GENERAL: Awake, alert, non communicative, partially able to follow commands, in no acute distress HEAD: No signs of trauma, normocephalic, atraumatic EYES: PERRLA, EOMI, sclera anicteric, conjunctiva clear ENT: Nares patent, oropharynx clear without exudates. Moist mucosa NECK: Normal ROM, supple, no lymphadenopathy, JVD, or masses LUNGS: No distress, speaks full sentences, clear to auscultation bilaterally HEART: Regular rate and rhythm, normal S1 and S2, no murmurs, rubs or gallops, peripheral pulses normal and equal bilaterally. ABDOMEN: Soft, nontender, normoactive bowel sounds. No guarding, no rebound. No masses EXTREMITIES : Normal inspection, Normal range of motion, no edema. No clubbing or cyanosis. NEUROLOGICAL: Somnolent but arousable, tremor noted, ?R facial, sensory intact, cogwheeling noted SKIN: Warm, Dry, normal turgor, no rashes or lesions noted CBCD WBC 6.7 K/mm3 (4.0-10.0) 01/12/19 07:00 RBC 3.32 M/mm3 (4.00-5.60) L 01/12/19 07:00 Hgb 10.3 GM/dL (11.7-16.9) L 01/12/19 07:00 Hct 29.8 % (35.4-49) L 01/12/19 07:00 MCV 89.8 fl (80-96) 01/12/19 07:00 MCHC 34.5 g/dl (32.0-35.9) 01/12/19 07:00 RDW 15.2 % (11.9-15.9) 01/12/19 07:00 Plt Count 312 K/MM3 (134-434) 01/12/19 07:00 MPV 7.8 fl (7.5-11.1) 01/12/19 07:00 CMP Sodium 141 mmol/L (136-145) 01/12/19 07:00 Potassium 4.1 mmol/L (3.5-5.1) 01/12/19 07:00 Chloride 107 mmol/L (98-107) 01/12/19 07:00 Carbon Dioxide 29 mmol/L (21-32) 01/12/19 07:00 Anion Gap 6 MMOL/L (8-16) L 01/12/19 07:00 BUN 12 mg/dL (7-18) 01/12/19 07:00 Creatinine 1.0 mg/dL (0.55-1.3) 01/12/19 07:00 Creat Clearance w eGFR 71.02 (>60) 01/12/19 07:00 Random Glucose 80 mg/dL (74-106) 01/12/19 07:00 Calcium 8.3 mg/dL (8.5-10.1) L 01/12/19 07:00 Total Bilirubin 0.3 mg/dL (0.2-1) 01/11/19 07:00 AST 29 U/L (15-37) 01/11/19 07:00 ALT 12 U/L (13-61) L 01/11/19 07:00 Alkaline Phosphatase 83 U/L (45-117) 01/11/19 07:00 Total Protein 5.5 g/dl (6.4-8.2) L 01/11/19 07:00 Albumin 2.6 g/dl (3.4-5.0) L 01/11/19 07:00 CARDIAC ENZYMES Troponin I < 0.02 ng/ml (0.00-0.05) 01/03/19 01:17 Diagnostics: Brain MRI as above Medical Decision Making 83 yo M with h/o advanced dementia, HLD, HTN, hypothyroidism, CAD s/p stents, Parkinson's Disease, colon cancer BIBEMS with AMS, and fever. Per patient daughter at bedside he had fever T-max 104.0, and given two ibuprofen tablets. Patient also with increased confusion, and chills ( daughter noted patient with rigorous shaking of arms and shivering. Patient typically up with assistance to ambulate, but non ambulatory today. Lives at home with . [place] speaking. Patient daughter denies cough, wheezing, orthopena, PND, leg swelling/pain, N/V , SOB, urinary complaints, hematuria, BPR, diarrhea, lightheadedness. BP running low, on telemetry monitoring. Getting infectious workup. Patient on Sinemet for PD, tremor visualized. Daughter concerned about possible dementia, he does not see physicians on outpatient due to difficulty with transportation. Discussed with her that treating underlying infection first would be needed before evaluating mental status. CT head completed and reviewed, no acute changes. ID note reviewed. Brain MRI ordered, awaiting completion. Continue medical optimization, follow up cultures, infectious mgmt. Continue Sinemet for now. Adequate hydration recommended. Slightly more arousable. MRI brain reviewed , no acute changes. Added Aricept to his regiment as discussed with family, no issues with this medication noted. Neurologically stable. Continue monitoring and medical optimization. No issues with Aricept.
[2019-01-16] MEDS ORDERED: PT OWN MED DRAWER 7, Y5N ONE (10:07)
[2019-01-16] MEDS: amLODIPine BESYLATE 5 MG TABLET (FP) PO SCH ×2 (10:22→10:30)
[2019-01-16] MEDS: DONEPEZIL HCL 5 MG TABLET (FP) PO SCH (10:22)
[2019-01-16] MEDS: TAMSULOSIN HCL 0.4 MG CAP PO SCH (10:22)
[2019-01-16] MEDS: DORZOLAMIDE 2% HCL OPHTHALMIC SOLUTION 10 ML BOTTLE OS SCH (10:23)
[2019-01-16] MEDS: SODIUM PHOSPHATE/NA BIPHOS 133 ML ENEMA PR SCH (10:26)
[2019-01-16] MEDS: POLYETHYLENE GLYCOL 3350 255 GM BTL PO SCH (10:27)
--- NOTE | 2019-01-16 13:10 | PN ---
Progress Note, Physician History of Present Illness: patient stable family with the patient no new issues patient completing the abx - Current Medication List Current Medications: Active Medications Amlodipine Besylate (Norvasc -) 5 mg PO DAILY [facility] Last Admin: 01/16/19 10:30 Dose: Not Given Carbidopa/Levodopa (Sinemet *Cr* 25/100 -) 1 combo PO TID [facility] Last Admin: 01/16/19 06:27 Dose: 1 combo Docusate Sodium (Colace -) 100 mg PO TID [facility] Last Admin: 01/16/19 06:27 Dose: 100 mg Donepezil HCl (Aricept -) 5 mg PO DAILY [facility] Last Admin: 01/16/19 10:22 Dose: 5 mg Dorzolamide HCl (Trusopt 2%) 1 drop OS BID [facility] Last Admin: 01/16/19 10:23 Dose: 1 drop Heparin Sodium (Porcine) (Heparin -) 5,000 unit SQ TID [facility] Last Admin: 01/16/19 06:28 Dose: 5,000 unit Cefazolin Sodium (Ancef 1 Gm Premixed Ivpb -) 1 gm in 50 mls @ 100 mls/hr IVPB Q8H-IV [facility] Last Admin: 01/16/19 10:22 Dose: 100 mls/hr Lactulose (Cephulac (Oral Use)) 30 gm PO TID [facility] Last Admin: 01/16/19 06:27 Dose: 30 gm Levothyroxine Sodium (Synthroid -) 50 mcg PO DAILY@0700 [facility] Last Admin: 01/16/19 06:27 Dose: 50 mcg Magnesium Hydroxide (Milk Of Magnesia -) 30 ml PO DAILY PRN PRN Reason: CONSTIPATION Last Admin: 01/16/19 10:22 Dose: 30 ml Polyethylene Glycol (Miralax (For Bowel Prep) -) 17 gm PO BID [facility] Last Admin: 01/16/19 10:27 Dose: 17 grams Rosuvastatin Calcium (Crestor -) 20 mg PO HS [facility] Last Admin: 01/15/19 21:53 Dose: 20 mg Sodium Phosphate (Fleet Adult Rectal Enema -) 133 ml MA DAILY [facility] Last Admin: 01/16/19 10:26 Dose: 133 ml Tamsulosin HCl (Flomax -) 0.4 mg PO DAILY@0830 [facility] Last Admin: 01/16/19 10:22 Dose: 0.4 mg - Objective Vital Signs: Vital Signs Temperature 97.4 F L 01/16/19 06:25 Pulse Rate 70 01/16/19 06:25 Respiratory Rate 20 01/15/19 22:00 Blood Pressure 120/70 01/15/19 22:00 O2 Sat by Pulse Oximetry (%) 97 01/15/19 21:00 Constitutional: Yes: No Distress, Calm Cardiovascular: Yes: Regular Rate and Rhythm Respiratory: Yes: Regular, CTA Bilaterally Gastrointestinal: Yes: Normal Bowel Sounds, Soft Genitourinary: Yes: White Present Musculoskeletal: Yes: WNL Extremities: Yes: WNL Neurological: Yes: Other (still) Labs: CBC, BMP 01/12/19 07:00 01/12/19 07:00 INR, PTT INR 1.08 (0.83-1.09) 01/03/19 01:17 Assessment/Plan Problem List - Problems (1) Altered mental status Code(s): R41.82 - ALTERED MENTAL STATUS, UNSPECIFIED Qualifiers: Altered mental status type: unspecified Qualified Code(s): R41.82 - Altered mental status, unspecified (2) Sepsis Code(s): A41.9 - SEPSIS, UNSPECIFIED ORGANISM Qualifiers: Sepsis type: sepsis due to unspecified organism Qualified Code(s): A41.9 - Sepsis, unspecified organism (3) Hypotension Code(s): I95.9 - HYPOTENSION, UNSPECIFIED Qualifiers: Hypotension type: unspecified hypotension type Qualified Code(s): I95.9 - Hypotension, unspecified (4) 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
[2019-01-16 15:21] VITALS: BP 90/54; PULSE 71; TEMP 97.5
== END 2019-01-16 15:21 | disposition home health service (06) | DRG 871 ==
LOC: JER 00:26 → JERBED 00:58 → J2W 08:12 → OBSVTOIN 13:43 → J8W 01-09 15:34
PROVIDERS: ADMIT Internal Medicine; ATTEND Internal Medicine
DX: A41.01 Sepsis due to Methicillin susceptible Staphylococcus aureus (principal); G93.41 Metabolic encephalopathy; G90.3 Multi-system degeneration of the autonomic nervous system; N17.9 Acute kidney failure, unspecified; N39.0 Urinary tract infection, site not specified; E03.9 Hypothyroidism, unspecified; I10 Essential (primary) hypertension; E78.5 Hyperlipidemia, unspecified; F03.90 Unspecified dementia, unspecified severity, without behavioral disturbance, psychotic disturbance, mood disturbance, and anxiety; I25.10 Atherosclerotic heart disease of native coronary artery without angina pectoris; R41.82 Altered mental status, unspecified; G20 Parkinson's disease; I25.2 Old myocardial infarction; I95.9 Hypotension, unspecified; R33.9 Retention of urine, unspecified; K59.01 Slow transit constipation; G62.9 Polyneuropathy, unspecified; J44.9 Chronic obstructive pulmonary disease, unspecified; N40.0 Benign prostatic hyperplasia without lower urinary tract symptoms; F32.9 Major depressive disorder, single episode, unspecified; H54.8 Legal blindness, as defined in USA; H40.9 Unspecified glaucoma; Z87.891 Personal history of nicotine dependence; Z96.641 Presence of right artificial hip joint; Z85.038 Personal history of other malignant neoplasm of large intestine; Z95.5 Presence of coronary angioplasty implant and graft; Z85.118 Personal history of other malignant neoplasm of bronchus and lung; A41.9 Sepsis, unspecified organism
CPT/HCPCS: 36415; 70450-TC; 70551-TC; 71045-TC-FY; 76775-TC; 76856-TC; 80048; 80053; 81003; 82140; 82803; 83605; 83735; 84484; 85025; 85610; 85730; 87040; 87086; 87186; 87804; 93005; 93010; 97116-GP; 97161-GP; 99282-25; G0378; G0480; J0131; J1644; J7030

== ENCOUNTER 2019-02-13 15:59 | Inpatient (IN) | payer OTHER ==
--- NOTE | 2019-02-13 16:27 | PDOC ---
History of Present Illness - History of Present Illness Initial Comments: 02/13/19 16:27 Mr. Haynes is an 83 yo male w/ pmh of Parkinson's disease w/ advanced dementia, HTN, HLD, hypothyroidism, CAD s/p stents, colon cancer, and recent admission -01/16 for uro-sepsis BIBA after home health aid noted him to have non- responsiveness episode and difficulty breathing. Patient reportedly was responsive upon arrival via EMS. Daughter reports he is at baseline upon arrival. Upon discussion with other family member, patient has reportedly been complaining of 2 day history of SOB at night. Mr. Haynes reports he is cold at this time; denies any other symptoms. Currently has an indwelling urinary cath that was changed by visiting nurse. <Simon Jordan - Last Filed: 02/13/19 19:43> <Jennifer Hutson - Last Filed: 02/13/19 21:07> - General Chief Complaint: Urinary Problem Stated Complaint: UNRESPONSIVE Time Seen by Provider: 02/13/19 16:27 Past History - Past Medical History Anemia: No Asthma: No Cancer: Yes (colon CA) Cardiac Disorders: Yes (hx [place] c stent x 15 years ago) CVA: No COPD: No CHF: Yes Dementia: Yes Diabetes: No GI Disorders: Yes (H/O COLON CA) Disorders: No HTN: Yes Hypercholesterolemia: Yes Liver Disease: No Seizures: No Thyroid Disease: Yes (HYPOTHYROID) Lung CA: Yes (colon x 15 years) - Surgical History Abdominal Surgery: Yes (ABD HERNIA REPAIR 4 WEEKS AGO) Appendectomy: No Cardiac Surgery: Yes (stent x 15 years ago) Cholecystectomy: No Lung Surgery: No Neurologic Surgery: No Orthopedic Surgery: Yes (Right hip replacement) - Immunization History Immunization Up to Date: No - Suicide/Smoking/Psychosocial Hx Smoking History: Never smoked Have you smoked in the past 12 months: No If you are a former smoker, when did you quit?: 50YRS AGO Information on smoking cessation initiated: No Hx Alcohol Use: No Drug/Substance Use Hx: No Substance Use Type: Alcohol <Simon Jordan - Last Filed: 02/13/19 19:43> <Jennifer Hutson - Last Filed: 02/13/19 21:07> - Past Medical History Allergies/Adverse Reactions: Allergies Allergy/AdvReac Type Severity Reaction Status Date / Time No Known Drug Allergies Allergy Verified 02/10/17 05:26 Home Medications: Ambulatory Orders Carbidopa/Levodopa *Cr* 25/100 [Sinemet *Cr* 25/100 -] 1 combo PO TID@0700,1200, 1700 tablet.er 07/14/15 Rosuvastatin [Crestor -] 10 mg PO HS tablet 07/14/15 Levothyroxine [Synthroid -] 50 mcg PO ACBK 02/11/17 Amlodipine Besylate 5 mg PO DAILY 01/03/19 Polyethylene Glycol 3350 [Miralax 255 gm Btl -] 255 gm PO PRN 01/03/19 Dorzolamide HCl [Trusopt 2% -] 1 drop OS BID drops 01/16/19 Magnesium Hydrox 2400MG/30Ml [Milk of Magnesia -] 30 ml PO DAILY PRN cup Review of Systems - Review of Systems Comments:: 02/13/19 16:51 Unable to obtain further. <Simon Jordan - Last Filed: 02/13/19 19:43> *Physical Exam - Vital Signs Last Vital Signs Temp Pulse Resp BP Pulse Ox 98 F 89 18 143/84 100 02/13/19 16:18 02/13/19 16:18 02/13/19 16:18 02/13/19 16:18 02/13/19 16:18 - Physical Exam Comments: 02/13/19 16:52 GENERAL: +Oriented x1. Awake, alert, in no acute distress HEAD: No signs of trauma, normocephalic, atraumatic EYES: PERRLA, EOMI, sclera anicteric, conjunctiva clear ENT: Auricles normal inspection, hearing grossly normal, nares patent, oropharynx clear without exudates. Moist mucosa NECK: Normal ROM, supple, no lymphadenopathy, JVD, or masses LUNGS: No distress, speaks full sentences, clear to auscultation bilaterally HEART: Regular rate and rhythm, normal S1 and S2, no murmurs, rubs or gallops, peripheral pulses normal and equal bilaterally. ABDOMEN: Soft, nontender, normoactive bowel sounds. No guarding, no rebound. No masses EXTREMITIES: Normal inspection, Normal range of motion, no edema. No clubbing or cyanosis. NEUROLOGICAL: +Unable to assess further. SKIN: Warm, Dry, normal turgor, no rashes or lesions noted. <Simon Jordan - Last Filed: 02/13/19 19:43> - Vital Signs Last Vital Signs Temp Pulse Resp BP Pulse Ox 98.0 F 74 18 100/86 100 02/13/19 17:47 02/13/19 20:40 02/13/19 20:40 02/13/19 20:40 02/13/19 20:40 <Jennifer Hutson - Last Filed: 02/13/19 21:07> ED Treatment Course - LABORATORY CBC & Chemistry Diagram: 02/13/19 17:35 02/13/19 17:35 <Simon Jordan - Last Filed: 02/13/19 19:43> - LABORATORY CBC & Chemistry Diagram: 02/13/19 17:35 02/13/19 17:35 - ADDITIONAL ORDERS Additional order review: Laboratory Results 02/13/19 02/13/19 02/13/19 18:22 17:35 17:35 PT with INR INR PTT (Actin FS) VBG pH POC VBG pCO2 POC VBG pO2 VBG HCO3 VBG O2 Sat (Davina) VBG Base Excess Sodium Potassium Chloride Carbon Dioxide Anion Gap BUN Creatinine Est GFR (CKD-EPI)AfAm Est GFR (CKD-EPI)NonAf Random Glucose Lactic Acid Calcium Magnesium Cancelled Total Bilirubin AST ALT Alkaline Phosphatase Troponin I Cancelled B-Natriuretic Peptide Cancelled Total Protein Albumin TSH Cancelled Urine Color Yellow Urine Appearance Turbid Urine pH 5.5 Ur Specific Keene 1.020 Urine Protein 2+ H Urine Glucose (UA) Negative Urine Ketones Trace H Urine Blood 2+ H Urine Nitrite Positive H Urine Bilirubin Negative Urine Urobilinogen 1.0 Ur Leukocyte Esterase 3+ H Urine WBC (Auto) 1197 Urine RBC (Auto) 41.6 Urine Casts (Auto) 19 U Pathogenic Cast Auto 0-1 granular cast U Epithel Cells (Auto) 1.6 Urine Bacteria (Auto) 2893.0 Urine Yeast (Auto) 0 02/13/19 02/13/19 02/13/19 17:35 17:35 17:35 PT with INR 11.90 INR 1.01 PTT (Actin FS) 30.9 VBG pH 7.34 POC VBG pCO2 52.9 H POC VBG pO2 24.2 L VBG HCO3 28.0 VBG O2 Sat (Davina) 36.1 L VBG Base Excess 1.9 Sodium 142 Potassium 4.3 Chloride 109 H Carbon Dioxide 27 Anion Gap 6 L BUN 26 H Creatinine 1.3 Est GFR (CKD-EPI)AfAm 57.66 Est GFR (CKD-EPI)NonAf 49.75 Random Glucose 91 Lactic Acid Calcium 8.9 Magnesium 2.6 H Total Bilirubin 0.4 AST 19 ALT 12 L Alkaline Phosphatase 78 Troponin I < 0.02 B-Natriuretic Peptide 897.6 H Total Protein 6.8 Albumin 3.4 TSH 2.34 D Urine Color Urine Appearance Urine pH Ur Specific Keene Urine Protein Urine Glucose (UA) Urine Ketones Urine Blood Urine Nitrite Urine Bilirubin Urine Urobilinogen Ur Leukocyte Esterase Urine WBC (Auto) Urine RBC (Auto) Urine Casts (Auto) U Pathogenic Cast Auto U Epithel Cells (Auto) Urine Bacteria (Auto) Urine Yeast (Auto) 02/13/19 17:30 PT with INR INR PTT (Actin FS) VBG pH POC VBG pCO2 POC VBG pO2 VBG HCO3 VBG O2 Sat (Davina) VBG Base Excess Sodium Potassium Chloride Carbon Dioxide Anion Gap BUN Creatinine Est GFR (CKD-EPI)AfAm Est GFR (CKD-EPI)NonAf Random Glucose Lactic Acid 1.1 Calcium Magnesium Total Bilirubin AST ALT Alkaline Phosphatase Troponin I B-Natriuretic Peptide Total Protein Albumin TSH Urine Color Urine Appearance Urine pH Ur Specific Keene Urine Protein Urine Glucose (UA) Urine Ketones Urine Blood Urine Nitrite Urine Bilirubin Urine Urobilinogen Ur Leukocyte Esterase Urine WBC (Auto) Urine RBC (Auto) Urine Casts (Auto) U Pathogenic Cast Auto U Epithel Cells (Auto) Urine Bacteria (Auto) Urine Yeast (Auto) 02/13/19 17:35 RBC 4.33 MCV 91.5 MCHC 32.5 RDW 15.8 MPV 8.1 Neutrophils % 78.9 Lymphocytes % 11.8 Monocytes % 6.6 Eosinophils % 2.0 Basophils % 0.7 - Medications Given in the ED: ED Medications Discontinued Medications Generic Name Dose Route Start Last Admin Trade Name Freq PRN Reason Stop Dose Admin Ceftriaxone Sodium 1 gm/ 100 mls @ 200 mls/hr 02/13/19 19:19 02/13/19 19:52 Dextrose IVPB 02/13/19 19:48 200 mls/hr ONCE ONE Administration Nystatin 1 applic 02/13/19 19:47 02/13/19 20:41 Nystop Powder - TP 02/13/19 19:48 1 applic ONCE ONE Administration Sodium Chloride 1,000 ml 02/13/19 17:24 02/13/19 17:29 Normal Saline - IV 02/13/19 17:25 1,000 ml ONCE ONE Administration <Jennifer Hutson - Last Filed: 02/13/19 21:07> Medical Decision Making - Medical Decision Making 02/13/19 19:43 Mr. Haynes is an 83 yo male w/ pmh as described who presents for evaluation of symptoms concerning for sepsis vs. electrolyte imbalance vs. ACS. Patient evaluated with sepsis protocol given recent admission for uro-sepsis. Patient reportedly back to baseline per family who is with him. Labs significant for UTI as below likely worsening baseline status. Patient will be admitted for IV ABX given poor health status. Rocephin started empirically from previous UCx sensitivities. Laboratory Results - last 24 hr 02/13/19 02/13/19 02/13/19 17:30 17:35 17:35 WBC 7.4 RBC 4.33 Hgb 12.9 Hct 39.6 D MCV 91.5 MCH 29.7 MCHC 32.5 RDW 15.8 Plt Count 250 MPV 8.1 Absolute Neuts (auto) 5.8 Neutrophils % 78.9 Lymphocytes % 11.8 Monocytes % 6.6 Eosinophils % 2.0 Basophils % 0.7 Nucleated RBC % 0 PT with INR 11.90 INR 1.01 PTT (Actin FS) 30.9 VBG pH POC VBG pCO2 POC VBG pO2 VBG HCO3 VBG O2 Sat (Davina) VBG Base Excess Sodium Potassium Chloride Carbon Dioxide Anion Gap BUN Creatinine Est GFR (CKD-EPI)AfAm Est GFR (CKD-EPI)NonAf Random Glucose Lactic Acid 1.1 Calcium Magnesium Total Bilirubin AST ALT Alkaline Phosphatase Troponin I B-Natriuretic Peptide Total Protein Albumin TSH Urine Color Urine Appearance Urine pH Ur Specific Keene Urine Protein Urine Glucose (UA) Urine Ketones Urine Blood Urine Nitrite Urine Bilirubin Urine Urobilinogen Ur Leukocyte Esterase Urine WBC (Auto) Urine RBC (Auto) Urine Casts (Auto) U Pathogenic Cast Auto U Epithel Cells (Auto) Urine Bacteria (Auto) Urine Yeast (Auto) 02/13/19 02/13/19 02/13/19 17:35 17:35 17:35 WBC RBC Hgb Hct MCV MCH MCHC RDW Plt Count MPV Absolute Neuts (auto) Neutrophils % Lymphocytes % Monocytes % Eosinophils % Basophils % Nucleated RBC % PT with INR INR PTT (Actin FS) VBG pH 7.34 POC VBG pCO2 52.9 H POC VBG pO2 24.2 L VBG HCO3 28.0 VBG O2 Sat (Davina) 36.1 L VBG Base Excess 1.9 Sodium 142 Potassium 4.3 Chloride 109 H Carbon Dioxide 27 Anion Gap 6 L BUN 26 H Creatinine 1.3 Est GFR (CKD-EPI)AfAm 57.66 Est GFR (CKD-EPI)NonAf 49.75 Random Glucose 91 Lactic Acid Calcium 8.9 Magnesium 2.6 H Total Bilirubin 0.4 AST 19 ALT 12 L Alkaline Phosphatase 78 Troponin I < 0.02 Cancelled B-Natriuretic Peptide 897.6 H Total Protein 6.8 Albumin 3.4 TSH 2.34 D Urine Color Urine Appearance Urine pH Ur Specific [place] Urine Protein Urine Glucose (UA) Urine Ketones Urine Blood Urine Nitrite Urine Bilirubin Urine Urobilinogen Ur Leukocyte Esterase Urine WBC (Auto) Urine RBC (Auto) Urine Casts (Auto) U Pathogenic Cast Auto U Epithel Cells (Auto) Urine Bacteria (Auto) Urine Yeast (Auto) 02/13/19 02/13/19 17:35 18:22 WBC RBC Hgb Hct MCV MCH MCHC RDW Plt Count MPV Absolute Neuts (auto) Neutrophils % Lymphocytes % Monocytes % Eosinophils % Basophils % Nucleated RBC % PT with INR INR PTT (Actin FS) VBG pH POC VBG pCO2 POC VBG pO2 VBG HCO3 VBG O2 Sat (Davina) VBG Base Excess Sodium Potassium Chloride Carbon Dioxide Anion Gap BUN Creatinine Est GFR (CKD-EPI)AfAm Est GFR (CKD-EPI)NonAf Random Glucose Lactic Acid Calcium Magnesium Cancelled Total Bilirubin AST ALT Alkaline Phosphatase Troponin I B-Natriuretic Peptide Cancelled Total Protein Albumin TSH Cancelled Urine Color Yellow Urine Appearance Turbid Urine pH 5.5 Ur Specific [place] 1.020 Urine Protein 2+ H Urine Glucose (UA) Negative Urine Ketones Trace H Urine Blood 2+ H Urine Nitrite Positive H Urine Bilirubin Negative Urine Urobilinogen 1.0 Ur Leukocyte Esterase 3+ H Urine WBC (Auto) 1197 Urine RBC (Auto) 41.6 Urine Casts (Auto) 19 U Pathogenic Cast Auto 0-1 granular cast U Epithel Cells (Auto) 1.6 Urine Bacteria (Auto) 2893.0 Urine Yeast (Auto) 0 <Simon Jordan - Last Filed: 02/13/19 19:43> *DC/Admit/Observation/Transfer - Discharge Dispostion Decision to Admit order: Yes <Simon Jordan - Last Filed: 02/13/19 19:43> <Jennifer Hutson - Last Filed: 02/13/19 21:07> Diagnosis at time of Disposition: Urinary (tract) obstruction, Parkinson disease, Weakness UTI (urinary tract infection) Qualifiers: Urinary tract infection type: site unspecified Hematuria presence: without hematuria Qualified Code(s): N39.0 - Urinary tract infection, site not specified
--- NOTE | 2019-02-13 17:18 | PDOC ---
Documentation entered by Jacinta Bennett SCRIBE, acting as scribe for Jennifer Hutson DO. Jennifer Hutson, : This documentation has been prepared by the Donald olsen Daisy, SCRIBE, under my direction and personally reviewed by me in its entirety. I confirm that the documentation accurately reflects all work, treatment, procedures, and medical decision making performed by me. Attending Attestation - Resident Resident Name: Simon Jordan - ED Attending Attestation I have performed the following: I have examined & evaluated the patient, The case was reviewed & discussed with the resident, I agree w/resident's findings & plan - HPI HPI: 02/13/19 16:49 The patient is a 83YOM with a PMH of advanced dementia. HLD, HTN, hypothyroidism , CAD s/p stents, PD, and colon CA brought in by EMS for altered mental status and fever TMax 104. Patient was given 2 ibuprofens earlier today. Daughter at bedside reports he has been lying in bed with his eyes closed for the past couple of days. Patient told his last night that he was shortof breath. The correction aid also told the daughter that he apparently stopped breathing when he was rolled over. The visiting nurse also reports changing the patient's catheter 2 days ago. Patient's daughter at bedside denies any cough, N/V, urinary complaints, constipation or diarrhea. Allergies: NKDA PCP: Dr. Putnam Neurologist: Dr. Friedman - Physicial Exam PE: 02/13/19 16:54 Constitutional: (+) demented and bedbound. (+) responds to questions in [facility] ([place] 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 Cardiovascular: Regular rate. Regular rhythm. S1, S2 regular. Distal pulses are 2+ and symmetric. Pulmonary/Chest: No evidence of respiratory distress. Clear to auscultation bilaterally No wheezing, rales or rhonchi. Abdominal: Soft and non-distended. There is no tenderness. No rebound, guarding or rigidity. Musculoskeletal: No edema. No cyanosis. No clubbing. Full range of motion in all extremities. No calf tenderness. Skin: Skin is warm and dry. Neurological: (+) demented. - Medical Decision Making 02/13/19 17:08 I, Dr. Jennifer Hutson, DO, attest that this document has been prepared under my direction and personally reviewed by me in its entirety. I further attest, that it accurately reflects all work, treatment, procedures and medical decision -making performed by me. 02/13/19 17:14 a/p: 83yo male with hx of parkinsons, recent gram + bacteremia and uti with c/o sob last night, an episode of unresponsiveness today, worsening dementia and cloudy urine in hancock catheter -concern for uti, hancock catheter changed 2 weeks ago by VNS, but cloudy urine last few days -sob last night, no cough, no f/c. -no abd pain -per daughter, speaks ukranian, responsive to ukranian speech and answering approp -more time in bed recently -has had episodes where he can be sitting on the toilet with episodes of becoming less responsive, but then comes back to baseline -will send labs, ekg, cxr, ua, cultures -will monitor and reassess -prior cultures + MSSA bacteremia and K pneumo uti 02/13/19 17:[address] Dr. Jenkins was prior ID Dr. Friedman is neuro 02/13/19 19:08 no elevated wbc ua pending 02/13/19 19:08 cxr clear trop neg 02/13/19 19:20 pt with UTI will start rocephin PMD dr. Putnam 02/13/19 19:37 case discussed with eliz montez np who accepts pt to service Heart Score/ECG Review - ECG Intrepretation Comment:: 02/13/19 17:09 sinus at 76, 1st degree av block, pvcs, no acute st/t wave findings, q waves anterior leads which are age indeterminate
[2019-02-13] MEDS ORDERED: SODIUM CHLORIDE 0.9% 1000 ML INFUS.BAG IV ONE (17:24)
[2019-02-13 17:45] LABS: VENOUS PC02 52.9 mmHg (41-51); VENOUS PH 7.34 (7.31-7.41); VENOUS PO2 24.2 mmHg (30-40)
[2019-02-13 17:49] LABS: BASO % 0.7 % (0-2.0); HEMATOCRIT 39.6 % (35.4-49); HEMOGLOBIN 12.9 GM/dL (11.7-16.9); LYMPH % 11.8 % (8-40); MCH 29.7 pg (25.7-33.7); MCHC 32.5 g/dl (32.0-35.9); MEAN CELL VOLUME 91.5 fl (80-96); MEAN PLT VOLUME 8.1 fl (7.5-11.1); MONO % 6.6 % (3.8-10.2); NEUT % 78.9 % (42.8-82.8); PLATELET COUNT 250 K/MM3 (134-434); RBC 4.33 M/mm3 (4.00-5.60); RDW 15.8 % (11.9-15.9); WHITE BLOOD COUNT 7.4 K/mm3 (4.0-10.0)
[2019-02-13 18:12] LABS: INR 1.01 (0.83-1.09); PROTHROMBIN TIME (PATIENT) 11.9 SEC (9.7-13.0)
[2019-02-13 18:14] LABS: ACTIVATED PTT 30.9 SECONDS (25.2-36.5)
[2019-02-13 18:17] LABS: ALBUMIN 3.4 g/dl (3.4-5.0); ALK PHOS 78 U/L (45-117); ANION GAP 6 MMOL/L (8-16); BILIRUBIN,TOTAL 0.4 mg/dL (0.2-1); BLOOD UREA NITROGEN 26 mg/dL (7-18); CALCIUM 8.9 mg/dL (8.5-10.1); CHLORIDE 109 mmol/L (98-107); CO2 27 mmol/L (21-32); CREATININE 1.3 mg/dL (0.55-1.3); GLUCOSE,RANDOM 91 mg/dL (74-106); MAGNESIUM 2.6 mg/dL (1.8-2.4); N-TERMINAL BNP 897.6 pg/ml (5-450); POTASSIUM 4.3 mmol/L (3.5-5.1); SGOT/AST 19 U/L (15-37); SGPT/ALT 12 U/L (13-61); SODIUM 142 mmol/L (136-145); TOT PROT 6.8 g/dl (6.4-8.2)
[2019-02-13 18:57] LABS: EPI CELLS 1.6 /HPF (0-5/HPF); HYALINE CASTS 19 /lpf (0-8); PH,URINE 5.5 (5.0-8.0); URINE APPEARANCE TURBID; URINE BILIRUBIN NEGATIVE (NEGATIVE); URINE COLOR YELLOW; URINE GLUCOSE (UA) NEGATIVE (NEGATIVE); URINE KETONE TRACE (NEGATIVE); URINE LEUK ESTERASE 3+ (NEGATIVE); URINE NITRITE POSITIVE (NEGATIVE); URINE PROTEIN 2+ (NEGATIVE); URINE WBC 1197 /hpf (0-5)
[2019-02-13 19:14] LABS: URINE RBC 41.6 /hpf (0-4); YEAST 0 (NEGATIVE)
[2019-02-13] MEDS ORDERED: CEFTRIAXONE 1 GM in DEXTROSE 5%-WATER - 100 ML IVPB ONE (19:19)
[2019-02-13] MEDS ORDERED: CEFTRIAXONE 1 GM/50 ML BAG ONE (19:41)
[2019-02-13] MEDS ORDERED: NYSTATIN POWDER 100,000 UNITS/GM - 15 GM TOPICAL POWDER TP ONE (19:47)
[2019-02-13] MEDS ORDERED: POLYETHYLENE GLYCOL 3350 255 GM BTL PO SCH (21:00)
[2019-02-13] MEDS ORDERED: MAGNESIUM HYDROX 2400MG/30ML ORAL SUSPENSION 30 ML CUP PO PRN (21:00)
[2019-02-13] MEDS ORDERED: CARBIDOPA/LEVODOPA 25/100 TABLET (FP) ONE (21:22)
[2019-02-13] MEDS ORDERED: HEPARIN NA (PORCINE) 5,000 UNITS/ML 1ML VIAL ONE (21:22)
--- NOTE | 2019-02-13 21:23 | HP ---
Admitting History and Physical - Primary Care Physician PCP: Nicholas Putnam - Admission Chief Complaint: Unresponsive History of Present Illness: This is a 83 y/o man from home with a past medical history of Parkinson's, Dementia, Depression, Hypertension, Hypperlipidemia, CAD, DC s/p Stent, Glaucoma, COPD, BPH, Colon Ca s/p Colectomy, OA, recent admission 01/03- 01/16 for Complicated UTI. Who presents to the ED via ambulance for unresponsiveness. 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 Per the daughter the patient was pale and now is color is pink- back to normal. She reports that when the patient is sitting on the toilet, he stares into space and does not respond for a few minutes. She reports her concerns regarding his Parkinson's and feels his medication needs to be adjusted, but has not been able to take him to see Dr. Friedman due to the patient's gait issues. The daughter denies the patient having fever, chills, SOB, CP, palpitations, AP , N/V/D. atient's daughter reports the last change on the indwelling White was 2 weeks ago. 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 No: Current Chemotherapy, Current Radiation Therapy, Hemochromatosis, Hypercoaguable State, Sickle Cell Trait Psych: Yes: Depression Musculoskeletal: Yes: Osteoarthritis Endocrine: Yes: Hypothyroidism - Past Surgical History Past Surgical History: Yes: Colectomy, Joint Replacement (R THR) - Smoking History Smoking history: Never smoked Have you smoked in the past 12 months: No If you are a former smoker, when did you quit?: 50YRS AGO - Alcohol/Substance Use Hx Alcohol Use: No History of Substance Use: reports: None - Social History ADL: Family Assistance Occupation: originally from [facility] History of Recent Travel: No Home Medications - Allergies Allergies/Adverse Reactions: Allergies Allergy/AdvReac Type Severity Reaction Status Date / Time No Known Drug Allergies Allergy Verified 02/10/17 05:26 - Home Medications Home Medications: Ambulatory Orders Carbidopa/Levodopa *Cr* 25/100 [Sinemet *Cr* 25/100 -] 1 combo PO TID@0700,1200, 1700 tablet.er 07/14/15 Rosuvastatin [Crestor -] 10 mg PO HS tablet 07/14/15 Levothyroxine [Synthroid -] 50 mcg PO ACBK 02/11/17 Amlodipine Besylate 5 mg PO DAILY 01/03/19 Polyethylene Glycol 3350 [Miralax 255 gm Btl -] 255 gm PO PRN 01/03/19 Dorzolamide HCl [Trusopt 2% -] 1 drop OS BID drops 01/16/19 Magnesium Hydrox 2400MG/30Ml [Milk of Magnesia -] 30 ml PO DAILY PRN cup Family Disease History - Family Disease History Family History: Unable to Obtain Review of Systems Unable to obtain ROS, reason: Dementia Physical Examination Vital Signs: Vital Signs Temperature 98.0 F 02/13/19 17:47 Pulse Rate 74 02/13/19 20:40 Respiratory Rate 18 02/13/19 20:40 Blood Pressure 100/86 02/13/19 20:40 O2 Sat by Pulse Oximetry (%) 100 02/13/19 20:40 Constitutional: Yes: No Distress, Thin Eyes: Yes: Conjunctiva Clear HENT: Yes: WNL, Atraumatic, Normocephalic Neck: Yes: WNL, Supple, Trachea Midline Cardiovascular: Yes: Regular Rate and Rhythm, S1, S2 Respiratory: Yes: Regular, Diminished Gastrointestinal: Yes: WNL, Normal Bowel Sounds, Soft ...Rectal Exam: Yes: Sphincter Tone Normal Renal/: Yes: White Present (yellow urine- in drainage bag) Breast(s): Yes: WNL Musculoskeletal: Yes: WNL Extremities: Yes: WNL Edema: No Peripheral Pulses WNL: Yes Integumentary: Yes: Pressure Ulcer (Stage 1 to L- Gluteal healed scab to L- mid Gluteal), Other (pressure ulcer to R- Heel) Neurological: Yes: Confusion, Tremors Psychiatric: Yes: Other (Parkinson's Dementia) Labs: CBC, BMP 02/13/19 17:35 02/13/19 17:35 Laboratory Results - last 24 hr 02/13/19 02/13/19 02/13/19 17:30 17:35 17:35 WBC 7.4 RBC 4.33 Hgb 12.9 Hct 39.6 D MCV 91.5 MCH 29.7 MCHC 32.5 RDW 15.8 Plt Count 250 MPV 8.1 Absolute Neuts (auto) 5.8 Neutrophils % 78.9 Lymphocytes % 11.8 Monocytes % 6.6 Eosinophils % 2.0 Basophils % 0.7 Nucleated RBC % 0 PT with INR 11.90 INR 1.01 PTT (Actin FS) 30.9 VBG pH POC VBG pCO2 POC VBG pO2 VBG HCO3 VBG O2 Sat ([place]) VBG Base Excess Sodium Potassium Chloride Carbon Dioxide Anion Gap BUN Creatinine Est GFR (CKD-EPI)AfAm Est GFR (CKD-EPI)NonAf Random Glucose Lactic Acid 1.1 Calcium Magnesium Total Bilirubin AST ALT Alkaline Phosphatase Troponin I B-Natriuretic Peptide Total Protein Albumin TSH Urine Color Urine Appearance Urine pH Ur Specific [place] Urine Protein Urine Glucose (UA) Urine Ketones Urine Blood Urine Nitrite Urine Bilirubin Urine Urobilinogen Ur Leukocyte Esterase Urine WBC (Auto) Urine RBC (Auto) Urine Casts (Auto) U Pathogenic Cast Auto U Epithel Cells (Auto) Urine Bacteria (Auto) Urine Yeast (Auto) 02/13/19 02/13/19 02/13/19 17:35 17:35 17:35 WBC RBC Hgb Hct MCV MCH MCHC RDW Plt Count MPV Absolute Neuts (auto) Neutrophils % Lymphocytes % Monocytes % Eosinophils % Basophils % Nucleated RBC % PT with INR INR PTT (Actin FS) VBG pH 7.34 POC VBG pCO2 52.9 H POC VBG pO2 24.2 L VBG HCO3 28.0 VBG O2 Sat (Davina) 36.1 L VBG Base Excess 1.9 Sodium 142 Potassium 4.3 Chloride 109 H Carbon Dioxide 27 Anion Gap 6 L BUN 26 H Creatinine 1.3 Est GFR (CKD-EPI)AfAm 57.66 Est GFR (CKD-EPI)NonAf 49.75 Random Glucose 91 Lactic Acid Calcium 8.9 Magnesium 2.6 H Total Bilirubin 0.4 AST 19 ALT 12 L Alkaline Phosphatase 78 Troponin I < 0.02 Cancelled B-Natriuretic Peptide 897.6 H Total Protein 6.8 Albumin 3.4 TSH 2.34 D Urine Color Urine Appearance Urine pH Ur Specific [place] Urine Protein Urine Glucose (UA) Urine Ketones Urine Blood Urine Nitrite Urine Bilirubin Urine Urobilinogen Ur Leukocyte Esterase Urine WBC (Auto) Urine RBC (Auto) Urine Casts (Auto) U Pathogenic Cast Auto U Epithel Cells (Auto) Urine Bacteria (Auto) Urine Yeast (Auto) 02/13/19 02/13/19 17:35 18:22 WBC RBC Hgb Hct MCV MCH MCHC RDW Plt Count MPV Absolute Neuts (auto) Neutrophils % Lymphocytes % Monocytes % Eosinophils % Basophils % Nucleated RBC % PT with INR INR PTT (Actin FS) VBG pH POC VBG pCO2 POC VBG pO2 VBG HCO3 VBG O2 Sat (Davina) VBG Base Excess Sodium Potassium Chloride Carbon Dioxide Anion Gap BUN Creatinine Est GFR (CKD-EPI)AfAm Est GFR (CKD-EPI)NonAf Random Glucose Lactic Acid Calcium Magnesium Cancelled Total Bilirubin AST ALT Alkaline Phosphatase Troponin I B-Natriuretic Peptide Cancelled Total Protein Albumin TSH Cancelled Urine Color Yellow Urine Appearance Turbid Urine pH 5.5 Ur Specific [place] 1.020 Urine Protein 2+ H Urine Glucose (UA) Negative Urine Ketones Trace H Urine Blood 2+ H Urine Nitrite Positive H Urine Bilirubin Negative Urine Urobilinogen 1.0 Ur Leukocyte Esterase 3+ H Urine WBC (Auto) 1197 Urine RBC (Auto) 41.6 Urine Casts (Auto) 19 U Pathogenic Cast Auto 0-1 granular cast U Epithel Cells (Auto) 1.6 Urine Bacteria (Auto) 2893.0 Urine Yeast (Auto) 0 Intake & Output 02/10/19 02/11/19 02/12/19 02/13/19 23:59 23:59 23:59 23:59 Output Total 200 Balance -200 Weight 63.503 kg Current Medications Generic Name Dose Route Start Last Admin Trade Name Freq PRN Reason Stop Dose Admin Amlodipine Besylate 5 mg 02/14/19 10:00 Norvasc - PO DAILY [facility]U Carbidopa/Levodopa 1 combo 02/13/19 21:01 Sinemet *Cr* 25/100 - PO TID@0700,1200,1700 LLUU Dorzolamide HCl 1 drop 02/13/19 22:00 Trusopt 2% OS BID LULU Heparin Sodium (Porcine) 5,000 unit 02/13/19 22:00 Heparin - SQ BID LULU Levothyroxine Sodium 50 mcg 02/14/19 07:00 Synthroid - PO ACBK [facility]U Magnesium Hydroxide 30 ml 02/13/19 21:00 Milk Of Magnesia - PO DAILY PRN CONSTIPATION Polyethylene Glycol 255 gm 02/13/19 21:00 Miralax (For Bowel Prep) - PO PRN LULU Rosuvastatin Calcium 10 mg 02/13/19 22:00 Crestor - PO HS [facility] Imaging - Results Chest X-ray: Report Reviewed, Image Reviewed EKG: Image Reviewed Problem List - Problems (1) Complicated UTI (urinary tract infection) Assessment/Plan: UA showed +2 protein,trace ketones, +3 Leukocyte esterase, +2 blood, + nitrates, WBC 1197, Bacteria 2893 Urine Culture-pending Patient received to ED with White catheter from home, changed in ED Pt had 2 prior visits within 3 months, was treated inpatient for UTI Hx Staph, Klebsiella Pneumonia uti Ceftriaxone given in ED Meropenem for broader coverage Appreciate ID consult Consider Urology consult if condition worsens Monitor CBC, BMP Monitor vitals Code(s): N39.0 - URINARY TRACT INFECTION, SITE NOT SPECIFIED (2) Unresponsive episode Assessment/Plan: Likely secondary to advanced disease process vs tumor NS bolus given in ED Chest Xray- no significant changes, no acute pathology EKG- SR with PVCs, no acute ST/T wave abnormalities No leukocytosis, remains afebrile BUN 26 NS bolus given in ED Appreciate Neurology consult Neurochecks Monitor CBC, BMP Monitor vitals Code(s): R41.89 - OTH SYMPTOMS AND SIGNS W COGNITIVE FUNCTIONS AND AWARENESS (3) Parkinson disease Assessment/Plan: Continue Levadopa Appreciate Neurology consult Fall Precautions Aspiration Precautions PT Code(s): G20 - PARKINSON'S DISEASE (4) Dementia Assessment/Plan: Continue home med Code(s): F03.90 - UNSPECIFIED DEMENTIA WITHOUT BEHAVIORAL DISTURBANCE (5) CAD (coronary artery disease) Assessment/Plan: Stable Continue home meds EKG- reviewed Chest Xray-reviewed Code(s): I25.10 - ATHSCL HEART DISEASE OF CIRCLE CORONARY ARTERY W/O ANG PCTRS Qualifiers: Coronary Disease-Associated Artery/Lesion type: [place] artery [place] vs. transplanted heart: [place] heart Associated angina: without angina Qualified Code(s): I25.10 - Atherosclerotic heart disease of [place] coronary artery without angina pectoris (6) Hypercholesteremia Assessment/Plan: Stable Continue Statin Monitor LFTs Code(s): E78.00 - PURE HYPERCHOLESTEROLEMIA, UNSPECIFIED (7) Hypertension Assessment/Plan: stable Monitor BP Continue home med Monitor renal function Code(s): I10 - ESSENTIAL (PRIMARY) HYPERTENSION Qualifiers: Hypertension type: essential hypertension Qualified Code(s): I10 - Essential (primary) hypertension (8) Hypothyroidism Assessment/Plan: Stable Continue Levothyroxine TSH 2.34 Code(s): E03.9 - HYPOTHYROIDISM, UNSPECIFIED Assessment/Plan This is a 83 y/o man with a PMHx of Parkinson's, Dementia, HTN, HLD, COPD, CAD, DC s/p Stent's, Depression, OA, Colon Ca s/p Colectomy. Admitted for Complicated UTI, Unresponsiveness for further evaluation of their emergent condition. Plan: See Problem List FEN Replete lytes prn Pureed Low Na Diet DVT ppx SCDs Heparin SQ Code Status: Full Code Dispo: Requires Inpatient Care Visit type - Emergency Visit Emergency Visit: Yes ED Registration Date: 02/13/19 Care time: The patient presented to the Emergency Department on the above date and was hospitalized for further evaluation of their emergent condition. - New Patient This patient is new to me today: Yes Date on this admission: 02/13/19 - Critical Care Critical Care patient: No
[2019-02-13] MEDS: HEPARIN NA (PORCINE) 5,000 UNITS/ML 1ML VIAL SQ SCH (21:32)
[2019-02-13] MEDS ORDERED: POLYETHYLENE GLYCOL 3350 119 GM BTL PO PRN (21:50)
[2019-02-13] MEDS: ROSUVASTATIN CA 10 MG TABLET (FP) PO SCH (22:52)
[2019-02-13] MEDS: DORZOLAMIDE 2% HCL OPHTHALMIC SOLUTION 10 ML BOTTLE OS SCH (22:52)
[2019-02-14] MEDS: LEVOTHYROXINE NA 50 MCG TABLET (FP) PO SCH (06:38)
[2019-02-14 07:54] LABS: CALCIUM 8.6 mg/dL (8.5-10.1); CREATININE 1.1 mg/dL (0.55-1.3); POTASSIUM 4.2 mmol/L (3.5-5.1)
[2019-02-14 08:06] LABS: BASO % 1.1 % (0-2.0); EOS % 2.9 % (0-4.5); HEMATOCRIT 34.7 % (35.4-49); HEMOGLOBIN 11.5 GM/dL (11.7-16.9); LYMPH % 18.5 % (8-40); MCH 30.1 pg (25.7-33.7); MCHC 33.2 g/dl (32.0-35.9); MEAN CELL VOLUME 90.6 fl (80-96); MEAN PLT VOLUME 8.3 fl (7.5-11.1); MONO % 7.1 % (3.8-10.2); NEUT % 70.4 % (42.8-82.8); PLATELET COUNT 268 K/MM3 (134-434); RBC 3.83 M/mm3 (4.00-5.60); WHITE BLOOD COUNT 5.9 K/mm3 (4.0-10.0)
[2019-02-14] MEDS ORDERED: PT OWN MED DRAWER 7, Y5N ONE ×3 (09:28→21:02)
[2019-02-14] MEDS: NYSTATIN 100,000 UNIT/GM TOPICAL CREAM 15 GM TUBE TP SCH ×2 (09:59→21:18)
[2019-02-14] MEDS: HEPARIN NA (PORCINE) 5,000 UNITS/ML 1ML VIAL SQ SCH ×2 (10:00→21:17)
[2019-02-14] MEDS: MEROPENEM 500 MG in DEXTROSE 5%-WATER 100 ML IVPB SCH ×2 (10:00→21:18)
[2019-02-14] MEDS ORDERED: POLYETHYLENE GLYCOL 3350 119 GM BTL PO SCH (10:00)
[2019-02-14] MEDS: amLODIPine BESYLATE 5 MG TABLET (FP) PO SCH (10:02)
[2019-02-14] MEDS: DORZOLAMIDE 2% HCL OPHTHALMIC SOLUTION 10 ML BOTTLE OS SCH ×2 (10:05→21:18)
--- NOTE | 2019-02-14 10:21 | CONSULT ---
Consult - text type - Consultation Consultation Note: Neurology - Primary Care Physician PCP: Nicholas Putnam History of Present Illness: This is a 83 y/o man from home with a past medical history of Parkinson's, Dementia, Depression, Hypertension, Hypperlipidemia, CAD, UT s/p Stent, Glaucoma, COPD, BPH, Colon Ca s/p Colectomy, OA, recent admission 01/03- 01/16 for Complicated UTI who presented to the ED via ambulance for unresponsiveness. 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 Per the daughter the patient was pale and now is color is pink- back to normal. She reported that when the patient is sitting on the toilet, he stares into space and does not respond for a few minutes. She reported her concerns regarding his Parkinson's and feels his medication needs to be adjusted, but has not been able to take him to see me due to the patient's gait issues. The daughter denies the patient having fever, chills, SOB, CP, palpitations, AP, N/V/D. atyamileth's daughter reports the last change on the indwelling White was 2 weeks ago. Of note, UA was positive for UTI and this is likely etiology of his symptoms. 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 No: Current Chemotherapy, Current Radiation Therapy, Hemochromatosis, Hypercoaguable State, Sickle Cell Trait Psych: Yes: Depression Musculoskeletal: Yes: Osteoarthritis Endocrine: Yes: Hypothyroidism - Past Surgical History Past Surgical History: Yes: Colectomy, Joint Replacement (R THR) - Smoking History Smoking history: Never smoked Have you smoked in the past 12 months: No If you are a former smoker, when did you quit?: 50YRS AGO - Alcohol/Substance Use Hx Alcohol Use: No History of Substance Use: reports: None - Social History ADL: Family Assistance Occupation: originally from [facility] History of Recent Travel: No Home Medications - Allergies Allergies/Adverse Reactions: Allergies Allergy/AdvReac Type Severity Reaction Status Date / Time No Known Drug Allergies Allergy Verified 02/10/17 05:26 - Home Medications Home Medications: Ambulatory Orders Carbidopa/Levodopa *Cr* 25/100 [Sinemet *Cr* 25/100 -] 1 combo PO TID@0700,1200, 1700 tablet.er 07/14/15 Rosuvastatin [Crestor -] 10 mg PO HS tablet 07/14/15 Levothyroxine [Synthroid -] 50 mcg PO ACBK 02/11/17 Amlodipine Besylate 5 mg PO DAILY 01/03/19 Polyethylene Glycol 3350 [Miralax 255 gm Btl -] 255 gm PO PRN 01/03/19 Dorzolamide HCl [Trusopt 2% -] 1 drop OS BID drops 01/16/19 Magnesium Hydrox 2400MG/30Ml [Milk of Magnesia -] 30 ml PO DAILY PRN cup Family Disease History - Family Disease History Family History: HTN Review of Systems Unable to obtain ROS, reason: Dementia Physical Examination Vital Signs: Vital Signs Temperature 98.0 F 02/13/19 17:47 Pulse Rate 74 02/13/19 20:40 Respiratory Rate 18 02/13/19 20:40 Blood Pressure 100/86 02/13/19 20:40 O2 Sat by Pulse Oximetry (%) 100 02/13/19 20:40 Constitutional: Yes: No Distress, Thin Eyes: Yes: Conjunctiva Clear HENT: Yes: WNL, Atraumatic, Normocephalic Neck: Yes: WNL, Supple, Trachea Midline Cardiovascular: Yes: Regular Rate and Rhythm, S1, S2 Respiratory: Yes: Regular, Diminished Gastrointestinal: Yes: WNL, Normal Bowel Sounds, Soft ...Rectal Exam: Yes: Sphincter Tone Normal Renal/: Yes: White Present (yellow urine- in drainage bag) Breast(s): Yes: WNL Musculoskeletal: Yes: WNL Extremities: Yes: WNL Edema: No Peripheral Pulses WNL: Yes Integumentary: Yes: Pressure Ulcer (Stage 1 to L- Gluteal healed scab to L- mid Gluteal), Other (pressure ulcer to R- Heel) Neurological: Pill rolling tremor noted, +cogwheeling with bradykinesia, moves extremities grossly Laboratory Results - last 24 hr 02/13/19 02/13/19 02/13/19 17:30 17:35 17:35 WBC 7.4 RBC 4.33 Hgb 12.9 Hct 39.6 D MCV 91.5 MCH 29.7 MCHC 32.5 RDW 15.8 Plt Count 250 MPV 8.1 Absolute Neuts (auto) 5.8 Neutrophils % 78.9 Lymphocytes % 11.8 Monocytes % 6.6 Eosinophils % 2.0 Basophils % 0.7 Nucleated RBC % 0 PT with INR 11.90 INR 1.01 PTT (Actin FS) 30.9 VBG pH POC VBG pCO2 POC VBG pO2 VBG HCO3 VBG O2 Sat (Davina) VBG Base Excess Sodium Potassium Chloride Carbon Dioxide Anion Gap BUN Creatinine Est GFR (CKD-EPI)AfAm Est GFR (CKD-EPI)NonAf Random Glucose Lactic Acid 1.1 Calcium Magnesium Total Bilirubin AST ALT Alkaline Phosphatase Troponin I B-Natriuretic Peptide Total Protein Albumin TSH Urine Color Urine Appearance Urine pH Ur Specific [place] Urine Protein Urine Glucose (UA) Urine Ketones Urine Blood Urine Nitrite Urine Bilirubin Urine Urobilinogen Ur Leukocyte Esterase Urine WBC (Auto) Urine RBC (Auto) Urine Casts (Auto) U Pathogenic Cast Auto U Epithel Cells (Auto) Urine Bacteria (Auto) Urine Yeast (Auto) 02/13/19 02/13/19 02/13/19 17:35 17:35 17:35 WBC RBC Hgb Hct MCV MCH MCHC RDW Plt Count MPV Absolute Neuts (auto) Neutrophils % Lymphocytes % Monocytes % Eosinophils % Basophils % Nucleated RBC % PT with INR INR PTT (Actin FS) VBG pH 7.34 POC VBG pCO2 52.9 H POC VBG pO2 24.2 L VBG HCO3 28.0 VBG O2 Sat (Davina) 36.1 L VBG Base Excess 1.9 Sodium 142 Potassium 4.3 Chloride 109 H Carbon Dioxide 27 Anion Gap 6 L BUN 26 H Creatinine 1.3 Est GFR (CKD-EPI)AfAm 57.66 Est GFR (CKD-EPI)NonAf 49.75 Random Glucose 91 Lactic Acid Calcium 8.9 Magnesium 2.6 H Total Bilirubin 0.4 AST 19 ALT 12 L Alkaline Phosphatase 78 Troponin I < 0.02 Cancelled B-Natriuretic Peptide 897.6 H Total Protein 6.8 Albumin 3.4 TSH 2.34 D Urine Color Urine Appearance Urine pH Ur Specific [place] Urine Protein Urine Glucose (UA) Urine Ketones Urine Blood Urine Nitrite Urine Bilirubin Urine Urobilinogen Ur Leukocyte Esterase Urine WBC (Auto) Urine RBC (Auto) Urine Casts (Auto) U Pathogenic Cast Auto U Epithel Cells (Auto) Urine Bacteria (Auto) Urine Yeast (Auto) 02/13/19 02/13/19 17:35 18:22 WBC RBC Hgb Hct MCV MCH MCHC RDW Plt Count MPV Absolute Neuts (auto) Neutrophils % Lymphocytes % Monocytes % Eosinophils % Basophils % Nucleated RBC % PT with INR INR PTT (Actin FS) VBG pH POC VBG pCO2 POC VBG pO2 VBG HCO3 VBG O2 Sat (Davina) VBG Base Excess Sodium Potassium Chloride Carbon Dioxide Anion Gap BUN Creatinine Est GFR (CKD-EPI)AfAm Est GFR (CKD-EPI)NonAf Random Glucose Lactic Acid Calcium Magnesium Cancelled Total Bilirubin AST ALT Alkaline Phosphatase Troponin I B-Natriuretic Peptide Cancelled Total Protein Albumin TSH Cancelled Urine Color Yellow Urine Appearance Turbid Urine pH 5.5 Ur Specific [place] 1.020 Urine Protein 2+ H Urine Glucose (UA) Negative Urine Ketones Trace H Urine Blood 2+ H Urine Nitrite Positive H Urine Bilirubin Negative Urine Urobilinogen 1.0 Ur Leukocyte Esterase 3+ H Urine WBC (Auto) 1197 Urine RBC (Auto) 41.6 Urine Casts (Auto) 19 U Pathogenic Cast Auto 0-1 granular cast U Epithel Cells (Auto) 1.6 Urine Bacteria (Auto) 2893.0 Urine Yeast (Auto) 0 Plan 83 y/o man from home with a past medical history of Parkinson's, Dementia, Depression, Hypertension, Hypperlipidemia, CAD, [place] s/p Stent, Glaucoma, COPD, BPH, Colon Ca s/p Colectomy, OA, recent admission 01/03- 01/16 for Complicated UTI who presented to the ED via ambulance for unresponsiveness. 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 Per the daughter the patient was pale and now is color is pink- back to normal. She reported that when the patient is sitting on the toilet, he stares into space and does not respond for a few minutes. She reported her concerns regarding his Parkinson's and feels his medication needs to be adjusted, but has not been able to take him to see me due to the patient' s gait issues. The daughter denies the patient having fever, chills, SOB, CP, palpitations, AP, N/V/D. marija's daughter reports the last change on the indwelling White was 2 weeks ago. Of note, UA was positive for UTI and this is likely etiology of his symptoms. Continue mmedical management of urinary tract infection, antibiotics as per primary team,, ID consulted and following, maintain adequate hydration. can continue Sinemet at this time, lethargy seems more consistent with infection. Continue to monitor mental status, will order CT head to confirm no significant structural abnormalities.
--- NOTE | 2019-02-14 12:00 | CON.ID ---
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: Dementia, Peripheral Neuropathy, Parkinson's, Syncope Cardio/Vascular: Yes: CAD, HTN, Hyperlipdemia, [place] Pulmonary: Yes: COPD Gastrointestinal: Yes: Cancer (colon) Renal/: Yes: BPH Psych: Yes: Depression Musculoskeletal: Yes: Osteoarthritis Endocrine: Yes: Hypothyroidism - Past Surgical History Past Surgical History: Yes: Colectomy, Joint Replacement (R THR) - Alcohol/Substance Use Hx Alcohol Use: No History of Substance Use: reports: None - Smoking History Smoking history: Never smoked Have you smoked in the past 12 months: No If you are a former smoker, when did you quit?: 50YRS AGO - Social History Usual Living Arrangement: With Spouse ADL: Family Assistance Occupation: originally [place] [employer] History of Recent Travel: No Home Medications - Allergies Allergies/Adverse Reactions: Allergies Allergy/AdvReac Type Severity Reaction Status Date / Time No Known Drug Allergies Allergy Verified 02/10/17 05:26 - Home Medications Home Medications: Ambulatory Orders Carbidopa/Levodopa *Cr* 25/100 [Sinemet *Cr* 25/100 -] 1 combo PO TID@0700,1200, 1700 tablet.er 07/14/15 Rosuvastatin [Crestor -] 10 mg PO HS tablet 07/14/15 Levothyroxine [Synthroid -] 50 mcg PO ACBK 02/11/17 Amlodipine Besylate 5 mg PO DAILY 01/03/19 Polyethylene Glycol 3350 [Miralax 255 gm Btl -] 255 gm PO PRN 01/03/19 Dorzolamide HCl [Trusopt 2% -] 1 drop OS BID drops 01/16/19 Magnesium Hydrox 2400MG/30Ml [Milk of Magnesia -] 30 ml PO DAILY PRN cup Physical Exam Vital Signs: Vital Signs Temperature 97.8 F 02/14/19 10:16 Pulse Rate 87 02/14/19 10:16 Respiratory Rate 18 02/14/19 10:16 Blood Pressure 75/48 L 02/14/19 10:16 O2 Sat by Pulse Oximetry (%) 100 02/13/19 23:00 Labs: CBC, BMP 02/14/19 06:35 02/14/19 06:35
--- NOTE | 2019-02-14 12:56 | EKG ---
Test Reason : Blood Pressure : / mmHG Vent. Rate : 076 BPM Atrial Rate : 076 BPM P-R Int : 200 ms QRS Dur : 076 ms QT Int : 398 ms P-R-T Axes : 050 -17 078 degrees QTc Int : 447 ms POOR DATA QUALITY, INTERPRETATION MAY BE ADVERSELY AFFECTED SINUS RHYTHM WITH PREMATURE SUPRAVENTRICULAR COMPLEXES AND WITH OCCASIONAL PREMATURE VENTRICULAR COMPLEXES SEPTAL INFARCT , AGE UNDETERMINED ABNORMAL ECG WHEN COMPARED WITH ECG OF 03-JAN-2019 01:35, PREMATURE VENTRICULAR COMPLEXES ARE NOW PRESENT PREMATURE SUPRAVENTRICULAR COMPLEXES ARE NOW PRESENT SEPTAL INFARCT IS NOW PRESENT Confirmed by ROCK QUEVEDO MD ([id number]) on 02/14/2019 12:55:38 PM Referred By: Confirmed By:ROCK QUEVEDO MD
--- NOTE | 2019-02-14 13:50 | PN ---
Progress Note, Physician History of Present Illness: Patient is an 83 yo male with a past medical history of parkinson's disease w/ advanced dementia, HTN, HLD, hypothyroidism, CAD s/p stents, colon cancer, and recent admission 01/03-01/16 for uro-sepsis. He presents to the ED via ambulance after his TOP KNITTER noted that patient was less responsive and having some difficulty breathing. - Current Medication List Current Medications: Active Medications Amlodipine Besylate (Norvasc -) 5 mg PO DAILY [facility] Last Admin: 02/14/19 10:02 Dose: Not Given Carbidopa/Levodopa (Sinemet *Cr* 25/100 -) 1 combo PO TID@0700,1200,1700 [facility] Last Admin: 02/14/19 06:38 Dose: 1 combo Dorzolamide HCl (Trusopt 2%) 1 drop OS BID [facility] Last Admin: 02/14/19 10:05 Dose: 1 drop Heparin Sodium (Porcine) (Heparin -) 5,000 unit SQ BID [facility] Last Admin: 02/14/19 10:00 Dose: 5,000 unit Meropenem 500 mg/ Dextrose 100 mls @ 200 mls/hr IVPB BID [facility] Stop: 02/14/19 22:29 Last Admin: 02/14/19 10:00 Dose: 200 mls/hr Meropenem 500 mg/ Dextrose 100 mls @ 200 mls/hr IVPB BID [facility] Levothyroxine Sodium (Synthroid -) 50 mcg PO ACBK [facility] Last Admin: 02/14/19 06:38 Dose: 50 mcg Magnesium Hydroxide (Milk Of Magnesia -) 30 ml PO DAILY PRN PRN Reason: CONSTIPATION Nystatin (Mycostatin Cream -) 1 applic TP BID [facility] Last Admin: 02/14/19 09:59 Dose: 1 applic Polyethylene Glycol (Miralax (For Daily Use) -) 17 gm PO DAILY PRN PRN Reason: CONSTIPATION Rosuvastatin Calcium (Crestor -) 10 mg PO HS [facility] Last Admin: 02/13/19 22:52 Dose: 10 mg - Objective Vital Signs: Vital Signs Temperature 97.8 F 02/14/19 10:16 Pulse Rate 87 02/14/19 10:16 Respiratory Rate 18 02/14/19 10:16 Blood Pressure 75/48 L 02/14/19 10:16 O2 Sat by Pulse Oximetry (%) 100 02/13/19 23:00 Constitutional: Yes: Calm, Cachectic Eyes: Yes: WNL HENT: Yes: WNL Neck: Yes: WNL, Supple, Trachea Midline Cardiovascular: Yes: Regular Rate and Rhythm Respiratory: Yes: Regular, On Nasal O2 Gastrointestinal: Yes: Normal Bowel Sounds, Soft ...Rectal Exam: Yes: Deferred Genitourinary: Yes: Hancock Present Musculoskeletal: Yes: Joint Stiffness, Muscle Weakness Extremities: Yes: Cool Edema: No Integumentary: Yes: WNL Neurological: Yes: Lethargy, Unsteady Gait Psychiatric: Yes: Other Labs: CBC, BMP 02/14/19 06:35 02/14/19 06:35 INR, PTT INR 1.01 (0.83-1.09) 02/13/19 17:35 Problem List - Problems (1) Complicated UTI (urinary tract infection) Assessment/Plan: Acute metabolic encephalopathy in the setting of acute UTI. Per labs, UA showed +2 protein with trace ketones, +3 Leukocyte est, +2 blood, + nitrates, WBC 1197, bacteria 2893 Urine culture collected and pending. Patient with history of complicated UTI in the past with chronic hancock. On meropenem per ID. Monitor mental status in the the setting of acute uti. await cultures. Code(s): N39.0 - URINARY TRACT INFECTION, SITE NOT SPECIFIED (2) Parkinson disease Assessment/Plan: Patient follows Dr. Friedman for advanced Parkinsons disease. Neurology following, notes reviewed. Continue Sinemet at current dose. Maintain aspiration precautions. Code(s): G20 - PARKINSON'S DISEASE (3) Weakness Assessment/Plan: Weakness in the setting of acute infection, possibly UTI. Damico cultured. Monitor weakness. unknown ambulatory baseline, will order PT Code(s): R53.1 - WEAKNESS (4) Acute metabolic encephalopathy Assessment/Plan: Monitor mental status. head ct negative for acute process. Being ruled out for acute infection. Code(s): G93.41 - METABOLIC ENCEPHALOPATHY (5) Prophylactic measure Assessment/Plan: fen dysphagia pureed dietary consult for supplements monitor electrolytes daily prophy heparin bid Code(s): Z29.9 - ENCOUNTER FOR PROPHYLACTIC MEASURES, UNSPECIFIED (6) Requires aspiration precautions Assessment/Plan: on a pureed diet, will order swallow evaluation to prevent aspiration precautions as he he lethargic and has advanced parkinsons disease. For now cotinue dysphagia pureed and honey thick fluids. Code(s): Z91.89 - OTH PERSONAL RISK FACTORS, NOT ELSEWHERE CLASSIFIED Visit type - Emergency Visit Emergency Visit: Yes ED Registration Date: 02/13/19 Care time: The patient presented to the Emergency Department on the above date and was hospitalized for further evaluation of their emergent condition. - New Patient This patient is new to me today: Yes Date on this admission: 02/15/19 - Critical Care Critical Care patient: No - Discharge Referral Referred to [facility] Med P.C.: No
[2019-02-14] MEDS: ROSUVASTATIN CA 10 MG TABLET (FP) PO SCH (21:17)
[2019-02-15] MEDS: LEVOTHYROXINE NA 50 MCG TABLET (FP) PO SCH (06:17)
[2019-02-15 07:48] LABS: EOS % 1.8 % (0-4.5); HEMATOCRIT 34.6 % (35.4-49); HEMOGLOBIN 11.5 GM/dL (11.7-16.9); LYMPH % 16.4 % (8-40); MCH 30.1 pg (25.7-33.7); MCHC 33.3 g/dl (32.0-35.9); MEAN CELL VOLUME 90.5 fl (80-96); MEAN PLT VOLUME 7.9 fl (7.5-11.1); MONO % 7.6 % (3.8-10.2); NEUT % 73.2 % (42.8-82.8); PLATELET COUNT 267 K/MM3 (134-434); RBC 3.83 M/mm3 (4.00-5.60); RDW 15.7 % (11.9-15.9); WHITE BLOOD COUNT 6.9 K/mm3 (4.0-10.0)
[2019-02-15 08:13] LABS: ALBUMIN 3.3 g/dl (3.4-5.0); BILIRUBIN,TOTAL 0.4 mg/dL (0.2-1); CALCIUM 9.2 mg/dL (8.5-10.1); CREATININE 1.3 mg/dL (0.55-1.3); MAGNESIUM 2.4 mg/dL (1.8-2.4); POTASSIUM 4.1 mmol/L (3.5-5.1); TOT PROT 6.6 g/dl (6.4-8.2)
--- NOTE | 2019-02-15 08:38 | PN ---
Progress Note (short form) - Note Progress Note: Neurology - Primary Care Physician PCP: Nicholas Putnam History of Present Illness: This is a 83 y/o man from home with a past medical history of Parkinson's, Dementia, Depression, Hypertension, Hypperlipidemia, CAD, CA s/p Stent, Glaucoma, COPD, BPH, Colon Ca s/p Colectomy, OA, recent admission 01/03- 01/16 for Complicated UTI who presented to the ED via ambulance for unresponsiveness. Per the patient's daughter the patient's FILLER IN called EMS because the patient appeared unresponsive and was not breathing. Per the daughter the patient was pale and now is color is pink- back to normal. She reported that when the patient is sitting on the toilet, he stares into space and does not respond for a few minutes. She reported her concerns regarding his Parkinson's and feels his medication needs to be adjusted, but has not been able to take him to see me due to the patient's gait issues. The daughter denies the patient having fever, chills, SOB, CP, palpitations, AP, N/V/D. marija's daughter reports the last change on the indwelling White was 2 weeks ago. Of note, UA was positive for UTI and this is likely etiology of his symptoms. CT head completed and without acute changes. Patient receiving ABx, Merepenum as below, can continue Sinemet. Active Medications Amlodipine Besylate (Norvasc -) 5 mg PO DAILY [facility] Last Admin: 02/14/19 10:02 Dose: Not Given Carbidopa/Levodopa (Sinemet *Cr* 25/100 -) 1 combo PO TID@0700,1200,1700 [facility] Last Admin: 02/15/19 06:17 Dose: 1 combo Dorzolamide HCl (Trusopt 2%) 1 drop OS BID [facility] Last Admin: 02/14/19 21:18 Dose: 1 drop Heparin Sodium (Porcine) (Heparin -) 5,000 unit SQ BID [facility] Last Admin: 02/14/19 21:17 Dose: 5,000 unit Meropenem 500 mg/ Dextrose 100 mls @ 200 mls/hr IVPB BID [facility] Levothyroxine Sodium (Synthroid -) 50 mcg PO ACBK [facility] Last Admin: 02/15/19 06:17 Dose: 50 mcg Magnesium Hydroxide (Milk Of Magnesia -) 30 ml PO DAILY PRN PRN Reason: CONSTIPATION Nystatin (Mycostatin Cream -) 1 applic TP BID [facility] Last Admin: 02/14/19 21:18 Dose: 1 applic Polyethylene Glycol (Miralax (For Daily Use) -) 17 gm PO DAILY PRN PRN Reason: CONSTIPATION Rosuvastatin Calcium (Crestor -) 10 mg PO HS [facility] Last Admin: 02/14/19 21:17 Dose: 10 mg - Allergies Allergies/Adverse Reactions: Allergies Allergy/AdvReac Type Severity Reaction Status Date / Time No Known Drug Allergies Allergy Verified 02/10/17 05:26 - Home Medications Home Medications: Ambulatory Orders Carbidopa/Levodopa *Cr* 25/100 [Sinemet *Cr* 25/100 -] 1 combo PO TID@0700,1200, 1700 tablet.er 07/14/15 Rosuvastatin [Crestor -] 10 mg PO HS tablet 07/14/15 Levothyroxine [Synthroid -] 50 mcg PO ACBK 02/11/17 Amlodipine Besylate 5 mg PO DAILY 01/03/19 Polyethylene Glycol 3350 [Miralax 255 gm Btl -] 255 gm PO PRN 01/03/19 Dorzolamide HCl [Trusopt 2% -] 1 drop OS BID drops 01/16/19 Magnesium Hydrox 2400MG/30Ml [Milk of Magnesia -] 30 ml PO DAILY PRN cup Physical Examination Vital Signs: Vital Signs Period Temp Pulse Resp BP Sys/Davison Pulse Ox Last 24 Hr 97.4 F-98.2 F 73-87 18-18 75-158/48-90 97-97 Constitutional: Yes: No Distress, Thin Eyes: Yes: Conjunctiva Clear HENT: Yes: WNL, Atraumatic, Normocephalic Neck: Yes: WNL, Supple, Trachea Midline Cardiovascular: Yes: Regular Rate and Rhythm, S1, S2 Respiratory: Yes: Regular, Diminished Gastrointestinal: Yes: WNL, Normal Bowel Sounds, Soft ...Rectal Exam: Yes: Sphincter Tone Normal Renal/: Yes: White Present (yellow urine- in drainage bag) Breast(s): Yes: WNL Musculoskeletal: Yes: WNL Extremities: Yes: WNL Edema: No Peripheral Pulses WNL: Yes Integumentary: Yes: Pressure Ulcer (Stage 1 to L- Gluteal healed scab to L- mid Gluteal), Other (pressure ulcer to R- Heel) Neurological: Pill rolling tremor noted, +cogwheeling with bradykinesia, moves extremities grossly CBCD WBC 6.9 K/mm3 (4.0-10.0) 02/15/19 07:15 RBC 3.83 M/mm3 (4.00-5.60) L 02/15/19 07:15 Hgb 11.5 GM/dL (11.7-16.9) L 02/15/19 07:15 Hct 34.6 % (35.4-49) L 02/15/19 07:15 MCV 90.5 fl (80-96) 02/15/19 07:15 MCHC 33.3 g/dl (32.0-35.9) 02/15/19 07:15 RDW 15.7 % (11.9-15.9) 02/15/19 07:15 Plt Count 267 K/MM3 (134-434) 02/15/19 07:15 MPV 7.9 fl (7.5-11.1) 02/15/19 07:15 CMP Sodium 143 mmol/L (136-145) 02/15/19 07:15 Potassium 4.1 mmol/L (3.5-5.1) 02/15/19 07:15 Chloride 110 mmol/L (98-107) H 02/15/19 07:15 Carbon Dioxide 25 mmol/L (21-32) 02/15/19 07:15 Anion Gap 7 MMOL/L (8-16) L 02/15/19 07:15 BUN 28 mg/dL (7-18) H 02/15/19 07:15 Creatinine 1.3 mg/dL (0.55-1.3) 02/15/19 07:15 Random Glucose 90 mg/dL (74-106) 02/15/19 07:15 Calcium 9.2 mg/dL (8.5-10.1) 02/15/19 07:15 Total Bilirubin 0.4 mg/dL (0.2-1) 02/15/19 07:15 AST 13 U/L (15-37) L 02/15/19 07:15 ALT 11 U/L (13-61) L 02/15/19 07:15 Alkaline Phosphatase 74 U/L (45-117) 02/15/19 07:15 Total Protein 6.6 g/dl (6.4-8.2) 02/15/19 07:15 Albumin 3.3 g/dl (3.4-5.0) L 02/15/19 07:15 CARDIAC ENZYMES Troponin I < 0.02 ng/ml (0.00-0.05) 02/13/19 17:35 Plan 83 y/o man from home with a past medical history of Parkinson's, Dementia, Depression, Hypertension, Hypperlipidemia, CAD, CA s/p Stent, Glaucoma, COPD, BPH, Colon Ca s/p Colectomy, OA, recent admission 01/03- 01/16 for Complicated UTI who presented to the ED via ambulance for unresponsiveness. Per the patient's daughter the patient's FILLER IN called EMS because the patient appeared unresponsive and was not breathing. Per the daughter the patient was pale and now is color is pink- back to normal. She reported that when the patient is sitting on the toilet, he stares into space and does not respond for a few minutes. She reported her concerns regarding his Parkinson's and feels his medication needs to be adjusted, but has not been able to take him to see me due to the patient' s gait issues. The daughter denies the patient having fever, chills, SOB, CP, palpitations, AP, N/V/D. marija's daughter reports the last change on the indwelling Hwite was 2 weeks ago. Of note, UA was positive for UTI and this is likely etiology of his symptoms. Continue mmedical management of urinary tract infection, antibiotics as per primary team,, ID consulted and following, maintain adequate hydration. can continue Sinemet at this time, lethargy seems more consistent with infection. Continue to monitor mental status, CT head completed and without acute changes. Patient receiving ABx, Merepenum as below, can continue Sinemet.
[2019-02-15] MEDS ORDERED: MEROPENEM 500 MG in DEXTROSE 5%-WATER 100 ML IVPB SCH (10:00)
[2019-02-15] MEDS: amLODIPine BESYLATE 5 MG TABLET (FP) PO SCH (10:10)
[2019-02-15] MEDS: HEPARIN NA (PORCINE) 5,000 UNITS/ML 1ML VIAL SQ SCH ×2 (10:10→21:41)
[2019-02-15] MEDS: DORZOLAMIDE 2% HCL OPHTHALMIC SOLUTION 10 ML BOTTLE OS SCH ×2 (10:11→21:41)
[2019-02-15] MEDS: NYSTATIN 100,000 UNIT/GM TOPICAL CREAM 15 GM TUBE TP SCH ×2 (10:53→21:41)
[2019-02-15] MEDS ORDERED: MEROPENEM 1 GM in DEXTROSE 5%-WATER 100 ML IVPB ONE (11:00)
[2019-02-15] MEDS ORDERED: MEROPENEM 1 GM VIAL (RESTRICTED TO ID) IVPB ONE ×2 (11:15→21:24)
[2019-02-15] MEDS ORDERED: DEXTROSE 5%-WATER 100 ML IVPB ONE ×2 (11:15→21:24)
--- NOTE | 2019-02-15 11:23 | PN ---
Progress Note, Physician Chief Complaint: patient is lethargic on exam, unable to participate on ROS appears comfortable at rest. on supplemental oxygen, will discontinue and evaluate his oxygen on room air in no acute distress will have speech and swallow evaluate for dietary recomendatins and prevent aspiration 2/2 to AMS. History of Present Illness: [employer] coverage for Dr Putnam Patient is an 83 yo male with a past medical history of parkinson's disease w/ advanced dementia, HTN, HLD, hypothyroidism, CAD s/p stents, colon cancer, and recent admission 01/03-01/16 for uro-sepsis. He presents to the ED via ambulance after his FURNACE ROOM SUPERVISOR noted that patient was less responsive and having some difficulty breathing. - Current Medication List Current Medications: Active Medications Amlodipine Besylate (Norvasc -) 5 mg PO DAILY [facility] Last Admin: 02/15/19 10:10 Dose: 5 mg Carbidopa/Levodopa (Sinemet *Cr* 25/100 -) 1 combo PO TID@0700,1200,1700 [facility] Last Admin: 02/15/19 06:17 Dose: 1 combo Dorzolamide HCl (Trusopt 2%) 1 drop OS BID [facility] Last Admin: 02/15/19 10:11 Dose: 1 drop Heparin Sodium (Porcine) (Heparin -) 5,000 unit SQ BID [facility] Last Admin: 02/15/19 10:10 Dose: 5,000 unit Meropenem 500 mg/ Dextrose 100 mls @ 200 mls/hr IVPB BID [facility] Meropenem 1 gm/ Dextrose 100 mls @ 200 mls/hr IVPB ONCE ONE Stop: 02/15/19 11:29 Levothyroxine Sodium (Synthroid -) 50 mcg PO ACBK [facility] Last Admin: 02/15/19 06:17 Dose: 50 mcg Magnesium Hydroxide (Milk Of Magnesia -) 30 ml PO DAILY PRN PRN Reason: CONSTIPATION Nystatin (Mycostatin Cream -) 1 applic TP BID [facility] Last Admin: 02/15/19 10:53 Dose: 1 applic Polyethylene Glycol (Miralax (For Daily Use) -) 17 gm PO DAILY PRN PRN Reason: CONSTIPATION Rosuvastatin Calcium (Crestor -) 10 mg PO HS [facility] Last Admin: 02/14/19 21:17 Dose: 10 mg - Objective Vital Signs: Vital Signs Temperature 98.5 F 02/15/19 10:42 Pulse Rate 82 05/31/19 10:42 Respiratory Rate 18 02/15/19 10:42 Blood Pressure 161/85 02/15/19 10:42 O2 Sat by Pulse Oximetry (%) 97 02/14/19 21:00 Constitutional: Yes: No Distress, Calm, Cachectic Eyes: Yes: WNL HENT: Yes: WNL Neck: Yes: WNL Cardiovascular: Yes: Regular Rate and Rhythm Respiratory: Yes: Diminished Gastrointestinal: Yes: Normal Bowel Sounds, Soft ...Rectal Exam: Yes: Deferred Genitourinary: Yes: Hancock Present Musculoskeletal: Yes: Muscle Weakness Extremities: Yes: WNL Edema: No Peripheral Pulses WNL: No Integumentary: Yes: WNL Neurological: Yes: Lethargy Psychiatric: Yes: Other Labs: CBC, BMP 02/15/19 07:15 02/15/19 07:15 INR, PTT INR 1.01 (0.83-1.09) 02/13/19 17:35 Problem List - Problems (1) Complicated UTI (urinary tract infection) Assessment/Plan: Acute metabolic encephalopathy in the setting of acute UTI. Per labs, UA showed +2 protein with trace ketones, +3 Leukocyte est, +2 blood, + nitrates, WBC 1197, bacteria 2893 Urine culture collected and pending final identification of bacteria. Patient with history of complicated UTI in the past with chronic hancock. On meropenem per ID. Monitor mental status in the the setting of acute uti. await cultures. Code(s): N39.0 - URINARY TRACT INFECTION, SITE NOT SPECIFIED (2) Parkinson disease Assessment/Plan: Patient follows Dr. Friedman for advanced Parkinsons disease. Neurology following, notes reviewed. Continue Sinemet at current dose. Maintain aspiration precautions. Code(s): G20 - PARKINSON'S DISEASE (3) Weakness Assessment/Plan: Weakness in the setting of acute infection, possibly UTI. Damico cultured. Monitor weakness. unknown ambulatory baseline, will order PT Code(s): R53.1 - WEAKNESS (4) Acute metabolic encephalopathy Assessment/Plan: Monitor mental status in the setting of acute infection Code(s): G93.41 - METABOLIC ENCEPHALOPATHY (5) Requires aspiration precautions Assessment/Plan: on a pureed diet, will order swallow evaluation to prevent aspiration precautions as he he lethargic and has advanced parkinsons disease. For now cotinue dysphagia pureed and honey thick fluids. Code(s): Z91.89 - OTH PERSONAL RISK FACTORS, NOT ELSEWHERE CLASSIFIED (6) Prophylactic measure Assessment/Plan: fen dysphagia pureed dietary consult for supplements monitor electrolytes daily prophy heparin bid Code(s): Z29.9 - ENCOUNTER FOR PROPHYLACTIC MEASURES, UNSPECIFIED Visit type - Emergency Visit Emergency Visit: Yes ED Registration Date: 02/13/19 Care time: The patient presented to the Emergency Department on the above date and was hospitalized for further evaluation of their emergent condition. - New Patient This patient is new to me today: No - Critical Care Critical Care patient: No - Discharge Referral Referred to [facility] Med P.C.: No
[2019-02-15] MEDS ORDERED: SODIUM CHLORIDE 1,000 ML IV SCH (12:00)
--- NOTE | 2019-02-15 12:29 | PN ---
Progress Note, Physician History of Present Illness: stable with the patient responds when calling his name - Current Medication List Current Medications: Active Medications Amlodipine Besylate (Norvasc -) 5 mg PO DAILY [facility] Last Admin: 02/15/19 10:10 Dose: 5 mg Carbidopa/Levodopa (Sinemet *Cr* 25/100 -) 1 combo PO TID@0700,1200,1700 [facility] Last Admin: 02/15/19 06:17 Dose: 1 combo Dorzolamide HCl (Trusopt 2%) 1 drop OS BID [facility] Last Admin: 02/15/19 10:11 Dose: 1 drop Heparin Sodium (Porcine) (Heparin -) 5,000 unit SQ BID [facility] Last Admin: 02/15/19 10:10 Dose: 5,000 unit Sodium Chloride (Normal Saline -) 1,000 mls @ 42 mls/hr IV ASDIR [facility] Meropenem 1 gm/ Dextrose 100 mls @ 200 mls/hr IVPB Q8H-IV [facility] Levothyroxine Sodium (Synthroid -) 50 mcg PO ACBK [facility] Last Admin: 02/15/19 06:17 Dose: 50 mcg Magnesium Hydroxide (Milk Of Magnesia -) 30 ml PO DAILY PRN PRN Reason: CONSTIPATION Nystatin (Mycostatin Cream -) 1 applic TP BID [facility] Last Admin: 02/15/19 10:53 Dose: 1 applic Polyethylene Glycol (Miralax (For Daily Use) -) 17 gm PO DAILY PRN PRN Reason: CONSTIPATION Rosuvastatin Calcium (Crestor -) 10 mg PO HS [facility] Last Admin: 02/14/19 21:17 Dose: 10 mg - Objective Vital Signs: Vital Signs Temperature 98.5 F 02/15/19 10:42 Pulse Rate 82 02/15/19 10:42 Respiratory Rate 18 02/15/19 10:42 Blood Pressure 161/85 02/15/19 10:42 O2 Sat by Pulse Oximetry (%) 97 02/14/19 21:00 Constitutional: Yes: No Distress, Calm, Other (eyes closed) HENT: Yes: Atraumatic Cardiovascular: Yes: S1, S2 Respiratory: Yes: Regular, CTA Bilaterally, On Nasal O2 Gastrointestinal: Yes: Normal Bowel Sounds, Soft Extremities: Yes: WNL Neurological: Yes: Alert, Other (not opening the eyes) Labs: CBC, BMP 02/15/19 07:15 02/15/19 07:15 INR, PTT INR 1.01 (0.83-1.09) 02/13/19 17:35 Assessment/Plan Problem List - Problems (1) Complicated UTI (urinary tract infection) Code(s): N39.0 - URINARY TRACT INFECTION, SITE NOT SPECIFIED (2) Unresponsive episode Code(s): R41.89 - OTH SYMPTOMS AND SIGNS W COGNITIVE FUNCTIONS AND AWARENESS (3) Parkinson disease Code(s): G20 - PARKINSON'S DISEASE (4) Dementia Code(s): F03.90 - UNSPECIFIED DEMENTIA WITHOUT BEHAVIORAL DISTURBANCE (5) CAD (coronary artery disease) Code(s): I25.10 - ATHSCL HEART DISEASE OF [place] CORONARY ARTERY W/O ANG PCTRS Qualifiers: Coronary Disease-Associated Artery/Lesion type: [place] artery [place] vs. transplanted heart: [place] heart Associated angina: without angina Qualified Code(s): I25.10 - Atherosclerotic heart disease of [place] coronary artery without angina pectoris (6) Hypercholesteremia Code(s): E78.00 - PURE HYPERCHOLESTEROLEMIA, UNSPECIFIED (7) Hypertension Code(s): I10 - ESSENTIAL (PRIMARY) HYPERTENSION Qualifiers: Hypertension type: essential hypertension Qualified Code(s): I10 - Essential (primary) hypertension (8) Hypothyroidism Code(s): E03.9 - HYPOTHYROIDISM, UNSPECIFIED Assessment/Plan This is a 83 y/o man with a PMHx of Parkinson's, Dementia, HTN, HLD, COPD, CAD, [place] s/p Stent's, Depression, OA, Colon Ca s/p Colectomy. Admitted for Complicated UTI, continue current mgmt await for identification of the bacteria rest as per the team ct of the head noted rest as per the team
--- NOTE | 2019-02-15 13:27 | CONSULT ---
Admitting History and Physical - Primary Care Physician PCP: Bismark Mujica - Admission History of Present Illness: Patient is an 83 yo male with a past medical history of parkinson's disease w/ advanced dementia, HTN, HLD, hypothyroidism, CAD s/p stents, colon cancer, and recent admission 01/03-01/16 for uro-sepsis. He presents to the ED via ambulance after his DIGITAL COLOR PRESS OPERATOR noted that patient was less responsive and having some difficulty breathing. Selected Entries 02/14/19 02/14/19 02/14/19 00:00 02:00 06:00 Breakfast Diet Tolerated Lunch Supper Temperature 98.2 F 97.8 F 97.6 F 02/14/19 02/14/19 02/14/19 10:16 12:26 14:45 Breakfast 75% Diet Tolerated Poor Poor Lunch 75% Supper Temperature 97.8 F 98.2 F 02/14/19 02/15/19 02/15/19 18:33 06:00 09:06 Breakfast 25% Diet Tolerated Fair Poor Lunch Supper 75% Temperature 97.4 F L 98.2 F 02/15/19 10:42 Breakfast Diet Tolerated Lunch Supper Temperature 98.5 F Laboratory Tests 02/15/19 07:15 WBC 6.9 Eyes closed. Slow to respond. Confused. Seen last by me in 2014, confused, distractible, intermittent cough on thin liquids sec to distractibility. 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 No: Current Chemotherapy, Current Radiation Therapy, Hemochromatosis, Hypercoaguable State, Sickle Cell Trait Psych: Yes: Depression Musculoskeletal: Yes: Osteoarthritis Endocrine: Yes: Hypothyroidism - Past Surgical History Past Surgical History: Yes: Colectomy, Joint Replacement (R THR) - Smoking History Smoking history: Never smoked Have you smoked in the past 12 months: No If you are a former smoker, when did you quit?: 50YRS AGO - Alcohol/Substance Use Hx Alcohol Use: No History of Substance Use: reports: None - Social History ADL: Family Assistance Occupation: originally from [facility] [place] 17 years History of Recent Travel: No History - Admission Reason For Visit: UTI - Diagnostics X-ray: Report Reviewed CT Scan: Report Reviewed - General Mental Status: Confused Attention: Moderate Impairment (eyes closed with delayed response) Head/Neck Control: Fair - Hearing Hearing: Normal Speech Evaluation - Communication Primary Language: ALBANIAN Communication: Yes: Simple Responses Oral Expression Ability: Yes: Mild Impairment - Speech Production Intelligibility: Yes: Mildly Impaired - Speech Characteristics Voice Loudness: Normal Voice Pitch: Yes: Normal Voice Phonatory-based Quality: Yes: Dysphonia Speech Clarity: < 75% Articulation: Yes: Imprecise - Language/Verbal Expression Functional Communication Status: Yes: Mildly Impaired - Swallow Evaluation/Bedside Assessment Current Nutritional Intake: Dysphagia Pureed, Elias-Fela Solis Textured Liquids Oral Secretions: Yes: WFL Dentition: Yes: Missing Teeth Facial Symmetry at Rest: Symmetrical Against Resistance Opening: Weak Against Resistance Closing: Weak Lingual Speed of Movement: Reduced Lingual Movement Strgth Against Opposition: Reduced Laryngeal Elevation: Impaired Laryngeal Movement: Reduced Excursion, Labored,delay initiation, Reduced Velocity Rate of Intake: Slow/Holding Bolus Size: Small Labial Seal: WFL Chewing: Impaired Oral Prep Time: Increased A-P Transit: Impaired Timing of Swallow: Delayed Coughing/Throat Clear: No Change in Voice: No Recommendations - Speech Evaluation, Impression/Plan Impression: Very delayed swallow onset with reduced excursion and velocity of movement, with risk of aspiration/stasis in pharynx. Verbal in Ukranian. Maintains eyes closed. - Dysphagia Impressions/Plan Swallowing Skills: Impaired Dysphagia Impressions: Mild Impairment, Moderate Impairment, Risk of Aspiration *Silent aspiration: cannot be R/O at bedside Dysphagia Treatment Plan: Small Bites, Chin Tuck/Down, Clear Pocket Food, Facilitative Feeding, Safe Rate (SLOW-wait for swallow reflex.), 1/2 tsp. at a time, Elevate HOB during feed, Other ( Alternate puree with liquid) Recommendations: Modified Barium Swallow (if cough/congested, NPO until MBS done.) - Recommendations Diet Consistency: Dysphagia Pureed Medication Administration: Crushed with applesauce Liquids: Elias-Fela Solis Thick Supplement: Magic Cup, Ensure Pudding, Other (2 cortez HN)
[2019-02-15 15:07] VITALS: BMI 20.8
[2019-02-15] MEDS: ROSUVASTATIN CA 10 MG TABLET (FP) PO SCH (21:41)
[2019-02-15] MEDS ORDERED: DOCUSATE SODIUM 100 MG CAPSULE (FP) PO SCH (22:00)
[2019-02-15] MEDS: MEROPENEM 1 GM in DEXTROSE 5%-WATER 100 ML IVPB SCH (22:35)
[2019-02-15] MEDS: DOCUSATE NA 100 MG/10 ML UNIT-DOSE CUPS PO SCH (22:35)
[2019-02-16] MEDS ORDERED: PT OWN MED DRAWER 7, Y5N ONE ×2 (05:18→06:29)
[2019-02-16] MEDS: DOCUSATE NA 100 MG/10 ML UNIT-DOSE CUPS PO SCH ×3 (06:19→22:30)
[2019-02-16] MEDS: LEVOTHYROXINE NA 50 MCG TABLET (FP) PO SCH (06:19)
--- NOTE | 2019-02-16 08:56 | PN ---
Progress Note, Physician Chief Complaint: patient is lethargic on exam, unable to participate on ROS appears comfortable at rest. tolerating room air in no acute distress, i fed him some applesauce and he swallowed it without difficulty and did not cough. he is eating well. seen by speech and swallow and dysphagia diet with nectar thickened fluids recommended to avoid aspiration. History of Present Illness: Patient is an 83 yo male with a past medical history of parkinson's disease w/ advanced dementia, HTN, HLD, hypothyroidism, CAD s/p stents, colon cancer, and recent admission 01/03-01/16 for uro-sepsis. He presents to the ED via ambulance after his BAKERY CHEF noted that patient was less responsive and having some difficulty breathing. - Current Medication List Current Medications: Active Medications Amlodipine Besylate (Norvasc -) 5 mg PO DAILY [facility] Last Admin: 02/15/19 10:10 Dose: 5 mg Carbidopa/Levodopa (Sinemet *Cr* 25/100 -) 1 combo PO TID@0700,1200,1700 [facility] Last Admin: 02/16/19 06:19 Dose: 1 combo Docusate Sodium (Colace Liquid -) 100 mg PO TID [facility] Last Admin: 02/16/19 06:19 Dose: 100 mg Dorzolamide HCl (Trusopt 2%) 1 drop OS BID [facility] Last Admin: 02/15/19 21:41 Dose: 1 drop Heparin Sodium (Porcine) (Heparin -) 5,000 unit SQ BID [facility] Last Admin: 02/15/19 21:41 Dose: 5,000 unit Sodium Chloride (Normal Saline -) 1,000 mls @ 42 mls/hr IV ASDIR [facility] Last Admin: 02/15/19 12:50 Dose: 42 mls/hr Meropenem 1 gm/ Dextrose 100 mls @ 200 mls/hr IVPB Q12H [facility] Last Admin: 02/15/19 22:35 Dose: 200 mls/hr Levothyroxine Sodium (Synthroid -) 50 mcg PO ACBK [facility] Last Admin: 02/16/19 06:19 Dose: 50 mcg Magnesium Hydroxide (Milk Of Magnesia -) 30 ml PO DAILY PRN PRN Reason: CONSTIPATION Nystatin (Mycostatin Cream -) 1 applic TP BID [facility] Last Admin: 02/15/19 21:41 Dose: 1 applic Polyethylene Glycol (Miralax (For Daily Use) -) 17 gm PO DAILY PRN PRN Reason: CONSTIPATION Rosuvastatin Calcium (Crestor -) 10 mg PO HS [facility] Last Admin: 02/15/19 21:41 Dose: 10 mg - Objective Vital Signs: Vital Signs Temperature 97.9 F 02/16/19 06:00 Pulse Rate 70 02/16/19 06:00 Respiratory Rate 20 02/16/19 06:00 Blood Pressure 156/85 02/16/19 06:00 O2 Sat by Pulse Oximetry (%) 100 02/15/19 21:00 Constitutional: Yes: No Distress, Calm Eyes: Yes: WNL HENT: Yes: Atraumatic Neck: Yes: WNL Cardiovascular: Yes: Regular Rate and Rhythm Respiratory: Yes: Regular, CTA Bilaterally Gastrointestinal: Yes: Normal Bowel Sounds, Soft ...Rectal Exam: Yes: Deferred Genitourinary: Yes: WNL Breast(s): Yes: WNL Musculoskeletal: Yes: Joint Stiffness, Muscle Weakness Integumentary: Yes: WNL Neurological: Yes: Lethargy Labs: INR, PTT INR 1.01 (0.83-1.09) 02/13/19 17:35 Problem List - Problems (1) Complicated UTI (urinary tract infection) Assessment/Plan: Acute metabolic encephalopathy in the setting of acute UTI. Per labs, UA showed +2 protein with trace ketones, +3 Leukocyte est, +2 blood, + nitrates, WBC 1197, bacteria 2893 Urine culture with ecoli. Patient with history of complicated UTI in the past with chronic hancock. On meropenem per ID. Monitor mental status in the the setting of acute uti. await cultures. Code(s): N39.0 - URINARY TRACT INFECTION, SITE NOT SPECIFIED (2) Parkinson disease Assessment/Plan: Patient follows Dr. Friedman for advanced Parkinsons disease. Neurology following, notes reviewed. Continue Sinemet at current dose. Maintain aspiration precautions. Code(s): G20 - PARKINSON'S DISEASE (3) Weakness Assessment/Plan: Weakness in the setting of acute infection. Damico cultured. Monitor weakness. unknown ambulatory baseline, will order PT Code(s): R53.1 - WEAKNESS (4) Acute metabolic encephalopathy Assessment/Plan: Monitor mental status. head ct negative for acute process. Being ruled out for acute infection. Code(s): G93.41 - METABOLIC ENCEPHALOPATHY (5) Prophylactic measure Assessment/Plan: fen dysphagia pureed dietary consult for supplements monitor electrolytes daily prophy heparin bid Code(s): Z29.9 - ENCOUNTER FOR PROPHYLACTIC MEASURES, UNSPECIFIED (6) Requires aspiration precautions Assessment/Plan: on a pureed diet, will order swallow evaluation to prevent aspiration precautions as he he lethargic and has advanced parkinsons disease. For now cotinue dysphagia pureed and honey thick fluids. Code(s): Z91.89 - OTH PERSONAL RISK FACTORS, NOT ELSEWHERE CLASSIFIED Visit type - Emergency Visit Emergency Visit: Yes ED Registration Date: 02/13/19 Care time: The patient presented to the Emergency Department on the above date and was hospitalized for further evaluation of their emergent condition. - New Patient This patient is new to me today: No - Critical Care Critical Care patient: No - Discharge Referral Referred to [facility] Med P.C.: No
[2019-02-16 09:00] LABS: BASO % 0.9 % (0-2.0); EOS % 2.5 % (0-4.5); HEMOGLOBIN 11.8 GM/dL (11.7-16.9); LYMPH % 16.1 % (8-40); MCH 29.9 pg (25.7-33.7); MCHC 32.9 g/dl (32.0-35.9); MEAN CELL VOLUME 90.8 fl (80-96); MEAN PLT VOLUME 9.3 fl (7.5-11.1); MONO % 6.8 % (3.8-10.2); NEUT % 73.7 % (42.8-82.8); PLATELET COUNT 246 K/MM3 (134-434); RBC 3.96 M/mm3 (4.00-5.60); RDW 15.8 % (11.9-15.9); WHITE BLOOD COUNT 7.2 K/mm3 (4.0-10.0)
[2019-02-16 09:07] LABS: ALBUMIN 3.2 g/dl (3.4-5.0); BILIRUBIN,TOTAL 0.4 mg/dL (0.2-1); CALCIUM 8.9 mg/dL (8.5-10.1); CREATININE 1.1 mg/dL (0.55-1.3); MAGNESIUM 2.7 mg/dL (1.8-2.4); POTASSIUM 4.3 mmol/L (3.5-5.1); TOT PROT 6.5 g/dl (6.4-8.2)
--- NOTE | 2019-02-16 09:49 | PN ---
Progress Note, Physician - Current Medication List Current Medications: Active Medications Amlodipine Besylate (Norvasc -) 5 mg PO DAILY [facility] Last Admin: 02/15/19 10:10 Dose: 5 mg Carbidopa/Levodopa (Sinemet *Cr* 25/100 -) 1 combo PO TID@0700,1200,1700 [facility] Last Admin: 02/16/19 06:19 Dose: 1 combo Docusate Sodium (Colace Liquid -) 100 mg PO TID [facility] Last Admin: 02/16/19 06:19 Dose: 100 mg Dorzolamide HCl (Trusopt 2%) 1 drop OS BID [facility] Last Admin: 02/15/19 21:41 Dose: 1 drop Heparin Sodium (Porcine) (Heparin -) 5,000 unit SQ BID [facility] Last Admin: 02/15/19 21:41 Dose: 5,000 unit Meropenem 1 gm/ Dextrose 100 mls @ 200 mls/hr IVPB Q12H [facility] Last Admin: 02/15/19 22:35 Dose: 200 mls/hr Levothyroxine Sodium (Synthroid -) 50 mcg PO ACBK [facility] Last Admin: 02/16/19 06:19 Dose: 50 mcg Magnesium Hydroxide (Milk Of Magnesia -) 30 ml PO DAILY PRN PRN Reason: CONSTIPATION Nystatin (Mycostatin Cream -) 1 applic TP BID [facility] Last Admin: 02/15/19 21:41 Dose: 1 applic Polyethylene Glycol (Miralax (For Daily Use) -) 17 gm PO DAILY PRN PRN Reason: CONSTIPATION Rosuvastatin Calcium (Crestor -) 10 mg PO HS [facility] Last Admin: 02/15/19 21:41 Dose: 10 mg - Objective Vital Signs: Vital Signs Temperature 97.9 F 02/16/19 06:00 Pulse Rate 70 02/16/19 06:00 Respiratory Rate 20 02/16/19 06:00 Blood Pressure 156/85 02/16/19 06:00 O2 Sat by Pulse Oximetry (%) 100 02/15/19 21:00 Labs: CBC, BMP 02/16/19 06:00 02/16/19 06:00 INR, PTT INR 1.01 (0.83-1.09) 02/13/19 17:35
[2019-02-16] MEDS ORDERED: MEROPENEM 1 GM VIAL (RESTRICTED TO ID) IVPB ONE ×2 (10:17→23:03)
[2019-02-16] MEDS ORDERED: DEXTROSE 5%-WATER 100 ML IVPB ONE ×2 (10:17→23:04)
[2019-02-16] MEDS: MEROPENEM 1 GM in DEXTROSE 5%-WATER 100 ML IVPB SCH ×2 (10:30→23:08)
[2019-02-16] MEDS: HEPARIN NA (PORCINE) 5,000 UNITS/ML 1ML VIAL SQ SCH ×2 (10:31→22:30)
[2019-02-16] MEDS: amLODIPine BESYLATE 5 MG TABLET (FP) PO SCH (10:31)
[2019-02-16] MEDS: DORZOLAMIDE 2% HCL OPHTHALMIC SOLUTION 10 ML BOTTLE OS SCH ×2 (10:34→22:59)
[2019-02-16] MEDS: NYSTATIN 100,000 UNIT/GM TOPICAL CREAM 15 GM TUBE TP SCH ×2 (11:29→22:58)
[2019-02-16 13:02] LABS: PLATELET ESTIMATE ADEQUATE
[2019-02-16] MEDS: ROSUVASTATIN CA 10 MG TABLET (FP) PO SCH (22:31)
[2019-02-17] MEDS: DOCUSATE NA 100 MG/10 ML UNIT-DOSE CUPS PO SCH ×3 (06:15→23:29)
[2019-02-17] MEDS ORDERED: PT OWN MED DRAWER 7, Y5N ONE (06:19)
[2019-02-17] MEDS: LEVOTHYROXINE NA 50 MCG TABLET (FP) PO SCH (06:21)
--- NOTE | 2019-02-17 07:46 | PN ---
Progress Note, Physician Chief Complaint: patient is lethargic on exam but arousable, unable to participate on ROS. appears comfortable at rest. tolerating room air in no acute distress, he is eating well, but is a total feed, total care. seen by speech and swallow and dysphagia diet with nectar thickened fluids recommended to avoid aspiration. Seen by ID and antibiotics switched to Ceftriaxone. History of Present Illness: [facility] coverage for Dr. Putnam Patient is an 83 yo male with a past medical history of parkinson's disease w/ advanced dementia, HTN, HLD, hypothyroidism, CAD s/p stents, colon cancer, and recent admission 01/03-01/16 for uro-sepsis. He presents to the ED via ambulance after his MANAGER STATISTICS noted that patient was less responsive and having some difficulty breathing. - Current Medication List Current Medications: Active Medications Amlodipine Besylate (Norvasc -) 5 mg PO DAILY [facility] Last Admin: 02/16/19 10:31 Dose: 5 mg Carbidopa/Levodopa (Sinemet *Cr* 25/100 -) 1 combo PO TID@0700,1200,1700 [facility] Last Admin: 02/17/19 06:21 Dose: 1 combo Docusate Sodium (Colace Liquid -) 100 mg PO TID [facility] Last Admin: 02/17/19 06:15 Dose: 100 mg Dorzolamide HCl (Trusopt 2%) 1 drop OS BID [facility] Last Admin: 02/16/19 22:59 Dose: 1 drop Heparin Sodium (Porcine) (Heparin -) 5,000 unit SQ BID [facility] Last Admin: 02/16/19 22:30 Dose: 5,000 unit Meropenem 1 gm/ Dextrose 100 mls @ 200 mls/hr IVPB Q12H [facility] Last Admin: 02/16/19 23:08 Dose: 200 mls/hr Levothyroxine Sodium (Synthroid -) 50 mcg PO ACBK [facility] Last Admin: 02/17/19 06:21 Dose: 50 mcg Magnesium Hydroxide (Milk Of Magnesia -) 30 ml PO DAILY PRN PRN Reason: CONSTIPATION Nystatin (Mycostatin Cream -) 1 applic TP BID [facility] Last Admin: 02/16/19 22:58 Dose: 1 applic Polyethylene Glycol (Miralax (For Daily Use) -) 17 gm PO DAILY PRN PRN Reason: CONSTIPATION Rosuvastatin Calcium (Crestor -) 10 mg PO HS [facility] Last Admin: 02/16/19 22:31 Dose: 10 mg - Objective Vital Signs: Vital Signs Temperature 97.5 F L 02/17/19 06:00 Pulse Rate 70 02/17/19 06:00 Respiratory Rate 18 02/17/19 06:00 Blood Pressure 158/90 02/17/19 06:00 O2 Sat by Pulse Oximetry (%) 100 02/16/19 09:00 Constitutional: Yes: Well Nourished, No Distress, Calm Eyes: Yes: WNL HENT: Yes: WNL Neck: Yes: WNL Cardiovascular: Yes: Regular Rate and Rhythm Respiratory: Yes: WNL, Diminished Gastrointestinal: Yes: Normal Bowel Sounds ...Rectal Exam: Yes: Deferred Genitourinary: Yes: WNL Musculoskeletal: Yes: WNL Extremities: Yes: WNL Edema: No Integumentary: Yes: WNL Neurological: Yes: WNL, Lethargy ...Motor Strength: WNL Psychiatric: Yes: WNL Labs: CBC, BMP 02/16/19 06:00 02/16/19 06:00 INR, PTT INR 1.01 (0.83-1.09) 02/13/19 17:35 Problem List - Problems (1) Complicated UTI (urinary tract infection) Assessment/Plan: Acute metabolic encephalopathy in the setting of acute UTI. Per labs, UA showed +2 protein with trace ketones, +3 Leukocyte est, +2 blood, + nitrates, WBC 1197, bacteria 2893 Urine culture with ecoli. Patient with history of complicated UTI in the past with chronic hancock. Patiient was on meropenem, now on ceftriaxone per ID. Monitor mental status in the the setting of acute uti. Code(s): N39.0 - URINARY TRACT INFECTION, SITE NOT SPECIFIED (2) Parkinson disease Assessment/Plan: Patient follows Dr. Friedman for advanced Parkinsons disease. Neurology following, notes reviewed. Continue Sinemet at current dose. Maintain aspiration precautions. Code(s): G20 - PARKINSON'S DISEASE (3) Weakness Assessment/Plan: Weakness in the setting of acute infection. Damico cultured. Monitor weakness. unknown ambulatory baseline, will order PT Code(s): R53.1 - WEAKNESS (4) Acute metabolic encephalopathy Assessment/Plan: Monitor mental status. head ct negative for acute process. Code(s): G93.41 - METABOLIC ENCEPHALOPATHY (5) Requires aspiration precautions Assessment/Plan: on a pureed diet, per speech and swallow, maintain aspiration precautions and continue on dysphagia pureed and nectar thick fluids. Code(s): Z91.89 - OTH PERSONAL RISK FACTORS, NOT ELSEWHERE CLASSIFIED (6) Prophylactic measure Assessment/Plan: fen dysphagia pureed dietary consult for supplements monitor electrolytes daily prophy heparin bid Code(s): Z29.9 - ENCOUNTER FOR PROPHYLACTIC MEASURES, UNSPECIFIED Visit type - Emergency Visit Emergency Visit: Yes ED Registration Date: 02/13/19 Care time: The patient presented to the Emergency Department on the above date and was hospitalized for further evaluation of their emergent condition. - New Patient This patient is new to me today: No - Critical Care Critical Care patient: No - Discharge Referral Referred to [facility] Med P.C.: No
[2019-02-17 09:41] LABS: BASO % 0.9 % (0-2.0); EOS % 2.9 % (0-4.5); HEMATOCRIT 32.8 % (35.4-49); LYMPH % 17.8 % (8-40); MCH 30.3 pg (25.7-33.7); MCHC 33.5 g/dl (32.0-35.9); MEAN CELL VOLUME 90.3 fl (80-96); MONO % 8.5 % (3.8-10.2); NEUT % 69.9 % (42.8-82.8); PLATELET COUNT 254 K/MM3 (134-434); RBC 3.63 M/mm3 (4.00-5.60)
[2019-02-17 10:30] LABS: ALBUMIN 3.2 g/dl (3.4-5.0); BILIRUBIN,TOTAL 0.3 mg/dL (0.2-1); CALCIUM 8.6 mg/dL (8.5-10.1); MAGNESIUM 2.6 mg/dL (1.8-2.4); POTASSIUM 4.2 mmol/L (3.5-5.1); TOT PROT 6.5 g/dl (6.4-8.2)
[2019-02-17] MEDS ORDERED: MEROPENEM 1 GM VIAL (RESTRICTED TO ID) IVPB ONE (11:31)
[2019-02-17] MEDS ORDERED: DEXTROSE 5%-WATER 100 ML IVPB ONE (11:31)
[2019-02-17] MEDS: MEROPENEM 1 GM in DEXTROSE 5%-WATER 100 ML IVPB SCH (11:52)
[2019-02-17] MEDS: amLODIPine BESYLATE 5 MG TABLET (FP) PO SCH (11:53)
[2019-02-17] MEDS: HEPARIN NA (PORCINE) 5,000 UNITS/ML 1ML VIAL SQ SCH ×2 (11:53→23:29)
[2019-02-17] MEDS: NYSTATIN 100,000 UNIT/GM TOPICAL CREAM 15 GM TUBE TP SCH ×2 (11:53→23:30)
[2019-02-17] MEDS: DORZOLAMIDE 2% HCL OPHTHALMIC SOLUTION 10 ML BOTTLE OS SCH ×2 (11:59→23:30)
--- NOTE | 2019-02-17 14:12 | PN ---
Progress Note, Physician History of Present Illness: stable no complaints - Current Medication List Current Medications: Active Medications Amlodipine Besylate (Norvasc -) 5 mg PO DAILY [facility] Last Admin: 02/17/19 11:53 Dose: 5 mg Carbidopa/Levodopa (Sinemet *Cr* 25/100 -) 1 combo PO TID@0700,1200,1700 [facility] Last Admin: 02/17/19 11:59 Dose: 1 combo Docusate Sodium (Colace Liquid -) 100 mg PO TID [facility] Last Admin: 02/17/19 06:15 Dose: 100 mg Dorzolamide HCl (Trusopt 2%) 1 drop OS BID [facility] Last Admin: 02/17/19 11:59 Dose: 1 drop Heparin Sodium (Porcine) (Heparin -) 5,000 unit SQ BID [facility] Last Admin: 02/17/19 11:53 Dose: 5,000 unit Levothyroxine Sodium (Synthroid -) 50 mcg PO ACBK [facility] Last Admin: 02/17/19 06:21 Dose: 50 mcg Magnesium Hydroxide (Milk Of Magnesia -) 30 ml PO DAILY PRN PRN Reason: CONSTIPATION Nystatin (Mycostatin Cream -) 1 applic TP BID [facility] Last Admin: 02/17/19 11:53 Dose: 1 applic Polyethylene Glycol (Miralax (For Daily Use) -) 17 gm PO DAILY PRN PRN Reason: CONSTIPATION Rosuvastatin Calcium (Crestor -) 10 mg PO HS [facility] Last Admin: 02/16/19 22:31 Dose: 10 mg - Objective Vital Signs: Vital Signs Temperature 98 F 02/17/19 12:00 Pulse Rate 70 02/17/19 12:00 Respiratory Rate 19 02/17/19 12:00 Blood Pressure 142/70 02/17/19 12:00 O2 Sat by Pulse Oximetry (%) 100 02/16/19 09:00 Constitutional: Yes: No Distress, Calm Cardiovascular: Yes: S1, S2 Gastrointestinal: Yes: Normal Bowel Sounds, Soft Musculoskeletal: Yes: WNL Extremities: Yes: Other Neurological: Yes: Other Psychiatric: Yes: Other Labs: CBC, BMP 02/17/19 09:20 02/17/19 09:20 INR, PTT INR 1.01 (0.83-1.09) 02/13/19 17:35 Assessment/Plan Problem List - Problems (1) Complicated UTI (urinary tract infection) Code(s): N39.0 - URINARY TRACT INFECTION, SITE NOT SPECIFIED (2) Unresponsive episode Code(s): R41.89 - OTH SYMPTOMS AND SIGNS W COGNITIVE FUNCTIONS AND AWARENESS (3) Parkinson disease Code(s): G20 - PARKINSON'S DISEASE (4) Dementia Code(s): F03.90 - UNSPECIFIED DEMENTIA WITHOUT BEHAVIORAL DISTURBANCE (5) CAD (coronary artery disease) Code(s): I25.10 - ATHSCL HEART DISEASE OF [place] CORONARY ARTERY W/O ANG PCTRS Qualifiers: Coronary Disease-Associated Artery/Lesion type: [place] artery Hoh vs. transplanted heart: [place] heart Associated angina: without angina Qualified Code(s): I25.10 - Atherosclerotic heart disease of [place] coronary artery without angina pectoris (6) Hypercholesteremia Code(s): E78.00 - PURE HYPERCHOLESTEROLEMIA, UNSPECIFIED (7) Hypertension Code(s): I10 - ESSENTIAL (PRIMARY) HYPERTENSION Qualifiers: Hypertension type: essential hypertension Qualified Code(s): I10 - Essential (primary) hypertension (8) Hypothyroidism Code(s): E03.9 - HYPOTHYROIDISM, UNSPECIFIED Assessment/Plan This is a 83 y/o man with a PMHx of Parkinson's, Dementia, HTN, HLD, COPD, CAD, AR s/p Stent's, Depression, OA, Colon Ca s/p Colectomy. Admitted for Complicated UTI, continue current mgmt will switch to ceftriaxone continue current mgmt nutrition
[2019-02-17] MEDS ORDERED: DEXTROSE 5%-WATER - 50 ML IVPB ONE (18:11)
[2019-02-17] MEDS ORDERED: cefTRIAXone SODIUM 1 GM VIAL ONE (18:11)
[2019-02-17] MEDS: CEFTRIAXONE 1 GM in DEXTROSE 5%-WATER - 50 ML IVPB SCH (18:30)
[2019-02-17] MEDS: ROSUVASTATIN CA 10 MG TABLET (FP) PO SCH (23:29)
[2019-02-18] MEDS ORDERED: PT OWN MED DRAWER 7, Y5N ONE ×2 (06:23→08:35)
[2019-02-18] MEDS: LEVOTHYROXINE NA 50 MCG TABLET (FP) PO SCH (06:28)
[2019-02-18] MEDS: DOCUSATE NA 100 MG/10 ML UNIT-DOSE CUPS PO SCH ×3 (06:28→21:46)
--- NOTE | 2019-02-18 08:17 | PN ---
Progress Note, Physician Chief Complaint: 83 y.o M with advanced Parkinson's, autonomic dysfunction, recurrent syncope and near syncope, indwelling White due BPH with to urinary obstruction was admitted with episodes of decreased responsiveness and was found to have UTI due to campo S E. Coli. Now on IV Ceftriaxone. Swallow eval by Ms Alvarez read and appreciated. Spoke to Debi History of Present Illness: COLON cancer, s/p sx, chemo. Parkinson disease. Autonomic dysfunction. Hypertension/hypotension. ASHD. s/p stents. BPH. HTN Hypothyroidism Glaucoma. B/L IOL displaced. - Current Medication List Current Medications: Active Medications Amlodipine Besylate (Norvasc -) 5 mg PO DAILY [facility] Last Admin: 02/17/19 11:53 Dose: 5 mg Carbidopa/Levodopa (Sinemet *Cr* 25/100 -) 1 combo PO TID@0700,1200,1700 [facility] Last Admin: 02/17/19 18:31 Dose: 1 combo Docusate Sodium (Colace Liquid -) 100 mg PO TID [facility] Last Admin: 02/18/19 06:28 Dose: 100 mg Dorzolamide HCl (Trusopt 2%) 1 drop OS BID [facility] Last Admin: 02/17/19 23:30 Dose: 1 drop Heparin Sodium (Porcine) (Heparin -) 5,000 unit SQ BID [facility] Last Admin: 02/17/19 23:29 Dose: 5,000 unit Ceftriaxone Sodium 1 gm/ (Dextrose) 50 mls @ 100 mls/hr IVPB DAILY [facility]; Protocol Last Admin: 02/17/19 18:30 Dose: 100 mls/hr Levothyroxine Sodium (Synthroid -) 50 mcg PO ACBK [facility] Last Admin: 02/18/19 06:28 Dose: 50 mcg Magnesium Hydroxide (Milk Of Magnesia -) 30 ml PO DAILY PRN PRN Reason: CONSTIPATION Nystatin (Mycostatin Cream -) 1 applic TP BID [facility] Last Admin: 02/17/19 23:30 Dose: 1 applic Polyethylene Glycol (Miralax (For Daily Use) -) 17 gm PO DAILY PRN PRN Reason: CONSTIPATION Rosuvastatin Calcium (Crestor -) 10 mg PO HS [facility] Last Admin: 02/17/19 23:29 Dose: 10 mg - Objective Vital Signs: Vital Signs Temperature 98.0 F 02/18/19 06:00 Pulse Rate 69 02/18/19 06:00 Respiratory Rate 18 02/18/19 06:00 Blood Pressure 147/71 02/18/19 06:00 O2 Sat by Pulse Oximetry (%) 100 02/16/19 09:00 Constitutional: Yes: No Distress, Calm, Thin Eyes: Yes: Other (Legally blind) HENT: Yes: Drooling, Hoarseness, Nasal Congestion, Pharyngeal Erythema Neck: Yes: Trachea Midline, Decreased ROM. No: Tenderness, Thyromegaly Cardiovascular: Yes: Regular Rate and Rhythm, S1, S2. No: Bradycardia, Tachycardia Respiratory: Yes: Regular, CTA Bilaterally Gastrointestinal: Yes: Normal Bowel Sounds, Soft. No: Abdomen, Obese, Ascites ...Rectal Exam: Yes: Deferred Genitourinary: Yes: White Present. No: Anuria, Bladder Distention Breast(s): Yes: WNL Extremities: No: Amputation, Calf Tenderness Edema: No Peripheral Pulses WNL: No Neurological: Yes: Alert, Confusion, Dysarthria, Lethargy. No: Aphasia Psychiatric: Yes: WNL Labs: CBC, BMP 02/17/19 09:20 02/17/19 09:20 INR, PTT INR 1.01 (0.83-1.09) 02/13/19 17:35 - ....Imaging Chest X-ray: Report Reviewed EKG: Report Reviewed, Image Reviewed Problem List - Problems (1) Complicated UTI (urinary tract infection) Assessment/Plan: Continue IV Ceftriaxone as per ID. Recurrent UTI likely due to indwelling White. Code(s): N39.0 - URINARY TRACT INFECTION, SITE NOT SPECIFIED (2) Parkinson disease Assessment/Plan: Neuro follow up Continue Sinemet Code(s): G20 - PARKINSON'S DISEASE (3) Unresponsive episode Assessment/Plan: Avoid hypotension and avoid tight BP control. Code(s): R41.89 - OTH SYMPTOMS AND SIGNS W COGNITIVE FUNCTIONS AND AWARENESS
--- NOTE | 2019-02-18 09:00 | PN ---
Progress Note (short form) - Note Progress Note: Neurology History of Present Illness: This is a 83 y/o man from home with a past medical history of Parkinson's, Dementia, Depression, Hypertension, Hypperlipidemia, CAD, [place] s/p Stent, Glaucoma, COPD, BPH, Colon Ca s/p Colectomy, OA, recent admission 01/03- 01/16 for Complicated UTI who presented to the ED via ambulance for unresponsiveness. Per the patient's daughter the patient's MANAGER [employer] called EMS because the patient appeared unresponsive and was not breathing. Per the daughter the patient was pale and now is color is pink- back to normal. She reported that when the patient is sitting on the toilet, he stares into space and does not respond for a few minutes. She reported her concerns regarding his Parkinson's and feels his medication needs to be adjusted, but has not been able to take him to see me due to the patient's gait issues. The daughter denies the patient having fever, chills, SOB, CP, palpitations, AP, N/V/D. Patient's daughter reported the last change on the indwelling White was 2 weeks ago. Of note, UA was positive for UTI and this is likely etiology of his symptoms. CT head completed and without acute changes. Patient receiving ABx, switched to Ceftriaxone, appears to be similar to when I last saw him. Remains on Sinemet. Active Medications Amlodipine Besylate (Norvasc -) 5 mg PO DAILY [facility] Last Admin: 02/17/19 11:53 Dose: 5 mg Carbidopa/Levodopa (Sinemet *Cr* 25/100 -) 1 combo PO TID@0700,1200,1700 [facility] Last Admin: 02/17/19 18:31 Dose: 1 combo Docusate Sodium (Colace Liquid -) 100 mg PO TID [facility] Last Admin: 02/18/19 06:28 Dose: 100 mg Dorzolamide HCl (Trusopt 2%) 1 drop OS BID [facility] Last Admin: 02/17/19 23:30 Dose: 1 drop Heparin Sodium (Porcine) (Heparin -) 5,000 unit SQ BID [facility] Last Admin: 02/17/19 23:29 Dose: 5,000 unit Ceftriaxone Sodium 1 gm/ (Dextrose) 50 mls @ 100 mls/hr IVPB DAILY [facility]; Protocol Last Admin: 02/17/19 18:30 Dose: 100 mls/hr Levothyroxine Sodium (Synthroid -) 50 mcg PO ACBK [facility] Last Admin: 02/18/19 06:28 Dose: 50 mcg Magnesium Hydroxide (Milk Of Magnesia -) 30 ml PO DAILY [facility] Nystatin (Mycostatin Cream -) 1 applic TP BID [facility] Last Admin: 02/17/19 23:30 Dose: 1 applic Polyethylene Glycol (Miralax (For Daily Use) -) 17 gm PO BID [facility] Rosuvastatin Calcium (Crestor -) 10 mg PO HS [facility] Last Admin: 02/17/19 23:29 Dose: 10 mg - Allergies Allergies/Adverse Reactions: Allergies Allergy/AdvReac Type Severity Reaction Status Date / Time No Known Drug Allergies Allergy Verified 02/10/17 05:26 - Home Medications Home Medications: Ambulatory Orders Carbidopa/Levodopa *Cr* 25/100 [Sinemet *Cr* 25/100 -] 1 combo PO TID@0700,1200, 1700 tablet.er 07/14/15 Rosuvastatin [Crestor -] 10 mg PO HS tablet 07/14/15 Levothyroxine [Synthroid -] 50 mcg PO ACBK 02/11/17 Amlodipine Besylate 5 mg PO DAILY 01/03/19 Polyethylene Glycol 3350 [Miralax 255 gm Btl -] 255 gm PO PRN 01/03/19 Dorzolamide HCl [Trusopt 2% -] 1 drop OS BID drops 01/16/19 Magnesium Hydrox 2400MG/30Ml [Milk of Magnesia -] 30 ml PO DAILY PRN cup Physical Examination Vital Signs Period Temp Pulse Resp BP Sys/Davison Pulse Ox Last 24 Hr 97.6 F-99.0 F 69-86 142-149/70-86 97 Constitutional: Yes: No Distress, Thin Eyes: Yes: Conjunctiva Clear HENT: Yes: WNL, Atraumatic, Normocephalic Neck: Yes: WNL, Supple, Trachea Midline Cardiovascular: Yes: Regular Rate and Rhythm, S1, S2 Respiratory: Yes: Regular, Diminished Gastrointestinal: Yes: WNL, Normal Bowel Sounds, Soft ...Rectal Exam: Yes: Sphincter Tone Normal Renal/: Yes: White Present (yellow urine- in drainage bag) Breast(s): Yes: WNL Musculoskeletal: Yes: WNL Extremities: Yes: WNL Edema: No Peripheral Pulses WNL: Yes Integumentary: Yes: Pressure Ulcer (Stage 1 to L- Gluteal healed scab to L- mid Gluteal), Other (pressure ulcer to R- Heel) Neurological: Pill rolling tremor noted, +cogwheeling with bradykinesia, moves extremities grossly CBCD WBC 5.0 K/mm3 (4.0-10.0) 02/17/19 09:20 RBC 3.63 M/mm3 (4.00-5.60) L 02/17/19 09:20 Hgb 11.0 GM/dL (11.7-16.9) L 02/17/19 09:20 Hct 32.8 % (35.4-49) L 02/17/19 09:20 MCV 90.3 fl (80-96) 02/17/19 09:20 MCHC 33.5 g/dl (32.0-35.9) 02/17/19 09:20 RDW 16.0 % (11.9-15.9) H 02/17/19 09:20 Plt Count 254 K/MM3 (134-434) 02/17/19 09:20 MPV 8.0 fl (7.5-11.1) D 02/17/19 09:20 CMP Sodium 142 mmol/L (136-145) 02/17/19 09:20 Potassium 4.2 mmol/L (3.5-5.1) 02/17/19 09:20 Chloride 109 mmol/L (98-107) H 02/17/19 09:20 Carbon Dioxide 29 mmol/L (21-32) 02/17/19 09:20 Anion Gap 4 MMOL/L (8-16) L 02/17/19 09:20 BUN 22 mg/dL (7-18) H 02/17/19 09:20 Creatinine 1.0 mg/dL (0.55-1.3) 02/17/19 09:20 Random Glucose 82 mg/dL (74-106) 02/17/19 09:20 Calcium 8.6 mg/dL (8.5-10.1) 02/17/19 09:20 Total Bilirubin 0.3 mg/dL (0.2-1) 02/17/19 09:20 AST 14 U/L (15-37) L 02/17/19 09:20 ALT 9 U/L (13-61) L 02/17/19 09:20 Alkaline Phosphatase 69 U/L (45-117) 02/17/19 09:20 Total Protein 6.5 g/dl (6.4-8.2) 02/17/19 09:20 Albumin 3.2 g/dl (3.4-5.0) L 02/17/19 09:20 CARDIAC ENZYMES Troponin I < 0.02 ng/ml (0.00-0.05) 02/13/19 17:35 Plan 83 y/o man from home with a past medical history of Parkinson's, Dementia, Depression, Hypertension, Hypperlipidemia, CAD, [place] s/p Stent, Glaucoma, COPD, BPH, Colon Ca s/p Colectomy, OA, recent admission 01/03- 01/16 for Complicated UTI who presented to the ED via ambulance for unresponsiveness. Per the patient's daughter the patient's MANAGER [employer] called EMS because the patient appeared unresponsive and was not breathing. Per the daughter the patient was pale and now is color is pink- back to normal. She reported that when the patient is sitting on the toilet, he stares into space and does not respond for a few minutes. She reported her concerns regarding his Parkinson's and feels his medication needs to be adjusted, but has not been able to take him to see me due to the patient' s gait issues. The daughter denies the patient having fever, chills, SOB, CP, palpitations, AP, N/V/D. marija's daughter reports the last change on the indwelling White was 2 weeks ago. Of note, UA was positive for UTI and this is likely etiology of his symptoms. Continue medical management of urinary tract infection, antibiotics as per primary team, currently on Ceftriaxone, switched from Meropenum. ID consulted and following, note reviewed. Maintain adequate hydration. can continue Sinemet at this time, lethargy seems more consistent with infection. Continue to monitor mental status, CT head completed and without acute changes.
[2019-02-18 09:14] LABS: BASO % 1.1 % (0-2.0); EOS % 2.3 % (0-4.5); HEMATOCRIT 35.1 % (35.4-49); HEMOGLOBIN 11.5 GM/dL (11.7-16.9); LYMPH % 22.3 % (8-40); MCH 29.9 pg (25.7-33.7); MCHC 32.9 g/dl (32.0-35.9); MEAN CELL VOLUME 90.9 fl (80-96); MONO % 7.9 % (3.8-10.2); NEUT % 66.4 % (42.8-82.8); PLATELET COUNT 254 K/MM3 (134-434); RBC 3.86 M/mm3 (4.00-5.60); RDW 15.9 % (11.9-15.9); WHITE BLOOD COUNT 5.1 K/mm3 (4.0-10.0)
[2019-02-18] MEDS ORDERED: DEXTROSE 5%-WATER - 50 ML IVPB ONE (09:28)
[2019-02-18] MEDS ORDERED: cefTRIAXone SODIUM 1 GM VIAL ONE (09:28)
[2019-02-18] MEDS: amLODIPine BESYLATE 5 MG TABLET (FP) PO SCH (09:31)
[2019-02-18] MEDS: HEPARIN NA (PORCINE) 5,000 UNITS/ML 1ML VIAL SQ SCH ×2 (09:31→21:46)
[2019-02-18] MEDS: CEFTRIAXONE 1 GM in DEXTROSE 5%-WATER - 50 ML IVPB SCH (09:31)
[2019-02-18] MEDS: DORZOLAMIDE 2% HCL OPHTHALMIC SOLUTION 10 ML BOTTLE OS SCH ×2 (09:36→21:47)
[2019-02-18] MEDS: MAGNESIUM HYDROX 2400MG/30ML ORAL SUSPENSION 30 ML CUP PO SCH (09:41)
[2019-02-18 09:46] LABS: ALBUMIN 3.4 g/dl (3.4-5.0); BILIRUBIN,TOTAL 0.3 mg/dL (0.2-1); CALCIUM 8.9 mg/dL (8.5-10.1); MAGNESIUM 2.4 mg/dL (1.8-2.4); POTASSIUM 3.9 mmol/L (3.5-5.1); TOT PROT 6.8 g/dl (6.4-8.2)
--- NOTE | 2019-02-18 10:25 | PN ---
Progress Note, Physician History of Present Illness: stable no new issues - Current Medication List Current Medications: Active Medications Amlodipine Besylate (Norvasc -) 5 mg PO DAILY [facility] Last Admin: 02/18/19 09:31 Dose: 5 mg Carbidopa/Levodopa (Sinemet *Cr* 25/100 -) 1 combo PO TID@0700,1200,1700 [facility] Last Admin: 02/18/19 09:30 Dose: 1 combo Docusate Sodium (Colace Liquid -) 100 mg PO TID [facility] Last Admin: 02/18/19 06:28 Dose: 100 mg Dorzolamide HCl (Trusopt 2%) 1 drop OS BID [facility] Last Admin: 02/18/19 09:36 Dose: 1 drop Heparin Sodium (Porcine) (Heparin -) 5,000 unit SQ BID [facility] Last Admin: 02/18/19 09:31 Dose: 5,000 unit Ceftriaxone Sodium 1 gm/ (Dextrose) 50 mls @ 100 mls/hr IVPB DAILY [facility]; Protocol Last Admin: 02/18/19 09:31 Dose: 100 mls/hr Levothyroxine Sodium (Synthroid -) 50 mcg PO ACBK [facility] Last Admin: 02/18/19 06:28 Dose: 50 mcg Magnesium Hydroxide (Milk Of Magnesia -) 30 ml PO DAILY [facility] Last Admin: 02/18/19 09:41 Dose: 30 ml Nystatin (Mycostatin Cream -) 1 applic TP BID [facility] Last Admin: 02/17/19 23:30 Dose: 1 applic Polyethylene Glycol (Miralax (For Daily Use) -) 17 gm PO BID [facility] Rosuvastatin Calcium (Crestor -) 10 mg PO HS [facility] Last Admin: 02/17/19 23:29 Dose: 10 mg - Objective Vital Signs: Vital Signs Temperature 98 F 02/18/19 09:15 Pulse Rate 76 02/18/19 09:15 Respiratory Rate 18 02/18/19 09:15 Blood Pressure 157/91 02/18/19 09:15 O2 Sat by Pulse Oximetry (%) 97 02/17/19 21:00 Constitutional: Yes: No Distress, Calm Respiratory: Yes: Regular, CTA Bilaterally Gastrointestinal: Yes: Normal Bowel Sounds, Soft Musculoskeletal: Yes: WNL Extremities: Yes: WNL Neurological: Yes: Alert, Other Labs: CBC, BMP 02/18/19 08:42 02/18/19 08:42 INR, PTT INR 1.01 (0.83-1.09) 02/13/19 17:35 Assessment/Plan Problem List - Problems (1) Complicated UTI (urinary tract infection) Code(s): N39.0 - URINARY TRACT INFECTION, SITE NOT SPECIFIED (2) Unresponsive episode Code(s): R41.89 - OTH SYMPTOMS AND SIGNS W COGNITIVE FUNCTIONS AND AWARENESS (3) Parkinson disease Code(s): G20 - PARKINSON'S DISEASE (4) Dementia Code(s): F03.90 - UNSPECIFIED DEMENTIA WITHOUT BEHAVIORAL DISTURBANCE (5) CAD (coronary artery disease) Code(s): I25.10 - ATHSCL HEART DISEASE OF [place] CORONARY ARTERY W/O ANG PCTRS Qualifiers: Coronary Disease-Associated Artery/Lesion type: [place] artery [place] vs. transplanted heart: [place] heart Associated angina: without angina Qualified Code(s): I25.10 - Atherosclerotic heart disease of [place] coronary artery without angina pectoris (6) Hypercholesteremia Code(s): E78.00 - PURE HYPERCHOLESTEROLEMIA, UNSPECIFIED (7) Hypertension Code(s): I10 - ESSENTIAL (PRIMARY) HYPERTENSION Qualifiers: Hypertension type: essential hypertension Qualified Code(s): I10 - Essential (primary) hypertension (8) Hypothyroidism Code(s): E03.9 - HYPOTHYROIDISM, UNSPECIFIED Assessment/Plan This is a 83 y/o man with a PMHx of Parkinson's, Dementia, HTN, HLD, COPD, CAD, [place] s/p Stent's, Depression, OA, Colon Ca s/p Colectomy. Admitted for Complicated UTI, continue current mgmt continue ceftriaxone nutrition rest as per the team
--- NOTE | 2019-02-18 11:16 | PN ---
Progress Note, HOSPITAL CLINIC ASSISTANT - Note Progress Note: Selected Entries 02/17/19 02/17/19 02/17/19 06:00 12:00 18:00 Supper Temperature 97.4 F L 98 F 97.6 F 02/17/19 02/17/19 02/18/19 18:15 23:27 06:00 Supper 75% Temperature 99.0 F 98.0 F 02/18/19 09:15 Supper Temperature 98 F Laboratory Tests 02/18/19 08:42 WBC 5.1 Pt tolerating puree/nectar thick liquid well. Breathing has improved. Miralax can not be mixed with thick liquid, as by chemical reaction, it will become a thin liquid. MBS to upgrade diet with safety.
[2019-02-18] MEDS: POLYETHYLENE GLYCOL 3350 119 GM BTL PO SCH ×2 (11:40→21:48)
[2019-02-18] MEDS: NYSTATIN 100,000 UNIT/GM TOPICAL CREAM 15 GM TUBE TP SCH ×2 (11:41→21:48)
[2019-02-18] MEDS: ROSUVASTATIN CA 10 MG TABLET (FP) PO SCH (21:47)
[2019-02-19] MEDS: LEVOTHYROXINE NA 50 MCG TABLET (FP) PO SCH (06:30)
[2019-02-19] MEDS: DOCUSATE NA 100 MG/10 ML UNIT-DOSE CUPS PO SCH ×3 (06:30→22:32)
--- NOTE | 2019-02-19 08:55 | PN ---
Progress Note (short form) - Note Progress Note: Neurology History of Present Illness: This is a 83 y/o man from home with a past medical history of Parkinson's, Dementia, Depression, Hypertension, Hypperlipidemia, CAD, [place] s/p Stent, Glaucoma, COPD, BPH, Colon Ca s/p Colectomy, OA, recent admission 01/03- 01/16 for Complicated UTI who presented to the ED via ambulance for unresponsiveness. Per the patient's daughter the patient's GROUNDSKEEPING MAINTENANCE WORKER called EMS because the patient appeared unresponsive and was not breathing. Per the daughter the patient was pale and now is color is pink- back to normal. She reported that when the patient is sitting on the toilet, he stares into space and does not respond for a few minutes. She reported her concerns regarding his Parkinson's and feels his medication needs to be adjusted, but has not been able to take him to see me due to the patient's gait issues. The daughter denies the patient having fever, chills, SOB, CP, palpitations, AP, N/V/D. Patient's daughter reported the last change on the indwelling White was 2 weeks ago. Of note, UA was positive for UTI and this is likely etiology of his symptoms. CT head completed and without acute changes. Patient receiving ABx, switched to Ceftriaxone, appears to be similar to when I last saw him. Being fed by aide this AM, remains neurologically stable. ID note reviewed, S&S note reviewed. Active Medications Amlodipine Besylate (Norvasc -) 5 mg PO DAILY [facility] Last Admin: 02/18/19 09:31 Dose: 5 mg Carbidopa/Levodopa (Sinemet *Cr* 25/100 -) 1 combo PO TID@0700,1200,1700 [facility] Last Admin: 02/19/19 06:30 Dose: 1 combo Docusate Sodium (Colace Liquid -) 100 mg PO TID [facility]S [facility] Last Admin: 02/19/19 06:30 Dose: 100 mg Dorzolamide HCl (Trusopt 2%) 1 drop OS BID [facility] Last Admin: 02/18/19 21:47 Dose: 1 drop Heparin Sodium (Porcine) (Heparin -) 5,000 unit SQ BID [facility] Last Admin: 02/18/19 21:46 Dose: 5,000 unit Ceftriaxone Sodium 1 gm/ (Dextrose) 50 mls @ 100 mls/hr IVPB DAILY [facility]S [facility]; Protocol Last Admin: 02/18/19 09:31 Dose: 100 mls/hr Levothyroxine Sodium (Synthroid -) 50 mcg PO ACBK [facility]S [facility] Last Admin: 02/19/19 06:30 Dose: 50 mcg Magnesium Hydroxide (Milk Of Magnesia -) 30 ml PO DAILY [facility] Last Admin: 02/18/19 09:41 Dose: 30 ml Nystatin (Mycostatin Cream -) 1 applic TP BID [facility] Last Admin: 02/18/19 21:48 Dose: 1 applic Polyethylene Glycol (Miralax (For Daily Use) -) 17 gm PO BID [facility] Last Admin: 02/18/19 21:48 Dose: Not Given Rosuvastatin Calcium (Crestor -) 10 mg PO HS [facility]S [facility] Last Admin: 02/18/19 21:47 Dose: 10 mg - Allergies Allergies/Adverse Reactions: Allergies Allergy/AdvReac Type Severity Reaction Status Date / Time No Known Drug Allergies Allergy Verified 02/10/17 05:26 - Home Medications Home Medications: Ambulatory Orders Carbidopa/Levodopa *Cr* 25/100 [Sinemet *Cr* 25/100 -] 1 combo PO TID@0700,1200, 1700 tablet.er 07/14/15 Rosuvastatin [Crestor -] 10 mg PO HS tablet 07/14/15 Levothyroxine [Synthroid -] 50 mcg PO ACBK 02/11/17 Amlodipine Besylate 5 mg PO DAILY 01/03/19 Polyethylene Glycol 3350 [Miralax 255 gm Btl -] 255 gm PO PRN 01/03/19 Dorzolamide HCl [Trusopt 2% -] 1 drop OS BID drops 01/16/19 Magnesium Hydrox 2400MG/30Ml [Milk of Magnesia -] 30 ml PO DAILY PRN cup Physical Examination Vital Signs Period Temp Pulse Resp BP Sys/Davison Pulse Ox Last 24 Hr 97.5 F-98.0 F 67-76 18-18 123-157/67-91 97 Constitutional: Yes: No Distress, Thin Eyes: Yes: Conjunctiva Clear HENT: Yes: WNL, Atraumatic, Normocephalic Neck: Yes: WNL, Supple, Trachea Midline Cardiovascular: Yes: Regular Rate and Rhythm, S1, S2 Respiratory: Yes: Regular, Diminished Gastrointestinal: Yes: WNL, Normal Bowel Sounds, Soft ...Rectal Exam: Yes: Sphincter Tone Normal Renal/: Yes: White Present (yellow urine- in drainage bag) Breast(s): Yes: WNL Musculoskeletal: Yes: WNL Extremities: Yes: WNL Edema: No Peripheral Pulses WNL: Yes Integumentary: Yes: Pressure Ulcer (Stage 1 to L- Gluteal healed scab to L- mid Gluteal), Other (pressure ulcer to R- Heel) Neurological: Pill rolling tremor noted, +cogwheeling with bradykinesia, moves extremities grossly CBCD WBC 5.1 K/mm3 (4.0-10.0) 02/18/19 08:42 RBC 3.86 M/mm3 (4.00-5.60) L 02/18/19 08:42 Hgb 11.5 GM/dL (11.7-16.9) L 02/18/19 08:42 Hct 35.1 % (35.4-49) L 02/18/19 08:42 MCV 90.9 fl (80-96) 02/18/19 08:42 MCHC 32.9 g/dl (32.0-35.9) 02/18/19 08:42 RDW 15.9 % (11.9-15.9) 02/18/19 08:42 Plt Count 254 K/MM3 (134-434) 02/18/19 08:42 MPV 8.0 fl (7.5-11.1) 02/18/19 08:42 CMP Sodium 141 mmol/L (136-145) 02/18/19 08:42 Potassium 3.9 mmol/L (3.5-5.1) 02/18/19 08:42 Chloride 106 mmol/L (98-107) 02/18/19 08:42 Carbon Dioxide 30 mmol/L (21-32) 02/18/19 08:42 Anion Gap 5 MMOL/L (8-16) L 02/18/19 08:42 BUN 20 mg/dL (7-18) H 02/18/19 08:42 Creatinine 1.0 mg/dL (0.55-1.3) 02/18/19 08:42 Random Glucose 102 mg/dL (74-106) 02/18/19 08:42 Calcium 8.9 mg/dL (8.5-10.1) 02/18/19 08:42 Total Bilirubin 0.3 mg/dL (0.2-1) 02/18/19 08:42 AST 16 U/L (15-37) 02/18/19 08:42 ALT 9 U/L (13-61) L 02/18/19 08:42 Alkaline Phosphatase 74 U/L (45-117) 02/18/19 08:42 Total Protein 6.8 g/dl (6.4-8.2) 02/18/19 08:42 Albumin 3.4 g/dl (3.4-5.0) 02/18/19 08:42 CARDIAC ENZYMES Troponin I < 0.02 ng/ml (0.00-0.05) 02/13/19 17:35 Plan 83 y/o man from home with a past medical history of Parkinson's, Dementia, Depression, Hypertension, Hypperlipidemia, CAD, [place] s/p Stent, Glaucoma, COPD, BPH, Colon Ca s/p Colectomy, OA, recent admission 01/03- 01/16 for Complicated UTI who presented to the ED via ambulance for unresponsiveness. Per the patient's daughter the patient's GROUNDSKEEPING MAINTENANCE WORKER called EMS because the patient appeared unresponsive and was not breathing. Per the daughter the patient was pale and now is color is pink- back to normal. She reported that when the patient is sitting on the toilet, he stares into space and does not respond for a few minutes. She reported her concerns regarding his Parkinson's and feels his medication needs to be adjusted, but has not been able to take him to see me due to the patient' s gait issues. The daughter denies the patient having fever, chills, SOB, CP, palpitations, AP, N/V/D. marija's daughter reports the last change on the indwelling White was 2 weeks ago. Of note, UA was positive for UTI and this is likely etiology of his symptoms. Continue medical management of urinary tract infection, antibiotics as per primary team, currently on Ceftriaxone, switched from Meropenum. ID consulted and following, note reviewed. Maintain adequate hydration. can continue Sinemet at this time, lethargy seems more consistent with infection. Continue to monitor mental status, CT head completed and without acute changes. Neurologically stable at this time.
--- NOTE | 2019-02-19 08:57 | PN ---
Progress Note, Physician History of Present Illness: patient stable no new issues - Current Medication List Current Medications: Active Medications Amlodipine Besylate (Norvasc -) 5 mg PO DAILY [facility] Last Admin: 02/18/19 09:31 Dose: 5 mg Carbidopa/Levodopa (Sinemet *Cr* 25/100 -) 1 combo PO TID@0700,1200,1700 [facility] Last Admin: 02/19/19 06:30 Dose: 1 combo Docusate Sodium (Colace Liquid -) 100 mg PO TID [facility] Last Admin: 02/19/19 06:30 Dose: 100 mg Dorzolamide HCl (Trusopt 2%) 1 drop OS BID [facility] Last Admin: 02/18/19 21:47 Dose: 1 drop Heparin Sodium (Porcine) (Heparin -) 5,000 unit SQ BID [facility] Last Admin: 02/18/19 21:46 Dose: 5,000 unit Ceftriaxone Sodium 1 gm/ (Dextrose) 50 mls @ 100 mls/hr IVPB DAILY [facility]; Protocol Last Admin: 02/18/19 09:31 Dose: 100 mls/hr Levothyroxine Sodium (Synthroid -) 50 mcg PO ACBK [facility] Last Admin: 02/19/19 06:30 Dose: 50 mcg Magnesium Hydroxide (Milk Of Magnesia -) 30 ml PO DAILY [facility] Last Admin: 02/18/19 09:41 Dose: 30 ml Nystatin (Mycostatin Cream -) 1 applic TP BID [facility] Last Admin: 02/18/19 21:48 Dose: 1 applic Polyethylene Glycol (Miralax (For Daily Use) -) 17 gm PO BID [facility] Last Admin: 02/18/19 21:48 Dose: Not Given Rosuvastatin Calcium (Crestor -) 10 mg PO HS [facility] Last Admin: 02/18/19 21:47 Dose: 10 mg - Objective Vital Signs: Vital Signs Temperature 97.5 F L 02/19/19 06:00 Pulse Rate 67 02/19/19 06:00 Respiratory Rate 18 02/19/19 06:00 Blood Pressure 135/75 02/19/19 06:00 O2 Sat by Pulse Oximetry (%) 97 02/18/19 09:00 Constitutional: Yes: No Distress, Calm Cardiovascular: Yes: S1, S2 Respiratory: Yes: Regular, CTA Bilaterally Gastrointestinal: Yes: Normal Bowel Sounds, Soft Musculoskeletal: Yes: WNL Extremities: Yes: Other Neurological: Yes: Alert, Other (does not open eyes) Labs: CBC, BMP 02/18/19 08:42 02/18/19 08:42 INR, PTT INR 1.01 (0.83-1.09) 02/13/19 17:35 Assessment/Plan Problem List - Problems (1) Complicated UTI (urinary tract infection) Code(s): N39.0 - URINARY TRACT INFECTION, SITE NOT SPECIFIED (2) Unresponsive episode Code(s): R41.89 - OTH SYMPTOMS AND SIGNS W COGNITIVE FUNCTIONS AND AWARENESS (3) Parkinson disease Code(s): G20 - PARKINSON'S DISEASE (4) Dementia Code(s): F03.90 - UNSPECIFIED DEMENTIA WITHOUT BEHAVIORAL DISTURBANCE (5) CAD (coronary artery disease) Code(s): I25.10 - ATHSCL HEART DISEASE OF [place] CORONARY ARTERY W/O ANG PCTRS Qualifiers: Coronary Disease-Associated Artery/Lesion type: [place] artery [place] vs. transplanted heart: [place] heart Associated angina: without angina Qualified Code(s): I25.10 - Atherosclerotic heart disease of [place] coronary artery without angina pectoris (6) Hypercholesteremia Code(s): E78.00 - PURE HYPERCHOLESTEROLEMIA, UNSPECIFIED (7) Hypertension Code(s): I10 - ESSENTIAL (PRIMARY) HYPERTENSION Qualifiers: Hypertension type: essential hypertension Qualified Code(s): I10 - Essential (primary) hypertension (8) Hypothyroidism Code(s): E03.9 - HYPOTHYROIDISM, UNSPECIFIED Assessment/Plan This is a 83 y/o man with a PMHx of Parkinson's, Dementia, HTN, HLD, COPD, CAD, [place] s/p Stent's, Depression, OA, Colon Ca s/p Colectomy. Admitted for Complicated UTI, continue current mgmt will stop abx and monitor rest as per the team
[2019-02-19] MEDS ORDERED: DEXTROSE 5%-WATER - 50 ML IVPB ONE (09:01)
[2019-02-19] MEDS ORDERED: cefTRIAXone SODIUM 1 GM VIAL ONE (09:01)
[2019-02-19] MEDS: amLODIPine BESYLATE 5 MG TABLET (FP) PO SCH (09:10)
[2019-02-19] MEDS: MAGNESIUM HYDROX 2400MG/30ML ORAL SUSPENSION 30 ML CUP PO SCH (09:10)
[2019-02-19] MEDS: DORZOLAMIDE 2% HCL OPHTHALMIC SOLUTION 10 ML BOTTLE OS SCH ×2 (09:11→22:32)
[2019-02-19] MEDS: CEFTRIAXONE 1 GM in DEXTROSE 5%-WATER - 50 ML IVPB SCH (09:11)
[2019-02-19] MEDS: NYSTATIN 100,000 UNIT/GM TOPICAL CREAM 15 GM TUBE TP SCH ×2 (09:12→22:32)
[2019-02-19] MEDS: POLYETHYLENE GLYCOL 3350 119 GM BTL PO SCH ×2 (09:24→22:40)
[2019-02-19] MEDS: HEPARIN NA (PORCINE) 5,000 UNITS/ML 1ML VIAL SQ SCH ×2 (09:29→22:32)
--- NOTE | 2019-02-19 11:34 | PN ---
Progress Note, NEUROPSYCHOLOGY MEDICAL CONSULTANT - Note Progress Note: Selected Entries 02/17/19 02/17/19 02/17/19 06:00 12:00 18:00 Supper Temperature 97.4 F L 98 F 97.6 F 02/17/19 02/17/19 02/18/19 18:15 23:27 06:00 Supper 75% Temperature 99.0 F 98.0 F 02/18/19 09:15 Supper Temperature 98 F Laboratory Tests 02/18/19 08:42 WBC 5.1 Selected Entries 02/18/19 02/18/19 02/18/19 06:00 09:15 15:56 Breakfast 25% Diet Tolerated Poor Lunch 25% Supper Temperature 98.0 F 98 F 97.6 F 02/18/19 02/18/19 02/19/19 18:00 18:20 02:00 Breakfast Diet Tolerated Fair Lunch Supper 50% Temperature 97.6 F 98.0 F 02/19/19 02/19/19 02/19/19 06:00 10:27 11:28 Breakfast 25% Diet Tolerated Poor Lunch Supper Temperature 97.5 F L 98.1 F Laboratory Tests 02/18/19 08:42 WBC 5.1 Pt tolerating puree/nectar thick liquid well. Breathing has improved. Miralax can not be mixed with thick liquid, as by chemical reaction, it will become a thin liquid. MBS reviewed with staff. Encourage supplements for increased density of nutritional intake, and hydration. Monitor tolerance.
--- NOTE | 2019-02-19 12:54 | PN ---
Progress Note, Physician Chief Complaint: 83 y.o M with advanced Parkinson's, autonomic dysfunction, recurrent syncope and near syncope, indwelling White due BPH with to urinary obstruction was admitted with episodes of decreased responsiveness and was found to have UTI due to campo S E. Coli. Now on IV Ceftriaxone. Maida maguire MBS Spoke to Debi History of Present Illness: COLON cancer, s/p sx, chemo. Parkinson disease. Autonomic dysfunction. Hypertension/hypotension. ASHD. s/p stents. BPH. HTN Hypothyroidism Glaucoma. B/L IOL displaced. - Current Medication List Current Medications: Active Medications Amlodipine Besylate (Norvasc -) 5 mg PO DAILY [facility] Last Admin: 02/19/19 09:10 Dose: 5 mg Carbidopa/Levodopa (Sinemet *Cr* 25/100 -) 1 combo PO TID@0700,1200,1700 [facility] Last Admin: 02/19/19 12:41 Dose: 1 combo Docusate Sodium (Colace Liquid -) 100 mg PO TID [facility] Last Admin: 02/19/19 06:30 Dose: 100 mg Dorzolamide HCl (Trusopt 2%) 1 drop OS BID [facility] Last Admin: 02/19/19 09:11 Dose: 1 drop Heparin Sodium (Porcine) (Heparin -) 5,000 unit SQ BID [facility] Last Admin: 02/19/19 09:29 Dose: 5,000 unit Ceftriaxone Sodium 1 gm/ (Dextrose) 50 mls @ 100 mls/hr IVPB DAILY [facility]; Protocol Last Admin: 02/19/19 09:11 Dose: 100 mls/hr Levothyroxine Sodium (Synthroid -) 50 mcg PO ACBK [facility] Last Admin: 02/19/19 06:30 Dose: 50 mcg Magnesium Hydroxide (Milk Of Magnesia -) 30 ml PO DAILY [facility] Last Admin: 02/19/19 09:10 Dose: 30 ml Nystatin (Mycostatin Cream -) 1 applic TP BID [facility] Last Admin: 02/19/19 09:12 Dose: 1 applic Polyethylene Glycol (Miralax (For Daily Use) -) 17 gm PO BID [facility] Last Admin: 02/19/19 09:24 Dose: Not Given Rosuvastatin Calcium (Crestor -) 10 mg PO HS [facility] Last Admin: 02/18/19 21:47 Dose: 10 mg - Objective Vital Signs: Vital Signs Temperature 98.1 F 02/19/19 10:27 Pulse Rate 74 02/19/19 10:27 Respiratory Rate 18 02/19/19 10:27 Blood Pressure 109/64 02/19/19 10:27 O2 Sat by Pulse Oximetry (%) 97 02/18/19 09:00 Constitutional: Yes: Calm Eyes: Yes: Conjunctiva Clear, EOM Intact HENT: Yes: Atraumatic, Normocephalic Neck: Yes: Supple, Trachea Midline Cardiovascular: Yes: Regular Rate and Rhythm Respiratory: Yes: Regular, CTA Bilaterally Gastrointestinal: Yes: Normal Bowel Sounds, Soft ...Rectal Exam: Yes: Deferred Genitourinary: Yes: White Present Breast(s): Yes: Left Musculoskeletal: Yes: Joint Stiffness Extremities: No: Amputation, Calf Tenderness Peripheral Pulses WNL: No Wound/Incision: Yes: Well Approximated Neurological: Yes: Alert Psychiatric: Yes: Alert. No: Oriented, Agitated Labs: CBC, BMP 02/18/19 08:42 02/18/19 08:42 INR, PTT INR 1.01 (0.83-1.09) 02/13/19 17:35 - ....Imaging Other: Report Reviewed (MBS) Problem List - Problems (1) Complicated UTI (urinary tract infection) Assessment/Plan: Continue IV Ceftriaxone as per ID. Recurrent UTI likely due to indwelling White. Code(s): N39.0 - URINARY TRACT INFECTION, SITE NOT SPECIFIED (2) Parkinson disease Assessment/Plan: Neuro follow up Continue Sinemet Code(s): G20 - PARKINSON'S DISEASE (3) Unresponsive episode Assessment/Plan: Avoid hypotension and avoid tight BP control. Code(s): R41.89 - OTH SYMPTOMS AND SIGNS W COGNITIVE FUNCTIONS AND AWARENESS (4) Requires aspiration precautions Assessment/Plan: Thickened liquids. No plans for PEG as discussed with the family Code(s): Z91.89 - OTH PERSONAL RISK FACTORS, NOT ELSEWHERE CLASSIFIED
[2019-02-19] MEDS: ROSUVASTATIN CA 10 MG TABLET (FP) PO SCH (22:32)
[2019-02-20] MEDS: DOCUSATE NA 100 MG/10 ML UNIT-DOSE CUPS PO SCH ×3 (06:35→22:26)
[2019-02-20] MEDS: LEVOTHYROXINE NA 50 MCG TABLET (FP) PO SCH (06:35)
[2019-02-20 07:31] LABS: BASO % 0.8 % (0-2.0); EOS % 2.4 % (0-4.5); HEMATOCRIT 38.5 % (35.4-49); HEMOGLOBIN 12.7 GM/dL (11.7-16.9); LYMPH % 19.6 % (8-40); MCHC 32.8 g/dl (32.0-35.9); MEAN CELL VOLUME 91.3 fl (80-96); MEAN PLT VOLUME 8.6 fl (7.5-11.1); NEUT % 71.2 % (42.8-82.8); PLATELET COUNT 246 K/MM3 (134-434); RBC 4.22 M/mm3 (4.00-5.60); RDW 15.7 % (11.9-15.9); WHITE BLOOD COUNT 6.1 K/mm3 (4.0-10.0)
[2019-02-20 08:11] LABS: ALBUMIN 3.5 g/dl (3.4-5.0); BILIRUBIN,TOTAL 0.4 mg/dL (0.2-1); CALCIUM 9.1 mg/dL (8.5-10.1); POTASSIUM 4.7 mmol/L (3.5-5.1); TOT PROT 6.9 g/dl (6.4-8.2)
--- NOTE | 2019-02-20 08:11 | PN ---
Progress Note, Physician Chief Complaint: Remains lethargic in bed, NAD. 83 y.o M with advanced Parkinson's, autonomic dysfunction, recurrent syncope and near syncope, indwelling White due BPH with to urinary obstruction was admitted with episodes of decreased responsiveness and was found to have UTI due to campo S E. Coli. Now on IV Ceftriaxone. Swallow eval , MBS done and discussed with the family History of Present Illness: COLON cancer, s/p sx, chemo. Parkinson disease. Autonomic dysfunction. Hypertension/hypotension. ASHD. s/p stents. BPH. HTN Hypothyroidism Glaucoma. B/L IOL displaced. - Current Medication List Current Medications: Active Medications Amlodipine Besylate (Norvasc -) 5 mg PO DAILY [facility] Last Admin: 02/19/19 09:10 Dose: 5 mg Carbidopa/Levodopa (Sinemet *Cr* 25/100 -) 1 combo PO TID@0700,1200,1700 [facility] Last Admin: 02/20/19 06:35 Dose: 1 combo Docusate Sodium (Colace Liquid -) 100 mg PO TID [facility] Last Admin: 02/20/19 06:35 Dose: 100 mg Dorzolamide HCl (Trusopt 2%) 1 drop OS BID [facility] Last Admin: 02/19/19 22:32 Dose: 1 drop Heparin Sodium (Porcine) (Heparin -) 5,000 unit SQ BID [facility] Last Admin: 02/19/19 22:32 Dose: 5,000 unit Ceftriaxone Sodium 1 gm/ (Dextrose) 50 mls @ 100 mls/hr IVPB DAILY [facility]; Protocol Last Admin: 02/19/19 09:11 Dose: 100 mls/hr Levothyroxine Sodium (Synthroid -) 50 mcg PO ACBK [facility] Last Admin: 02/20/19 06:35 Dose: 50 mcg Magnesium Hydroxide (Milk Of Magnesia -) 30 ml PO DAILY [facility] Last Admin: 02/19/19 09:10 Dose: 30 ml Nystatin (Mycostatin Cream -) 1 applic TP BID [facility] Last Admin: 02/19/19 22:32 Dose: 1 applic Polyethylene Glycol (Miralax (For Daily Use) -) 17 gm PO BID [facility] Last Admin: 02/19/19 22:40 Dose: Not Given Rosuvastatin Calcium (Crestor -) 10 mg PO HS [facility] Last Admin: 02/19/19 22:32 Dose: 10 mg - Objective Vital Signs: Vital Signs Temperature 98.1 F 02/20/19 06:00 Pulse Rate 74 02/20/19 06:00 Respiratory Rate 18 02/20/19 06:00 Blood Pressure 147/87 02/20/19 06:00 O2 Sat by Pulse Oximetry (%) 100 02/19/19 21:00 Constitutional: Yes: Cachectic, Mild Distress, Pallor Eyes: Yes: Conjunctiva Clear, EOM Intact, Ptosis (B/L) HENT: Yes: Atraumatic, Normocephalic, Drooling. No: Epistaxis, Rhinnorhea Neck: Yes: Supple, Trachea Midline, Decreased ROM, Rigid. No: Lymphadenopathy, Tenderness, Thyromegaly Cardiovascular: Yes: Regular Rate and Rhythm, S1, S2. No: Bradycardia, Tachycardia, Bruit, JVD, Gallop, Murmur, Rub, S3 Respiratory: Yes: Regular, CTA Bilaterally. No: Accessory Muscle Use, Bradypnea , Cough Gastrointestinal: Yes: Normal Bowel Sounds, Soft. No: Abdomen, Obese, Ascites, Palpable Mass, Pulsatile Mass, Tenderness ...Rectal Exam: Yes: Deferred Genitourinary: Yes: White Present. No: Anuria Breast(s): Yes: WNL Extremities: No: Amputation, Calf Tenderness, Cold, Cyanosis Edema: No Integumentary: Yes: WNL Neurological: Yes: Confusion, Dysarthria, Tremors. No: Oriented Psychiatric: Yes: Alert. No: Oriented, Agitated, Suicidal Ideation Labs: CBC, BMP 02/20/19 07:00 INR, PTT INR 1.01 (0.83-1.09) 02/13/19 17:35 Problem List - Problems (1) Complicated UTI (urinary tract infection) Assessment/Plan: Continue IV Ceftriaxone as per ID. Recurrent UTI likely due to indwelling White. Code(s): N39.0 - URINARY TRACT INFECTION, SITE NOT SPECIFIED (2) Parkinson disease Assessment/Plan: Neuro follow up Continue Sinemet Code(s): G20 - PARKINSON'S DISEASE (3) Unresponsive episode Assessment/Plan: Avoid hypotension and avoid tight BP control. Code(s): R41.89 - OTH SYMPTOMS AND SIGNS W COGNITIVE FUNCTIONS AND AWARENESS (4) Requires aspiration precautions Assessment/Plan: Thickened liquids. No plans for PEG as discussed with the family Code(s): Z91.89 - OTH PERSONAL RISK FACTORS, NOT ELSEWHERE CLASSIFIED
--- NOTE | 2019-02-20 08:48 | PN ---
Progress Note (short form) - Note Progress Note: Neurology History of Present Illness: This is a 83 y/o man from home with a past medical history of Parkinson's, Dementia, Depression, Hypertension, Hypperlipidemia, CAD, [place] s/p Stent, Glaucoma, COPD, BPH, Colon Ca s/p Colectomy, OA, recent admission 01/03- 01/16 for Complicated UTI who presented to the ED via ambulance for unresponsiveness. Per the patient's daughter the patient's VARNISH FILTERER called EMS because the patient appeared unresponsive and was not breathing. Per the daughter the patient was pale and now is color is pink- back to normal. She reported that when the patient is sitting on the toilet, he stares into space and does not respond for a few minutes. She reported her concerns regarding his Parkinson's and feels his medication needs to be adjusted, but has not been able to take him to see me due to the patient's gait issues. The daughter denies the patient having fever, chills, SOB, CP, palpitations, AP, N/V/D. Patient's daughter reported the last change on the indwelling White was 2 weeks ago. Of note, UA was positive for UTI and this is likely etiology of his symptoms. CT head completed and without acute changes. Patient receiving ABx, switched to Ceftriaxone, complicated UTI. Notes from primary reviewed. Neurologically stable. Active Medications Amlodipine Besylate (Norvasc -) 5 mg PO DAILY [facility] Last Admin: 02/19/19 09:10 Dose: 5 mg Carbidopa/Levodopa (Sinemet *Cr* 25/100 -) 1 combo PO TID@0700,1200,1700 [facility] Last Admin: 02/20/19 06:35 Dose: 1 combo Docusate Sodium (Colace Liquid -) 100 mg PO TID [facility] Last Admin: 02/20/19 06:35 Dose: 100 mg Dorzolamide HCl (Trusopt 2%) 1 drop OS BID [facility] Last Admin: 02/19/19 22:32 Dose: 1 drop Heparin Sodium (Porcine) (Heparin -) 5,000 unit SQ BID [facility] Last Admin: 02/19/19 22:32 Dose: 5,000 unit Ceftriaxone Sodium 1 gm/ (Dextrose) 50 mls @ 100 mls/hr IVPB DAILY [facility]; Protocol Last Admin: 02/19/19 09:11 Dose: 100 mls/hr Levothyroxine Sodium (Synthroid -) 50 mcg PO ACBK [facility] Last Admin: 02/20/19 06:35 Dose: 50 mcg Magnesium Hydroxide (Milk Of Magnesia -) 30 ml PO DAILY [facility] Last Admin: 02/19/19 09:10 Dose: 30 ml Nystatin (Mycostatin Cream -) 1 applic TP BID [facility] Last Admin: 02/19/19 22:32 Dose: 1 applic Polyethylene Glycol (Miralax (For Daily Use) -) 17 gm PO BID [facility] Last Admin: 02/19/19 22:40 Dose: Not Given Rosuvastatin Calcium (Crestor -) 10 mg PO HS [facility] Last Admin: 02/19/19 22:32 Dose: 10 mg Physical Examination Vital Signs Period Temp Pulse Resp BP Sys/Davison Pulse Ox Last 24 Hr 97.8 F-98.7 F 63-74 16-18 98-147/51-87 100-100 Constitutional: Yes: No Distress, Thin Eyes: Yes: Conjunctiva Clear HENT: Yes: WNL, Atraumatic, Normocephalic Neck: Yes: WNL, Supple, Trachea Midline Cardiovascular: Yes: Regular Rate and Rhythm, S1, S2 Respiratory: Yes: Regular, Diminished Gastrointestinal: Yes: WNL, Normal Bowel Sounds, Soft ...Rectal Exam: Yes: Sphincter Tone Normal Renal/: Yes: White Present (yellow urine- in drainage bag) Breast(s): Yes: WNL Musculoskeletal: Yes: WNL Extremities: Yes: WNL Edema: No Peripheral Pulses WNL: Yes Integumentary: Yes: Pressure Ulcer (Stage 1 to L- Gluteal healed scab to L- mid Gluteal), Other (pressure ulcer to R- Heel) Neurological: Pill rolling tremor noted, +cogwheeling with bradykinesia, moves extremities grossly CBCD WBC 6.1 K/mm3 (4.0-10.0) 02/20/19 07:00 RBC 4.22 M/mm3 (4.00-5.60) 02/20/19 07:00 Hgb 12.7 GM/dL (11.7-16.9) 02/20/19 07:00 Hct 38.5 % (35.4-49) 02/20/19 07:00 MCV 91.3 fl (80-96) 02/20/19 07:00 MCHC 32.8 g/dl (32.0-35.9) 02/20/19 07:00 RDW 15.7 % (11.9-15.9) 02/20/19 07:00 Plt Count 246 K/MM3 (134-434) 02/20/19 07:00 MPV 8.6 fl (7.5-11.1) 02/20/19 07:00 CMP Sodium 141 mmol/L (136-145) 02/20/19 07:00 Potassium 4.7 mmol/L (3.5-5.1) 02/20/19 07:00 Chloride 106 mmol/L (98-107) 02/20/19 07:00 Carbon Dioxide 31 mmol/L (21-32) 02/20/19 07:00 Anion Gap 4 MMOL/L (8-16) L 02/20/19 07:00 BUN 26 mg/dL (7-18) H 02/20/19 07:00 Creatinine 1.0 mg/dL (0.55-1.3) 02/20/19 07:00 Random Glucose 86 mg/dL (74-106) 02/20/19 07:00 Calcium 9.1 mg/dL (8.5-10.1) 02/20/19 07:00 Total Bilirubin 0.4 mg/dL (0.2-1) 02/20/19 07:00 AST 21 U/L (15-37) 02/20/19 07:00 ALT 19 U/L (13-61) 02/20/19 07:00 Alkaline Phosphatase 76 U/L (45-117) 02/20/19 07:00 Total Protein 6.9 g/dl (6.4-8.2) 02/20/19 07:00 Albumin 3.5 g/dl (3.4-5.0) 02/20/19 07:00 CARDIAC ENZYMES Troponin I < 0.02 ng/ml (0.00-0.05) 02/13/19 17:35 Plan 83 y/o man from home with a past medical history of Parkinson's, Dementia, Depression, Hypertension, Hypperlipidemia, CAD, [place] s/p Stent, Glaucoma, COPD, BPH, Colon Ca s/p Colectomy, OA, recent admission 01/03- 01/16 for Complicated UTI who presented to the ED via ambulance for unresponsiveness. Per the patient's daughter the patient's [employer]ARNISH FIL[employer]ER called EMS because the patient appeared unresponsive and was not breathing. Per the daughter the patient was pale and now is color is pink- back to normal. She reported that when the patient is sitting on the toilet, he stares into space and does not respond for a few minutes. She reported her concerns regarding his Parkinson's and feels his medication needs to be adjusted, but has not been able to take him to see me due to the patient' s gait issues. The daughter denies the patient having fever, chills, SOB, CP, palpitations, AP, N/V/D. marija's daughter reports the last change on the indwelling White was 2 weeks ago. Of note, UA was positive for UTI and this is likely etiology of his symptoms. Continue medical management of urinary tract infection, antibiotics as per primary team, currently on Ceftriaxone, switched from Meropenum. ID consulted and following, note reviewed. Maintain adequate hydration. can continue Sinemet at this time, lethargy seems more consistent with infection. Continue to monitor mental status, which has improved. CT head completed and without acute changes. Neurologically stable at this time.
[2019-02-20] MEDS ORDERED: DEXTROSE 5%-WATER - 50 ML IVPB ONE (10:26)
[2019-02-20] MEDS ORDERED: cefTRIAXone SODIUM 1 GM VIAL ONE (10:26)
[2019-02-20] MEDS: CEFTRIAXONE 1 GM in DEXTROSE 5%-WATER - 50 ML IVPB SCH ×2 (10:38→12:11)
[2019-02-20] MEDS: amLODIPine BESYLATE 5 MG TABLET (FP) PO SCH (10:38)
[2019-02-20] MEDS: POLYETHYLENE GLYCOL 3350 119 GM BTL PO SCH ×2 (10:39→21:34)
[2019-02-20] MEDS: HEPARIN NA (PORCINE) 5,000 UNITS/ML 1ML VIAL SQ SCH (10:39)
[2019-02-20] MEDS: MAGNESIUM HYDROX 2400MG/30ML ORAL SUSPENSION 30 ML CUP PO SCH (10:39)
[2019-02-20] MEDS: NYSTATIN 100,000 UNIT/GM TOPICAL CREAM 15 GM TUBE TP SCH ×2 (10:39→22:27)
[2019-02-20] MEDS: DORZOLAMIDE 2% HCL OPHTHALMIC SOLUTION 10 ML BOTTLE OS SCH ×2 (10:40→22:27)
--- NOTE | 2019-02-20 11:20 | PN ---
Progress Note, [employer] - Note Progress Note: Selected Entries 02/17/19 02/17/19 02/17/19 06:00 12:00 18:00 Supper Temperature 97.4 F L 98 F 97.6 F 02/17/19 02/17/19 02/18/19 18:15 23:27 06:00 Supper 75% Temperature 99.0 F 98.0 F 02/18/19 09:15 Supper Temperature 98 F Laboratory Tests 02/18/19 08:42 WBC 5.1 Selected Entries 02/18/19 02/18/19 02/18/19 06:00 09:15 15:56 Breakfast 25% Diet Tolerated Poor Lunch 25% Supper Temperature 98.0 F 98 F 97.6 F 02/18/19 02/18/19 02/19/19 18:00 18:20 02:00 Breakfast Diet Tolerated Fair Lunch Supper 50% Temperature 97.6 F 98.0 F 02/19/19 02/19/19 02/19/19 06:00 10:27 11:28 Breakfast 25% Diet Tolerated Poor Lunch Supper Temperature 97.5 F L 98.1 F Laboratory Tests 02/18/19 08:42 WBC 5.1 Selected Entries 02/19/19 02/19/19 02/19/19 02:00 06:00 10:27 Breakfast Lunch Supper Temperature 98.0 F 97.5 F L 98.1 F 02/19/19 02/19/19 02/19/19 11:28 15:38 18:00 Breakfast 25% Lunch 50% Supper Temperature 98.7 F 97.8 F 02/19/19 02/20/19 02/20/19 18:20 06:00 10:42 Breakfast Lunch Supper 75% Temperature 98.1 F 98 F Laboratory Tests 02/20/19 07:00 WBC 6.1 Pt tolerating puree/nectar thick liquid well with assistance. Encourage supplements for increased density of nutritional intake, and hydration. Monitor tolerance.
--- NOTE | 2019-02-20 11:54 | PN ---
Progress Note, Physician History of Present Illness: stable no new issues - Current Medication List Current Medications: Active Medications Amlodipine Besylate (Norvasc -) 5 mg PO DAILY [facility] Last Admin: 02/20/19 10:38 Dose: 5 mg Carbidopa/Levodopa (Sinemet *Cr* 25/100 -) 1 combo PO TID@0700,1200,1700 [facility] Last Admin: 02/20/19 06:35 Dose: 1 combo Docusate Sodium (Colace Liquid -) 100 mg PO TID [facility] Last Admin: 02/20/19 06:35 Dose: 100 mg Dorzolamide HCl (Trusopt 2%) 1 drop OS BID [facility] Last Admin: 02/20/19 10:40 Dose: 1 drop Heparin Sodium (Porcine) (Heparin -) 5,000 unit SQ BID [facility] Last Admin: 02/20/19 10:39 Dose: 5,000 unit Levothyroxine Sodium (Synthroid -) 50 mcg PO ACBK [facility] Last Admin: 02/20/19 06:35 Dose: 50 mcg Magnesium Hydroxide (Milk Of Magnesia -) 30 ml PO DAILY [facility] Last Admin: 02/20/19 10:39 Dose: 30 ml Nystatin (Mycostatin Cream -) 1 applic TP BID [facility] Last Admin: 02/20/19 10:39 Dose: 1 applic Polyethylene Glycol (Miralax (For Daily Use) -) 17 gm PO BID [facility] Last Admin: 02/20/19 10:39 Dose: Not Given Rosuvastatin Calcium (Crestor -) 10 mg PO HS [facility] Last Admin: 02/19/19 22:32 Dose: 10 mg - Objective Vital Signs: Vital Signs Temperature 98 F 02/20/19 10:42 Pulse Rate 70 02/20/19 10:42 Respiratory Rate 16 02/20/19 10:42 Blood Pressure 124/63 02/20/19 10:42 O2 Sat by Pulse Oximetry (%) 100 02/19/19 21:00 Constitutional: Yes: No Distress, Calm Cardiovascular: Yes: S1, S2 Respiratory: Yes: Regular, CTA Bilaterally Gastrointestinal: Yes: Normal Bowel Sounds, Soft Genitourinary: Yes: White Present Musculoskeletal: Yes: WNL Extremities: Yes: WNL Neurological: Yes: Other Labs: CBC, BMP 02/20/19 07:00 02/20/19 07:00 INR, PTT INR 1.01 (0.83-1.09) 02/13/19 17:35 Assessment/Plan Problem List - Problems (1) Complicated UTI (urinary tract infection) Code(s): N39.0 - URINARY TRACT INFECTION, SITE NOT SPECIFIED (2) Unresponsive episode Code(s): R41.89 - OTH SYMPTOMS AND SIGNS W COGNITIVE FUNCTIONS AND AWARENESS (3) Parkinson disease Code(s): G20 - PARKINSON'S DISEASE (4) Dementia Code(s): F03.90 - UNSPECIFIED DEMENTIA WITHOUT BEHAVIORAL DISTURBANCE (5) CAD (coronary artery disease) Code(s): I25.10 - ATHSCL HEART DISEASE OF [place] CORONARY ARTERY W/O ANG PCTRS Qualifiers: Coronary Disease-Associated Artery/Lesion type: [place] artery [place] vs. transplanted heart: [place] heart Associated angina: without angina Qualified Code(s): I25.10 - Atherosclerotic heart disease of [place] coronary artery without angina pectoris (6) Hypercholesteremia Code(s): E78.00 - PURE HYPERCHOLESTEROLEMIA, UNSPECIFIED (7) Hypertension Code(s): I10 - ESSENTIAL (PRIMARY) HYPERTENSION Qualifiers: Hypertension type: essential hypertension Qualified Code(s): I10 - Essential (primary) hypertension (8) Hypothyroidism Code(s): E03.9 - HYPOTHYROIDISM, UNSPECIFIED Assessment/Plan This is a 83 y/o man with a PMHx of Parkinson's, Dementia, HTN, HLD, COPD, CAD, [place] s/p Stent's, Depression, OA, Colon Ca s/p Colectomy. Admitted for Complicated UTI, stopped abx will see how patient does
[2019-02-20] MEDS: ROSUVASTATIN CA 10 MG TABLET (FP) PO SCH (22:26)
[2019-02-21] MEDS: LEVOTHYROXINE NA 50 MCG TABLET (FP) PO SCH (06:52)
[2019-02-21] MEDS: DOCUSATE NA 100 MG/10 ML UNIT-DOSE CUPS PO SCH ×3 (06:52→21:40)
[2019-02-21] MEDS ORDERED: PT OWN MED DRAWER 7, Y5N ONE (07:31)
--- NOTE | 2019-02-21 08:14 | PN ---
Progress Note, Physician Chief Complaint: Comfortable in bed. Awake, antibiotics were D/c by ID History of Present Illness: COLON cancer, s/p sx, chemo. Parkinson disease. Autonomic dysfunction. Hypertension/hypotension. ASHD. s/p stents. BPH. HTN Hypothyroidism Glaucoma. B/L IOL displaced. - Current Medication List Current Medications: Active Medications Amlodipine Besylate (Norvasc -) 5 mg PO DAILY [facility] Last Admin: 02/20/19 10:38 Dose: 5 mg Carbidopa/Levodopa (Sinemet *Cr* 25/100 -) 1 combo PO TID@0700,1200,1700 [facility] Last Admin: 02/21/19 06:52 Dose: 1 combo Docusate Sodium (Colace Liquid -) 100 mg PO TID [facility] Last Admin: 02/21/19 06:52 Dose: 100 mg Dorzolamide HCl (Trusopt 2%) 1 drop OS BID [facility] Last Admin: 02/20/19 22:27 Dose: 1 drop Levothyroxine Sodium (Synthroid -) 50 mcg PO ACBK [facility] Last Admin: 02/21/19 06:52 Dose: 50 mcg Magnesium Hydroxide (Milk Of Magnesia -) 30 ml PO DAILY [facility] Last Admin: 02/20/19 10:39 Dose: 30 ml Nystatin (Mycostatin Cream -) 1 applic TP BID [facility] Last Admin: 02/20/19 22:27 Dose: 1 applic Polyethylene Glycol (Miralax (For Daily Use) -) 17 gm PO BID [facility] Last Admin: 02/20/19 21:34 Dose: Not Given Rosuvastatin Calcium (Crestor -) 10 mg PO HS [facility] Last Admin: 02/20/19 22:26 Dose: 10 mg - Objective Vital Signs: Vital Signs Temperature 98.0 F 02/21/19 06:00 Pulse Rate 65 02/21/19 06:00 Respiratory Rate 20 02/21/19 06:00 Blood Pressure 139/76 02/21/19 06:00 O2 Sat by Pulse Oximetry (%) 99 02/20/19 21:00 Constitutional: Yes: Calm, Pallor, Thin Eyes: Yes: Conjunctiva Clear, EOM Intact HENT: Yes: Atraumatic, Normocephalic, Drooling Neck: Yes: Supple, Trachea Midline, Rigid. No: Decreased ROM, Lymphadenopathy, Tenderness, Thyromegaly Cardiovascular: Yes: Regular Rate and Rhythm, S1, S2. No: Bradycardia, Tachycardia, Pulse Irregular, Bruit, JVD, Gallop, Murmur, Rub Respiratory: Yes: Regular, CTA Bilaterally. No: Accessory Muscle Use, Bradypnea Gastrointestinal: Yes: Normal Bowel Sounds, Soft. No: Abdomen, Obese, Ascites ...Rectal Exam: Yes: Deferred Genitourinary: Yes: White Present. No: Anuria, Bladder Distention, CVA Tenderness - Left Breast(s): Yes: WNL Musculoskeletal: Yes: WNL Extremities: Yes: WNL Edema: No Peripheral Pulses WNL: Yes Integumentary: Yes: WNL Neurological: Yes: Alert, Dysarthria (and Dysphonia), Tremors, Weakness Psychiatric: Yes: Alert. No: Agitated, Suicidal Ideation Labs: CBC, BMP 02/20/19 07:00 02/20/19 07:00 INR, PTT INR 1.01 (0.83-1.09) 02/13/19 17:35 Problem List - Problems (1) Complicated UTI (urinary tract infection) Assessment/Plan: Observe off abx for the next 24 hrs. Recurrent UTI likely due to indwelling White discussed with the family . Code(s): N39.0 - URINARY TRACT INFECTION, SITE NOT SPECIFIED (2) Parkinson disease Assessment/Plan: Neuro follow up Continue Sinemet Code(s): G20 - PARKINSON'S DISEASE (3) Unresponsive episode Assessment/Plan: Avoid hypotension and avoid tight BP control. The patient has very frequent episodes of unresponsiveness and hypotension when place in upright position. Code(s): R41.89 - OTH SYMPTOMS AND SIGNS W COGNITIVE FUNCTIONS AND AWARENESS (4) Requires aspiration precautions Assessment/Plan: Thickened liquids. No plans for PEG as discussed with the family Code(s): Z91.89 - OTH PERSONAL RISK FACTORS, NOT ELSEWHERE CLASSIFIED (5) Dysphagia as late effect of cerebrovascular disease Assessment/Plan: Continue puree/thickened fluids diet. HOB elevation. Code(s): I69.991 - DYSPHAGIA FOLLOWING UNSPECIFIED CEREBROVASCULAR DISEASE (6) Autonomic dysfunction Assessment/Plan: Well hydrating of the patient discussed. Frequent elevated BP due to position change does not need to be treated aggressively with meds. Would hold off on Fludrocortisone and Midodrine for now Code(s): G90.9 - DISORDER OF THE AUTONOMIC NERVOUS SYSTEM, UNSPECIFIED
--- NOTE | 2019-02-21 08:46 | PN ---
Progress Note (short form) - Note Progress Note: Neurology History of Present Illness: This is a 83 y/o man from home with a past medical history of Parkinson's, Dementia, Depression, Hypertension, Hypperlipidemia, CAD, [place] s/p Stent, Glaucoma, COPD, BPH, Colon Ca s/p Colectomy, OA, recent admission 01/03- 01/16 for Complicated UTI who presented to the ED via ambulance for unresponsiveness. Per the patient's daughter the patient's SYNCHRONIZER called EMS because the patient appeared unresponsive and was not breathing. Per the daughter the patient was pale and now is color is pink- back to normal. She reported that when the patient is sitting on the toilet, he stares into space and does not respond for a few minutes. She reported her concerns regarding his Parkinson's and feels his medication needs to be adjusted, but has not been able to take him to see me due to the patient's gait issues. The daughter denies the patient having fever, chills, SOB, CP, palpitations, AP, N/V/D. Patient's daughter reported the last change on the indwelling White was 2 weeks ago. Of note, UA was positive for UTI and this is likely etiology of his symptoms. CT head completed and without acute changes. Abx stopped by ID, patient seems stable, ID following and will assess if further need for Abx. Can continue Sinemet for him. Active Medications Amlodipine Besylate (Norvasc -) 5 mg PO DAILY [facility] Last Admin: 02/20/19 10:38 Dose: 5 mg Carbidopa/Levodopa (Sinemet *Cr* 25/100 -) 1 combo PO TID@0700,1200,1700 [facility] Last Admin: 02/21/19 06:52 Dose: 1 combo Docusate Sodium (Colace Liquid -) 100 mg PO TID [facility] Last Admin: 02/21/19 06:52 Dose: 100 mg Dorzolamide HCl (Trusopt 2%) 1 drop OS BID [facility] Last Admin: 02/20/19 22:27 Dose: 1 drop Levothyroxine Sodium (Synthroid -) 50 mcg PO ACBK [facility] Last Admin: 02/21/19 06:52 Dose: 50 mcg Magnesium Hydroxide (Milk Of Magnesia -) 30 ml PO DAILY [facility] Last Admin: 02/20/19 10:39 Dose: 30 ml Nystatin (Mycostatin Cream -) 1 applic TP BID [facility] Last Admin: 02/20/19 22:27 Dose: 1 applic Polyethylene Glycol (Miralax (For Daily Use) -) 17 gm PO BID [facility] Last Admin: 02/20/19 21:34 Dose: Not Given Rosuvastatin Calcium (Crestor -) 10 mg PO HS [facility] Last Admin: 02/20/19 22:26 Dose: 10 mg Physical Examination Vital Signs Period Temp Pulse Resp BP Sys/Davison Pulse Ox Last 24 Hr 97.8 F-98.2 F 63-70 16-20 116-139/53-76 99-100 Constitutional: Yes: No Distress, Thin Eyes: Yes: Conjunctiva Clear HENT: Yes: WNL, Atraumatic, Normocephalic Neck: Yes: WNL, Supple, Trachea Midline Cardiovascular: Yes: Regular Rate and Rhythm, S1, S2 Respiratory: Yes: Regular, Diminished Gastrointestinal: Yes: WNL, Normal Bowel Sounds, Soft ...Rectal Exam: Yes: Sphincter Tone Normal Renal/: Yes: White Present (yellow urine- in drainage bag) Breast(s): Yes: WNL Musculoskeletal: Yes: WNL Extremities: Yes: WNL Edema: No Peripheral Pulses WNL: Yes Integumentary: Yes: Pressure Ulcer (Stage 1 to L- Gluteal healed scab to L- mid Gluteal), Other (pressure ulcer to R- Heel) Neurological: Pill rolling tremor noted, +cogwheeling with bradykinesia, moves extremities grossly CBCD WBC 6.1 K/mm3 (4.0-10.0) 02/20/19 07:00 RBC 4.22 M/mm3 (4.00-5.60) 02/20/19 07:00 Hgb 12.7 GM/dL (11.7-16.9) 02/20/19 07:00 Hct 38.5 % (35.4-49) 02/20/19 07:00 MCV 91.3 fl (80-96) 02/20/19 07:00 MCHC 32.8 g/dl (32.0-35.9) 02/20/19 07:00 RDW 15.7 % (11.9-15.9) 02/20/19 07:00 Plt Count 246 K/MM3 (134-434) 02/20/19 07:00 MPV 8.6 fl (7.5-11.1) 02/20/19 07:00 CMP Sodium 141 mmol/L (136-145) 02/20/19 07:00 Potassium 4.7 mmol/L (3.5-5.1) 02/20/19 07:00 Chloride 106 mmol/L (98-107) 02/20/19 07:00 Carbon Dioxide 31 mmol/L (21-32) 02/20/19 07:00 Anion Gap 4 MMOL/L (8-16) L 02/20/19 07:00 BUN 26 mg/dL (7-18) H 02/20/19 07:00 Creatinine 1.0 mg/dL (0.55-1.3) 02/20/19 07:00 Random Glucose 86 mg/dL (74-106) 02/20/19 07:00 Calcium 9.1 mg/dL (8.5-10.1) 02/20/19 07:00 Total Bilirubin 0.4 mg/dL (0.2-1) 02/20/19 07:00 AST 21 U/L (15-37) 02/20/19 07:00 ALT 19 U/L (13-61) 02/20/19 07:00 Alkaline Phosphatase 76 U/L (45-117) 02/20/19 07:00 Total Protein 6.9 g/dl (6.4-8.2) 02/20/19 07:00 Albumin 3.5 g/dl (3.4-5.0) 02/20/19 07:00 CARDIAC ENZYMES Troponin I < 0.02 ng/ml (0.00-0.05) 02/13/19 17:35 Plan 83 y/o man from home with a past medical history of Parkinson's, Dementia, Depression, Hypertension, Hypperlipidemia, CAD, [place] s/p Stent, Glaucoma, COPD, BPH, Colon Ca s/p Colectomy, OA, recent admission 01/03- 01/16 for Complicated UTI who presented to the ED via ambulance for unresponsiveness. Per the patient's daughter the patient's SYNCHRONIZER called EMS because the patient appeared unresponsive and was not breathing. Per the daughter the patient was pale and now is color is pink- back to normal. She reported that when the patient is sitting on the toilet, he stares into space and does not respond for a few minutes. She reported her concerns regarding his Parkinson's and feels his medication needs to be adjusted, but has not been able to take him to see me due to the patient' s gait issues. The daughter denies the patient having fever, chills, SOB, CP, palpitations, AP, N/V/D. marija's daughter reports the last change on the indwelling White was 2 weeks ago. Of note, UA was positive for UTI and this is likely etiology of his symptoms. Continue medical management of urinary tract infection, antibiotics as per primary team, currently on Ceftriaxone, switched from Meropenum. ID consulted and following, note reviewed. Maintain adequate hydration. can continue Sinemet at this time, lethargy seems more consistent with infection. Continue to monitor mental status, which has improved. CT head completed and without acute changes. ID note and PCP note reviewed, Abx discontinued, patient appears stable. ID following and will monitor/assess Abx needs.
[2019-02-21] MEDS: amLODIPine BESYLATE 5 MG TABLET (FP) PO SCH (10:39)
[2019-02-21] MEDS: MAGNESIUM HYDROX 2400MG/30ML ORAL SUSPENSION 30 ML CUP PO SCH (10:39)
[2019-02-21] MEDS: POLYETHYLENE GLYCOL 3350 119 GM BTL PO SCH ×2 (10:40→21:40)
[2019-02-21] MEDS: NYSTATIN 100,000 UNIT/GM TOPICAL CREAM 15 GM TUBE TP SCH ×2 (10:44→21:40)
[2019-02-21] MEDS: DORZOLAMIDE 2% HCL OPHTHALMIC SOLUTION 10 ML BOTTLE OS SCH ×2 (10:44→21:40)
--- NOTE | 2019-02-21 12:18 | PN ---
Progress Note, [facility] - Note Progress Note: Selected Entries 02/20/19 02/20/19 02/20/19 06:00 10:42 14:36 Breakfast 75% Diet Tolerated Fair Lunch 50% Supper Temperature 98.1 F 98 F 02/20/19 02/20/19 02/20/19 15:27 18:00 18:30 Breakfast Diet Tolerated Well Lunch Supper 75% Temperature 97.8 F 98.2 F 02/21/19 02/21/19 06:00 10:19 Breakfast Diet Tolerated Lunch Supper Temperature 98.0 F 98.4 F Laboratory Tests 02/20/19 07:00 WBC 6.1 Encourage supplements for increased density of nutritional intake, and hydration. Monitor tolerance.
--- NOTE | 2019-02-21 13:30 | PN ---
Progress Note, Physician History of Present Illness: stable no new issues - Current Medication List Current Medications: Active Medications Amlodipine Besylate (Norvasc -) 5 mg PO DAILY [facility] Last Admin: 02/21/19 10:39 Dose: 5 mg Carbidopa/Levodopa (Sinemet *Cr* 25/100 -) 1 combo PO TID@0700,1200,1700 [facility] Last Admin: 02/21/19 12:30 Dose: 1 combo Docusate Sodium (Colace Liquid -) 100 mg PO TID [facility] Last Admin: 02/21/19 06:52 Dose: 100 mg Dorzolamide HCl (Trusopt 2%) 1 drop OS BID [facility] Last Admin: 02/21/19 10:44 Dose: 1 drop Levothyroxine Sodium (Synthroid -) 50 mcg PO ACBK [facility] Last Admin: 02/21/19 06:52 Dose: 50 mcg Magnesium Hydroxide (Milk Of Magnesia -) 30 ml PO DAILY [facility] Last Admin: 02/21/19 10:39 Dose: 30 ml Nystatin (Mycostatin Cream -) 1 applic TP BID [facility] Last Admin: 02/21/19 10:44 Dose: 1 applic Polyethylene Glycol (Miralax (For Daily Use) -) 17 gm PO BID [facility] Last Admin: 02/21/19 10:40 Dose: Not Given Rosuvastatin Calcium (Crestor -) 10 mg PO HS [facility] Last Admin: 02/20/19 22:26 Dose: 10 mg - Objective Vital Signs: Vital Signs Temperature 98.4 F 02/21/19 10:19 Pulse Rate 70 02/21/19 10:19 Respiratory Rate 20 02/21/19 10:19 Blood Pressure 159/63 02/21/19 10:19 O2 Sat by Pulse Oximetry (%) 98 02/21/19 09:00 Constitutional: Yes: No Distress, Calm Cardiovascular: Yes: S1, S2 Respiratory: Yes: Regular, CTA Bilaterally Gastrointestinal: Yes: Normal Bowel Sounds, Soft Musculoskeletal: Yes: WNL Extremities: Yes: WNL Neurological: Yes: Alert, Other Psychiatric: Yes: Other Labs: CBC, BMP 02/20/19 07:00 02/20/19 07:00 INR, PTT INR 1.01 (0.83-1.09) 02/13/19 17:35 Assessment/Plan Problem List - Problems (1) Complicated UTI (urinary tract infection) Code(s): N39.0 - URINARY TRACT INFECTION, SITE NOT SPECIFIED (2) Unresponsive episode Code(s): R41.89 - OTH SYMPTOMS AND SIGNS W COGNITIVE FUNCTIONS AND AWARENESS (3) Parkinson disease Code(s): G20 - PARKINSON'S DISEASE (4) Dementia Code(s): F03.90 - UNSPECIFIED DEMENTIA WITHOUT BEHAVIORAL DISTURBANCE (5) CAD (coronary artery disease) Code(s): I25.10 - ATHSCL HEART DISEASE OF [place] CORONARY ARTERY W/O ANG PCTRS Qualifiers: Coronary Disease-Associated Artery/Lesion type: [place] artery [place] vs. transplanted heart: [place] heart Associated angina: without angina Qualified Code(s): I25.10 - Atherosclerotic heart disease of [place] coronary artery without angina pectoris (6) Hypercholesteremia Code(s): E78.00 - PURE HYPERCHOLESTEROLEMIA, UNSPECIFIED (7) Hypertension Code(s): I10 - ESSENTIAL (PRIMARY) HYPERTENSION Qualifiers: Hypertension type: essential hypertension Qualified Code(s): I10 - Essential (primary) hypertension (8) Hypothyroidism Code(s): E03.9 - HYPOTHYROIDISM, UNSPECIFIED Assessment/Plan This is a 83 y/o man with a PMHx of Parkinson's, Dementia, HTN, HLD, COPD, CAD, [place] s/p Stent's, Depression, OA, Colon Ca s/p Colectomy. Admitted for Complicated UTI, stable continue current mgmt
[2019-02-21] MEDS: ROSUVASTATIN CA 10 MG TABLET (FP) PO SCH (21:40)
[2019-02-22] MEDS: LEVOTHYROXINE NA 50 MCG TABLET (FP) PO SCH (06:13)
[2019-02-22] MEDS: DOCUSATE NA 100 MG/10 ML UNIT-DOSE CUPS PO SCH ×2 (06:13→15:51)
--- NOTE | 2019-02-22 09:02 | PN ---
Progress Note (short form) - Note Progress Note: Renains afbrile of abx, awake, confused. ID follow up appreciated. Vital Signs Temp 98.3 F 02/22/19 06:00 Pulse 67 02/22/19 06:00 Resp 20 02/22/19 06:00 BP 156/86 02/22/19 06:00 Pulse Ox 98 02/21/19 21:00 Intake & Output 02/21/19 02/21/19 02/22/19 11:59 23:59 11:59 Intake Total 300 30 Output Total 400 800 600 Balance -400 -500 -570 Intake: Oral 300 30 Output: Urine 400 800 600 White 400 800 600 Other: Voiding Method Indwelling Catheter Indwelling Catheter Indwelling Catheter Bowel Movement No No Yes: small # Bowel Movements 1 Eyes closed, responds to verbal stimuli. Neck supple, no JVD Lungs clear Heart S1S2 regular Abdomen soft, NT Ext +tremor resting, cogwheel rigidity, Abundio White in place Current Active Problems Problem Status Onset Autonomic dysfunction Acute Complicated UTI (urinary tract infection) Acute Dementia Acute Dysphagia as late effect of cerebrovascular disease Acute Parkinson disease Acute Prophylactic measure Acute Requires aspiration precautions Acute Syncope Acute UTI (urinary tract infection) Acute Unresponsive episode Acute Urinary (tract) obstruction Acute Weakness Acute Plan D/C home VNS Re-admition is likely due to frequent syncope/near syncope due to autonomic dysfunction. The family refused PEG, refused SNF VNS Problem List - Problems (1) Complicated UTI (urinary tract infection) Code(s): N39.0 - URINARY TRACT INFECTION, SITE NOT SPECIFIED (2) Parkinson disease Code(s): G20 - PARKINSON'S DISEASE (3) Unresponsive episode Code(s): R41.89 - OTH SYMPTOMS AND SIGNS W COGNITIVE FUNCTIONS AND AWARENESS (4) Requires aspiration precautions Code(s): Z91.89 - OTH PERSONAL RISK FACTORS, NOT ELSEWHERE CLASSIFIED (5) Dysphagia as late effect of cerebrovascular disease Code(s): I69.991 - DYSPHAGIA FOLLOWING UNSPECIFIED CEREBROVASCULAR DISEASE (6) Autonomic dysfunction Code(s): G90.9 - DISORDER OF THE AUTONOMIC NERVOUS SYSTEM, UNSPECIFIED
--- NOTE | 2019-02-22 09:04 | DS ---
Physical Examination Vital Signs: Vital Signs Temperature 98.3 F 02/22/19 06:00 Pulse Rate 67 02/22/19 06:00 Respiratory Rate 20 02/22/19 06:00 Blood Pressure 156/86 02/22/19 06:00 O2 Sat by Pulse Oximetry (%) 98 02/21/19 21:00 Constitutional: Yes: No Distress, Pallor, Thin Eyes: Yes: Conjunctiva Clear, EOM Intact HENT: Yes: Atraumatic, Normocephalic Neck: Yes: Supple, Trachea Midline Cardiovascular: Yes: Regular Rate and Rhythm, S1, S2. No: JVD Respiratory: Yes: Regular, CTA Bilaterally Gastrointestinal: Yes: Normal Bowel Sounds, Soft. No: Abdomen, Obese, Ascites, Distention, Palpable Mass, Tenderness ...Rectal Exam: Yes: Deferred Renal/: No: Anuria Breast(s): Yes: WNL Musculoskeletal: Yes: Joint Stiffness, Muscle Weakness. No: Muscle Pain Extremities: No: Amputation, Calf Tenderness, Cold, Cyanosis Edema: No Neurological: Yes: Alert, Confusion, Tremors, Weakness. No: Oriented, Seizure Psychiatric: Yes: Alert. No: Oriented, Agitated, Suicidal Ideation Labs: CBC, BMP 02/20/19 07:00 02/20/19 07:00 Discharge Summary Reason For Visit: UTI Current Active Problems Autonomic dysfunction (Acute) Complicated UTI (urinary tract infection) (Acute) Dementia (Acute) Dysphagia as late effect of cerebrovascular disease (Acute) Parkinson disease (Acute) Prophylactic measure (Acute) Requires aspiration precautions (Acute) Syncope (Acute) UTI (urinary tract infection) (Acute) Unresponsive episode (Acute) Urinary (tract) obstruction (Acute) Weakness (Acute) Condition: Fair - Instructions Disposition: VNS/HOME HEALTH CARE - Home Medications Comprehensive Discharge Medication List: Ambulatory Orders Carbidopa/Levodopa *Cr* 25/100 [Sinemet *Cr* 25/100 -] 1 combo PO TID@0700,1200, 1700 tablet.er 07/14/15 Rosuvastatin [Crestor -] 10 mg PO HS tablet 07/14/15 Levothyroxine [Synthroid -] 50 mcg PO ACBK 02/11/17 Amlodipine Besylate 5 mg PO DAILY 01/03/19 Polyethylene Glycol 3350 [Miralax 255 gm Btl -] 255 gm PO PRN 01/03/19 Dorzolamide HCl [Trusopt 2% -] 1 drop OS BID drops 01/16/19 Magnesium Hydrox 2400MG/30Ml [Milk of Magnesia -] 30 ml PO DAILY PRN cup
--- NOTE | 2019-02-22 09:09 | PN ---
Progress Note (short form) - Note Progress Note: Neurology History of Present Illness: This is a 83 y/o man from home with a past medical history of Parkinson's, Dementia, Depression, Hypertension, Hypperlipidemia, CAD, [place] s/p Stent, Glaucoma, COPD, BPH, Colon Ca s/p Colectomy, OA, recent admission 01/03- 01/16 for Complicated UTI who presented to the ED via ambulance for unresponsiveness. Per the patient's daughter the patient's DISASSEMBLER PRODUCT called EMS because the patient appeared unresponsive and was not breathing. Per the daughter the patient was pale and now is color is pink- back to normal. She reported that when the patient is sitting on the toilet, he stares into space and does not respond for a few minutes. She reported her concerns regarding his Parkinson's and feels his medication needs to be adjusted, but has not been able to take him to see me due to the patient's gait issues. The daughter denies the patient having fever, chills, SOB, CP, palpitations, AP, N/V/D. Patient's daughter reported the last change on the indwelling White was 2 weeks ago. Of note, UA was positive for UTI and this is likely etiology of his symptoms. CT head completed and without acute changes. Abx stopped by ID, patient seems stable,being planned for discharge. Can continue Sinemet for him. Active Medications Amlodipine Besylate (Norvasc -) 5 mg PO DAILY [facility] Last Admin: 02/21/19 10:39 Dose: 5 mg Carbidopa/Levodopa (Sinemet *Cr* 25/100 -) 1 combo PO TID@0700,1200,1700 [facility] Last Admin: 02/22/19 06:13 Dose: 1 combo Docusate Sodium (Colace Liquid -) 100 mg PO TID [facility] Last Admin: 02/22/19 06:13 Dose: 100 mg Dorzolamide HCl (Trusopt 2%) 1 drop OS BID [facility] Last Admin: 02/21/19 21:40 Dose: 1 drop Levothyroxine Sodium (Synthroid -) 50 mcg PO ACBK [facility] Last Admin: 02/22/19 06:13 Dose: 50 mcg Magnesium Hydroxide (Milk Of Magnesia -) 30 ml PO DAILY [facility] Last Admin: 02/21/19 10:39 Dose: 30 ml Nystatin (Mycostatin Cream -) 1 applic TP BID [facility] Last Admin: 02/21/19 21:40 Dose: 1 applic Polyethylene Glycol (Miralax (For Daily Use) -) 17 gm PO BID [facility] Last Admin: 02/21/19 21:40 Dose: Not Given Rosuvastatin Calcium (Crestor -) 10 mg PO HS [facility] Last Admin: 02/21/19 21:40 Dose: 10 mg Physical Examination Vital Signs Period Temp Pulse Resp BP Sys/Davison Pulse Ox Last 24 Hr 98.2 F-98.5 F 67-71 16-20 105-159/60-86 98 Constitutional: Yes: No Distress, Thin Eyes: Yes: Conjunctiva Clear HENT: Yes: WNL, Atraumatic, Normocephalic Neck: Yes: WNL, Supple, Trachea Midline Cardiovascular: Yes: Regular Rate and Rhythm, S1, S2 Respiratory: Yes: Regular, Diminished Gastrointestinal: Yes: WNL, Normal Bowel Sounds, Soft ...Rectal Exam: Yes: Sphincter Tone Normal Renal/: Yes: White Present (yellow urine- in drainage bag) Breast(s): Yes: WNL Musculoskeletal: Yes: WNL Extremities: Yes: WNL Edema: No Peripheral Pulses WNL: Yes Integumentary: Yes: Pressure Ulcer (Stage 1 to L- Gluteal healed scab to L- mid Gluteal), Other (pressure ulcer to R- Heel) Neurological: Pill rolling tremor noted, +cogwheeling with bradykinesia, moves extremities grossly CBCD WBC 6.1 K/mm3 (4.0-10.0) 02/20/19 07:00 RBC 4.22 M/mm3 (4.00-5.60) 02/20/19 07:00 Hgb 12.7 GM/dL (11.7-16.9) 02/20/19 07:00 Hct 38.5 % (35.4-49) 02/20/19 07:00 MCV 91.3 fl (80-96) 02/20/19 07:00 MCHC 32.8 g/dl (32.0-35.9) 02/20/19 07:00 RDW 15.7 % (11.9-15.9) 02/20/19 07:00 Plt Count 246 K/MM3 (134-434) 02/20/19 07:00 MPV 8.6 fl (7.5-11.1) 02/20/19 07:00 CMP Sodium 141 mmol/L (136-145) 02/20/19 07:00 Potassium 4.7 mmol/L (3.5-5.1) 02/20/19 07:00 Chloride 106 mmol/L (98-107) 02/20/19 07:00 Carbon Dioxide 31 mmol/L (21-32) 02/20/19 07:00 Anion Gap 4 MMOL/L (8-16) L 02/20/19 07:00 BUN 26 mg/dL (7-18) H 02/20/19 07:00 Creatinine 1.0 mg/dL (0.55-1.3) 02/20/19 07:00 Random Glucose 86 mg/dL (74-106) 02/20/19 07:00 Calcium 9.1 mg/dL (8.5-10.1) 02/20/19 07:00 Total Bilirubin 0.4 mg/dL (0.2-1) 02/20/19 07:00 AST 21 U/L (15-37) 02/20/19 07:00 ALT 19 U/L (13-61) 02/20/19 07:00 Alkaline Phosphatase 76 U/L (45-117) 02/20/19 07:00 Total Protein 6.9 g/dl (6.4-8.2) 02/20/19 07:00 Albumin 3.5 g/dl (3.4-5.0) 02/20/19 07:00 CARDIAC ENZYMES Troponin I < 0.02 ng/ml (0.00-0.05) 02/13/19 17:35 Plan 83 y/o man from home with a past medical history of Parkinson's, Dementia, Depression, Hypertension, Hypperlipidemia, CAD, [place] s/p Stent, Glaucoma, COPD, BPH, Colon Ca s/p Colectomy, OA, recent admission 01/03- 01/16 for Complicated UTI who presented to the ED via ambulance for unresponsiveness. Per the patient's daughter the patient's DISAS[employer]ODUCT called EMS because the patient appeared unresponsive and was not breathing. Per the daughter the patient was pale and now is color is pink- back to normal. She reported that when the patient is sitting on the toilet, he stares into space and does not respond for a few minutes. She reported her concerns regarding his Parkinson's and feels his medication needs to be adjusted, but has not been able to take him to see me due to the patient' s gait issues. The daughter denies the patient having fever, chills, SOB, CP, palpitations, AP, N/V/D. marija's daughter reports the last change on the indwelling White was 2 weeks ago. Of note, UA was positive for UTI and this is likely etiology of his symptoms. Continue medical management of urinary tract infection, antibiotics as per primary team, currently on Ceftriaxone, switched from Meropenum. ID consulted and following, note reviewed. Maintain adequate hydration. can continue Sinemet at this time, lethargy seems more consistent with infection. Continue to monitor mental status, which has improved. CT head completed and without acute changes. ID note and PCP note reviewed, plan for discharge, stable at this time.
--- NOTE | 2019-02-22 09:28 | PN ---
Progress Note, Physician History of Present Illness: patient stable no new issues - Current Medication List Current Medications: Active Medications Amlodipine Besylate (Norvasc -) 5 mg PO DAILY [facility] Last Admin: 02/21/19 10:39 Dose: 5 mg Carbidopa/Levodopa (Sinemet *Cr* 25/100 -) 1 combo PO TID@0700,1200,1700 [facility] Last Admin: 02/22/19 06:13 Dose: 1 combo Docusate Sodium (Colace Liquid -) 100 mg PO TID [facility] Last Admin: 02/22/19 06:13 Dose: 100 mg Dorzolamide HCl (Trusopt 2%) 1 drop OS BID [facility] Last Admin: 02/21/19 21:40 Dose: 1 drop Levothyroxine Sodium (Synthroid -) 50 mcg PO ACBK [facility] Last Admin: 02/22/19 06:13 Dose: 50 mcg Magnesium Hydroxide (Milk Of Magnesia -) 30 ml PO DAILY [facility] Last Admin: 02/21/19 10:39 Dose: 30 ml Nystatin (Mycostatin Cream -) 1 applic TP BID [facility] Last Admin: 02/21/19 21:40 Dose: 1 applic Polyethylene Glycol (Miralax (For Daily Use) -) 17 gm PO BID [facility] Last Admin: 02/21/19 21:40 Dose: Not Given Rosuvastatin Calcium (Crestor -) 10 mg PO HS [facility] Last Admin: 02/21/19 21:40 Dose: 10 mg - Objective Vital Signs: Vital Signs Temperature 98.3 F 02/22/19 06:00 Pulse Rate 67 02/22/19 06:00 Respiratory Rate 20 02/22/19 06:00 Blood Pressure 156/86 02/22/19 06:00 O2 Sat by Pulse Oximetry (%) 98 02/21/19 21:00 Constitutional: Yes: No Distress, Calm Cardiovascular: Yes: Regular Rate and Rhythm Respiratory: Yes: Regular, CTA Bilaterally Gastrointestinal: Yes: Normal Bowel Sounds, Soft Musculoskeletal: Yes: WNL Extremities: Yes: WNL Neurological: Yes: Alert Psychiatric: Yes: Other Labs: CBC, BMP 02/20/19 07:00 02/20/19 07:00 INR, PTT INR 1.01 (0.83-1.09) 02/13/19 17:35 Assessment/Plan Problem List - Problems (1) Complicated UTI (urinary tract infection) Code(s): N39.0 - URINARY TRACT INFECTION, SITE NOT SPECIFIED (2) Unresponsive episode Code(s): R41.89 - OTH SYMPTOMS AND SIGNS W COGNITIVE FUNCTIONS AND AWARENESS (3) Parkinson disease Code(s): G20 - PARKINSON'S DISEASE (4) Dementia Code(s): F03.90 - UNSPECIFIED DEMENTIA WITHOUT BEHAVIORAL DISTURBANCE (5) CAD (coronary artery disease) Code(s): I25.10 - ATHSCL HEART DISEASE OF [place] CORONARY ARTERY W/O ANG PCTRS Qualifiers: Coronary Disease-Associated Artery/Lesion type: [place] artery [place] vs. transplanted heart: [place] heart Associated angina: without angina Qualified Code(s): I25.10 - Atherosclerotic heart disease of [place] coronary artery without angina pectoris (6) Hypercholesteremia Code(s): E78.00 - PURE HYPERCHOLESTEROLEMIA, UNSPECIFIED (7) Hypertension Code(s): I10 - ESSENTIAL (PRIMARY) HYPERTENSION Qualifiers: Hypertension type: essential hypertension Qualified Code(s): I10 - Essential (primary) hypertension (8) Hypothyroidism Code(s): E03.9 - HYPOTHYROIDISM, UNSPECIFIED Assessment/Plan This is a 83 y/o man with a PMHx of Parkinson's, Dementia, HTN, HLD, COPD, CAD, [place] s/p Stent's, Depression, OA, Colon Ca s/p Colectomy. Admitted for Complicated UTI, stable continue current mgmt
[2019-02-22] MEDS: amLODIPine BESYLATE 5 MG TABLET (FP) PO SCH (11:19)
[2019-02-22] MEDS: POLYETHYLENE GLYCOL 3350 119 GM BTL PO SCH (12:20)
[2019-02-22] MEDS: NYSTATIN 100,000 UNIT/GM TOPICAL CREAM 15 GM TUBE TP SCH (12:20)
[2019-02-22] MEDS: MAGNESIUM HYDROX 2400MG/30ML ORAL SUSPENSION 30 ML CUP PO SCH (12:20)
[2019-02-22] MEDS: DORZOLAMIDE 2% HCL OPHTHALMIC SOLUTION 10 ML BOTTLE OS SCH (12:21)
[2019-02-22 15:48] VITALS: BP 105/61; PULSE 64; TEMP 97.5
== END 2019-02-22 18:23 | disposition home health service (06) | DRG 698 ==
LOC: JER 15:59 → JERBED 18:34 → J5S 22:44
PROVIDERS: ADMIT Internal Medicine; ATTEND Internal Medicine
DX: T83.511A Infection and inflammatory reaction due to indwelling urethral catheter, initial encounter (principal); G93.41 Metabolic encephalopathy; R64 Cachexia; N39.0 Urinary tract infection, site not specified; Y84.6 Urinary catheterization as the cause of abnormal reaction of the patient, or of later complication, without mention of misadventure at the time of the procedure; G20 Parkinson's disease; F02.80 Dementia in other diseases classified elsewhere, unspecified severity, without behavioral disturbance, psychotic disturbance, mood disturbance, and anxiety; I11.0 Hypertensive heart disease with heart failure; I50.9 Heart failure, unspecified; L89.611 Pressure ulcer of right heel, stage 1; L89.891 Pressure ulcer of other site, stage 1; B96.1 Klebsiella pneumoniae [K. pneumoniae] as the cause of diseases classified elsewhere; B95.61 Methicillin susceptible Staphylococcus aureus infection as the cause of diseases classified elsewhere; I44.0 Atrioventricular block, first degree; E78.00 Pure hypercholesterolemia, unspecified; E03.9 Hypothyroidism, unspecified; G62.9 Polyneuropathy, unspecified; I25.10 Atherosclerotic heart disease of native coronary artery without angina pectoris; E78.5 Hyperlipidemia, unspecified; Z95.5 Presence of coronary angioplasty implant and graft; Z85.038 Personal history of other malignant neoplasm of large intestine; I25.2 Old myocardial infarction; Z96.641 Presence of right artificial hip joint; Z87.891 Personal history of nicotine dependence; Z74.01 Bed confinement status; H54.61 Unqualified visual loss, right eye, normal vision left eye; N40.0 Benign prostatic hyperplasia without lower urinary tract symptoms; Z90.49 Acquired absence of other specified parts of digestive tract; M19.90 Unspecified osteoarthritis, unspecified site; Z68.20 Body mass index [BMI] 20.0-20.9, adult; B96.29 Other Escherichia coli [E. coli] as the cause of diseases classified elsewhere; R13.19 Other dysphagia; G90.9 Disorder of the autonomic nervous system, unspecified
CPT/HCPCS: 36415; 70450-TC; 71045-TC-FY; 74230-TC-FY; 80048; 80053; 81003; 82803; 83605; 83735; 83880; 84443; 84484; 85025; 85610; 85730; 87040; 87086; 87186; 92611-GN; 93005; 93010; 97116-GP; 97161-GP; 99285-25; J1644; J7030

== ENCOUNTER 2019-03-06 21:36 | Emergency (ER) | payer OTHER ==
[2019-03-06 22:23] VITALS: BP 118/65; PULSE 68
--- NOTE | 2019-03-06 22:23 | PDOC ---
History of Present Illness <Jennifer Hutson - Last Filed: 03/07/19 02:02> - General History Source: Family (Daughter ( at [place]).), Old Records Exam Limitations: Dementia - History of Present Illness Initial Comments: HPI: 84 y/o male presenting to [facility] ER with fever for the past two days. TMax today 100.7 orally. Unable to obtain HPI from pt as he is demented at baseline. Daughter at bedside well versed in pts history. States father has been coughing and sneezing occasionally, but otherwise at baseline. Was admitted at this facility approx. 10 days ago for a complicated UTI. Was admitted and received Meropenem and Ceftriaxon for abx coverage. Urine culture grew campo sensitive e. Coli. Discharged home asymptomatic with hancock catheter in place. It was removed by visiting nurse on Monday. She was unable to replace it. Pt has been voiding normally without bloody or discolored urine. Constipated for the past two days, which resolved after two rectal enemas. Medical Hx: - Parkinsons - Dementia - Adenocarcinoma of prostate Review of Systems: Unable to obtain secondary to pt condition. Physical Examination: Constitutional: Elderly adult male in no acute distress or obvious discomfort. Found supine in hospital bed asleep. Eyes open to verbal stimulation. Would not answer questions. Head: Normocephalic. No obvious external signs of trauma. Cardiovascular / Chest: Regular rate and regular rhythm. No murmurs, rubs, clicks, or gallops. Peripheral pulses: radial pulses full. Respiratory: Breathing unlabored. Equal chest rise and fall. Clear to auscultation bilaterally. No stridor, no wheezing, no rhonchi. Gastrointestinal: abdomen is soft and nondistended. No overlying skin lesions or obvious signs of trauma. Skin: Warm and dry. Male : No suprabupic tenderness or fullness. MDM: *Reviewed vital signs, nursing notes, and prior visit documentation (if available). 84 y/o male presenting for fever x2 days and possible coughing/sneezing (not observed in the department) in setting of recent complicated UTI. Afebrile. Vitals unremarkable for hypotension or tachycardia. Physical exam as described above. Suspect possible recurrent UTI versus viral syndrome with clinical picture clouded by Parkinsons and Dementia. Low suspicion for pneumonia. CXR unremarkable for acute cardiopulmonary pathology. CBC unremarkable for leukocytosis. UA remarkable for pyuria, nitrites, and leukocyte esterase. CMP revealed normal Cr and BUN. Urine culture pending. Suspect likely recurrent UTI. Will treat presumptively based on last culture data from previous admission. Ordered single dose of Ceftriaxone in the department. Prescribed outpatient Keflex course. Discussed imaging and laboratory results with pts daughter, a pathologist at [place]. Answered all questions. Provided return precautions. Daughter expressed verbal understanding and agreement with plan to discharge home with outpatient follow up. Mark Weathers M.D., PGY1 Emergency Medicine Resident <Mark Weathers - Last Filed: 03/07/19 03:03> - General Stated Complaint: FEVER Time Seen by Provider: 03/06/19 21:43 Past History <Jennifer Hutson - Last Filed: 03/07/19 02:02> - Past Medical History Anemia: No Asthma: No Cancer: Yes (colon CA) Cardiac Disorders: Yes (hx CT c stent x 15 years ago) CVA: No COPD: No CHF: Yes Dementia: Yes Diabetes: No GI Disorders: Yes (H/O COLON CA) Disorders: No HTN: Yes Hypercholesterolemia: Yes Liver Disease: No Seizures: No Thyroid Disease: Yes (HYPOTHYROID) Lung CA: Yes (colon x 15 years) - Surgical History Abdominal Surgery: Yes (ABD HERNIA REPAIR 4 WEEKS AGO) Appendectomy: No Cardiac Surgery: Yes (stent x 15 years ago) Cholecystectomy: No Lung Surgery: No Neurologic Surgery: No Orthopedic Surgery: Yes (Right hip replacement) - Immunization History Immunization Up to Date: No - Suicide/Smoking/Psychosocial Hx Smoking History: Former smoker Have you smoked in the past 12 months: No If you are a former smoker, when did you quit?: 50YRS AGO Hx Alcohol Use: Yes (OCCAS) Drug/Substance Use Hx: No Substance Use Type: None Hx Substance Use Treatment: No <Mark Weathers - Last Filed: 03/07/19 03:03> - Past Medical History Allergies/Adverse Reactions: Allergies Allergy/AdvReac Type Severity Reaction Status Date / Time No Known Drug Allergies Allergy Verified 02/10/17 05:26 Home Medications: Ambulatory Orders Carbidopa/Levodopa *Cr* 25/100 [Sinemet *Cr* 25/100 -] 1 combo PO TID@0700,1200, 1700 tablet.er 07/14/15 Rosuvastatin [Crestor -] 10 mg PO HS tablet 07/14/15 Levothyroxine [Synthroid -] 50 mcg PO ACBK 02/11/17 Amlodipine Besylate 5 mg PO DAILY 01/03/19 Polyethylene Glycol 3350 [Miralax 255 gm Btl -] 255 gm PO PRN 01/03/19 Dorzolamide HCl [Trusopt 2% -] 1 drop OS BID drops 01/16/19 Magnesium Hydrox 2400MG/30Ml [Milk of Magnesia -] 30 ml PO DAILY PRN cup Cephalexin Monohydrate [Keflex -] 500 mg PO BID 7 Days #14 capsule 03/07/19 *Physical Exam - Vital Signs Last Vital Signs Temp Pulse Resp BP Pulse Ox 99.6 F 68 14 118/65 96 03/06/19 21:50 03/06/19 22:22 03/06/19 22:22 03/06/19 22:22 03/06/19 22:22 <Jennifer Hutson - Last Filed: 03/07/19 02:02> Vital Signs - Vital Signs #1 Blood Pressure: 118/65 MAP: 82 BP Location: Right Arm Blood Pressure Position: Supine Pulse Rate: 68 Respiratory Rate: 14 O2 Sat by Pulse Oximetry (%): 96 Oxygen Delivery Method: Room Air <Mark Weathers - Last Filed: 03/07/19 03:03> ED Treatment Course - LABORATORY CBC & Chemistry Diagram: 03/07/19 00:02 03/07/19 00:02 - ADDITIONAL ORDERS Additional order review: Laboratory Results 03/07/19 03/07/19 00:25 00:02 Sodium 140 Potassium 4.5 Chloride 110 H Carbon Dioxide 27 Anion Gap 3 L BUN 24.9 H Creatinine 1.3 Est GFR (CKD-EPI)AfAm 57.26 Est GFR (CKD-EPI)NonAf 49.41 Random Glucose 104 Calcium 8.0 L Total Bilirubin 0.3 AST 33 ALT 14 Alkaline Phosphatase 86 Total Protein 6.1 L Albumin 2.8 L Urine Color Dk yellow Urine Appearance Turbid Urine pH 5.5 Ur Specific [place] 1.023 Urine Protein 1+ H Urine Glucose (UA) Negative Urine Ketones Trace H Urine Blood 2+ H Urine Nitrite Positive H Urine Bilirubin Negative Urine Urobilinogen 0.2 Ur Leukocyte Esterase 3+ H Urine WBC (Auto) 1932 Urine RBC (Auto) 55 Urine Casts (Auto) 9 U Epithel Cells (Auto) 1.0 Urine Bacteria (Auto) 5273.0 Urine Yeast (Auto) None seen 03/07/19 00:02 RBC 3.29 L MCV 90.1 MCHC 33.4 RDW 15.5 MPV 7.9 Neutrophils % 80.3 Lymphocytes % 9.9 D Monocytes % 9.3 Eosinophils % 0.1 D Basophils % 0.4 - Medications Given in the ED: ED Medications Discontinued Medications Generic Name Dose Route Start Last Admin Trade Name Freq PRN Reason Stop Dose Admin Ceftriaxone Sodium 1,000 mg 03/07/19 01:20 03/07/19 01:37 Rocephin - IVPUSH 03/07/19 01:21 1,000 mg ONCE ONE Administration Sodium Chloride 500 ml 03/07/19 01:17 03/07/19 01:37 Normal Saline - IV 03/07/19 01:18 500 ml ONCE ONE Administration Sodium Chloride 500 ml 03/07/19 01:21 03/07/19 01:37 Normal Saline - IV 03/07/19 01:22 Not Given ONCE ONE <Jennifer Hutson - Last Filed: 03/07/19 02:02> - LABORATORY CBC & Chemistry Diagram: 03/07/19 00:02 03/07/19 00:02 - RADIOLOGY Radiology Studies Ordered: Category Date Time Status CHEST X-RAY PORTABLE* [RAD] Stat Radiology 03/06/19 22:21 Ordered <Mark Weathers - Last Filed: 03/07/19 03:03> *DC/Admit/Observation/Transfer - Discharge Dispostion Decision to Admit order: No <Jennifer Hutson - Last Filed: 03/07/19 02:02> <Mark Weathers - Last Filed: 03/07/19 03:03> Diagnosis at time of Disposition: UTI (urinary tract infection) - Discharge Dispostion Disposition: HOME Condition at time of disposition: Stable - Prescriptions Prescriptions: Cephalexin Monohydrate [Keflex -] 500 mg PO BID 7 Days #14 capsule - Referrals Referrals: Nicholas Putnam MD [Primary Care Provider] - - Patient Instructions Printed Discharge Instructions: DI for Urinary Tract Infection (UTI) Additional Instructions: Please take all antibiotics as prescribed. Please drink plenty of fluids. Please follow up with your PMD in 2-3 days. Please take tylenol or motrin as needed for the fever. Please return to the ED with any further concerns or complaints. If you develop persistent fevers of >100.4 please follow up with your PMD or return to the ED. We sent a urine culture. We will call you if your culture is not sensitive to the antibiotic prescribed.
[2019-03-06 23:05] VITALS: TEMP 99.6; BMI 23.5
--- NOTE | 2019-03-06 23:46 | PDOC ---
Documentation entered by Franca Lindsey SCRIBE, acting as scribe for Jennifer Hutson DO. Jennifer Hutson DO: This documentation has been prepared by the Rosalia olsen Sammi, SCRIBE, under my direction and personally reviewed by me in its entirety. I confirm that the documentation accurately reflects all work, treatment, procedures, and medical decision making performed by me. Attending Attestation - Resident Resident Name: Mark Weathers - ED Attending Attestation I have performed the following: I have examined & evaluated the patient, The case was reviewed & discussed with the resident, I agree w/resident's findings & plan, Exceptions are as noted - HPI HPI: 03/06/19 23:57 The patient is an 84 year old male, with a significant PMH of parkinsons, who presents to the emergency department for evaluation of 2 days of fever, Tmax 100.7. The patients daughter notes the patient experienced constipation which was relieved with 2 enemas. She states she brought the patient in for further evaluation as she was outside with the patient on fathers day and he has been sneezing and coughing, which is non-productive, since. Of note, the patient was recently admitted for a UTI. A hancock catheter was removed by home health aide yesterday and has been urinating normally since. The patient denies chest pain, shortness of breath, headache and dizziness. Denies fever, chills, nausea, vomit, diarrhea and constipation. Denies dysuria, frequency, urgency and hematuria. Allergies: NKA PCP:Indy - Physicial Exam PE: 03/06/19 23:57 GENERAL: Awake, alert, and fully oriented, in no acute distress HEAD: No signs of trauma EYES: PERRLA, EOMI, sclera anicteric, conjunctiva clear ENT: Auricles normal inspection, hearing grossly normal, nares patent, oropharynx clear without exudates. Moist mucosa NECK: Normal ROM, supple, no lymphadenopathy, JVD, or masses LUNGS: (+)poor inspiratory effort. Breath sounds equal, clear to auscultation bilaterally. No wheezes, and no crackles HEART: Regular rate and rhythm, normal S1 and S2, no murmurs, rubs or gallops ABDOMEN: Soft, nontender, normoactive bowel sounds. No guarding, no rebound. No masses GENITOURINARY: (+)Blood initially to meatus which has resolved, recent UTI. EXTREMITIES: (+)parkinsatory tremor to hands. Normal range of motion, no edema. No clubbing or cyanosis. No cords, erythema, or tenderness NEUROLOGICAL: Cranial nerves II through XII grossly intact. Normal speech, normal gait SKIN: Warm, Dry, normal turgor, no rashes or lesions noted. - Medical Decision Making 03/06/19 23:44 I, Dr. Jennifer Hutson, DO, attest that this document has been prepared under my direction and personally reviewed by me in its entirety. I further attest, that it accurately reflects all work, treatment, procedures and medical decision -making performed by me. 03/06/19 23:44 a/p: 84yo male with hx of parkinsons with fever x 2 days -recent uti, treated with iv abx -pt also with new cough x 2 days -had constipation, which was relieved with enema x 2 at home -hancock catheter was removed by the aide -given motrin 2 hrs [employer] -will check labs, cxr, ua, ucx -will monitor and reassess -pt is nontoxic in appearance 03/07/19 00:50 cxr clear 03/07/19 01:20 pt without elevated wbc or fever in ed uti - will start rocephin will dc patient with keflex pt is nontoxic in appearance culture pending
[2019-03-07 00:29] LABS: BASO % 0.4 % (0-2.0); EOS % 0.1 % (0-4.5); HEMATOCRIT 29.7 % (35.4-49); HEMOGLOBIN 9.9 GM/dL (11.7-16.9); LYMPH % 9.9 % (8-40); MCH 30.1 pg (25.7-33.7); MCHC 33.4 g/dl (32.0-35.9); MEAN CELL VOLUME 90.1 fl (80-96); MEAN PLT VOLUME 7.9 fl (7.5-11.1); MONO % 9.3 % (3.8-10.2); NEUT % 80.3 % (42.8-82.8); PLATELET COUNT 221 K/MM3 (134-434); RBC 3.29 M/mm3 (4.00-5.60); RDW 15.5 % (11.9-15.9); WHITE BLOOD COUNT 7.2 K/mm3 (4.0-10.0)
[2019-03-07 01:00] LABS: HYALINE CASTS 9 /lpf (0-8); PH,URINE 5.5 (5.0-8.0); URINE APPEARANCE TURBID; URINE BILIRUBIN NEGATIVE (NEGATIVE); URINE COLOR DK YELLOW; URINE GLUCOSE (UA) NEGATIVE (NEGATIVE); URINE KETONE TRACE (NEGATIVE); URINE LEUK ESTERASE 3+ (NEGATIVE); URINE NITRITE POSITIVE (NEGATIVE); URINE PROTEIN 1+ (NEGATIVE); URINE RBC 55 /hpf (0-4); URINE UROBILINOGEN 0.2 mg/dL (0.2-1.0); URINE WBC 1932 /hpf (0-5)
[2019-03-07 01:07] LABS: ALBUMIN 2.8 g/dl (3.4-5.0); BILIRUBIN,TOTAL 0.3 mg/dL (0.2-1); BLOOD UREA NITROGEN 24.9 mg/dL (7-18); CREATININE 1.3 mg/dL (0.55-1.3); POTASSIUM 4.5 mmol/L (3.5-5.1); TOT PROT 6.1 g/dl (6.4-8.2)
[2019-03-07] MEDS ORDERED: SODIUM CHLORIDE 0.9% 1000 ML INFUS.BAG IV ONE (01:17)
[2019-03-07] MEDS ORDERED: SODIUM CHLORIDE 0.9% 500 ML INFUS.BAG IV ONE (01:21)
[2019-03-07] MEDS ORDERED: CEFTRIAXONE 1 GM/50 ML BAG ONE (01:28)
[2019-03-07 01:46] LABS: YEAST NONE SEEN (NEGATIVE)
== END 2019-03-07 03:22 | disposition home or self-care (01) ==
LOC: JER 21:36
PROC: 3E03329 Introduction of Other Anti-infective into Peripheral Vein, Percutaneous Approach (ICD-10-PCS; principal; 2019-03-06)
PROC: 3E0337Z Introduction of Electrolytic and Water Balance Substance into Peripheral Vein, Percutaneous Approach (ICD-10-PCS; 2019-03-06)
DX: N39.0 Urinary tract infection, site not specified (principal); I25.10 Atherosclerotic heart disease of native coronary artery without angina pectoris; I11.0 Hypertensive heart disease with heart failure; Z95.5 Presence of coronary angioplasty implant and graft; I50.9 Heart failure, unspecified; E78.00 Pure hypercholesterolemia, unspecified; E03.9 Hypothyroidism, unspecified; Z85.038 Personal history of other malignant neoplasm of large intestine; Z85.118 Personal history of other malignant neoplasm of bronchus and lung; I25.2 Old myocardial infarction; Z96.641 Presence of right artificial hip joint; G20 Parkinson's disease
CPT/HCPCS: 36415; 71045-TC-FY; 80053; 81003; 85025; 87086; 87186; 99282-25; J7030

== ENCOUNTER 2021-01-25 06:47 | Inpatient (IN) | payer OTHER ==
[2021-01-25] MEDS ORDERED: ACETAMINOPHEN 1000 MG/100 ML BAG IVPB ONE (07:35)
[2021-01-25] MEDS ORDERED: FAMOTIDINE 20 MG/50 ML IVPB 20 MG/50 ML MG IVPB ONE ×2 (07:36→07:47)
[2021-01-25] MEDS ORDERED: ONDANSETRON 4 MG/2 ML VIAL IVPUSH ONE (07:36)
[2021-01-25 07:38] LABS: BASO % 0.3 % (0-2.0); EOS % 0.1 % (0-4.5); HEMATOCRIT 38.3 % (35.4-49); HEMOGLOBIN 12.8 GM/dL (11.7-16.9); LYMPH % 4.2 % (8-40); MCH 29.5 pg (25.7-33.7); MCHC 33.5 g/dl (32.0-35.9); MEAN CELL VOLUME 88.1 fl (80-96); MEAN PLT VOLUME 8.5 fl (7.5-11.1); MONO % 3.5 % (3.8-10.2); NEUT % 91.9 % (42.8-82.8); PLATELET COUNT 357 K/MM3 (134-434); RBC 4.35 M/mm3 (4.00-5.60); RDW 16.8 % (11.9-15.9); WHITE BLOOD COUNT 18.1 K/mm3 (4.0-10.0)
[2021-01-25 07:46] LABS: INR 1.01 (0.83-1.09); PROTHROMBIN TIME (PATIENT) 12.2 SEC (9.7-13.0)
[2021-01-25] MEDS ORDERED: ONDANSETRON 4 MG/2 ML VIAL ONE (07:46)
[2021-01-25] MEDS ORDERED: ACETAMINOPHEN INJECTION 100 ML IVPB ONE (07:46)
[2021-01-25] MEDS ORDERED: PIPERACILLIN/TAZOB 3.375 GM 3.375 GM in DEXTROSE 5%-WATER - 50 ML IVPB ONE (07:47)
[2021-01-25 07:49] LABS: ACTIVATED PTT 26.3 SECONDS (25.2-36.5)
[2021-01-25 07:56] LABS: CHLORIDE 104 mmol/L (98-107); SODIUM 142 mmol/L (136-145)
[2021-01-25 07:58] LABS: BLOOD UREA NITROGEN 25.9 mg/dL (7-18); CALCIUM 9.4 mg/dL (8.5-10.1); GLUCOSE,RANDOM 175 mg/dL (74-106)
[2021-01-25 07:59] LABS: ALBUMIN 3.7 g/dl (3.4-5.0); ANION GAP 8 MMOL/L (8-16); CO2 31 mmol/L (21-32)
[2021-01-25 08:02] LABS: CREATININE 1.6 mg/dL (0.55-1.3); SGOT/AST 20 U/L (15-37); SGPT/ALT 7 U/L (13-61)
[2021-01-25 08:03] LABS: BILIRUBIN,TOTAL 0.4 mg/dL (0.2-1)
[2021-01-25 08:04] LABS: TOT PROT 7.2 g/dl (6.4-8.2)
[2021-01-25 08:05] LABS: ALK PHOS 85 U/L (45-117)
[2021-01-25] MEDS ORDERED: LACTATED RINGERS SOLUTION 1000 ML INFUS.BAG IV STA (08:06)
[2021-01-25 08:18] LABS: LACTIC ACID 4.6 mmol/L (0.4-2.0)
[2021-01-25] MEDS ORDERED: SODIUM CHLORIDE 1,647 ML IV ONE (08:23)
[2021-01-25] MEDS ORDERED: PIPERACILLIN/TAZOB 3.375 GM 3.375 GM/50 ML BAG IVPB ONE (08:34)
[2021-01-25 08:57] LABS: EPI CELLS 6 /uL (0-25.1); HYALINE CASTS 2 /uL (0-3.1); URINE APPEARANCE TURBID; URINE BACTERIA >9,000 /uL (0-1359); URINE BILIRUBIN NEGATIVE (NEGATIVE); URINE COLOR DK YELLOW; URINE GLUCOSE (UA) NEGATIVE (NEGATIVE); URINE KETONE TRACE (NEGATIVE); URINE LEUK ESTERASE 3+ (NEGATIVE); URINE NITRITE NEGATIVE (NEGATIVE); URINE PROTEIN 1+ (NEGATIVE); URINE WBC 2199 /uL (0-25.8)
[2021-01-25 09:01] LABS: ANISOCYTOSIS 0; MACROCYTOSIS 0; PLATELET ESTIMATE NORMAL
[2021-01-25 09:45] LABS: URINE RBC 776.9 /uL (0-23.9); YEAST NONE SEEN (NEGATIVE)
[2021-01-25] MEDS ORDERED: ETOMIDATE 20 MG/10 ML AMPUL IVPUSH ONE (12:49)
[2021-01-25] MEDS ORDERED: ROCURONIUM BROMIDE 50 MG/5 ML SYRINGE ONE (12:49)
[2021-01-25] MEDS ORDERED: fentaNYL CITRATE 250 MCG/5 ML VIAL ONE (12:51)
[2021-01-25] MEDS: PHENYLEPHRINE HCL 10,000 MCG in DEXTROSE 5%-WATER - 499 ML IV SCH ×2 (15:40→22:00)
[2021-01-25] MEDS ORDERED: PHENYLEPHRINE HCL 10 MG/1 ML SINGLE DOSE VIAL ONE (15:42)
[2021-01-25] MEDS ORDERED: SODIUM CHLORIDE 1,000 ML IV SCH ×2 (15:45→16:03)
[2021-01-25 16:33] LABS: BASO % 2.9 % (0-2.0); EOS % 0.5 % (0-4.5); HEMATOCRIT 31.5 % (35.4-49); HEMOGLOBIN 10.6 GM/dL (11.7-16.9); MCH 29.8 pg (25.7-33.7); MCHC 33.7 g/dl (32.0-35.9); MEAN CELL VOLUME 88.4 fl (80-96); MEAN PLT VOLUME 8.6 fl (7.5-11.1); NEUT % 88.6 % (42.8-82.8); PLATELET COUNT 278 K/MM3 (134-434); RBC 3.56 M/mm3 (4.00-5.60); RDW 16.6 % (11.9-15.9); WHITE BLOOD COUNT 3.5 K/mm3 (4.0-10.0)
[2021-01-25 16:43] LABS: BLOOD UREA NITROGEN 32.2 mg/dL (7-18)
[2021-01-25] MEDS ORDERED: PIPERACILLIN/TAZOB 2.25 GM 2.25 GM in DEXTROSE 5%-WATER - 50 ML IVPB ONE (16:44)
[2021-01-25 16:46] LABS: CREATININE 1.3 mg/dL (0.55-1.3)
[2021-01-25] MEDS ORDERED: PIPERACILLIN/TAZOB 3.375 GM 3.375 GM in DEXTROSE 5%-WATER - 50 ML IVPB SCH (17:00)
[2021-01-25 17:04] LABS: CALCIUM 7.4 mg/dL (8.5-10.1)
[2021-01-25 17:18] LABS: LACTIC ACID 2.9 mmol/L (0.4-2.0)
[2021-01-25 17:29] LABS: ARTERIAL BLD GAS O2 SATURATION 98.6 mmHg (95-98); ARTERIAL BLOOD GAS BASE EXCESS -5.6 mmol/L (-2-2); ARTERIAL BLOOD GAS PO2 137.5 mmHg (80-100); ARTERIAL BLOOD GAS pH 7.337 (7.350-7.450)
[2021-01-25 17:31] LABS: VENT MODE A/C; VENT RATE 12
[2021-01-25 19:14] LABS: PLATELET ESTIMATE NORMAL
[2021-01-25] MEDS: LACTATED RINGERS SOLUTION 1,000 ML IV SCH (19:59)
[2021-01-25] MEDS: ACETAMINOPHEN 1000 MG/100 ML BAG IVPB PRN (21:44)
[2021-01-25 21:59] LABS: HEMATOCRIT 32.3 % (35.4-49); HEMOGLOBIN 10.6 GM/dL (11.7-16.9); MCH 29.6 pg (25.7-33.7); MCHC 32.9 g/dl (32.0-35.9); MEAN CELL VOLUME 90.1 fl (80-96); MEAN PLT VOLUME 8.3 fl (7.5-11.1); PLATELET COUNT 305 K/MM3 (134-434); RBC 3.59 M/mm3 (4.00-5.60); RDW 17.1 % (11.9-15.9); WHITE BLOOD COUNT 3.2 K/mm3 (4.0-10.0)
[2021-01-25] MEDS ORDERED: MUPIROCIN 2% TOPICAL OINTMENT FOR DECOLONIZATION NS SCH ×2 (22:00)
[2021-01-25] MEDS ORDERED: CHLORHEXIDINE GLUCONATE 4% CLEANSER FOR DECOLONIZATION TP SCH (22:00)
[2021-01-25] MEDS: FAMOTIDINE 20 MG/50 ML IVPB 20 MG/50 ML MG IVPB SCH (22:06)
[2021-01-25] MEDS: MUPIROCIN 2% TOPICAL OINTMENT FOR DECOLONIZATION NS SCH (22:08)
[2021-01-25] MEDS: CHLORHEXIDINE GLUCONATE 4% CLEANSER FOR DECOLONIZATION TP SCH (22:08)
[2021-01-25 22:25] LABS: EPI CELLS 13 /uL (0-25.1); HYALINE CASTS 22 /uL (0-3.1); URINE APPEARANCE TURBID; URINE BACTERIA 1672 /uL (0-1359); URINE BILIRUBIN NEGATIVE (NEGATIVE); URINE COLOR YELLOW; URINE GLUCOSE (UA) NEGATIVE (NEGATIVE); URINE KETONE NEGATIVE (NEGATIVE); URINE LEUK ESTERASE 2+ (NEGATIVE); URINE NITRITE POSITIVE (NEGATIVE); URINE PROTEIN 2+ (NEGATIVE); URINE RBC 345 /uL (0-23.9); URINE UROBILINOGEN 0.2 mg/dL (0.2-1.0); URINE WBC 772 /uL (0-25.8)
[2021-01-25 22:34] LABS: LACTIC ACID 5.8 mmol/L (0.4-2.0)
[2021-01-26] MEDS ORDERED: PIPERACILLIN/TAZOB 2.25 GM 2.25 GM in DEXTROSE 5%-WATER - 50 ML IVPB SCH (01:00)
[2021-01-26] MEDS ORDERED: DEXTROSE 5%-WATER - 50 ML IVPB ONE ×3 (01:09→17:00)
[2021-01-26] MEDS ORDERED: PIPERACILLIN/TAZOBACTAM 3.375 GM VIAL IVPB ONE ×3 (01:09→17:00)
[2021-01-26] MEDS: PIPERACILLIN/TAZOB 3.375 GM 3.375 GM in DEXTROSE 5%-WATER - 50 ML IVPB SCH ×3 (01:11→17:06)
[2021-01-26] MEDS: PHENYLEPHRINE HCL 10,000 MCG in DEXTROSE 5%-WATER - 499 ML IV SCH ×3 (01:30→18:15)
[2021-01-26] MEDS: LACTATED RINGERS SOLUTION 1,000 ML IV SCH ×2 (02:51→13:12)
[2021-01-26] MEDS: ACETAMINOPHEN 1000 MG/100 ML BAG IVPB PRN (05:56)
[2021-01-26 06:02] LABS: BASO % 0.3 % (0-2.0); EOS % 0.1 % (0-4.5); HEMATOCRIT 27.3 % (35.4-49); HEMOGLOBIN 9.3 GM/dL (11.7-16.9); MCH 30.1 pg (25.7-33.7); MCHC 34.3 g/dl (32.0-35.9); MEAN PLT VOLUME 8.3 fl (7.5-11.1); MONO % 4.5 % (3.8-10.2); NEUT % 88.1 % (42.8-82.8); PLATELET COUNT 245 K/MM3 (134-434); RDW 16.8 % (11.9-15.9); WHITE BLOOD COUNT 4.6 K/mm3 (4.0-10.0)
[2021-01-26 06:26] LABS: BLOOD UREA NITROGEN 31.6 mg/dL (7-18)
[2021-01-26 06:27] LABS: MAGNESIUM 1.6 mg/dL (1.8-2.4)
[2021-01-26 06:30] LABS: CREATININE 1.3 mg/dL (0.55-1.3); PHOSPHOROUS 2.6 mg/dL (2.5-4.9)
[2021-01-26 06:31] LABS: BILIRUBIN,TOTAL 0.6 mg/dL (0.2-1)
[2021-01-26 06:40] LABS: LACTIC ACID 3.2 mmol/L (0.4-2.0)
[2021-01-26] MEDS: LEVOTHYROXINE SODIUM 100 MCG VIAL IVPUSH SCH (07:21)
[2021-01-26] MEDS ORDERED: MAGNESIUM SULF 50% (8.12 MEQ/2 ML-1 GM VIAL) IVPB ONE (08:38)
[2021-01-26] MEDS: FAMOTIDINE 20 MG/50 ML IVPB 20 MG/50 ML MG IVPB SCH ×2 (09:40→21:28)
[2021-01-26 10:17] LABS: ARTERIAL BLOOD GAS BASE EXCESS -3.6 mmol/L (-2-2); ARTERIAL BLOOD GAS PO2 144.2 mmHg (80-100); ARTERIAL BLOOD GAS pH 7.452 (7.350-7.450)
[2021-01-26 10:23] LABS: VENT MODE A/C; VENT RATE 12
[2021-01-26] MEDS ORDERED: LACTATED RINGERS SOLUTION 1,000 ML/1,000 ML INFUS.BAG IV STA ×2 (10:24→12:26)
[2021-01-26] MEDS: FLUCONAZOLE 100 MG/NS 50 ML IVPB SCH (13:11)
[2021-01-26] MEDS: ACETAMINOPHEN 1000 MG/100 ML BAG IVPB SCH ×3 (13:11→22:29)
[2021-01-26] MEDS: MUPIROCIN 2% TOPICAL OINTMENT FOR DECOLONIZATION NS SCH ×2 (14:42→21:29)
[2021-01-26] MEDS: CHLORHEXIDINE GLUCONATE 4% CLEANSER FOR DECOLONIZATION TP SCH (21:28)
[2021-01-26] MEDS: HEPARIN NA (PORCINE) 5,000 UNITS/ML 1ML VIAL SQ SCH (21:28)
[2021-01-27] MEDS ORDERED: DEXTROSE 5%-WATER - 50 ML IVPB ONE ×3 (01:50→18:25)
[2021-01-27] MEDS ORDERED: PIPERACILLIN/TAZOBACTAM 3.375 GM VIAL IVPB ONE ×3 (01:50→18:25)
[2021-01-27] MEDS: PIPERACILLIN/TAZOB 3.375 GM 3.375 GM in DEXTROSE 5%-WATER - 50 ML IVPB SCH ×3 (01:52→18:45)
[2021-01-27] MEDS: LACTATED RINGERS SOLUTION 1,000 ML IV SCH (01:53)
[2021-01-27] MEDS: ACETAMINOPHEN 1000 MG/100 ML BAG IVPB SCH (05:28)
[2021-01-27] MEDS: HEPARIN NA (PORCINE) 5,000 UNITS/ML 1ML VIAL SQ SCH ×3 (05:28→21:05)
[2021-01-27] MEDS: LEVOTHYROXINE SODIUM 100 MCG VIAL IVPUSH SCH (06:24)
[2021-01-27 06:30] LABS: BASO % 0.2 % (0-2.0); EOS % 0.1 % (0-4.5); HEMATOCRIT 21.9 % (35.4-49); HEMOGLOBIN 7.8 GM/dL (11.7-16.9); LYMPH % 6.6 % (8-40); MCH 30.6 pg (25.7-33.7); MCHC 35.5 g/dl (32.0-35.9); MEAN CELL VOLUME 86.1 fl (80-96); MEAN PLT VOLUME 8.7 fl (7.5-11.1); MONO % 4.1 % (3.8-10.2); PLATELET COUNT 171 K/MM3 (134-434); RBC 2.55 M/mm3 (4.00-5.60); RDW 16.9 % (11.9-15.9); WHITE BLOOD COUNT 7.7 K/mm3 (4.0-10.0)
[2021-01-27 06:59] LABS: LACTIC ACID 2.8 mmol/L (0.4-2.0)
[2021-01-27 07:31] LABS: ALBUMIN 1.9 g/dl (3.4-5.0); BLOOD UREA NITROGEN 27.5 mg/dL (7-18); MAGNESIUM 1.7 mg/dL (1.8-2.4)
[2021-01-27 07:33] LABS: CREATININE 1.1 mg/dL (0.55-1.3)
[2021-01-27 07:35] LABS: BILIRUBIN,TOTAL 0.5 mg/dL (0.2-1); TOT PROT 4.1 g/dl (6.4-8.2)
[2021-01-27] MEDS ORDERED: DEXTROSE 50%-WATER - 25 GM/50 ML VIAL IVPUSH ONE (08:26)
[2021-01-27] MEDS ORDERED: MAGNESIUM 1GM/D5W 100ML - 100 ML IVPB IVPB ONE (09:00)
[2021-01-27] MEDS ORDERED: DEXTROSE 50%-WATER 25 GM/50 ML DISP.SYRIN ONE (09:21)
[2021-01-27] MEDS ORDERED: PT OWN MED DRAWER 7, Y5N ONE ×2 (09:31→11:37)
[2021-01-27] MEDS: MUPIROCIN 2% TOPICAL OINTMENT FOR DECOLONIZATION NS SCH ×2 (10:25→21:05)
[2021-01-27] MEDS: FAMOTIDINE 20 MG/50 ML IVPB 20 MG/50 ML MG IVPB SCH ×2 (10:25→21:06)
[2021-01-27] MEDS: FLUCONAZOLE 100 MG/NS 50 ML IVPB SCH (12:51)
[2021-01-27] MEDS ORDERED: MULTIVIT INJ. ADULT COMBO WITH VIT K 1 COMBO 10 ML VIAL IV ONE (15:00)
[2021-01-27] MEDS: AMINO ACIDS 4.25%/D5W 1,000 ML IV SCH (15:57)
[2021-01-27] MEDS: CHLORHEXIDINE GLUCONATE 4% CLEANSER FOR DECOLONIZATION TP SCH (21:06)
[2021-01-28] MEDS ORDERED: PIPERACILLIN/TAZOBACTAM 3.375 GM VIAL IVPB ONE ×3 (00:48→17:56)
[2021-01-28] MEDS ORDERED: DEXTROSE 5%-WATER - 50 ML IVPB ONE ×3 (00:48→17:56)
[2021-01-28] MEDS: PIPERACILLIN/TAZOB 3.375 GM 3.375 GM in DEXTROSE 5%-WATER - 50 ML IVPB SCH ×3 (01:40→18:32)
[2021-01-28] MEDS: HEPARIN NA (PORCINE) 5,000 UNITS/ML 1ML VIAL SQ SCH (05:04)
[2021-01-28] MEDS: AMINO ACIDS 4.25%/D5W 1,000 ML IV SCH ×2 (05:04→18:30)
[2021-01-28 05:58] LABS: BASO % 0.4 % (0-2.0); EOS % 0.3 % (0-4.5); HEMOGLOBIN 7.1 GM/dL (11.7-16.9); LYMPH % 6.2 % (8-40); MCH 30.4 pg (25.7-33.7); MCHC 35.2 g/dl (32.0-35.9); MEAN CELL VOLUME 86.2 fl (80-96); MONO % 5.5 % (3.8-10.2); NEUT % 87.6 % (42.8-82.8); PLATELET COUNT 160 K/MM3 (134-434); RBC 2.33 M/mm3 (4.00-5.60); RDW 16.9 % (11.9-15.9); WHITE BLOOD COUNT 5.4 K/mm3 (4.0-10.0)
[2021-01-28 06:12] LABS: HEMATOCRIT 20.1 % (35.4-49)
[2021-01-28] MEDS: LEVOTHYROXINE SODIUM 100 MCG VIAL IVPUSH SCH (06:17)
[2021-01-28 06:33] LABS: ALBUMIN 1.8 g/dl (3.4-5.0); BLOOD UREA NITROGEN 29.7 mg/dL (7-18); CALCIUM 7.1 mg/dL (8.5-10.1); MAGNESIUM 1.9 mg/dL (1.8-2.4)
[2021-01-28 06:36] LABS: CREATININE 0.9 mg/dL (0.55-1.3); PHOSPHOROUS 1.8 mg/dL (2.5-4.9)
[2021-01-28 06:38] LABS: BILIRUBIN,TOTAL 0.4 mg/dL (0.2-1); TOT PROT 4.1 g/dl (6.4-8.2)
[2021-01-28] MEDS ORDERED: SODIUM PHOSPHATE - 15 MM in SODIUM CHLORIDE 250 ML IVPB ONE (08:30)
[2021-01-28] MEDS ORDERED: PT OWN MED DRAWER 7, Y5N ONE (09:06)
[2021-01-28] MEDS: FLUCONAZOLE 100 MG/NS 50 ML IVPB SCH (09:22)
[2021-01-28] MEDS: FAMOTIDINE 20 MG/50 ML IVPB 20 MG/50 ML MG IVPB SCH ×2 (09:22→22:16)
[2021-01-28] MEDS: MUPIROCIN 2% TOPICAL OINTMENT FOR DECOLONIZATION NS SCH (09:22)
[2021-01-28 11:01] LABS: ANISOCYTOSIS 1+; MACROCYTOSIS 0; OVALOCYTE 1+; PLATELET ESTIMATE NORMAL; TOXIC GRANULATION 2+
[2021-01-28] MEDS ORDERED: MULTIVIT INJECTION ADULT 10 ML in AMINO ACIDS 4.25%/D5W 1,000 ML IV SCH (15:30)
[2021-01-28] MEDS ORDERED: morphine SULFATE 4 MG/ML VIAL IVPUSH PRN (17:32)
[2021-01-28] MEDS: MULTIVIT INJ. ADULT COMBO WITH VIT K 1 COMBO 10 ML VIAL IV SCH (18:32)
[2021-01-28] MEDS ORDERED: FAT EMUL/SOY/MCT/OLIV/FISH OIL 250 ML IV SCH (22:00)
[2021-01-28] MEDS ORDERED: SMOFLIPID - FAT EMUL/SOY/MCT/OLIV/FISH OIL 250 ML EMULSION IV SCH (22:00)
[2021-01-28] MEDS ORDERED: CHLORHEXIDINE GLUCONATE 4% CLEANSER FOR DECOLONIZATION TP SCH (22:00)
[2021-01-28] MEDS ORDERED: MUPIROCIN 2% TOPICAL OINTMENT FOR DECOLONIZATION NS SCH (22:00)
[2021-01-29] MEDS ORDERED: PIPERACILLIN/TAZOBACTAM 3.375 GM VIAL IVPB ONE ×3 (02:55→18:03)
[2021-01-29] MEDS ORDERED: DEXTROSE 5%-WATER - 50 ML IVPB ONE ×3 (02:55→18:03)
[2021-01-29] MEDS: PIPERACILLIN/TAZOB 3.375 GM 3.375 GM in DEXTROSE 5%-WATER - 50 ML IVPB SCH ×3 (02:56→18:40)
[2021-01-29] MEDS ORDERED: PT OWN MED DRAWER 7, Y5N ONE ×2 (06:11→22:07)
[2021-01-29] MEDS: LEVOTHYROXINE SODIUM 100 MCG VIAL IVPUSH SCH (06:34)
[2021-01-29 08:52] LABS: BASO % 0.2 % (0-2.0); HEMATOCRIT 27.8 % (35.4-49); HEMOGLOBIN 9.5 GM/dL (11.7-16.9); LYMPH % 6.4 % (8-40); MCH 30.1 pg (25.7-33.7); MCHC 34.3 g/dl (32.0-35.9); MEAN CELL VOLUME 87.8 fl (80-96); MEAN PLT VOLUME 9.3 fl (7.5-11.1); MONO % 6.6 % (3.8-10.2); NEUT % 85.8 % (42.8-82.8); PLATELET COUNT 130 K/MM3 (134-434); RBC 3.17 M/mm3 (4.00-5.60); RDW 16.3 % (11.9-15.9); WHITE BLOOD COUNT 5.9 K/mm3 (4.0-10.0)
[2021-01-29] MEDS ORDERED: FLUCONAZOLE 100 MG/NS 50 ML IVPB SCH (10:00)
[2021-01-29 10:39] LABS: ANISOCYTOSIS 1+; MACROCYTOSIS 0; PLATELET ESTIMATE DECREASED
[2021-01-29] MEDS: FAMOTIDINE 20 MG/50 ML IVPB 20 MG/50 ML MG IVPB SCH ×2 (10:40→21:18)
[2021-01-29] MEDS: FLUCONAZOLE 100 MG/NS 50 ML IVPB SCH (10:41)
[2021-01-29] MEDS: MULTIVIT INJ. ADULT COMBO WITH VIT K 1 COMBO 10 ML VIAL IV SCH ×3 (10:41→22:43)
[2021-01-29] MEDS: AMINO ACIDS 4.25%/D5W 1,000 ML IV SCH ×3 (10:43→22:43)
[2021-01-29 13:41] LABS: ALBUMIN 2.1 g/dl (3.4-5.0); BLOOD UREA NITROGEN 29.3 mg/dL (7-18); CALCIUM 7.4 mg/dL (8.5-10.1); MAGNESIUM 1.8 mg/dL (1.8-2.4)
[2021-01-29 13:45] LABS: CREATININE 0.8 mg/dL (0.55-1.3)
[2021-01-29 13:46] LABS: BILIRUBIN,TOTAL 0.6 mg/dL (0.2-1); TOT PROT 4.6 g/dl (6.4-8.2)
[2021-01-29 16:19] VITALS: BMI 20.5
[2021-01-29] MEDS: FAT EMULSION/OLIVE/SOY (CLINOLIPID) 250 ML EMULSION IV SCH (21:30)
[2021-01-30] MEDS ORDERED: DEXTROSE 5%-WATER - 50 ML IVPB ONE ×3 (01:09→19:22)
[2021-01-30] MEDS ORDERED: PIPERACILLIN/TAZOBACTAM 3.375 GM VIAL IVPB ONE ×4 (01:09→19:22)
[2021-01-30] MEDS: PIPERACILLIN/TAZOB 3.375 GM 3.375 GM in DEXTROSE 5%-WATER - 50 ML IVPB SCH ×3 (02:29→20:47)
[2021-01-30] MEDS ORDERED: PT OWN MED DRAWER 7, Y5N ONE ×2 (05:15→21:29)
[2021-01-30] MEDS: LEVOTHYROXINE SODIUM 100 MCG VIAL IVPUSH SCH (06:10)
[2021-01-30 09:10] LABS: HEMATOCRIT 25.7 % (35.4-49); HEMOGLOBIN 8.8 GM/dL (11.7-16.9); MCHC 34.3 g/dl (32.0-35.9); MEAN CELL VOLUME 87.4 fl (80-96); MEAN PLT VOLUME 9.2 fl (7.5-11.1); PLATELET COUNT 177 K/MM3 (134-434); RBC 2.94 M/mm3 (4.00-5.60); RDW 15.7 % (11.9-15.9); WHITE BLOOD COUNT 8.6 K/mm3 (4.0-10.0)
[2021-01-30 09:55] LABS: BLOOD UREA NITROGEN 23.9 mg/dL (7-18); CALCIUM 7.3 mg/dL (8.5-10.1); MAGNESIUM 1.7 mg/dL (1.8-2.4)
[2021-01-30 09:58] LABS: CREATININE 0.7 mg/dL (0.55-1.3); PHOSPHOROUS 1.4 mg/dL (2.5-4.9)
[2021-01-30 10:00] LABS: BILIRUBIN,TOTAL 0.6 mg/dL (0.2-1); TOT PROT 4.6 g/dl (6.4-8.2)
[2021-01-30] MEDS: FAMOTIDINE 20 MG/50 ML IVPB 20 MG/50 ML MG IVPB SCH ×2 (12:03→23:14)
[2021-01-30] MEDS ORDERED: POTASSIUM PHOSPHATE 15 MM in DEXTROSE 5%-WATER - 500 ML IVPB ONE (12:16)
[2021-01-30] MEDS ORDERED: MAGNESIUM SULF 50% (8.12 MEQ/2 ML-1 GM VIAL) IVPB ONE (12:16)
[2021-01-30] MEDS: AMINO ACIDS 4.25%/D5W 1,000 ML IV SCH (12:29)
[2021-01-30] MEDS: FLUCONAZOLE 100 MG/NS 50 ML IVPB SCH (12:41)
[2021-01-30] MEDS: KCL 10 MEQ IVPB 10 MEQ/100 ML INFUS.BAG IVPB SCH ×3 (15:13→18:49)
[2021-01-30] MEDS: MULTIVIT INJ. ADULT COMBO WITH VIT K 1 COMBO 10 ML VIAL IV SCH (16:56)
[2021-01-30] MEDS: FAT EMULSION/OLIVE/SOY (CLINOLIPID) 250 ML EMULSION IV SCH (22:43)
[2021-01-31] MEDS: MULTIVIT INJ. ADULT COMBO WITH VIT K 1 COMBO 10 ML VIAL IV SCH ×2 (01:13→15:35)
[2021-01-31] MEDS: AMINO ACIDS 4.25%/D5W 1,000 ML IV SCH (01:13)
[2021-01-31] MEDS ORDERED: DEXTROSE 5%-WATER - 50 ML IVPB ONE ×3 (01:33→17:06)
[2021-01-31] MEDS ORDERED: PIPERACILLIN/TAZOBACTAM 3.375 GM VIAL IVPB ONE ×3 (01:33→17:06)
[2021-01-31] MEDS: PIPERACILLIN/TAZOB 3.375 GM 3.375 GM in DEXTROSE 5%-WATER - 50 ML IVPB SCH ×3 (02:36→19:31)
[2021-01-31] MEDS ORDERED: PT OWN MED DRAWER 7, Y5N ONE ×2 (05:15→21:44)
[2021-01-31] MEDS: LEVOTHYROXINE SODIUM 100 MCG VIAL IVPUSH SCH (05:59)
[2021-01-31 09:27] LABS: BASO % 0.3 % (0-2.0); EOS % 0.4 % (0-4.5); HEMATOCRIT 24.9 % (35.4-49); HEMOGLOBIN 8.7 GM/dL (11.7-16.9); LYMPH % 3.1 % (8-40); MCH 30.2 pg (25.7-33.7); MCHC 34.8 g/dl (32.0-35.9); MEAN CELL VOLUME 86.7 fl (80-96); MEAN PLT VOLUME 9.3 fl (7.5-11.1); MONO % 11.4 % (3.8-10.2); NEUT % 84.8 % (42.8-82.8); PLATELET COUNT 200 K/MM3 (134-434); RBC 2.87 M/mm3 (4.00-5.60); RDW 15.9 % (11.9-15.9); WHITE BLOOD COUNT 10.5 K/mm3 (4.0-10.0)
[2021-01-31 10:20] LABS: BLOOD UREA NITROGEN 26.6 mg/dL (7-18); CALCIUM 7.3 mg/dL (8.5-10.1); MAGNESIUM 2.1 mg/dL (1.8-2.4)
[2021-01-31 10:22] LABS: CREATININE 0.7 mg/dL (0.55-1.3)
[2021-01-31 10:23] LABS: PHOSPHOROUS 2.2 mg/dL (2.5-4.9)
[2021-01-31 10:24] LABS: BILIRUBIN,TOTAL 0.6 mg/dL (0.2-1); TOT PROT 4.8 g/dl (6.4-8.2)
[2021-01-31 11:28] LABS: ANISOCYTOSIS 0; HELMET CELLS 0; HOWELL-JOLLY BODIES 0; MACROCYTOSIS 0; OVALOCYTE 0; PLATELET ESTIMATE NORMAL; ROULEAU 0; SICKELED CELLS 0; TARGET CELLS 0; TEAR DROP CELLS 0; TOXIC GRANULATION 0
[2021-01-31] MEDS: FAMOTIDINE 20 MG/50 ML IVPB 20 MG/50 ML MG IVPB SCH ×2 (11:52→22:06)
[2021-01-31] MEDS: FLUCONAZOLE 100 MG/NS 50 ML IVPB SCH (12:26)
[2021-01-31] MEDS ORDERED: KCL 10 MEQ IVPB 10 MEQ/100 ML INFUS.BAG IVPB SCH (13:00)
[2021-01-31] MEDS: KCL 10 MEQ IVPB 10 MEQ/100 ML INFUS.BAG IVPB SCH ×2 (13:08→15:04)
[2021-01-31] MEDS: AMINO ACIDS IV SCH ×2 (15:34→23:44)
[2021-01-31] MEDS: POTASSIUM CHLORIDE IV SCH ×2 (15:34→23:44)
[2021-01-31] MEDS ORDERED: ACETAMINOPHEN 1000 MG/100 ML BAG IVPB PRN (21:43)
[2021-01-31] MEDS: FAT EMULSION/OLIVE/SOY (CLINOLIPID) 250 ML EMULSION IV SCH (22:06)
[2021-01-31] MEDS ORDERED: FUROSEMIDE 40 MG/4 ML INJECTABLE VIAL IVPUSH ONE (22:21)
[2021-02-01] MEDS ORDERED: DEXTROSE 5%-WATER - 50 ML IVPB ONE ×3 (01:33→18:45)
[2021-02-01] MEDS ORDERED: PIPERACILLIN/TAZOBACTAM 3.375 GM VIAL IVPB ONE ×3 (01:33→18:45)
[2021-02-01] MEDS: PIPERACILLIN/TAZOB 3.375 GM 3.375 GM in DEXTROSE 5%-WATER - 50 ML IVPB SCH ×3 (02:13→17:54)
[2021-02-01] MEDS: MULTIVIT INJ. ADULT COMBO WITH VIT K 1 COMBO 10 ML VIAL IV SCH ×2 (03:50→16:49)
[2021-02-01] MEDS: POTASSIUM CHLORIDE IV SCH ×2 (03:50→11:33)
[2021-02-01] MEDS: AMINO ACIDS IV SCH ×2 (03:50→11:33)
[2021-02-01] MEDS ORDERED: PT OWN MED DRAWER 7, Y5N ONE ×3 (05:20→22:13)
[2021-02-01] MEDS: LEVOTHYROXINE SODIUM 100 MCG VIAL IVPUSH SCH (06:04)
[2021-02-01 08:21] LABS: BASO % 0.1 % (0-2.0); EOS % 0.6 % (0-4.5); HEMATOCRIT 24.5 % (35.4-49); HEMOGLOBIN 8.4 GM/dL (11.7-16.9); LYMPH % 3.1 % (8-40); MCH 29.4 pg (25.7-33.7); MCHC 34.1 g/dl (32.0-35.9); MEAN CELL VOLUME 86.3 fl (80-96); MONO % 8.1 % (3.8-10.2); NEUT % 88.1 % (42.8-82.8); PLATELET COUNT 271 K/MM3 (134-434); RBC 2.84 M/mm3 (4.00-5.60); RDW 16.3 % (11.9-15.9)
[2021-02-01 08:39] LABS: ALBUMIN 1.8 g/dl (3.4-5.0); BLOOD UREA NITROGEN 29.6 mg/dL (7-18); CALCIUM 7.1 mg/dL (8.5-10.1)
[2021-02-01 08:42] LABS: CREATININE 0.8 mg/dL (0.55-1.3)
[2021-02-01 08:44] LABS: BILIRUBIN,TOTAL 0.8 mg/dL (0.2-1); TOT PROT 4.7 g/dl (6.4-8.2)
[2021-02-01] MEDS: FAMOTIDINE 20 MG/50 ML IVPB 20 MG/50 ML MG IVPB SCH ×2 (11:28→22:46)
[2021-02-01] MEDS ORDERED: FUROSEMIDE 40 MG/4 ML INJECTABLE VIAL IVPUSH ONE (12:30)
[2021-02-01] MEDS: FLUCONAZOLE 100 MG/NS 50 ML IVPB SCH (13:55)
[2021-02-01] MEDS ORDERED: AMINO ACIDS 4.25%/D5W 1,000 ML IV SCH (16:00)
[2021-02-01] MEDS: FAT EMULSION/OLIVE/SOY (CLINOLIPID) 250 ML EMULSION IV SCH (22:46)
[2021-02-02] MEDS ORDERED: PIPERACILLIN/TAZOBACTAM 3.375 GM VIAL IVPB ONE (01:40)
[2021-02-02] MEDS ORDERED: DEXTROSE 5%-WATER - 50 ML IVPB ONE (01:41)
[2021-02-02] MEDS: PIPERACILLIN/TAZOB 3.375 GM 3.375 GM in DEXTROSE 5%-WATER - 50 ML IVPB SCH (01:49)
[2021-02-02] MEDS: LEVOTHYROXINE SODIUM 100 MCG VIAL IVPUSH SCH (06:47)
[2021-02-02 07:49] LABS: HEMATOCRIT 25.2 % (35.4-49); HEMOGLOBIN 8.6 GM/dL (11.7-16.9); MCH 29.3 pg (25.7-33.7); MCHC 34.1 g/dl (32.0-35.9); MEAN CELL VOLUME 85.9 fl (80-96); MEAN PLT VOLUME 8.3 fl (7.5-11.1); PLATELET COUNT 403 K/MM3 (134-434); RBC 2.93 M/mm3 (4.00-5.60); RDW 16.5 % (11.9-15.9); WHITE BLOOD COUNT 20.9 K/mm3 (4.0-10.0)
[2021-02-02 08:52] LABS: BLOOD UREA NITROGEN 27.4 mg/dL (7-18)
[2021-02-02 08:53] LABS: ALBUMIN 1.8 g/dl (3.4-5.0); CALCIUM 7.6 mg/dL (8.5-10.1); MAGNESIUM 1.9 mg/dL (1.8-2.4)
[2021-02-02 08:56] LABS: CREATININE 0.9 mg/dL (0.55-1.3)
[2021-02-02 08:57] LABS: BILIRUBIN,TOTAL 1.1 mg/dL (0.2-1)
[2021-02-02] MEDS ORDERED: MEROPENEM 500 MG in DEXTROSE 5%-WATER 100 ML IVPB SCH ×2 (10:00→18:00)
[2021-02-02] MEDS ORDERED: FUROSEMIDE 40 MG/4 ML INJECTABLE VIAL IVPUSH ONE (10:10)
[2021-02-02 10:11] LABS: ALLENS TEST POSITIVE; ARTERIAL BLD GAS O2 SATURATION 92.1 mmHg (95-98); ARTERIAL BLOOD GAS BASE EXCESS -1.3 mmol/L (-2-2); ARTERIAL BLOOD GAS PO2 61.8 mmHg (80-100); ARTERIAL BLOOD GAS pH 7.411 (7.350-7.450)
[2021-02-02] MEDS ORDERED: MEROPENEM 500 MG VIAL (RESTRICTED TO ID) IVPB ONE (10:24)
[2021-02-02] MEDS ORDERED: DEXTROSE 5%-WATER 100 ML IVPB ONE (10:24)
[2021-02-02] MEDS: FAMOTIDINE 20 MG/50 ML IVPB 20 MG/50 ML MG IVPB SCH (10:33)
[2021-02-02 13:43] LABS: BASO % 0.2 % (0-2.0); EOS % 0.1 % (0-4.5); HEMATOCRIT 25.8 % (35.4-49); HEMOGLOBIN 8.8 GM/dL (11.7-16.9); LYMPH % 1.4 % (8-40); MCH 29.4 pg (25.7-33.7); MCHC 34.1 g/dl (32.0-35.9); MEAN CELL VOLUME 86.2 fl (80-96); MEAN PLT VOLUME 8.2 fl (7.5-11.1); MONO % 6.6 % (3.8-10.2); NEUT % 91.7 % (42.8-82.8); PLATELET COUNT 444 K/MM3 (134-434); RDW 16.3 % (11.9-15.9); WHITE BLOOD COUNT 21.5 K/mm3 (4.0-10.0)
[2021-02-02] MEDS ORDERED: RAPID SEQUENCE INTUBATION KIT NR ONE (13:55)
[2021-02-02] MEDS ORDERED: ATROPINE SULFATE 1 MG/10 ML DISP.SYRIN IVPUSH ONE ×4 (14:00→14:47)
[2021-02-02] MEDS ORDERED: NOREPINEPHRINE NS PREMIX 8,000 MCG/500 ML BAG IVPB SCH (14:00)
[2021-02-02] MEDS ORDERED: VASOPRESSIN 40 UNITS in SODIUM CHLORIDE 98 ML IVPB SCH (14:00)
[2021-02-02] MEDS ORDERED: MIDAZOLAM HCL 5 MG/1 ML Single Dose Vial ONE (14:02)
[2021-02-02] MEDS ORDERED: SODIUM CHLORIDE 0.9% 500 ML INFUS.BAG IV ONE (14:13)
[2021-02-02] MEDS ORDERED: NOREPINEPHRINE BITARTRATE 8,000 MCG/500 ML BAG IVPB ONE (14:16)
[2021-02-02 14:17] LABS: ALBUMIN 1.9 g/dl (3.4-5.0); CALCIUM 7.6 mg/dL (8.5-10.1); MAGNESIUM 1.9 mg/dL (1.8-2.4)
[2021-02-02] MEDS ORDERED: SODIUM CHLORIDE 2,000 ML IV STA (14:18)
[2021-02-02 14:21] LABS: BILIRUBIN,TOTAL 1.1 mg/dL (0.2-1); CREATININE 0.9 mg/dL (0.55-1.3); PHOSPHOROUS 2.4 mg/dL (2.5-4.9); TOT PROT 5.2 g/dl (6.4-8.2)
[2021-02-02] MEDS ORDERED: VASOPRESSIN 20 UNITS/ML VIAL IV ONE (14:25)
[2021-02-02] MEDS ORDERED: DOPAMINE 400 MG/D5W - 400,000 MCG/250 ML INFUS.BAG IVPB ONE (14:30)
[2021-02-02 14:35] LABS: ANISOCYTOSIS 0; MACROCYTOSIS 0; OVALOCYTE 1+; PLATELET ESTIMATE INCREASED; ROULEAU 1+; TARGET CELLS 1+
[2021-02-02] MEDS ORDERED: ATROPINE SULFATE 1 MG/10 ML DISP.SYRIN ONE (14:49)
[2021-02-02] MEDS ORDERED: KCL 10 MEQ IVPB 10 MEQ/100 ML INFUS.BAG IVPB SCH (15:00)
[2021-02-02] MEDS ORDERED: EPINEPHrine 1:10,000 (P-F SYR) 1 MG/10 ML DISP.SYRIN ONE (15:11)
[2021-02-02] MEDS ORDERED: ETOMIDATE 20 MG/10 ML AMPUL IVPUSH ONE ×2 (15:47→16:15)
[2021-02-02] MEDS ORDERED: MIDAZOLAM HCL 5 MG/1 ML Single Dose Vial IVPUSH ONE (15:47)
[2021-02-02 19:47] VITALS: TEMP 98.1
[2021-02-02] MEDS: FLUCONAZOLE 100 MG/NS 50 ML IVPB SCH (20:12)
[2021-02-02 20:17] VITALS: BP 75/37; PULSE 29
[2021-02-02] MEDS ORDERED: MUPIROCIN 2% TOPICAL OINTMENT FOR DECOLONIZATION NS SCH (22:00)
[2021-02-02] MEDS ORDERED: FAMOTIDINE 20 MG/50 ML IVPB 20 MG/50 ML MG IVPB SCH (22:00)
[2021-02-02] MEDS ORDERED: CHLORHEXIDINE GLUCONATE 4% CLEANSER FOR DECOLONIZATION TP SCH (22:00)
[2021-02-03] MEDS ORDERED: LEVOTHYROXINE SODIUM 100 MCG VIAL IVPUSH SCH (07:00)
[2021-02-03] MEDS ORDERED: FLUCONAZOLE 100 MG/NS 50 ML IVPB SCH (10:00)
== END 2021-02-02 15:23 | disposition expired | DRG 853 ==
LOC: JER 06:47 → JERBED 10:34 → JICU 18:57 → J5S 01-28 17:00 → JICU 02-02 11:26
PROVIDERS: ADMIT Internal Medicine Pulmonary Disease; ATTEND Internal Medicine
PROC: 0DB80ZZ Excision of Small Intestine, Open Approach (ICD-10-PCS; 2021-01-25)
PROC: 0DN80ZZ Release Small Intestine, Open Approach (ICD-10-PCS; 2021-01-25)
PROC: 0DBU0ZZ Excision of Omentum, Open Approach (ICD-10-PCS; 2021-01-25)
PROC: 5A1945Z Respiratory Ventilation, 24-96 Consecutive Hours (ICD-10-PCS; 2021-01-25)
PROC: 0BH17EZ Insertion of Endotracheal Airway into Trachea, Via Natural or Artificial Opening (ICD-10-PCS; 2021-01-25)
PROC: 0DQE0ZZ Repair Large Intestine, Open Approach (ICD-10-PCS; principal; 2021-01-25 11:30)
PROC: 30233N1 Transfusion of Nonautologous Red Blood Cells into Peripheral Vein, Percutaneous Approach (ICD-10-PCS; 2021-01-28)
PROC: 5A12012 Performance of Cardiac Output, Single, Manual (ICD-10-PCS; 2021-02-02)
PROC: 05HM33Z Insertion of Infusion Device into Right Internal Jugular Vein, Percutaneous Approach (ICD-10-PCS; 2021-02-02)
PROC: B543ZZA Ultrasonography of Right Jugular Veins, Guidance (ICD-10-PCS; 2021-02-02)
DX: A41.9 Sepsis, unspecified organism (principal); R65.21 Severe sepsis with septic shock; J18.9 Pneumonia, unspecified organism; K63.1 Perforation of intestine (nontraumatic); J96.01 Acute respiratory failure with hypoxia; K56.51 Intestinal adhesions [bands], with partial obstruction; N17.9 Acute kidney failure, unspecified; N39.0 Urinary tract infection, site not specified; J98.11 Atelectasis; J90 Pleural effusion, not elsewhere classified; E87.2 Acidosis; R64 Cachexia; Z68.1 Body mass index [BMI] 19.9 or less, adult; I10 Essential (primary) hypertension; E78.5 Hyperlipidemia, unspecified; F03.90 Unspecified dementia, unspecified severity, without behavioral disturbance, psychotic disturbance, mood disturbance, and anxiety; D64.9 Anemia, unspecified; G20 Parkinson's disease; J44.9 Chronic obstructive pulmonary disease, unspecified; I25.10 Atherosclerotic heart disease of native coronary artery without angina pectoris; N40.0 Benign prostatic hyperplasia without lower urinary tract symptoms; E87.6 Hypokalemia; Z95.5 Presence of coronary angioplasty implant and graft; D72.829 Elevated white blood cell count, unspecified; E03.9 Hypothyroidism, unspecified; D72.819 Decreased white blood cell count, unspecified
CPT/HCPCS: 36415; 36430; 36600; 71045-TC-FY; 71250-TC; 74177-TC; 80048; 80053; 81003; 82436; 82550; 82570; 82803; 82962; 83605; 83735; 84100; 84133; 84300; 84478; 84484; 85025; 85027; 85610; 85730; 86850; 86900; 86901; 86922; 87040; 87070; 87077; 87086; 87186; 87205; 87804; 87899; 88305-TC; 93005; 93010; 94002; 97116-GP; 97162-GP; 99285-25; C9803; J0131; J1644; P9058; Q9967; U0003; U0005